=== PATIENT | female | born 1980 | race Caucasian/White ===

== ENCOUNTER → 2021-11-10 01:57 | Outpatient (CLI) | payer OTHER, SELFPAY ==
[2021-11-10 19:52] LABS: SARS-CoV-2 RNA PCR Negative
== END ==
PROVIDERS: PCP Family Medicine; Visit Provider Family Medicine
DX: R68.89 Other general symptoms and signs (principal); Z20.822 Contact with and (suspected) exposure to COVID-19
CPT/HCPCS: C9803; U0003; U0005

== ENCOUNTER 2022-03-26 10:23 | Emergency (ER) | payer OTHER, SELFPAY ==
[2022-03-26] VITALS (28 sets, daily range): BP systolic 109–131; BP diastolic 68–87; PULSE 90–110; RESP 10–20; O2SAT 98–100
--- NOTE | ~2022-03-26 | XR_ITS ---
EXAMINATION: XR chest 2V DATE: 03/26/2022 10:57 INDICATION: Left-sided chest pain TECHNIQUE: PA and lateral views of the chest were obtained. COMPARISON: Chest radiograph dated 05/20/2012 FINDINGS: The lungs remain clear with no focal airspace opacities, pulmonary edema, pleural effusion or pneumot horax. The cardiomediastinal silhouette is normal. Median sternotomy wires, mediastinal surgical clip s likely ostial markers consistent with prior coronary artery bypass grafting. Alternatively this cou ld also represent change of a prior aortic valve repair. There is an additional cardiac valve repair and favor tricuspid of the mitral. Retained cardiac pacemaker lead with 2-lead tips projecting over t he posterolateral wall of the left ventricle. Bones and soft tissues are unremarkable. IMPRESSION: 1. No acute cardiopulmonary disease. Reviewed, dictated and finalized at location B.
--- NOTE | ~2022-03-26 | CT_ITS ---
EXAMINATION: CTA chest PE protocol DATE: 03/26/2022 12:10 INDICATION: Left-sided chest pain. Elevated d-dimer. Shortness of breath. TECHNIQUE: Computed tomography (CT) pulmonary angiogram of the chest was performed with 100 mL Omnipa que-350 intravenous contrast. Additional 3D reconstructions utilizing coronal maximum intensity proje ction (MIP) were performed. Automated exposure control and iterative reconstruction technique were em ployed. The dose-length product was 210.82 mGy-cm. COMPARISON: 03/04/2010 FINDINGS: Excellent contrast opacification of the pulmonary arteries. There is mild streak artifact from dense contrast in the superior vena cava and right atrium. Mild scattered respiratory motion artifact which mildly decreases sensitivity in some of the smaller subsegmental pulmonary arteries. No pulmonary em bolism. 10 x 5 mm nodule at the lateral sulcus of the right lower lobe. No pneumonia, pulmonary edema , pleural effusion or pneumothorax. Heart size is normal. Postoperative change of prior median sterno kierra and both mitral and tricuspid valve repairs. There is a retained cardiac pacemaker lead which ex tends from the subcutaneous tissues in the left pectoral region with distal lead tips overlying the l ateral wall of the left ventricle. No pericardial effusion. Thoracic aorta is normal in caliber with no dissection. No pathologically enlarged thoracic lymphadenopathy. Likely benign 9 mm hypodense righ t thyroid nodule. Mild thoracic dextrocurvature. IMPRESSION: 1. No pulmonary embolism or other acute cardiopulmonary disease. 2. Indeterminate 10 x 5 mm right lower lobe nodule with more bandlike configuration when viewed on th e sagittal images and favor atelectasis/scarring. Consider 6-12 month follow-up low-dose noncontrast chest CT. Reviewed, dictated and finalized at location B. IMPRESSION: 1. No pulmonary embolism or other acute cardiopulmonary disease. 2. Indeterminate 10 x 5 mm right lower lobe nodule with more bandlike configura tion when viewed on the sagittal images and favor atelectasis/scarring. Conside r 6-12 month follow-up low-dose noncontrast chest CT.
--- NOTE | 2022-03-26 10:26 | ECG_ITS ---
Measurements Intervals [place] Rate: 108 P: 83 IA: 118 QRS: 55 QRSD: 85 T: 3 QT: 351 QTc: 471 Interpretive Statements SINUS TACHYCARDIA WITH SHORT IA INTERVAL BASELINE ARTIFACT POSSIBLE LEFT ATRIAL ENLARGEMENT [-0.1mV P WAVE IN V1/V2] POSSIBLE RIGHT VENTRICULAR CONDUCTION DELAY [RSR (QR) IN V1/V2] NONSPECIFIC ST & T-WAVE ABNORMALITY BORDERLINE ECG NO PREVIOUS ECG AVAILABLE FOR COMPARISON Electronically Signed On 03-26-2022 17:01:07 CDT by Austin Beckman M.D.
--- NOTE | 2022-03-26 10:41 | ED.CHESTPAIN ---
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 Patient states the pressure is positional and intermittent. Patient denies any associated shortness of breath. Patient states while the pain is reproducible with movement it is dissimilar than her substernal chest pain. Related Data Home Medications Medication Instructions Recorded Confirmed apixaban 5 mg tablet (Eliquis) mg 03/26/22 apixaban 5 mg tablet (Eliquis) tablet 03/26/22 aspirin 81 mg tablet mg PO 03/26/22 buprenorphine 2 mg-naloxone 0.5 mg film 03/26/22 sublingual film buprenorphine 2 mg-naloxone 0.5 mg film 03/26/22 sublingual film buprenorphine 4 mg-naloxone 1 mg film 03/26/22 sublingual film cyclobenzaprine 10 mg tablet tablet 03/26/22 duloxetine 60 mg capsule,delayed cap PO 03/26/22 release metoprolol succinate 25 mg tablet PO 03/26/22 tablet,extended release 24 hr pantoprazole 40 mg tablet,delayed tablet PO 03/26/22 release sennosides 8.6 mg tablet (senna) tablet 03/26/22 trazodone 50 mg tablet tablet 03/26/22 Allergies Allergy/AdvReac Type Severity Reaction Status Date / Time codeine Allergy Mild Hives / Verified 03/26/22 10:52 Red Face BEE POLLENS Allergy Mild Anaphylaxis Uncoded 03/26/22 10:52 Review of Systems Review of Systems: CONSTITUTIONAL: Denies fever, chills, or sweats. EYES: Denies visual changes, redness, or discharge. ENT: Denies rhinorrhea, congestion, sore throat, or otalgia. CARDIOVASCULAR: Left-sided chest wall pain RESPIRATORY: Denies cough or dyspnea. GASTROINTESTINAL: Denies abdominal pain, nausea, vomiting, or diarrhea. GENITOURINARY: Denies dysuria or hematuria. SKIN: Denies rash or itching. MUSCULOSKELETAL: Denies back pain, joint pain, or myalgia. NEUROLOGIC: Denies headache, numbness, or weakness. Exam Narrative: APPEARANCE: Well appearing, no pain, no distress, well-nourished. HEAD: normocephalic, atraumatic. EYES: PERRLA/EOMI, conjunctivae clear. THROAT: Pharynx clear, no exudate. NECK: Supple. No adenopathy, no masses. RESPIRATORY: Airway patent, respirations nonlabored. Clear to auscultation bilaterally, no rales, rhonchi, wheezing. CARDIOVASCULAR: Regular rate and rhythm without murmurs rubs or gallops. ABDOMINAL: Soft, nontender, nondistended, normal bowel sounds MUSCULOSKELETAL: Moves all extremities. Strength/ROM intact, No edema, No calf tenderness. Reproducible left-sided chest wall tenderness to palpation. NEURO: Alert. Cranial nerves II through XII intact. Grossly intact SKIN: Warm, dry. Normal Color. No evidence of erythema or cellulitis overlying the chest wall. No crepitus Course Course Emergency Course: D-dimer was elevated. CTA chest showed no acute abnormalities. Patient had serial troponins that were negative. Patient's left-sided chest pressure is reproducible to palpation. Patient was encouraged with close follow-up with her physicians. Vital Signs Vital signs: Vital Signs Pulse Rate 110 H 03/26/22 10:34 Respiratory Rate 15 03/26/22 10:34 Pulse Rate 93 03/26/22 16:11 Respiratory Rate 20 03/26/22 16:11 Blood Pressure 109/81 03/26/22 16:11 Pulse Oximetry 99 03/26/22 16:11 Oxygen Delivery Room Air 03/26/22 10:39 MDM - Chest Pain Lab Data Attestation: I reviewed the patient's lab results. Result diagrams: 03/26/22 10:37 03/26/22 10:37 Labs: Lab Results 03/26/22 03/26/22 03/26/22 Range/Units 10:36 10:37 10:37 WBC 5.7 (4.5-10.0) K/mm3 RBC 5.06 (4.2-5.4) M/mm3 Hgb 14.8 (12.0-15.0) g/dL Hct 43.6 (37.0-47.0) % MCV 86.2 (80-100) fl MCH 29.2 (26-34) pg MCHC 33.
[2022-03-26 10:53] LABS: Basophils Percent Auto 0.3 % (0.2-1.2); Eosinophils Absolute Auto 0.1 K/mm3 (0-0.3); Eosinophils Percent Auto 2.4 % (0-4.4); Hematocrit 43.6 % (37.0-47.0); Hemoglobin 14.8 g/dL (12.0-15.0); Immature Granulocyte Absolute 0.01 K/mm3 (0.00-0.031); Immature Granulocyte Percent A 0.2 % (0-0.5); Lymphocytes Absolute Auto 2.57 K/mm3 (0.9-3.2); Lymphocytes Percent Auto 44.9 % (18.3-44.2); Mean Corpuscular HGB Conc 33.9 g/dl (32-36); Mean Corpuscular Hemoglobin 29.2 pg (26-34); Mean Corpuscular Volume 86.2 fl (80-100); Mean Platelet Volume 8.8 fl (7.4-10.4); Monocytes Absolute Auto 0.5 K/mm3 (0.1-0.6); Monocytes Percent Auto 8.4 % (2.6-8.5); Neutrophils Absolute Auto 2.5 K/mm3 (1.3-6.7); Neutrophils Percent Auto 43.8 % (45.5-73.1); Platelet Count Result 196 k/mm3 (150-375); Red Blood Count 5.06 M/mm3 (4.2-5.4); Red Cell Distribution Width 12.1 % (11.5-14.5); White Blood Count 5.7 K/mm3 (4.5-10.0)
[2022-03-26 11:01] LABS: Alanine Aminotransferase 15 U/L (6-35); Albumin Level 4.4 g/dL (3.5-5.1); Alkaline Phosphatase 57 U/L (38-126); Anion Gap 8 mmol/L (8-16); Aspartate Amino Transferase 28 U/L (14-36); Bilirubin,Total 0.4 mg/dL (0.2-1.3); Blood Urea Nitrogen 17 mg/dL (7-17); Calcium 8.4 mg/dL (8.4-10.2); Carbon Dioxide 27 mmol/L (22-30); Chloride 102 mmol/L (98-107); Estimated CRCL calculation 82 ml/min; Estimated Glomerular Filt Rate > 60; Glucose 90 mg/dL (65-110); Potassium 3.6 mmol/L (3.4-5.0); Sodium 137 mmol/L (137-145)
[2022-03-26 11:10] LABS: Troponin I < 0.012 ng/mL (0.000-0.034)
[2022-03-26 11:15] LABS: D Dimer 0.78 ug/mL (<0.48)
[2022-03-26 14:14] LABS: Troponin I < 0.012 ng/mL (0.000-0.034)
== END 2022-03-26 16:12 | disposition home or self-care (01) ==
PROVIDERS: Emergency Provider Emergency Medicine; PCP Family Medicine
DX: R07.89 Other chest pain (principal); Z79.82 Long term (current) use of aspirin
CPT/HCPCS: 36415; 71046; 71275; 80053; 81025; 84484; 85025; 85380; 93005; 99284; Q9967

== ENCOUNTER 2022-07-13 18:03 | Emergency (ER) | payer OTHER, SELFPAY ==
[2022-07-13] VITALS (9 sets, daily range): BP systolic 96–109; BP diastolic 55–61; PULSE 70–87; RESP 12–20; TEMP 36.7; O2SAT 93–100
--- NOTE | ~2022-07-13 | XR_ITS ---
EXAM: XR hand LT 2V, XR forearm LT 2V DATE: 07/13/2022 18:55 HISTORY: fall, pain IN 2ND AND 3RD DIGIT . COMPARISON: 05/04/2010 and 05/01/2009. FINDINGS: Normal mineralization. No fracture or dislocation. No lytic or blastic lesion. Joint space s and physes are maintained. No erosion or periosteal change. Soft tissues within normal limits. Poss ible mild displacement of the anterior fat pad of the elbow. IMPRESSION: No acute osseous finding in the left forearm or wrist. Possible mild elbow joint effusion versus projectional artifact, if there is elbow joint pain, recommend dedicated elbow joint radiogra phs for further evaluation. Reviewed, dictated and finalized at location K. IMPRESSION: No acute osseous finding in the left forearm or wrist. Possible mil d elbow joint effusion versus projectional artifact, if there is elbow joint pa in, recommend dedicated elbow joint radiographs for further evaluation.
--- NOTE | ~2022-07-13 | XR_ITS ---
EXAM: XR shoulder LT min 2V DATE: 07/13/2022 18:55 HISTORY: fall, pain ALL AROUND WITH MOVEMENT . COMPARISON: 03/06/2009. FINDINGS: Intact sternotomy wires. Valve replacement. Ostial markers. Abandoned pacing wire. Normal m ineralization. No fracture or dislocation. No lytic or blastic lesion. Joint spaces are maintained. N o erosion or periosteal change. Soft tissues within normal limits. IMPRESSION: No acute osseous finding in the left shoulder. Reviewed, dictated and finalized at location K.
--- NOTE | 2022-07-13 20:37 | ED.GENADULT ---
HPI - General Adult General Chief complaint: Extremity Injury, Upper Stated complaint: LIGHTHEADED EPISODE,FELL L ARM INJURY Time Seen by Provider: 07/13/22 19:29 History of Present Illness HPI narrative: Patient is a 42-year-old female who presents ER with left upper extremity pain. 4 days ago patient got up from sitting and became lightheaded and had a brief episode of syncope. She did strike her head and her left shoulder. Patient is anticoagulated on blood thinner. She has had no headache or change in vision or hearing since the fall. She has had steady increase in her discomfort in her left shoulder posteriorly and worse with internal and external rotation as well as lifting her arm. No numbness or tingling extending down the arm. She has mild discomfort in her hand and wrist but range of motion remains intact. Patient contacted her physician today who recommended she be evaluated in the ER. Patient has history of multiple valve replacement due to endocarditis and her doctors instructed to be cautious when going from sitting to standing as it takes a bit for her body to stabilize itself. Related Data Home Medications Medication Instructions Recorded Confirmed apixaban 5 mg tablet (Eliquis) mg 03/26/22 apixaban 5 mg tablet (Eliquis) tablet 03/26/22 aspirin 81 mg tablet mg PO 03/26/22 buprenorphine 2 mg-naloxone 0.5 mg film 03/26/22 sublingual film buprenorphine 2 mg-naloxone 0.5 mg film 03/26/22 sublingual film buprenorphine 4 mg-naloxone 1 mg film 03/26/22 sublingual film cyclobenzaprine 10 mg tablet tablet 03/26/22 duloxetine 60 mg capsule,delayed cap PO 03/26/22 release metoprolol succinate 25 mg tablet PO 03/26/22 tablet,extended release 24 hr pantoprazole 40 mg tablet,delayed tablet PO 03/26/22 release sennosides 8.6 mg tablet (senna) tablet 03/26/22 trazodone 50 mg tablet tablet 03/26/22 Allergies Allergy/AdvReac Type Severity Reaction Status Date / Time codeine Allergy Mild Hives / Verified 07/13/22 19:50 Red Face BEE POLLENS Allergy Mild Anaphylaxis Uncoded 07/13/22 19:50 Review of Systems Review of Systems: All systems reviewed & are unremarkable except as noted in HPI and below Constitutional: Constitutional: Denies chills and Denies fever(s) ENT: Denies nasal congestion and Denies sore throat Cardiovascular: Cardiovascular: Reports chest pain, Denies rapid heart rate and Denies radiating jaw, neck or arm pain Respiratory: Respiratory: Denies cough and Denies dyspnea Musculoskeletal: Musculoskeletal: Reports arthralgias and Denies joint swelling Neurologic: Reports syncope, Denies headache(s), Denies focal weakness and Denies numbness PMFSH Past Medical History Medical History (Updated 07/13/22 @ 22:09 by Nathaniel Darling MD) Endocarditis Surgical History Surgical History (Updated 07/13/22 @ 21:13 by Nathaniel Darling MD) H/O mitral valve replacement H/O tricuspid valve replacement Social History Social History (Updated 07/13/22 @ 21:14 by Nathaniel Darling MD) Substance use type: former substance user Exam Narrative: GENERAL: Well-appearing, well-nourished, and in no acute distress. HEAD: Normocephalic, atraumatic. EYES: PERRL and EOMI. ENT: Mucous membranes moist. CHEST: Clear to auscultation. No respiratory distress. HEART: Regular rate and rhythm. Normal peripheral pulses. ABDOMEN: Soft, nontender, nondistended. EXTREMITIES: Normal range of motion. No edema. SKIN: Warm, dry, no rash. 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 NEURO: Alert and oriented x3. PSYCH: Normal mood and affect. Course Course Emergency Course: Patient resting comfortably. Labs and orthostatics unremarkable. Discharge home. Vital Signs Vital signs: Vital Signs Temperature 98.1 F 07/13/22 18:23 Pulse Rate 87 07/13/22 18:23 Respiratory Rate 20 07/13/22 18:23 Blood Pressure 98/59 L 07/13/22 18:23 Pulse Oximetry
[2022-07-13 21:56] LABS: Basophils Percent Auto 0.4 % (0.2-1.2); Eosinophils Absolute Auto 0.1 K/mm3 (0-0.3); Eosinophils Percent Auto 1.3 % (0-4.4); Hematocrit 42.8 % (37.0-47.0); Immature Granulocyte Absolute 0.01 K/mm3 (0.00-0.031); Immature Granulocyte Percent A 0.2 % (0-0.5); Lymphocytes Absolute Auto 1.58 K/mm3 (0.9-3.2); Lymphocytes Percent Auto 29.2 % (18.3-44.2); Mean Corpuscular HGB Conc 32.7 g/dl (32-36); Mean Corpuscular Volume 88.6 fl (80-100); Monocytes Absolute Auto 0.3 K/mm3 (0.1-0.6); Monocytes Percent Auto 6.1 % (2.6-8.5); Neutrophils Absolute Auto 3.4 K/mm3 (1.3-6.7); Neutrophils Percent Auto 62.8 % (45.5-73.1); Platelet Count Result 158 k/mm3 (150-375); Red Blood Count 4.83 M/mm3 (4.2-5.4); Red Cell Distribution Width 13.2 % (11.5-14.5); White Blood Count 5.4 K/mm3 (4.5-10.0)
[2022-07-13 22:05] LABS: Anion Gap 11 mmol/L (8-16); Blood Urea Nitrogen 17 mg/dL (7-17); Calcium 8.8 mg/dL (8.4-10.2); Carbon Dioxide 27 mmol/L (22-30); Chloride 100 mmol/L (98-107); Estimated CRCL calculation 80 ml/min; Estimated Glomerular Filt Rate > 60; Glucose 96 mg/dL (65-110); Potassium 3.5 mmol/L (3.4-5.0); Sodium 138 mmol/L (137-145)
== END 2022-07-13 22:30 | disposition home or self-care (01) ==
PROVIDERS: Emergency Provider Emergency Medicine; PCP Family Medicine
DX: M25.512 Pain in left shoulder (principal); R55 Syncope and collapse; Z95.2 Presence of prosthetic heart valve
CPT/HCPCS: 36415; 73030; 73090; 73120; 80048; 85025; 99284

== ENCOUNTER 2022-09-03 22:00 | Emergency (ER) | payer OTHER, SELFPAY ==
--- NOTE | ~2022-09-03 | XR_ITS ---
EXAMINATION: XR chest 1V portable INDICATION: Transient alteration of awareness TECHNIQUE: Portable AP chest at 0150 hours COMPARISON: 03/26/2022 FINDINGS: The lungs are free of acute opacities. No pleural effusion or pneumothorax. The heart size is normal. There are changes of cardiac valve repair. Pacemaker leads project over the heart. IMPRESSION: 1. No acute cardiopulmonary abnormality. Reviewed, dictated and finalized at location A. R
[2022-09-03 22:02] VITALS: BP 137/86; PULSE 106; RESP 20; TEMP 36.8; O2SAT 99
--- NOTE | 2022-09-03 22:08 | ECG_ITS ---
Measurements Intervals [place] Rate: 94 P: 84 ID: 107 QRS: 60 QRSD: 79 T: 50 QT: 347 QTc: 436 Interpretive Statements SINUS RHYTHM WITH SHORT ID INTERVAL POSSIBLE RIGHT ATRIAL ENLARGEMENT LEFT ATRIAL ENLARGEMENT BORDERLINE ST-T WAVE ABNORMALITY- ANT/INF LEADS BORDERLINE ECG COMPARED TO ECG 03/26/2022 10:32:20 SINUS RHYTHM NOW PRESENT Electronically Signed On 09-04-2022 6:44:33 [employer]GER [employer] by Krishna Lockett D.O.
[2022-09-03 23:54] VITALS: BP 109/73; PULSE 65; RESP 16; TEMP 36.9; O2SAT 100
[2022-09-04] VITALS (9 sets, daily range): BP systolic 99–115; BP diastolic 60–71; PULSE 72–80; RESP 11–18; O2SAT 99–100
--- NOTE | 2022-09-04 01:17 | ED.DIZZY ---
HPI - Dizziness General Chief Complaint: Syncope Stated Complaint: syncopal event at home Time Seen by Provider: 09/04/22 00:29 History of Present Illness HPI Narrative: 42-year-old female with history of endocarditis with a pacemaker and heart presenting the emergency department for evaluation after having a syncopal episode. Patient states she has had syncope previously and was told when she gets the symptoms she needs to lower herself down to the ground. When patient had onset of the symptoms she did attempt to lower herself to the ground but did wake up a few seconds later. Patient states she does have some sternal tenderness to palpation. Patient also reports that she has had some increased generalized fatigue as well. Patient had her pacemaker and heart valve placed at [facility] and patient follows up with Dr. Delgado. Related Data Home Medications Medication Instructions Recorded Confirmed apixaban 5 mg tablet (Eliquis) mg 03/26/22 apixaban 5 mg tablet (Eliquis) tablet 03/26/22 aspirin 81 mg tablet mg PO 03/26/22 buprenorphine 2 mg-naloxone 0.5 mg film 03/26/22 sublingual film buprenorphine 2 mg-naloxone 0.5 mg film 03/26/22 sublingual film buprenorphine 4 mg-naloxone 1 mg film 03/26/22 sublingual film cyclobenzaprine 10 mg tablet tablet 03/26/22 duloxetine 60 mg capsule,delayed cap PO 03/26/22 release metoprolol succinate 25 mg tablet PO 03/26/22 tablet,extended release 24 hr pantoprazole 40 mg tablet,delayed tablet PO 03/26/22 release sennosides 8.6 mg tablet (senna) tablet 03/26/22 trazodone 50 mg tablet tablet 03/26/22 Allergies Allergy/AdvReac Type Severity Reaction Status Date / Time codeine Allergy Mild Hives / Verified 09/03/22 22:09 Red Face BEE POLLENS Allergy Mild Anaphylaxis Uncoded 09/03/22 22:09 Review of Systems Review of Systems: CONSTITUTIONAL: Syncope, generalized tiredness EYES: Denies visual changes, redness, or discharge. ENT: Denies rhinorrhea, congestion, sore throat, or otalgia. CARDIOVASCULAR: Denies chest pain, palpitations, or edema. RESPIRATORY: Denies cough or dyspnea. GASTROINTESTINAL: Denies abdominal pain, nausea, vomiting, or diarrhea. GENITOURINARY: Denies dysuria or hematuria. SKIN: Denies rash or itching. MUSCULOSKELETAL: Denies back pain, joint pain, or myalgia. NEUROLOGIC: Denies headache, numbness, or weakness. [facility] Past Medical History Medical History (Updated 09/04/22 @ 03:49 by Gilbert Nguyen MD) Endocarditis Surgical History Surgical History (Updated 07/13/22 @ 21:13 by Nathaniel Darling MD) H/O mitral valve replacement H/O tricuspid valve replacement Social History Social History (Updated 07/13/22 @ 21:14 by Nathaniel Darling MD) Substance use type: former substance user Exam Narrative: APPEARANCE: Well appearing, no pain, no distress, well-nourished. HEAD: normocephalic, atraumatic. EYES: PERRLA/EOMI, conjunctivae clear. NOSE: Normal no drainage NECK: Supple. No adenopathy, no masses. RESPIRATORY: Airway patent, respirations nonlabored. Clear to auscultation bilaterally, no rales, rhonchi, wheezing. CARDIOVASCULAR: Regular rate and rhythm without murmurs rubs or gallops. ABDOMINAL: Soft, nontender, nondistended, normal bowel sounds MUSCULOSKELETAL: Moves all extremities. Strength/ROM intact, No edema, No calf tenderness. NEURO: Alert. Cranial nerves II through XII intact. Grossly intact SKIN: Warm, dry. Normal Color Course Course Emergency Course: Patient felt improved in the ED. Patient's labs are within normal limits. Patient was afebrile with no leukocytosis. Patient's electrolytes are within normal limits. Patient's COVID and flu were also negative. Chest x-ray showed no acute cardiopulmonary malady. Patient does have history of syncope this sounds similar to her previous episodes. Patient was requesting discharge to home. Patient was encouraged to increase her fluid intake and to
--- NOTE | 2022-09-04 01:54 | PC.NURSE ---
Called main lab at 01:53 to let them know I JIC'ed two tubes with demo labels because patient was a very hard stick.
[2022-09-04 01:57] LABS: Basophils Percent Auto 0.1 % (0.2-1.2); Eosinophils Percent Auto 0.1 % (0-4.4); Hematocrit 41.3 % (37.0-47.0); Hemoglobin 13.7 g/dL (12.0-15.0); Immature Granulocyte Absolute 0.01 K/mm3 (0.00-0.031); Immature Granulocyte Percent A 0.1 % (0-0.5); Lymphocytes Absolute Auto 1.58 K/mm3 (0.9-3.2); Lymphocytes Percent Auto 22.4 % (18.3-44.2); Mean Corpuscular HGB Conc 33.2 g/dl (32-36); Mean Corpuscular Hemoglobin 29.3 pg (26-34); Mean Corpuscular Volume 88.2 fl (80-100); Mean Platelet Volume 8.8 fl (7.4-10.4); Monocytes Absolute Auto 0.6 K/mm3 (0.1-0.6); Monocytes Percent Auto 7.8 % (2.6-8.5); Neutrophils Absolute Auto 4.9 K/mm3 (1.3-6.7); Neutrophils Percent Auto 69.5 % (45.5-73.1); Platelet Count Result 188 k/mm3 (150-375); Red Blood Count 4.68 M/mm3 (4.2-5.4); Red Cell Distribution Width 13.3 % (11.5-14.5); White Blood Count 7.1 K/mm3 (4.5-10.0)
[2022-09-04 02:10] LABS: Alanine Aminotransferase 14 U/L (6-35); Albumin Level 4.1 g/dL (3.5-5.1); Alkaline Phosphatase 51 U/L (38-126); Anion Gap 4 mmol/L (8-16); Aspartate Amino Transferase 17 U/L (14-36); Bilirubin,Total 0.7 mg/dL (0.2-1.3); Blood Urea Nitrogen 17 mg/dL (7-17); Calcium 8.4 mg/dL (8.4-10.2); Carbon Dioxide 30 mmol/L (22-30); Chloride 101 mmol/L (98-107); Estimated CRCL calculation 83 ml/min; Estimated Glomerular Filt Rate > 60; Glucose 92 mg/dL (65-110); Potassium 3.8 mmol/L (3.4-5.0); Sodium 135 mmol/L (137-145)
[2022-09-04 02:55] LABS: Influenza A QL RT-PCR Negative (Negative); Influenza B QL RT-PCR Negative (Negative); SARS-CoV-2 RNA PCR Negative
== END 2022-09-04 04:18 | disposition home or self-care (01) ==
PROVIDERS: Emergency Provider Emergency Medicine; PCP Family Medicine
DX: R55 Syncope and collapse (principal); I38 Endocarditis, valve unspecified; Z95.0 Presence of cardiac pacemaker; Z95.2 Presence of prosthetic heart valve; R94.31 Abnormal electrocardiogram [ECG] [EKG]
CPT/HCPCS: 36415; 71045; 80053; 85025; 87636; 93005; 99284

== ENCOUNTER 2023-07-01 09:42 | Emergency (ER) | payer OTHER, SELFPAY ==
[2023-07-01 09:54] VITALS: BP 107/56; PULSE 83; RESP 16; TEMP 36.9; O2SAT 100
--- NOTE | 2023-07-01 10:00 | ED.URI ---
HPI - URI/Sore Throat General Chief Complaint: Upper Respiratory Infection Stated Complaint: Sore Throat, Body Ache, LT Ear Irritation Time Seen by Provider: 07/01/23 10:04 Source: patient, RN notes reviewed and old records reviewed Mode of arrival: ambulatory Limitations: no limitations History of Present Illness HPI Narrative: 43-year-old female presents to the [facility] with complaints of sore throat, body aches, left ear pain since Tuesday. Has taken Tylenol. Reports boyfriend tested positive for COVID recently. Treatments prior to arrival: acetaminophen Related Data Home Medications Medication Instructions Recorded Confirmed apixaban 5 mg tablet (Eliquis) 5 mg PO DAILY 03/26/22 07/01/23 aspirin 81 mg tablet 81 mg PO DAILY 03/26/22 07/01/23 buprenorphine 2 mg-naloxone 0.5 mg 0.5 film sublingual DAILY 03/26/22 07/01/23 sublingual film cyclobenzaprine 10 mg tablet 10 mg PO PRN PRN Muscle Spasm 03/26/22 07/01/23 duloxetine 60 mg capsule,delayed 1 cap PO DAILY 03/26/22 07/01/23 release metoprolol succinate 25 mg 1 tablet PO DAILY 03/26/22 07/01/23 tablet,extended release 24 hr pantoprazole 40 mg tablet,delayed 1 tablet PO DAILY 03/26/22 07/01/23 release sennosides 8.6 mg tablet (senna) 1 tablet PO DAILY 03/26/22 07/01/23 trazodone 50 mg tablet 1 tablet PO HS 03/26/22 07/01/23 levonorgestrel 21 mcg/24 hours (8 See Rx Instructions .Route .COMPLEX 07/01/23 07/01/23 yrs) 52 mg intrauterine device (Mirena) Allergies Allergy/AdvReac Type Severity Reaction Status Date / Time codeine AdvReac Mild Hives / Verified 07/01/23 09:51 Red Face BEE POLLENS AdvReac Mild Anaphylaxis Uncoded 07/01/23 09:51 Review of Systems Review of Systems: All systems reviewed & are unremarkable except as noted in HPI and below Constitutional: Constitutional: Reports as per HPI and Reports body ache(s) Eyes: Eyes: Reports no additional eye complaints ENT: Reports as per HPI Cardiovascular: Cardiovascular: Reports no additional cardiovascular complaints, Denies chest pain and Denies dyspnea Respiratory: Respiratory: Reports no additional respiratory complaints, Denies chest congestion, Denies cough and Denies dyspnea Gastrointestinal: Gastrointestinal: Reports no additional gastrointestinal complaints, Denies abdominal pain, Denies nausea and Denies vomiting Musculoskeletal: Musculoskeletal: Reports no additional musculoskeletal complaints Integumentary/Breasts: Skin/Breast: Reports system reviewed and no additional complaints, except as docu Neurologic: Reports system reviewed and no additional complaints, except as documented Psychiatric: Psychiatric: Reports no additional psychiatric complaints Allergic/Immunologic: Allergic/Immunologic: Reports no additional allergic/immunologic complaints PMFSH Past Medical History Medical History Endocarditis Surgical History Surgical History H/O mitral valve replacement H/O tricuspid valve replacement Social History Social History Substance use type: former substance user Comments At the time of my signature, I reviewed and agree with the nursing past medical, surgical, social, and family history. There is no relevant family history pertinent to the patient complaint. Exam Const: General: cooperative, healthy appearing, comfortable, no acute distress, well developed, alert and well nourished Nutritional Appearance: well nourished Orientation/consciousness: patient oriented x3 Limitations: no limitations HENMT: Head: normal to inspection Ears: hearing grossly normal bilaterally, external ears normal, TM's normal bilaterally, EAC's normal and mastoids normal Face/Nose/Sinus: Normal external nose present, Normal nares present, Normal nasal mucous membranes and turbinates present and normal facial exam F
== END 2023-07-01 10:38 | disposition home or self-care (01) ==
PROVIDERS: Emergency Provider Nurse Practitioner; PCP Family Medicine
DX: J06.9 Acute upper respiratory infection, unspecified (principal); Z20.822 Contact with and (suspected) exposure to COVID-19; Z95.2 Presence of prosthetic heart valve; Z79.82 Long term (current) use of aspirin
CPT/HCPCS: 87426; 87804; 99213; C9803; G0463

== ENCOUNTER 2025-01-07 15:49 | Emergency (ER) | payer OTHER, SELFPAY ==
[2025-01-07 16:24] VITALS: BP 120/88; PULSE 101; RESP 17; TEMP 36.5; O2SAT 100
--- OUTSIDE RECORDS SUMMARY | 2025-01-07 18:25 | XMS_ITS | Encounter Summary ---
Author Organization [facility] Healthcare Address [address] [place] [address] Care Team Providers Care Cancer Registry Manager Name Role Phone Kenzie Solomon MD Primary Care Provider + Tamara Tran MD Unavailable [phone] Encounter Details Date Type Department Care Team (Late st Contact Info) Description 07/21/2021 Documentation [facility] [place] [address] Claudine Mcghee, [address] [address] Social History Tobacco Use Types Packs/Day Years Used Date Smoking Tobacco: Never Assessed AUDIT-C Answer Date Recorded Q1: How often do you have a drink containing alc ohol? Never 07/21/2021 Average Number of Drinks Not on file 021 Frequency of Binge Drinking Not on file 06/25 Comments No Sex and Gender Information Value Date Recorded Sex Assigned at Not on file Legal Sex Female 1:12 AM [employer] Gender Identity Not on file Sexual Orientation Not on file documented as of this encounter Functional Status documented as of this encounter Plan of Treatment Not on file documented as of this encounter Visit Diagnoses Not on filedocumented in this encounter Care Teams Cancer Registry Manager Relationship Specialty Start Date End Date Kenzie Solomon MD [address] [place] [address] [id number] PCP - General Family Medicine 10/24/20 Tamara Tran MD [address] [address] 10/24/20 documented as of this encounter
--- OUTSIDE RECORDS SUMMARY | 2025-01-07 18:25 | XMS_ITS | Referral Summary ---
Author Organization [facility] Address [address] [place] [address] Care Team Providers Care Senior Net Application Developer Name Role Phone Kenzie Solomon MD Primary Care Provider + Tamara Tran MD Unavailable [phone] Allergies Active Allergy Reactions Criticality Noted Date Comments Venom-Honey Bee Swelling Medium 06/30/2022 Last more than 24hours Codeine Itching Low 07/20/2021 Medications aluminum-magnes ium hydroxide-simet hicone (MAALOX) suspension 200-200-20 mg/5 mL Take 30 mL by mouth every 4 (four) hours as needed for indigestion 1 Active aspirin 81 mg enteric coated tablet Take 1 tablet (81 mg total) by mouth daily 30 tablet [address] (CYMBALTA) 30 mg capsule Take 1 capsule (30 mg total) by mouth nightly 30 capsule 11 1 Active magnesium hydroxide (MILK OF MAGNESIA) suspension 400 mg/5 mL Take 30 mL by mouth daily as needed (constipation) 1 Active metoprolol XL (TOPROL-XL) 25 mg extended release tablet Take 0.5 tablets (12.5 mg total) by mouth daily 15 tablet 11 1 Active polysaccharide iron complex (NU-IRON) 150 mg iron capsuleIndicati ons:Iron Deficiency Anemia Take 1 capsule (150 mg total) by mouth 2 (two) times a day 1 Active warfarin (COUMADIN) 4 mg tabletIndicatio ns:Other (complete free text reason below),bioprost hestic MVR and TV repair Take 1 tablet (4 mg total) by mouth daily Goal 2-3 1 Active naloxone (NARCAN) 4 mg/actuation spray,non-aeros ol Administer 1 spray into affected nostril(s) as needed for opioid reversal Call 911. Administer a single spray in one nostril. Repeat every 3 minutes as needed if no or minimal response. 1 each 2 Active Eliquis 5 mg tablet Take 1 tablet (5 mg total) by mouth 2 (two) times a day 2 Active buprenorphine-n aloxone (SUBOXONE) 4-1 mg per film 1 film under the tongue and allow to dissolve 2 Active cyclobenzaprine (FLEXERIL) 10 mg tablet TAKE 1 TABLET BY MOUTH THREE TIMES DAILY EVERY 8 HOURS NEEDED 2 Active nicotine polacrilex (NICORETTE) 4 mg gum [address] (PROTONIX) 40 mg EC tablet Take 1 tablet (40 mg total) by mouth daily [address] (CYMBALTA) 60 mg capsule Take by mouth daily 2 Active lamoTRIgine (LaMICtal) 25 mg tablet 4 Active traZODone (DESYREL) 100 mg tablet 4 Active Active Problems Problem Noted Date Diagnosed Date Syncope due to orthostatic hypotension 4 Family history of blood coagulation disorder Anemia, normocytic normochromic 07/29/2021 Valvular vegetation 07/21/2021 Endocarditis 07/21/2021 Septic embolism 07/21/2021 Bacteremia due to methicilli n susceptible Staphylococcus aureus (MSSA) 07/21/2021 IV drug user 07/21/2021 Acute kidney injury 07/21/2021 Moderate malnutrition 07/21/2021 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 Moderate malnutrition 07/17/2021 Sepsis 07/14/2021 Bacteremia Septic embolism Thrombocytopenia Sinus tachycardia S/P MVR (mitral valve replacement) S/P TVR (tricuspid valve repair) Mitral valve insufficiency NSVT (nonsustained ventricular tachycardia) Resolved Problems Problem Noted Date Diagnosed Date Resolved Date Cardiac pacemaker 12/15/2023 03/15/2024 Immunizations Immunization Administration Dates Next Due Influenza, Quadrivalent, Spl it, Preservative Free, Intramuscular 10/10/2015 Pfizer SARS-CoV-2 Monovalent Vaccination (12+ Yrs) PURPLE 08/17/2021 Social History Tobacco Use Types Packs/Day Years Used Date Smoking Tobacco: Former Cigarettes Smokeless Tobacco: Never AUDIT-C Answer Date Recorded Q1: How often do you have a drink containing alc ohol? Never 07/21/2021 Average Number of Drinks Not on file 021 Frequency of Binge Drinking Not on file 06/25 Comments No Sex and Gender Information Value Date Recorded Sex Assigned at Not on file Legal Sex Female 1:12 AM [employer] Gender Identity Not on file Sexual Orientation Not on file Last Filed Vital Signs Vital Sign Reading Time Taken Comments Blood Pressure 110/70 03/15/2024 1:15 PM CDT Pulse 97 03/15/2024 1:15 PM CDT Temperature 36.8 C (98.2 F) 06/30/2022 2:41 PM CDT Respiratory Rate 16 06/30/2022 2:41 PM CDT Oxygen Saturation 97% 03/15/2024 1:15 PM CDT Inhaled Oxygen Concentration - - Weight 69.7 kg (153 lb 9.6 oz) 03/15/2024 1:15 P M CDT Height 182.9 cm (6') 06/30/2022 2:41 PM CDT Body Mass Index 20.83 06/30/2022 2:41 PM CDT Plan of Treatment Not on file Medical Devices Implanted Type Area Cardiac Cath Rn Device Identifier Shelf Expiration Date Model / Serial / Lot [employer] 15108-29 Perclose 6fr Suture Mediate Knot Push Vascular Device Closure - [id number] Implanted:Qty: 1 on 08/07/2021 by Rg Resendiz MD at [facility] [employer] [id number] / / Med[employer]onic Card Vasc Surgery [id number] Mosaic Cinch 29mm 38mm 26mm 20.5mm 15.5mm Biological Stent - [id number] - [id number] Implanted:Qty: 1 on 08/10/2021 by DailyRavinder MD at [facility] N/A: Heart [employer] [id number] 04/01/2026 [id number] / [id number] / Description:MITRAL VALVE-TIS KEDAR [employer] [id number] Huang Mc3 32mm 1 Seam 2 Wrap Anatomic Tricuspid Ring - [id number] - [id number] Implanted:Qty: 1 on 08/10/2021 by Daily, Ravinder Car MD at [facility] N/A: Heart [employer] [id number] 10/31/2022 [id number] / [id number] / Description:TRICUSPID RING Medtronic Cardiac Rhythm Mgmt 4968-35 Capsure Epi 8fr 35cm Is-1 Bipolar Suture Fixation Epicardium - [id number] - [id number] Implanted:Qty: 1 on 08/10/2021 by DailyRavinder MD at [facility] N/A: Heart [employer] [id number] 05/07/2022 4968-35 / [id number] / Procedures Procedure Name Priority Date/Time Associated Diagnosis Comments HEPATITIS PANEL, ACUTE Routine 07/15/2021 11:48 AM CDT from Last 3 Months or Most Recently Relevant to Health Maintenance Results * Hepatitis panel, acute (07/15/2021 11:48 AM CDT) Hep A IgM Nonreactive Nonreactive EVIE Comment: Interpretive Data: If Hep A IgM Ab is reported as Equivocal, a new sample should be drawn in two weeks for testing. Current interpretive data was last revised on 20. Hep B core IgM Nonreactive Nonreactive EVIE Comment: Interpretive Data If HepB Core IgM Ab is reported as Equivocal, a new sample should be drawn in two weeks for testing. Current interpretive data was last revised on 20. Hep C Ab Nonreactive Nonreactive EVIE Comment: Interpretive Data Nonreactive: Antibodies to HCV not detected. Does NOT exclude the possibility of recent exposure to HCV. Equivocal: Equivocal for HCV antibodies. Supplemental molecular testing will be automatically performed to determine infection status in accordance with current CDC screening recommendations. Reactive: Positive for HCV antibodies. This may represent current or past HCV infection. Supplemental molecular testing will be automatically performed to determine current infection status in accordance with current CDC screening recommendations. Interpretive data was last revised on 2020. HepBsAg Nonreactive Nonreactive EVIE JACOBSON Blood 07/15/2021 11:4 8 AM CDT 07/15/2021 11:55 AM CDT us Kedar Zamorano MD LAB MICROBIOLOGY - GENERAL O RDERABLES Final Result EVIE JACOBSON [address] [facility] Department [place] [address] from Last 3 Months or Most Recently Relevant to Health Maintenance [place] [address] [place] [address] Advance Directives For more information, please contact: [phone] * Full Code (Latest Code Status on File) Date Activated Date Inactivated Comments 08/10/2021 2:30 PM 08/24/2021 10:52 PM * Full Code Date Activated Date Inactivated Comments 07/21/2021 10:29 PM 08/10/2021 2:30 PM * LIMITED - No CPR Date Activated Date Inactivated Comments 07/15/2021 2:54 PM 07/21/2021 12:41 PM Question Answer Comments Provide aggressive medical m anagement before a full cardiopulmonary arrest occurs. Use antibiotics, IV Fluids, and medical treatment unless specifically selected below: No intubation Care Teams Senior Net Application Developer Relationship Specialty Start Date End Date Kenzie Solomon MD [address] [place] [id number] PCP - General Family Medicine 10/24/20 Tamara Tran MD [address] [address] 10/24/20
--- OUTSIDE RECORDS SUMMARY | 2025-01-07 18:25 | XMS_ITS ---
Author Organization [facility] Address [address] [place] [address] Care Team Providers Care Driller Multiple Spindle Name Role Phone Blake Kumar Primary Care Provider [phone] Maria Ines Keller Unavailable [phone] Allergies Allergen (clinical drug ingredient) Drug/Non Drug Allergy documented on EMR Reaction Allergy Type Onset Date Status adhesive (uncoded) Unknown Allergy A ctive codeine codeine (uncoded) Unknown Allergy Ac tive Results Component Value Reference Range Notes 12 Panel Urine Drug Screen Reviewed date:12/19/2024 02:11:38 PM Interpretation: Performing Lab: Notes/Report: THC neg NILE neg MOP (OPI) neg AMP neg MET neg BAR neg BZO neg MDMA neg MTD neg OXY neg PCP neg BUP POS REASON FOR VISIT 4 week f/u, sublocade Medications Medication SIG (Take, Route, Frequency, Duration) Notes Start Date End Date Status Aspirin 81 MG 1 tablet Orally Once a day for 30 day(s) Active Pantoprazole Sodium 40 MG 1 tablet Orall y Once a day for 30 day(s) Active Docusate Sodium 100 MG 1 capsule as need ed Orally Once a day for 30 day(s) Active traZODone HCl 100 MG TAKE 1 TABLET BY [facility] AT BEDTIME for 30 Active Cymbalta 60 MG 1 capsule (for a tot al of 90mg) Orally Once a day for 30 days 03/12/2024 Active Buprenorphine HCl-Naloxone HCl 4-1 MG 1 film under the tongue and allow to dissolve Sublingual once a day as needed 12/19/2024 Active Sublocade 300 MG/1.5ML 300 mg Subcutaneo us every 28 days 11/14/2024 Active Eliquis 5 MG as directed Orally t wice a day Active Arthritis Pain Relief 650 MG 2 tablets as needed Orally every 8 hrs Active lamoTRIgine 25 MG Take 1 tablet PO onc e daily for 2 weeks, then increase to 2 tablets once daily for 2 weeks (DC if rash) Orally for 30 days 03/12/2024 Active Social History Tobacco Use: Social History Observation Description Date Details (start date - stop date) Current Smoker NA - NA Sex Assigned At : Social History Observation Description Sex Assigned At Female Tobacco Control (Standard) Question Answer Notes Tobacco use: Current every day smoker Additional Findings: Tobacco user e-cigarette Vital Signs Weight 158.2 lbs 12/19/2024 Height 72 in 12/19/2024 BMI 21.45 kg/m2 12/19/2024 Blood pressure systolic 110 mm Hg 12/19/19 25 Blood pressure diastolic 78 mm Hg 025 Heart Rate 98 /min 12/19/2024 Oximetry 99 % 12/19/2024 Temperature 98.6 degrees Fahrenheit 12/19/19 25 Respiratory Rate 16 /min 12/19/2024 Encounters Encounter Location Date Provider Diagnosis [address] [place] [address] 12/19/2024 Maria Ines Keller Opioid use disorder F11.99 and Nicotine dependence, unspecified, uncomplicated F17.200 Assessments Encounter Date Diagnosis (ICD Code) Assessment Notes Treatment Notes Treatment Clinical Notes Section Notes 12/19/2024 Opioid use disorder (ICD-10 - F11.99) 12/19/2024 Nicotine dependence, unspecified, uncomplicated (ICD-10 - F17.200) 12/19/2024 Other Discussed medication side effects, adverse effects, risks, benefits, as well as interactions. Encouraged non-use of opioids. Has naloxone. Recommended participation in recovery groups/counseling services. Agrees to contact office with questions or concerns. Plan Of Treatment Medication Medication Name Sig Start Date Stop Date Notes Buprenorphine HCl-Naloxone H Cl 4-1 MG 1 film under the tongue and allow to dissolve Sublingual once a day as needed 12/19/2024 Sublocade 300 MG/1.5ML 300 mg Subcutaneo us every 28 days 11/14/2024 Treatment Notes Assessment Notes Other Discussed medication side effects, adverse effects, risks, benefits, as well as interactions. Encouraged non-use of opioids. Has naloxone. Recommended participation in recovery groups/counseling services. Agrees to contact office with questions or concerns. Next Appt Details Follow Up: 4 Weeks, Reason: MAR f/u Provider Name:Maria Ines thomas, 01/16/2025 08:00:00 AM, [address], [place], [address], Medications Administered Medication Instructions Date of Administration Dosage Notes Sublocade 12/19/2024 300 mg Teresa Bee 12/19/2024 09:00 AM [employer] >Given RUQ Subq, tolerated well. [facility]# [id number]. Progress Notes * Charmaine AYONDOB:1979 (44 yo F)Acc No.[id number]:12/19/2024 Patient: Jorge Luis LOMBARDICharmaine WYATT Provider: Rabia Keller, MSN, BUTCHER APPRENTICE, DEDICATED OWNER OPERATOR-C :1980 A ge:44 Y S ex:Female Date:12/19/2024 Address:[address] [place], [place] [id number] Pcp:Blake Kumar Check In:08:09 AM [employer] Subjective: * Chief Complaints: * 4 week f/u, sublocade * HPI: I nterim History: Emergency room visit N o. Was hospitalized N o. D epression Screening: PHQ-9 L ittle interest or pleasure in doing things?Not at all F eeling down, depressed, or hopeless N ot at all T rouble falling or staying asleep, or sleeping too much N ot at all F eeling tired or having little energy N ot at all P oor appetite or overeating S everal days F eeling bad about yourself or that you are a failure, or have let yourself or your family down N ot at all T rouble concentrating on things, such as reading the newspaper or watching television N ot at all M oving or speaking so slowly that other people could have noticed; or the opposite, being so fidgety or restless that you have been moving around a lot more than usual N ot at all T houghts that you would be better off or of hurting yourself in some way N ot at all T otal Score 1 I nterpretation M inimal Depression P reventative Health and Wellness follow-up: Action Plans for Clinical Quality Measures: B reast Cancer Screening: D iscussed need for breast cancer screening. Patient declined. C ervical Cancer Screening: D iscussed need for cervical cancer screening. Referred to [facility] for same day scheduling. T obacco Screening and Cessation: O ther (see notes). . C SSRS Interpretation and Follow Up Plan: CSSRS Interpretation and Follow Up Plan C SSRS Screen documented using SF Y es R isk Disposition from SF L ow - No Follow Up Plan Required F ollow Up Plan N o Follow Up Plan required at this time. S creening: [place] Suicide Severity Rating Scale (LF) D o you want to initiate with S creener form 1 . Wish to be : Have you wished you were or wished you could go to sleep and not wake up? N o 2 . Suicidal Thoughts: Have you actually had any thoughts of killing yourself? N o 6 . Suicide Behavior Question: Have you ever done anything,started to do anything, or prepared to end your life? N o I nterpretation: L ow Risk M AR follow-up: Charmaine presents with her significant other for treatment of OUD. Last Sublocade 300mg injection received on 11/14/2024, reports working well. Has been taking oral buprenorphine towards end of the month for cravings as needed. Reports no setbacks. Medication Monitoring and Risk Mitigation U p-to-date on ASAM recommended lab testing??Yes P rescribed a buprenorphine product? Y es H as patient had a buprenorphine and metabolite lab ordered/collected? N o P rescription Drug Monitoring Program Review?Yes. No concerns at this time. P henna to address any concerns identified: N o concerns identified. Will continue treatment plan as is. Cravings, Setbacks, Substance use, and Stressors C ravings since last visit: N o. Patient denies cravings since last visit. S etbacks since last visit? N o, patient denies setbacks since last visit. M isuse of substances since last visit: N o, patient denies. S tressors N o, patient denies stressors at this time. Withdrawal and Intoxication Symptoms I ntoxication Symptoms: N o signs of intoxication are present during visit. W ithdrawal Symptoms: N o withdrawal signs are present during visit. Mental Health, Support System, and Social Determinants M ental Health Status S table. S upport Systems Include: P ersonal support system (see notes). C ourt System Involvement? N o H ousing Stability: S table and safe housing. C urrently employed? U nemployed. R eferrals needed: N o referrals needed at this time. Recommended Wellness and Prevention Follow-up R ecommended Wellness and Prevention reviewed:?Yes. No additional orders/actions needed at this time. Other concerns: O ther Concerns? N o. N arcan need N o. Patient already has Narcan. * ROS: B asic ROS: Denies C hills. D enies S weats. D enies C onstipation. D enies S uicidal Thoughts. * Medical History: * Surgical History: O pen heart surgery 08/13cesarean section 2006 * Hospitalization/Major Diagno stic Procedure: c [facility] heart surgery 2020 * Family History: F ather: alive, GlaucomaHeart attacksRA. M other: alive, BipolarThyroid, diagnosed with Bipolar disorder, unspecified. S iblings: alive, Bipolar. 1 sister(s) - healthy. 1 son(s) , 1 daughter(s) - healthy. . sister --Bipolar. * Social History: P rimary Social History: L iving Arrangement L iving Arrangement: I ndependent Living living with --Yusuf I s this a supportive environment? Y es Alcohol Use A lcohol Use Frequency: N ever Illicit Substance Usage I llicit Substance Usage: N o hx of ROSA M, 1 yr 8 MO clean Employment Status E mployment Status: U nemployed Full-time student T obacco Use: T obacco Control (Standard) T obacco use: C urrent every day smoker A dditional Findings: Tobacco user e -cigarette M iscellaneous: M ethod of learning P referred method of learning: R eading * Medications: T akingSublocade 300 MG/1.5ML Solution Prefilled Syringe 300 mg Subcutaneous every 28 days Buprenorphine HCl-Naloxone HCl 4-1 MG Film 1 film under the tongue and allow to dissolve Sublingual once a day as needed Pantoprazole Sodium 40 MG Tablet Delayed Release 1 tablet Orally Once a day Aspirin 81 MG Tablet Delayed Release 1 tablet Orally Once a day Arthritis Pain Relief 650 MG Tablet Extended Release 2 tablets as needed Orally every 8 hrs Eliquis 5 MG Tablet as directed Orally twice a day lamoTRIgine 25 MG Tablet Take 1 tablet PO once daily for 2 weeks, then increase to 2 tablets once daily for 2 weeks (DC if rash) Orally Cymbalta 60 MG Capsule Delayed Release Particles 1 capsule (for a total of 90mg) Orally Once a day traZODone HCl 100 MG Tablet TAKE 1 TABLET BY MOUTH AT BEDTIME Docusate Sodium 100 MG Capsule 1 capsule as needed Orally Once a day Medication List reviewed and reconciled with the patientTaking Sublocade 300 MG/1.5ML Solution Prefilled Syringe 300 mg Subcutaneous every 28 days Taking Buprenorphine HCl-Naloxone HCl 4-1 MG Film 1 film under the tongue and allow to dissolve Sublingual once a day as needed Taking Pantoprazole Sodium 40 MG Tablet Delayed Release 1 tablet Orally Once a day Taking Aspirin 81 MG Tablet Delayed Release 1 tablet Orally Once a day Taking Arthritis Pain Relief 650 MG Tablet Extended Release 2 tablets as needed Orally every 8 hrs Taking Eliquis 5 MG Tablet as directed Orally twice a day Taking lamoTRIgine 25 MG Tablet Take 1 tablet PO once daily for 2 weeks, then increase to 2 tablets once daily for 2 weeks (DC if rash) Orally Taking Cymbalta 60 MG Capsule Delayed Release Particles 1 capsule (for a total of 90mg) Orally Once a day Taking traZODone HCl 100 MG Tablet TAKE 1 TABLET BY MOUTH AT BEDTIME Taking Docusate Sodium 100 MG Capsule 1 capsule as needed Orally Once a day Medication List reviewed and reconciled with the patient * Allergies: morgan ugalde[Allergies Verified] Objective: * Vitals: I nitials: LL, Wt:158.2, Ht: 72, BMI:21.45, BP:110/78, HR:98, Oxygen sat %:99, Temp:98.6, RR:16, LMP: IUD, Pain scale:0. * Examination: G eneral Examination: GENERAL APPEARANCE: p leasant, in no acute distress. PSYCH: s peech clear, alert, oriented x4, good eye contact, full range of affect/positive mood, judgement and insight good, thought process logical, goal directed. Assessment: * Assessment: 1. O pioid use disorder - F11.99 (Primary) 2 . N icotine dependence, unspecified, uncomplicated - F17.200 Plan: * Treatment: Value Reference Range T HC neg * C OC neg * M OP (OPI) neg * A MP neg * M ET neg * B AR neg * B ZO neg * M DMA neg * M TD neg * O XY neg * P CP neg * B UP POS * Martine Smith 12/19/2024 0 8:45:44 AM [employer] > Specimen collected per [facility] specificationsThis lab was reviewed by Martine Smith on 12/19/2024 at 14:11 PM [employer] 2.?Others? Notes: Discussed medication side effects, adverse effects, risks, benefits, as well as interactions. Encouraged non-use of opioids. Has naloxone. Recommended participation in recovery groups/counseling services. Agrees to contact office with questions or concerns.?? * Recommended Wellness and Pre vention Guidelines: * S tatus A lert L ast Done N ext Due A ction Taken N ONCOMPLIANT B reast cancer screening - 0 12/19/2024 - N ONCOMPLIANT C ervical cancer screening - 0 12/19/2024 - * Therapeutic Injections: Sublocade : 300 mg (Dose No:1) (Route: Subcutaneous) given by TITO Lindquist on left upper quadrant (Opioid use disorder) * Procedure Codes: 9 9000 SPECIMEN [id number] BEHAV CHNG SMOKING 3-10 [id number] THER/PROPH/DIAG INJ, SC/IM * Preventive Medicine: Counseling: S MOKING: Patient counselled on the dangers of tobacco use and urged to quit. . * Follow Up: 4 Weeks (Reason: DEC f/u) * Care Plan Details* * [employer] Sign off status: Completed true * Provider: Rabia Keller, MSN, BUTCHER APPRENTICE, DEDICATED OWNER OPERATOR-C Date: 0 12/19/2024 Generated for Ravi harris/Jose/eTransmitting on: 0 01/07/2025 06:25 PM CDT History and Physical Notes * HPI (History of Present Illness) Category Sub-Category Detail Notes Category Not es Interim History Was hospitalized No Emergency room visit No Depression Screening PHQ-9 Little inte rest or pleasure in doing things: Not at all Feeling down, depressed, or hopeless: No t at all Trouble falling or staying asleep, or sl eeping too much: Not at all Feeling tired or having little energy: N ot at all Poor appetite or overeating: Several day s Feeling bad about yourself o r that you are a failure, or have let yourself or your family down: Not at all Trouble concentrating on thi ngs, such as reading the newspaper or watching television: Not at all Moving or speaking so slowly that other people could have noticed; or the opposite, being so fidgety or restless that you have been moving around a lot more than usual: Not at all Thoughts that you would be b doris off or of hurting yourself in some way: Not at all Total Score: 1 Interpretation: Minimal Depression Screening [place] Suicide Sev erity Rating Scale (LF) Do you want to initiate with: Screener form 1. Wish to be : Have you wished you were or wished you could go to sleep and not wake up?: No 2. Suicidal Thoughts: Have you actually had any thoughts of killing yourself?: No 6. Suicide Behavior Question: Have you ever done anything,started to do anything, or prepared to end your life?: No Interpretation:: Low Risk MAR follow-up Medication Monitorin g and Risk Mitigation Up-to-date on ASA recommended lab testing?: Yes Prescribed a buprenorphine product?: Yes Has patient had a buprenorphine and metabolite lab ordered/collected?: No Prescription Drug Monitoring Program Rev iew: Yes. No concerns at this time. Plan to address any concerns identified:: No concerns identified. Will continue treatment plan as is. Cravings, Setbacks, Substanc e use, and Stressors Cravings since last visit:: No. Patient denies cravings since last visit. Setbacks since last visit?: No, patient denies setbacks since last visit. Misuse of substances since last visit:: No, patient denies. Stressors: No, patient denies stressors at this time. Withdrawal and Intoxication Symptoms Int oxication Symptoms:: No signs of intoxication are present during visit. Withdrawal Symptoms:: No withdrawal sign s are present during visit. Mental Health, Support Syste m, and Social Determinants Mental Health Status: Stable. Support Systems Include:: Personal suppo rt system (see notes). Court System Involvement?: No Housing Stability:: Stable and safe hous ing. Currently employed?: Unemployed. Referrals needed:: No referrals needed a t this time. Recommended Wellness and Pre vention Follow-up Recommended Wellness and Prevention reviewed:: Yes. No additional orders/actions needed at this time. Other concerns: Other Concerns?: No. Narcan need: No. Patient already has Sergio can. Preventative Health and Wellness follow-up Action Plans for Clinical Quality Measures: Breast Cancer Screening:: Discussed need for breast cancer screening. Patient declined. . Cervical Cancer Screening:: Discussed need for cervical cancer screening. Referred to [facility] for same day scheduling. Tobacco Screening and Cessation:: Other (see notes). CSSRS Interpretation and Follow Up Plan CSSRS Interpretation and Follow Up Plan CSSRS Screen documented using SF: Yes Risk Disposition from SF: Low - No Follo w Up Plan Required Follow Up Plan: No Follow Up Plan requir ed at this time. Examination Category Sub-Category Detail Notes Category Not es General Examination GENERAL APPEARANCE: pleasant, in n o acute distress PSYCH: speech clear, alert, oriented x4, good eye contact, full range of affect/positive mood, judgement and insight good, thought process logical, goal directed
--- OUTSIDE RECORDS SUMMARY | 2025-01-07 18:25 | XMS_ITS ---
Author Organization [facility] Address [address] [place] [address] Care Team Providers Care Manager Of Administration Name Role Phone Blake Kumar Primary Care Provider [phone] Maria Ines Keller Unavailable [phone] Allergies Allergen (clinical drug ingredient) Drug/Non Drug Allergy documented on EMR Reaction Allergy Type Onset Date Status adhesive (uncoded) Unknown Allergy A ctive codeine codeine (uncoded) Unknown Allergy Ac tive REASON FOR VISIT 1 month MAT Sublocade Medications Medication SIG (Take, Route, Frequency, Duration) Notes Start Date End Date Status Sublocade 300 MG/1.5ML 300 mg Subcutaneo us every 28 days for 28 days 11/14/2024 Active Buprenorphine HCl-Naloxone HCl 4-1 MG 1 film under the tongue and allow to dissolve Sublingual once a day as needed 11/14/2024 Active Docusate Sodium 100 MG 1 capsule as need ed Orally Once a day for 30 day(s) Active Cymbalta 60 MG 1 capsule (for a tot al of 90mg) Orally Once a day for 30 days 03/12/2024 Active traZODone HCl 100 MG TAKE 1 TABLET BY [facility] AT BEDTIME for 30 Active Aspirin 81 MG 1 tablet Orally Once a day for 30 day(s) Active Pantoprazole Sodium 40 MG 1 tablet Orall y Once a day for 30 day(s) Active lamoTRIgine 25 MG Take 1 tablet PO onc e daily for 2 weeks, then increase to 2 tablets once daily for 2 weeks (DC if rash) Orally for 30 days 03/12/2024 Active Eliquis 5 MG as directed Orally t wice a day Active Arthritis Pain Relief 650 MG 2 tablets as needed Orally every 8 hrs Active Social History Tobacco Use: Social History Observation Description Date Details (start date - stop date) Current Smoker NA - NA Sex Assigned At : Social History Observation Description Sex Assigned At Female Tobacco Control (Standard) Question Answer Notes Tobacco use: Current every day smoker Additional Findings: Tobacco user e-cigarette Vital Signs Weight 157.8 lbs 11/14/2024 Height 72 in 11/14/2024 BMI 21.4 kg/m2 11/14/2024 Blood pressure systolic 110 mm Hg 11/14/19 25 Blood pressure diastolic 68 mm Hg 025 Heart Rate 115 /min 11/14/2024 Oximetry 98 % 11/14/2024 Temperature 98.2 degrees Fahrenheit 11/14/19 25 Respiratory Rate 16 /min 11/14/2024 Encounters Encounter Location Date Provider Diagnosis [facility] [address] [place] [address] 11/14/2024 Maria Ines Keller Opioid use disorder F11.99 and Tobacco use disorder F17.200 Assessments Encounter Date Diagnosis (ICD Code) Assessment Notes Treatment Notes Treatment Clinical Notes Section Notes 11/14/2024 Opioid use disorder (ICD-10 - F11.99) 11/14/2024 Tobacco use disorder (ICD-10 - F17.200) Plan Of Treatment Medication Medication Name Sig Start Date Stop Date Notes Sublocade 300 MG/1.5ML 300 mg Subcutaneo us every 28 days for 28 days 11/14/2024 Buprenorphine HCl-Naloxone H Cl 4-1 MG 1 film under the tongue and allow to dissolve Sublingual once a day as needed 11/14/2024 Next Appt Details Follow Up: 4 Weeks, Reason: MAR f/u Provider Name:Maria Ines thomas, 01/16/2025 08:00:00 AM, [address], [place], [address], Medications Administered Medication Instructions Date of Administration Dosage Notes Sublocade 11/14/2024 300 mg Patricio RN, Kristin mcbride N 11/14/2024 09:03:43 AM SOCIALLY RESPONSIBLE INVESTMENT ADVISER >Administered to the left upper quadrant of the abdomen. Pt tolerated well with minimal discomfort observed or reported. Progress Notes * Charmaine AYONDOB:1979 (44 yo F)Acc No.[id number]:11/14/2024 Patient: Charmaine OROZCO Provider: Rabia Keller, MSN, APARTMENT MAINTENANCE, USER ACCEPTANCE TESTER-C :1980 A ge:44 Y S ex:Female Date:11/14/2024 Address:[address] [place], [place] [id number] Pcp:Blake Kumar Check In:08:08 AM SOCIALLY RESPONSIBLE INVESTMENT ADVISER Subjective: * Chief Complaints: * 1 month MAT Sublocade * HPI: I nterim History: Emergency room visit N o. Was hospitalized N o. D epression Screening: PHQ-9 L ittle interest or pleasure in doing things?Not at all F eeling down, depressed, or hopeless N ot at all T rouble falling or staying asleep, or sleeping too much N ot at all F eeling tired or having little energy M ore than half the days P oor appetite or overeating N ot at all F eeling bad about yourself or that you are a failure, or have let yourself or your family down S everal days T rouble concentrating on things, such as [...] N ot at all T otal Score 3 I nterpretation M inimal Depression P reventative Health and Wellness follow-up: Action Plans for Clinical Quality Measures: B reast Cancer Screening: D iscussed need for breast cancer screening. Patient declined. C ervical Cancer Screening: D iscussed need for cervical cancer screening. Patient declined. . C SSRS Interpretation and Follow Up Plan: CSSRS Interpretation and Follow Up Plan C SSRS Screen documented using SF Y es R isk Disposition from L ow - No Follow Up Plan Required F ollow Up Plan N o Follow Up Plan required at this time. M AR follow-up: Charmaine presents with her significant other for MAR f/u. Last Sublocade injection received on 10/16/2024, also taking oral buprenorphine films towards end of the month as needed for cravings. Reports no cravings or setbacks. Medication Monitoring and Risk Mitigation U [...] Status S table. S upport Systems Include: R ecovery support groups (like AA, NA, etc.), Personal support system (see notes). C ourt System [...] need N o. Patient already has Narcan. S creening: Thomas Suicide Severity Rating Scale (LF) 1 . Wish to be : Have you wished you were or wished you could go to sleep and not wake up? N o 2 . Suicidal Thoughts: Have you actually had any thoughts of killing yourself? N o 6 . Suicide Behaviour: Have you ever done anything,started to do anything, or prepared to end your life? N o I nterpretation: L ow Risk * ROS: B asic ROS: Casandra Tom hills. D rebeca Thomas weats. A dmjono Tom onstipation. D rebeca Thomas uicidal Thoughts. * Medical History: * Surgical History: O pen heart surgery 08/13cesarean section 2006 * Hospitalization/Major Diagno stic Procedure: c hildbirth heart surgery 2020 * Family History: F ather: alive, GlaucomaHeart attacksRA. M other: alive, BipolarThyroid, diagnosed with Bipolar disorder, unspecified. S iblings: alive, Bipolar. 1 sister(s) - healthy. 1 son(s) , 1 daughter(s) - healthy. . sister --Bipolar. * Social History: P rimary Social History: L iving Arrangement L iving Arrangement: I ndependent Living living with SO--Yusuf I s this a supportive environment? Y [...] learning P referred method of learning: R melissa * Medications: T akingPantoprazole Sodium 40 MG Tablet Delayed Release 1 [...] TAKE 1 TABLET BY MOUTH AT BEDTIME Sublocade 300 MG/1.5ML Solution Prefilled Syringe 300 mg Subcutaneous every 28 days Buprenorphine HCl-Naloxone HCl 4-1 MG Film 1 film under the tongue and allow to dissolve Sublingual once a day as needed Docusate Sodium 100 MG Capsule 1 capsule as needed Orally Once a day Medication List reviewed and reconciled with the patientTaking Pantoprazole Sodium 40 MG Tablet Delayed Release [...] 1 TABLET BY MOUTH AT BEDTIME Taking Sublocade 300 MG/1.5ML Solution Prefilled Syringe 300 mg Subcutaneous every 28 days Taking Buprenorphine HCl- Naloxone HCl 4-1 MG Film 1 film under the tongue and allow to dissolve Sublingual once a day as needed Taking Docusate Sodium 100 MG Capsule 1 capsule as needed Orally Once a day Medication List reviewed and reconciled with the patient * Allergies: c tram[Allergies Verified] Objective: * Vitals: I nitials: LL, Wt:157.8, Ht: 72, BMI:21.4, BP:110/68, HR:115, Oxygen sat %:98, Temp:98.2, RR:16, LMP: IUD, Pain scale:0. * Examination: G eneral Examination: GENERAL APPEARANCE: p leasant, in no acute distress. PSYCH: s peech clear, alert, oriented x4, good eye contact, full range of affect/positive mood, judgement and insight good, thought process logical, goal directed. Assessment: * Assessment: 1. O pioid use disorder - F11.99 (Primary) 2 . T obacco use disorder - F17.200 Plan: * Treatment: Value Reference Range T HC neg * C OC neg * M OP (OPI) neg * A MP neg * M ET neg * B AR neg * B ZO neg * M DMA neg * M TD neg * O XY neg * P CP neg * B UP POS * Recommended Wellness and Pre vention Guidelines: * S irvin goddard L ast Done N ext Due A ction Taken N ONCOMPLIANT B reast cancer screening - 0 11/14/2024 - N ONCOMPLIANT C ervical cancer screening - 0 11/14/2024 - * Therapeutic Injections: Sublocade : 300 mg (Dose No:1) (Route: Subcutaneous) given by Joanie Curry RN , snp on left upper quadrant (Opioid use disorder) * Procedure Codes: 9 6372 THER/PROPH/DIAG INJ, SC/IM * Preventive Medicine: Counseling: S MOKING: Patient counselled on the dangers of tobacco use and urged to quit. 0 11/14/2024 * Follow Up: 4 Weeks (Reason: DEC f/u) * Care Plan Details* * ALLY RESPONSIBLE INVESTMENT ADVISER Sign off status: Completed true * Provider: Rabia Keller, MSN, APARTMENT MAINTENANCE, USER ACCEPTANCE TESTER-C Date: 0 11/14/2024 Generated for Ravi harris/Jose/Kanesmitting on: 0 01/07/2025 06:25 PM CDT History [...] all Feeling tired or having little energy: M ore than half the days Poor appetite or overeating: Not at all Feeling bad about yourself o r that you are a failure, or have let yourself or your family down: Several days Trouble concentrating on thi ngs, such as [...] some way: Not at all Total Score: 3 Interpretation: Minimal Depression Screening Thomas Suicide Sev erity Rating Scale (LF) 1. Wish to be : Have you [...] Monitorin g and Risk Mitigation Up-to-date on ASAM recommended lab testing?: Yes Prescribed a buprenorphine [...] Mental Health Status: Stable. Support Systems Include:: Re covery support groups (like AA, NA, etc.), Personal support system (see notes). Court System Involvement?: No [...] Screening:: Discussed need for cervical cancer screening. Patient declined. CSSRS Interpretation and Follow Up Plan CSSRS [...]
--- OUTSIDE RECORDS SUMMARY | 2025-01-07 18:25 | XMS_ITS | Clinical Summary ---
Author Organization [facility] Address [address] [place] [address] Care Team Providers Care Rural Route Mail Carrier Name Role Phone Kenzie Solomon MD Primary Care Provider + Tamara Tran MD Unavailable [phone] Allergies Active Allergy Reactions Criticality Noted Date [...] SARS-CoV-2 Monovalent Vaccination (12+ Yrs) PURPLE 08/17/2021 Surgical History Surgery Date Site/Laterality Comments SECTION 2006 DILATION AND CURETTAGE OF UTERUS 2004 US GUIDED THORACENTESIS 08/07/2021 N/A Medical History Medical History Date Comments IV drug user Rheumatoid arthritis reported by pt Family History Medical History Relation Name Comments No Known Problems Father No Known Problems Mother Relation Name Status Comments Father Mother Social History Tobacco Use Types Packs/Day Years [...] on file Legal Sex Female 1:12 AM THROW OUT CLERK Gender Identity Not on file Sexual Orientation Not on file Obstetrics History Last Filed Vital Signs Vital Sign Reading [...] 06/30/2022 2:41 PM CDT Plan of Treatment Health Maintenance Due Date Last Done Comments Breast Cancer Screening-Mammogram 1980 Cervical Cancer Screening 1980 Depression Screening 1980 Varicella Vaccines (1 of 2 - 13+ 2-dose series) 1993 Hepatitis B Screening 1998 Regular Well Visit/Exam 18-64 1998 Covid-19 Vaccine (3 - 2023-2 5 season) 2024 08/17/2021, 04/28/2021 Influenza Vaccine (#1) 2024 10/10/2015 DTaP/Tdap/Td Vaccine (2 - Td or Tdap) 10/31/2033 10/31/2023 Hepatitis C Screening Completed 07/15/2021 Pneumococcal vaccine <65 Aged Out 024, 10/30/2021 No longer eligible based on patient's age to complete this topic HPV Vaccines Aged Out No longer eligi ble based on patient's age to complete this topic Medical Devices Implanted Type Area Frame Operator Device Identifier Shelf Expiration Date Model / Serial / Lot [employer] [id number] Perclose 6fr Suture Mediate Knot Push Vascular Device Closure - [id number] Implanted:Qty: 1 on 08/07/2021 by Rg Resendiz MD at [facility] [employer] [id number] / / Medtronic Card Vasc Surgery [id number] Mosaic Cinch 29mm 38mm 26mm 20.5mm 15.5mm Biological Stent - [id number] - [id number] Implanted:Qty: 1 on 08/10/2021 by DailyRavinder MD at [facility] N/A: Heart [employer] Inc [id number] 04/01/2026 [id number] / [id number] / Description:MITRAL VALVE-TIS KEDAR [employer] [id number] Huang Mc3 32mm 1 Seam 2 Wrap Anatomic Tricuspid Ring - [id number] - [id number] Implanted:Qty: 1 on 08/10/2021 by Ravinder Lay MD at [facility] N/A: Heart [employer] [id number] 10/31/2022 [id number] / [id number] / Description:TRICUSPID RING Medtronic Cardiac Rhythm Mgmt 4968-35 Capsure Epi 8fr 35cm Is-1 Bipolar Suture Fixation Epicardium - [id number] - [id number] Implanted:Qty: 1 on 08/10/2021 by DailyRavinder MD at [facility] N/A: Heart [employer] Inc [id number] 05/07/2022 4968-35 / [id number] / Procedures Procedure Name Priority Date/Time [...] revised on 2020. HepBsAg Nonreactive Nonreactive EVIE Blood 07/15/2021 11:4 8 AM CDT 07/15/2021 11:55 AM CDT us Kedar Zamorano MD LAB MICROBIOLOGY - GENERAL O RDERABLES Final Result EVIE [address] [facility] [place] [address] from Last 3 Months or Most Recently Relevant to Health Maintenance Insurance [facility] [place] [address] Advance Directives For more information, please contact: [phone] * Full Code (Latest Code Status on [...] specifically selected below: No intubation Care Teams Rural Route Mail Carrier Relationship Specialty Start Date End Date Kenzie Solomon MD [address] [address] PCP - General Family Medicine 10/24/20 Tamara Tran MD [address] [address] 10/24/20
--- OUTSIDE RECORDS SUMMARY | 2025-01-07 18:26 | XMS_ITS | Encounter Summary ---
Author Organization [facility] Address [address] [place] [address] Care Team Providers Care Liberal Arts And Humanities Chair Name Role Phone Unavailable Primary Care Provider Unavailabl e Encounter Details Date Type Department Care Team (Late st Contact Info) Description 09/20/2021 Lab Requisition [facility] Laboratory Services [address] [place] [phone] Godwin Guillen MD [address] [place] [address] [address] Social History Tobacco Use Types Packs/Day Years Used Date Smoking Tobacco: Never Assessed Comments Unknown Sex and Gender Information Value Date Recorded Sex Assigned at Not on file Legal Sex Female 7:36 PM CDT Gender Identity Not on file Sexual Orientation Not on file COVID-19 Exposure Response Date Recorded In the last month, have you been in contact with someone who was confirmed or suspected to have Coronavirus / COVID-19? Unable to assess 08/24/2021 7:38 PM CDT documented as of this encounter Plan of Treatment Not on file documented as of this encounter Procedures Procedure Name Priority Date/Time Associated Diagnosis Comments CBC WITH DIFFERENTIAL Routine 09/20/2021 4:00 AM MOBILITY ARCHITECT MANAGER PROTIME-INR Routine 09/20/2021 4:00 AM MOBILITY ARCHITECT MANAGER documented in this encounter Results * (ABNORMAL) PROTIME-INR (09/20/2021 4:00 AM MOBILITY ARCHITECT MANAGER) PROTIME 24.2(H) 11.5 - 14.7 Seconds 09/20/2021 12:23 PM [facility] INR 2.2(H) 0.9 - 1.1 09/20/2021 12:23 PM [facility] Blood 09/20/2021 4:00 AM MOBILITY ARCHITECT MANAGER 09/20/2021 11:38 AM MOBILITY ARCHITECT MANAGER Godwin Guillen MD HEMATOLOGY ORDERABL ES Final Result [facility] CLIA# [id number] [address] [place] [address] * (ABNORMAL) CBC WITH DIFFERENTIAL (09/20/2021 4:00 AM MOBILITY ARCHITECT MANAGER) WBC 3.5(L) 4.5 - 10.5 K/uL 09/20/2021 12:27 PM [facility] RBC 3.03(L) 3.90 - 4.90 M/uL 09/20/2021 12:27 PM [facility] HEMOGLOBIN 8.5(L) 11.8 - 14.8 g/dL 09/20/2021 12:27 PM [facility] HEMATOCRIT 26.7(L) 35.5 - 44.0 % 09/20/2021 12:27 PM [facility] MCV 88.1 82.0 - 99.0 fL 09/20/2021 12:27 PM [facility] MCH 28.0 27.8 - 34.5 pg 09/20/2021 12:27 PM [facility] MCHC 31.8(L) 32.5 - 35.5 g/dL 09/20/2021 12:27 PM [facility] RDW 16.5(H) 11.5 - 14.5 % 09/20/2021 12:27 PM [facility] PLATELETS 160 160 - 420 K/uL 09/20/2021 12:27 PM [facility] MPV 7.2(L) 8.7 - 12.7 fL 09/20/2021 12:27 PM MOBILITY ARCHITECT MANAGER [facility] NEUTROPHILS 59 % 09/20/2021 12:27 PM MOBILITY ARCHITECT MANAGER [facility] LYMPHOCYTES 31 % 09/20/2021 12:27 PM MOBILITY ARCHITECT MANAGER [facility] MONOCYTES 8 % 09/20/2021 12:27 PM MOBILITY ARCHITECT MANAGER [facility] EOSINOPHILS 2 % 09/20/2021 12:27 PM MOBILITY ARCHITECT MANAGER [facility] BASOPHILS 0 % 09/20/2021 12:27 PM MOBILITY ARCHITECT MANAGER [facility] NEUTROPHIL ABSOLUTE 2.10 1.90 - 7.00 K/uL 09/20/2021 12:27 PM MOBILITY ARCHITECT MANAGER [facility] LYMPHOCYTE ABSOLUTE 1.10 0.70 - 4.50 K/uL 09/20/2021 12:27 PM MOBILITY ARCHITECT MANAGER [facility] MONOCYTE ABSOLUTE 0.30 0.10 - 1.30 K/uL 09/20/2021 12:27 PM MOBILITY ARCHITECT MANAGER [facility] EOSINOPHIL ABSOLUTE 0.10 0.00 - 0.70 K/uL 09/20/2021 12:27 PM MOBILITY ARCHITECT MANAGER [facility] BASOPHILS ABSOLUTE 0.00 0.00 - 0.20 K/uL 09/20/2021 12:27 PM MOBILITY ARCHITECT MANAGER [facility] Blood 09/20/2021 4:00 AM MOBILITY ARCHITECT MANAGER 09/20/2021 11:38 AM MOBILITY ARCHITECT MANAGER us Godwin Guillen MD HEMATOLOGY ORDERABL ES Final Result [facility] CLIA# [id number] [address] [place] [address] documented in this encounter Visit Diagnoses Not on filedocumented in this encounter
--- OUTSIDE RECORDS SUMMARY | 2025-01-07 18:26 | XMS_ITS | Encounter Summary ---
Author Organization [facility] Address [address] [place] [address] Care Team Providers Care Tactical Debriefer Name Role Phone Unavailable Primary Care Provider Unavailabl e Encounter Details Date Type Department Care Team (Late st Contact Info) Description 09/13/2021 Lab Requisition [facility] Laboratory Services [address] [place] [address] [place] [address] [place] [address] Social History Tobacco Use Types Packs/Day Years [...] Procedure Name Priority Date/Time Associated Diagnosis Comments PROTIME-INR Routine 09/13/2021 4:30 AM HEAD SAMPLER documented in this encounter Results * (ABNORMAL) PROTIME-INR (09/13/2021 4:30 AM HEAD SAMPLER) PROTIME 23.6(H) 11.5 - 14.7 Seconds 09/13/2021 6:39 AM HEAD SAMPLER [facility] INR 2.1(H) 0.9 - 1.1 09/13/2021 6:39 AM HEAD SAMPLER [facility] LABORATORY SERVICES [facility] Blood 09/13/2021 4:30 AM HEAD SAMPLER 09/13/2021 6:08 AM HEAD SAMPLER us Teo Aguirre MD HEMATOLOGY ORDERABLES Final Resu lt [facility] CLIA# [id number] [address] [place] [address] documented in this encounter Visit Diagnoses Not on filedocumented in this encounter
--- OUTSIDE RECORDS SUMMARY | 2025-01-07 18:26 | XMS_ITS | Encounter Summary ---
Author Organization [facility] Address [address] [place] [address] Care Team Providers Care Entry Manager Name Role Phone Unavailable Primary Care Provider Unavailabl e Encounter Details Date Type Department Care Team (Late st Contact Info) Description 09/05/2021 Lab Requisition [facility] Laboratory Services [address] [place] [address] Godwin Guillen MD [address] [place] [address] [address] Social History Tobacco Use Types [...] Priority Date/Time Associated Diagnosis Comments PROTIME-INR Routine 09/05/2021 5:00 AM SURVEILLANCE DIRECTOR documented in this encounter Results * (ABNORMAL) PROTIME-INR (09/05/2021 5:00 AM SURVEILLANCE DIRECTOR) PROTIME 30.4(H) 11.5 - 14.7 Seconds 09/05/2021 7:46 AM SURVEILLANCE DIRECTOR [facility]ORATORY SERVICES [facility] INR 2.9(H) 0.9 - 1.1 09/05/2021 7:46 AM SURVEILLANCE DIRECTOR [facility] LABORATORY SERVICES [facility] Blood 09/05/2021 5:00 AM SURVEILLANCE DIRECTOR 09/05/2021 7:22 AM SURVEILLANCE DIRECTOR us Godwin Guillen MD HEMATOLOGY ORDERABL ES Final Result [facility]ORAT[facility] CLIA# [id number] [address] [place] [address] documented in this encounter Visit Diagnoses Not on filedocumented in this encounter
--- OUTSIDE RECORDS SUMMARY | 2025-01-07 18:26 | XMS_ITS | Encounter Summary ---
Author Organization [facility] Address [address] [place] [address] Care Team Providers Care Drapery And Upholstery Estimator Name Role Phone Unavailable Primary Care Provider Unavailabl e Encounter Details Date Type Department Care Team (Late st Contact Info) Description 09/10/2021 Lab Requisition [facility] Laboratory Services [address] [place] [phone] Godwin Guillen MD [address] [place] [address] [address] Social History Tobacco Use Types [...] Procedure Name Priority Date/Time Associated Diagnosis Comments PTT Routine 09/10/2021 12:01 AM RADIOLOGY ASST PROTIME-INR Routine 09/10/2021 12:01 AM RADIOLOGY ASST documented in this encounter Results * (ABNORMAL) PTT (09/10/2021 12:01 AM RADIOLOGY ASST) PTT 40.2(H) 23.1 - 37.1 seconds 09/10/2021 7:42 AM RADIOLOGY ASST [facility]OR[facility] Blood Collection / Unknown 09/10/2021 12:01 AM RADIOLOGY ASST 09/10/2021 6:43 AM RADIOLOGY ASST Godwin Guillen MD HEMATOLOGY ORDERABL ES Final Result Performing Organization Address City/[facility]/ZIP Co de Phone Number [facility] CLIA# [id number] [address] [place] [address] * (ABNORMAL) PROTIME-INR (09/10/2021 12:01 AM RADIOLOGY ASST) PROTIME 28.2(H) 11.5 - 14.7 Seconds 09/10/2021 7:42 AM RADIOLOGY ASST [facility] INR 2.6(H) 0.9 - 1.1 09/10/2021 7:42 AM RADIOLOGY ASST [facility] Blood Collection / Unknown 09/10/2021 12:01 AM RADIOLOGY ASST 09/10/2021 6:43 AM RADIOLOGY ASST Godwin Guillen MD HEMATOLOGY ORDERABL ES Final Result Performing Organization Address City/[facility]/ZIP Co de Phone Number [facility] CLIA# [id number] [place] [address] documented in this encounter Visit Diagnoses Not on filedocumented in this encounter
--- OUTSIDE RECORDS SUMMARY | 2025-01-07 18:26 | XMS_ITS | Encounter Summary ---
Author Organization [facility] Address [address] [place] [address] Care Team Providers Care Beverage Steward Name Role Phone Unavailable Primary Care Provider Unavailabl e Encounter Details Date Type Department Care Team (Late st Contact Info) Description 09/12/2021 Lab Requisition [facility] Laboratory Services [address] [place] [address] Godwin Guillen MD [address] [place] [address] [address] Social History Tobacco Use Types [...] Priority Date/Time Associated Diagnosis Comments PROTIME-INR Routine 09/12/2021 5:10 AM BUSINESS COORDINATOR documented in this encounter Results * (ABNORMAL) PROTIME-INR (09/12/2021 5:10 AM BUSINESS COORDINATOR) PROTIME 28.9(H) 11.5 - 14.7 Seconds 09/12/2021 8:43 AM BUSINESS COORDINATOR [facility] LABORATORY SERVICES [facility] INR 2.7(H) 0.9 - 1.1 09/12/2021 8:43 AM BUSINESS COORDINATOR [facility] LABOR[facility]ORY SERVICES [facility] Blood Collection / Unknown 09/12/2021 5:10 AM BUSINESS COORDINATOR 09/12/2021 8:14 AM BUSINESS COORDINATOR us Godiwn Guillen MD HEMATOLOGY ORDERABL ES Final Result [facility] CLIA# [id number] [place] [address] documented in this encounter Visit Diagnoses Not on filedocumented in this encounter
--- OUTSIDE RECORDS SUMMARY | 2025-01-07 18:26 | XMS_ITS | Encounter Summary ---
Author Organization [facility] Address [address] [place] [address] Care Team Providers Care Account Liaison Name Role Phone Unavailable Primary Care Provider Unavailabl e Encounter Details Date Type Department Care Team (Late st Contact Info) Description 09/16/2021 Lab Requisition [facility] Laboratory Services [address] [place] [address] [place] [address] [place] [address] Social History Tobacco Use Types [...] Priority Date/Time Associated Diagnosis Comments PROTIME-INR Routine 09/16/2021 3:00 AM SEASONAL RETAIL MERCHANDISER documented in this encounter Results * (ABNORMAL) PROTIME-INR (09/16/2021 3:00 AM SEASONAL RETAIL MERCHANDISER) PROTIME 31.9(H) 11.5 - 14.7 Seconds 09/16/2021 5:32 AM SEASONAL RETAIL MERCHANDISER [facility] LABORAT[facility] INR 3.1(H) 0.9 - 1.1 09/16/2021 5:32 AM SEASONAL RETAIL MERCHANDISER [facility] LABORATORY SERVICES [facility] Blood 09/16/2021 3:00 AM SEASONAL RETAIL MERCHANDISER 09/16/2021 5:11 AM SEASONAL RETAIL MERCHANDISER us Teo Aguirre MD HEMATOLOGY ORDERABLES Final Resu lt [facility] CLIA# [id number] [place] [address] documented in this encounter Visit Diagnoses Not on filedocumented in this encounter
--- OUTSIDE RECORDS SUMMARY | 2025-01-07 18:26 | XMS_ITS | Encounter Summary ---
Author Organization [facility] Address [address] [place] [address] Care Team Providers Care Canvas Shop Laborer Name Role Phone Unavailable Primary Care Provider Unavailabl e Encounter Details Date Type Department Care Team (Late st Contact Info) Description 09/08/2021 Lab Requisition [facility] Laboratory Services [address] [place] [phone] Godwin Guillen MD [address] [place] [address] [address] Social History Tobacco Use Types [...] Associated Diagnosis Comments CBC WITH DIFFERENTIAL Routine 09/08/2021 4:30 AM AIRCRAFT SALES REPRESENTATIVE PROTIME-INR Routine 09/08/2021 4:30 AM AIRCRAFT SALES REPRESENTATIVE BASIC METABOLIC PANEL Routine 09/08/2021 4:30 AM AIRCRAFT SALES REPRESENTATIVE documented in this encounter Results * (ABNORMAL) PROTIME-INR (09/08/2021 4:30 AM AIRCRAFT SALES REPRESENTATIVE) PROTIME 22.2(H) 11.5 - 14.7 Seconds 09/08/2021 1:35 PM AIRCRAFT SALES REPRESENTATIVE [facility] INR 1.9(H) 0.9 - 1.1 09/08/2021 1:35 PM AIRCRAFT SALES REPRESENTATIVE [facility] Blood Collection / Unknown 09/08/2021 4:30 AM AIRCRAFT SALES REPRESENTATIVE 09/08/2021 12:46 PM AIRCRAFT SALES REPRESENTATIVE Godwin Javi Guillen MD HEMATOLOGY ORDERABL ES Final Result [facility] CLIA# [id number] [address] [place] [address] * (ABNORMAL) CBC WITH DIFFERENTIAL (09/08/2021 4:30 AM AIRCRAFT SALES REPRESENTATIVE) Pathologist [facility] WBC 4.9 4.5 - 10.5 K/uL 09/08/2021 1:03 PM [facility] RBC 3.52(L) 3.90 - 4.90 M/uL 09/08/2021 1:03 PM [facility] HEMOGLOBIN 10.0(L) 11.8 - 14.8 g/dL 09/08/2021 1:03 PM [facility] HEMATOCRIT 31.0(L) 35.5 - 44.0 % 09/08/2021 1:03 PM [facility] MCV 88.1 82.0 - 99.0 fL 09/08/2021 1:03 PM [facility] MCH 28.3 27.8 - 34.5 pg 09/08/2021 1:03 PM [facility] MCHC 32.1(L) 32.5 - 35.5 g/dL 09/08/2021 1:03 PM [facility] RDW 18.0(H) 11.5 - 14.5 % 09/08/2021 1:03 PM [facility] PLATELETS 262 160 - 420 K/uL 09/08/2021 1:03 PM AIRCRAFT SALES REPRESENTATIVE [facility] MPV 6.7(L) 8.7 - 12.7 fL 09/08/2021 1:03 PM AIRCRAFT SALES REPRESENTATIVE [facility] NEUTROPHILS 65 % 09/08/2021 1:03 PM AIRCRAFT SALES REPRESENTATIVE [facility]ORATORY SERVICES [facility] LYMPHOCYTES 26 % 09/08/2021 1:03 PM AIRCRAFT SALES REPRESENTATIVE [facility] SERVICES [facility] MONOCYTES 8 % 09/08/2021 1:03 PM AIRCRAFT SALES REPRESENTATIVE [facility] SERVICES [facility] EOSINOPHILS 1 % 09/08/2021 1:03 PM AIRCRAFT SALES REPRESENTATIVE [facility] SERVICES [facility] BASOPHILS 1 % 09/08/2021 1:03 PM AIRCRAFT SALES REPRESENTATIVE [facility] NEUTROPHIL ABSOLUTE 3.20 1.90 - 7.00 K/uL 09/08/2021 1:03 PM AIRCRAFT SALES REPRESENTATIVE [facility] LYMPHOCYTE ABSOLUTE 1.30 0.70 - 4.50 K/uL 09/08/2021 1:03 PM AIRCRAFT SALES REPRESENTATIVE [facility] MONOCYTE ABSOLUTE 0.40 0.10 - 1.30 K/uL 09/08/2021 1:03 PM AIRCRAFT SALES REPRESENTATIVE [facility] EOSINOPHIL ABSOLUTE 0.10 0.00 - 0.70 K/uL 09/08/2021 1:03 PM AIRCRAFT SALES REPRESENTATIVE [facility] BASOPHILS ABSOLUTE 0.00 0.00 - 0.20 K/uL 09/08/2021 1:03 PM AIRCRAFT SALES REPRESENTATIVE [facility] Blood Collection / Unknown 09/08/2021 4:30 AM AIRCRAFT SALES REPRESENTATIVE 09/08/2021 12:46 PM AIRCRAFT SALES REPRESENTATIVE us Godwin Guillen MD HEMATOLOGY ORDERABL ES Final Result [facility] CLIA# [id number] [address] [place] [address] * (ABNORMAL) BASIC METABOLIC PANEL (09/08/2021 4:30 AM AIRCRAFT SALES REPRESENTATIVE) SODIUM 139 136 - 145 mmol/L 09/08/2021 1:23 PM AIRCRAFT SALES REPRESENTATIVE [facility] POTASSIUM 4.6 3.4 - 5.1 mmol/L 09/08/2021 1:23 PM [facility] CHLORIDE 103 98 - 107 mmol/L 09/08/2021 1:23 PM [facility] CO2 23 22 - 29 mmol/L 09/08/2021 1:23 PM [facility] CALCIUM 9.3 8.6 - 10.4 mg/dL 09/08/2021 1:23 PM [facility] BUN 23(H) 6 - 20 mg/dL 09/08/2021 1:23 PM [facility] CREATININE 0.73 0.51 - 0.95 mg/dL 09/08/2021 1:23 PM [facility] GLUCOSE 69(L) 74 - 99 mg/dL 09/08/2021 1:23 PM [facility] GFR >60 mL/min/1.7 3 sq meter 09/08/2021 1:23 PM [facility] [employer] [facility] Comment: eGFR has not been validated for use in the elderly (> 70 years of age), women, patients with serious co-morbid conditions, or persons with extremes of body size or muscle mass and should also be interpreted with caution in patients with acute kidney failure, dialysis dependent patients, patients reporting exceptional dietary intake (e.g. vegetarian diet, high protein diets, creatine supplementation), and patients with severe liver disease. Based on National Kidney Disease Education Program If patient is , please refer to the GFR result. GFR, >60 mL/min/1.7 3 sq meter 09/08/2021 1:23 PM [facility] [employer] [facility] ANION GAP 13 8 - 16 mmol/L 09/08/2021 1:23 PM [facility] [employer] [facility] Blood Collection / Unknown 09/08/2021 4:30 AM AIRCRAFT SALES REPRESENTATIVE 09/08/2021 12:46 PM AIRCRAFT SALES REPRESENTATIVE Gdowin Guillen MD CHEMISTRY ORDERABLE S Final Result [facility] SERVICES - [facility]# [id number] [place] [address] documented in this encounter Visit Diagnoses Not on filedocumented in this encounter
--- OUTSIDE RECORDS SUMMARY | 2025-01-07 18:26 | XMS_ITS | Clinical Summary ---
Author Organization [facility] Address [address] [place] [address] Care Team Providers Care National Sales Director Name Role Phone Unavailable Primary Care Provider Unavailabl e Social History Tobacco Use Types Packs/Day Years Used Date Smoking Tobacco: Never Assessed Comments Unknown Sex and Gender Information Value Date Recorded Sex Assigned at Not on file Legal Sex Female 7:36 PM CDT Gender Identity Not on file Sexual Orientation Not on file Plan of Treatment Health Maintenance Due Date Last Done Comments DTAP/TDAP/TD VACCINES (1 - Tdap) 1999 HEPATITIS B VACCINES (1 of 3 - 19+ 3-dose series) 1999 CERVICAL CANCER SCREENING 2010 BREAST CANCER SCREENING 2020 INFLUENZA VACCINE (#1) 2024 10/10/2015 COVID-19 Vaccine (2 - 2023-2 5 season) 2024 08/17/2021 HPV VACCINES Aged Out No longer eligi ble based on patient's age to complete this topic PNEUMOCOCCAL VACCINE 0-49 YEARS Aged Out No longer eligible based on patient's age to complete this topic Insurance [employer] [place] [address] [place] [address] [facility] [place] [address]
--- OUTSIDE RECORDS SUMMARY | 2025-01-07 18:26 | XMS_ITS | Encounter Summary ---
Author Organization [facility] Address [address] [place] [address] Care Team Providers Care High School Math Tutor Name Role Phone Unavailable Primary Care Provider Unavailabl e Encounter Details Date Type Department Care Team (Late st Contact Info) Description 09/07/2021 Lab Requisition [facility] Laboratory Services [address] [place] [address] Godwin Guillen MD [address] [place] [address] [address] Social History Tobacco Use Types [...] Priority Date/Time Associated Diagnosis Comments PROTIME-INR Routine 09/07/2021 3:15 AM BUFFING WHEEL FORMER MACHINE documented in this encounter Results * (ABNORMAL) PROTIME-INR (09/07/2021 3:15 AM BUFFING WHEEL FORMER MACHINE) PROTIME 22.9(H) 11.5 - 14.7 Seconds 09/07/2021 5:13 AM BUFFING WHEEL FORMER MACHINE [facility] LABORATORY SERVICES [facility] INR 2.0(H) 0.9 - 1.1 09/07/2021 5:13 AM BUFFING WHEEL FORMER MACHINE [facility] LABORATORY SERVICES [facility] Blood 09/07/2021 3:15 AM BUFFING WHEEL FORMER MACHINE 09/07/2021 4:37 AM BUFFING WHEEL FORMER MACHINE us Godwin Guillen MD HEMATOLOGY ORDERABL ES Final Result [facility] LABORATORY SERVICES [facility] CLIA# [id number] [address] [place] [address] documented in this encounter Visit Diagnoses Not on filedocumented in this encounter
--- OUTSIDE RECORDS SUMMARY | 2025-01-07 18:26 | XMS_ITS | Encounter Summary ---
Author Organization Address [address] [place] [address] Care Team Providers Care Cooler Service Supervisor Name Role Phone Unavailable Primary Care Provider Unavailabl e Encounter Details Date Type Department Care Team (Late st Contact Info) Description 09/11/[address] [facility] Laboratory Services [address] [place] [address] Godwin Guillen MD [address] [place] [address] [address] Social History Tobacco Use Types [...] Priority Date/Time Associated Diagnosis Comments PROTIME-INR Routine 09/11/2021 4:30 AM EDI PROGRAMMER documented in this encounter Results * (ABNORMAL) PROTIME-INR (09/11/2021 4:30 AM EDI PROGRAMMER) PROTIME 34.0(H) 11.5 - 14.7 Seconds 09/11/2021 7:45 AM EDI PROGRAMMER [facility] LABORATORY SERVICES [facility] INR 3.4(H) 0.9 - 1.1 09/11/2021 7:45 AM EDI PROGRAMMER [facility] LABORATORY SERVICES [facility] Blood 09/11/2021 4:30 AM EDI PROGRAMMER 09/11/2021 6:35 AM EDI PROGRAMMER us Godwin Guillen MD HEMATOLOGY ORDERABL ES Final Result [facility] LAB[facility] CLIA# [id number] [address] [place] [address] documented in this encounter Visit Diagnoses Not on filedocumented in this encounter
--- OUTSIDE RECORDS SUMMARY | 2025-01-07 18:26 | XMS_ITS | Encounter Summary ---
Author Organization [facility] Address [address] [place] [address] Care Team Providers Care Tractor Drill Operator Name Role Phone Unavailable Primary Care Provider Unavailabl e Encounter Details Date Type Department Care Team (Late st Contact Info) Description 09/15/2021 Lab Requisition [facility] Laboratory Services [address] [place] [address] Godwin Guillen MD [address] [place] [address] [address] Social History Tobacco Use Types [...] Priority Date/Time Associated Diagnosis Comments PROTIME-INR Routine 09/15/2021 12:01 AM FILM FLAT INSPECTOR documented in this encounter Results * (ABNORMAL) PROTIME-INR (09/15/2021 12:01 AM FILM FLAT INSPECTOR) PROTIME 24.8(H) 11.5 - 14.7 Seconds 09/15/2021 11:24 AM FILM FLAT INSPECTOR [facility] LABORATORY SERVICES [facility] INR 2.2(H) 0.9 - 1.1 09/15/2021 11:24 AM FILM FLAT INSPECTOR [facility] LABORATORY SERVICES [facility] Blood Collection / Unknown 09/15/2021 12:01 AM FILM FLAT INSPECTOR 09/15/2021 10:57 AM FILM FLAT INSPECTOR us Godwin Guillen MD HEMATOLOGY ORDERABL ES Final Result [facility] LAB[facility] CLIA# [id number] [address] [place] [address] documented in this encounter Visit Diagnoses Not on filedocumented in this encounter
--- OUTSIDE RECORDS SUMMARY | 2025-01-07 18:26 | XMS_ITS | Encounter Summary ---
Author Organization [facility] Address [address] [place] [address] Care Team Providers Care Automatic Log Cut Off Sawyer Name Role Phone Unavailable Primary Care Provider Unavailabl e Encounter Details Date Type Department Care Team (Late st Contact Info) Description 09/19/2021 Lab Requisition [facility] Laboratory Services [address] [place] [address] [facility], External Provider [address] [place] [address] Social History Tobacco Use Types Packs/Day Years [...] Priority Date/Time Associated Diagnosis Comments PROTIME-INR Routine 09/19/2021 4:20 AM DIRECTOR LONG TERM CARE documented in this encounter Results * (ABNORMAL) PROTIME-INR (09/19/2021 4:20 AM DIRECTOR LONG TERM CARE) PROTIME 27.5(H) 11.5 - 14.7 Seconds 09/19/2021 6:10 AM DIRECTOR LONG TERM CARE [facility] LABORATORY SERVICES [facility] INR 2.6(H) 0.9 - 1.1 09/19/2021 6:10 AM DIRECTOR LONG TERM CARE [facility] Blood Collection / Unknown 09/19/2021 4:20 AM DIRECTOR LONG TERM CARE 09/19/2021 5:51 AM DIRECTOR LONG TERM CARE us External Provider [facility] HEMATOLOGY ORDERABLES Fin al Result Performing Organization Address City/State/[facility] Co de Phone Number [facility] LABORATORY SERVICES [facility]# [id number] [place] [address] documented in this encounter Visit Diagnoses Not on filedocumented in this encounter
--- OUTSIDE RECORDS SUMMARY | 2025-01-07 18:26 | XMS_ITS | Encounter Summary ---
Author Organization [facility] Address [address] [place] [address] Care Team Providers Care Outer Diameter Grinder Name Role Phone Unavailable Primary Care Provider Unavailabl e Encounter Details Date Type Department Care Team (Late st Contact Info) Description 09/21/2021 Lab Requisition [facility] Laboratory Services [address] [place] [address] Godwin Guillen MD [address] [place] [address] [address] Social History Tobacco Use Types [...] Associated Diagnosis Comments CBC WITH DIFFERENTIAL Routine 09/21/2021 3:00 AM GENERAL I FARMWORKER PROTIME-INR Routine 09/21/2021 3:00 AM GENERAL I FARMWORKER COMPREHENSIVE METABOLIC PANEL Routine 09/21/2021 3:00 AM GENERAL I FARMWORKER documented in this encounter Results * (ABNORMAL) PROTIME-INR (09/21/2021 3:00 AM GENERAL I FARMWORKER) Pathologist [facility] PROTIME 23.7(H) 11.5 - 14.7 Seconds 09/21/2021 6:43 AM [facility] INR 2.1(H) 0.9 - 1.1 09/21/2021 6:43 AM [facility] Blood 09/21/2021 3:00 AM GENERAL I FARMWORKER 09/21/2021 5:44 AM GENERAL I FARMWORKER [facility] Javi Guillen MD HEMATOLOGY ORDERABL ES Final Result [facility] CLIA# [id number] [address] [place] [address] * (ABNORMAL) CBC WITH DIFFERENTIAL (09/21/2021 3:00 AM GENERAL I FARMWORKER) Pathologist [facility] WBC 4.2(L) 4.5 - 10.5 K/uL 09/21/2021 6:14 AM [facility] RBC 3.17(L) 3.90 - 4.90 M/uL 09/21/2021 6:14 AM [facility] HEMOGLOBIN 8.9(L) 11.8 - 14.8 g/dL 09/21/2021 6:14 AM [facility] HEMATOCRIT 27.4(L) 35.5 - 44.0 % 09/21/2021 6:14 AM [facility] MCV 86.5 82.0 - 99.0 fL 09/21/2021 6:14 AM [facility] MCH 28.1 27.8 - 34.5 pg 09/21/2021 6:14 AM [facility] MCHC 32.5 32.5 - 35.5 g/dL 09/21/2021 6:14 AM [facility] RDW 16.3(H) 11.5 - 14.5 % 09/21/2021 6:14 AM [facility] PLATELETS 165 160 - 420 K/uL 09/21/2021 6:14 AM GENERAL I FARMWORKER [facility] LABORATORY [facility] MPV 7.0(L) 8.7 - 12.7 fL 09/21/2021 6:14 AM GENERAL I FARMWORKER [facility] LABORATORY [facility] NEUTROPHILS 62 % 09/21/2021 6:14 AM [facility] LABORATORY [facility] LYMPHOCYTES 27 % 09/21/2021 6:14 AM GENERAL I FARMWORKER [facility] LABORATORY SERVICES [facility] MONOCYTES 8 % 09/21/2021 6:14 AM GENERAL I FARMWORKER [facility] LABORATORY SERVICES [facility] EOSINOPHILS 2 % 09/21/2021 6:14 AM GENERAL I FARMWORKER [facility] LABORATORY SERVICES [facility] BASOPHILS 0 % 09/21/2021 6:14 AM GENERAL I FARMWORKER [facility] LABORATORY [facility] NEUTROPHIL ABSOLUTE 2.60 1.90 - 7.00 K/uL 09/21/2021 6:14 AM [facility] LABORATORY [facility] LYMPHOCYTE ABSOLUTE 1.20 0.70 - 4.50 K/uL 09/21/2021 6:14 AM GENERAL I FARMWORKER [facility] LABORATORY [facility] MONOCYTE ABSOLUTE 0.40 0.10 - 1.30 K/uL 09/21/2021 6:14 AM GENERAL I FARMWORKER [facility] LABOR[facility]ORY [facility] EOSINOPHIL ABSOLUTE 0.10 0.00 - 0.70 K/uL 09/21/2021 6:14 AM GENERAL I FARMWORKER [facility] LABORATORY [facility] BASOPHILS ABSOLUTE 0.00 0.00 - 0.20 K/uL 09/21/2021 6:14 AM [facility] [employer] [facility] Blood 09/21/2021 3:00 AM GENERAL I FARMWORKER 09/21/2021 5:44 AM GENERAL I FARMWORKER us Godwin Guillen MD HEMATOLOGY ORDERABL ES Final Result [facility] CLIA# [id number] [address] [place] [address] * (ABNORMAL) COMPREHENSIVE METABOLIC PANEL (09/21/2021 3:00 AM GENERAL I FARMWORKER) SODIUM 141 136 - 145 mmol/L 09/21/2021 6:31 AM GENERAL I FARMWORKER [facility] POTASSIUM 4.0 3.4 - 5.1 mmol/L 09/21/2021 6:31 AM [facility] CHLORIDE 102 98 - 107 mmol/L 09/21/2021 6:31 AM [facility] CO2 29 22 - 29 mmol/L 09/21/2021 6:31 AM [facility] CALCIUM 8.9 8.6 - 10.4 mg/dL 09/21/2021 6:31 AM [facility] BUN 10 6 - 20 mg/dL 09/21/2021 6:31 AM [facility] CREATININE 0.80 0.51 - 0.95 mg/dL 09/21/2021 6:31 AM [facility] GLUCOSE 79 74 - 99 mg/dL 09/21/2021 6:31 AM [facility] TOTAL PROTEIN 6.2(L) 6.3 - 8.7 g/dL 09/21/2021 6:31 AM [facility] ALBUMIN 3.6 3.5 - 5.2 g/dL 09/21/2021 6:31 AM [facility] BILIRUBIN TOTAL 0.2(L) 0.3 - 1.2 mg/dL 09/21/2021 6:31 AM [facility] ALKALINE PHOSPHATASE 65 40 - 150 U/L 09/21/2021 6:31 AM [facility] AST 38(H) 0 - 33 U/L 09/21/2021 6:31 AM [facility] [employer] [facility] ALT 6 0 - 33 U/L 09/21/2021 6:31 AM [facility] [employer] [facility] GFR >60 mL/min/1.7 3 sq meter 09/21/2021 6:31 AM [facility] [employer] [facility] Comment: eGFR has not been validated for [...] result. GFR, >60 mL/min/1.7 3 sq meter 09/21/2021 6:31 AM GENERAL I FARMWORKER [facility] LABORATORY SERVICES [facility] ANION GAP 10 8 - 16 mmol/L 09/21/2021 6:31 AM GENERAL I [employer] [facility] [place] Blood 09/21/2021 3:00 AM GENERAL I [employer] 09/21/2021 5:44 AM GENERAL I [employer] Godwin Javi Guillen MD CHEMISTRY ORDERABLE S Final Result [facility] [employer] [facility] [place] CLIA# [id number] [place] [address] documented in this encounter Visit Diagnoses Not on filedocumented in this encounter
--- OUTSIDE RECORDS SUMMARY | 2025-01-07 18:26 | XMS_ITS | Encounter Summary ---
Author Organization [facility] Address [address] [place] [address] Care Team Providers Care Warp Bleaching Vat Tender Name Role Phone Unavailable Primary Care Provider Unavailabl e Encounter Details Date Type Department Care Team (Late st Contact Info) Description 09/06/2021 Lab Requisition [facility] [id number] [place] [id number] Godwin Guillen MD [address] [place] [address] [phone] Social History Tobacco Use Types [...] Priority Date/Time Associated Diagnosis Comments PROTIME-INR Routine 09/06/2021 2:31 AM TECHNICAL SALES CONSULTANT documented in this encounter Results * (ABNORMAL) PROTIME-INR (09/06/2021 2:31 AM TECHNICAL SALES CONSULTANT) PROTIME 26.3(H) 11.5 - 14.7 Seconds 09/06/2021 11:51 AM TECHNICAL SALES CONSULTANT [facility] INR 2.4(H) 0.9 - 1.1 09/06/2021 11:51 AM TECHNICAL SALES CONSULTANT [facility] Blood Collection / Unknown 09/06/2021 2:31 AM TECHNICAL SALES CONSULTANT 09/06/2021 11:06 AM TECHNICAL SALES CONSULTANT us Godwin Guillen MD HEMATOLOGY ORDERABL ES Final Result [facility] CLIA# [id number] [place] [address] documented in this encounter Visit Diagnoses Not on filedocumented in this encounter
--- OUTSIDE RECORDS SUMMARY | 2025-01-07 18:26 | XMS_ITS | Data Portability ---
Author Organization [facility] [email or web address], Main Office Address [address] [place] [address] Assessment No assessment recorded. Plan of Treatment Reminders Order Date Submit Date Provider Last Modified By Organization Details Last Modified Time Details Appointments None recorded. Lab rapid strep group A, throat 2023 024 [facility], [address] [place] [address], [id number], 4 11:59:31 lipid panel, serum [address] (Lab), [address] [place], [address], 4 10:02:57 CMP, serum or plasma 2023 024 [email or web address] [facility] (Lab), [address] [place], [address], 4 09:26:36 HbA1c (hemoglob in A1c), blood [address] (Lab), [address] [place], [address], 4 10:18:38 CBC [address] (Lab), [address] [place], [address], 4 10:01:41 iron + TIBC + ferritin, serum [address] (Lab), [address] [place], [address], 4 10:01:59 TSH, serum, reflex free T4 [address] (Lab), [address] [place], [address], 4 10:00:40 vitamin D, 25-hydrox y, total, serum [address] (Lab), [address] [place], [address], 4 10:01:18 vitamin B12 + folate, serum or blood 2023 024 [email or web address] [facility] (Lab), [address] [place], [address], 4 09:26:[address] referral 2023 024 [email or web address] [facility] - Neurology, [address], [place], [address], 4 09:21:04 psychiatr ist referral 2023 024 [email or web address] [facility], [address] [facility], [address], [place], [address], 4 08:54:35 cardiolog ist referral - Previousl y establish ed, last seen approx. 08/2022. Please call patient to schedule appointme nt. [email or web address] [facility], [address] [facility] , [place], [address], 4 14:00:55 Procedures None recorded. Surgeries None recorded. Imaging XR, knee, 3 view - Please XR right knee 2023 024 [email or web address] [address] [place] [address], 2022 Jose Shook, [address], [place], [address], 4 08:39:38 XR, knee, 3 view - Please XR lt knee 2023 0[address] [facility] [email or web address] [place] [address], 2022 Jose Shook, [address], [place], [address], 4 08:39:38 US, neck, soft tissue 2023 024 [email or web address] [address] [place] [address], [address], [place], [address], 4 09:02:06 US, thyroid 2023 0[address] [facility] [email or web address] [place] [address], [address], [place], [address], 4 08:55:37 MAMMO, screening , digital, bilateral 2023 024 [email or web address] [address] [place] [address], 2022 Jose Shook, [address], [place], [address], 4 10:03:01 Medication Orders Medrol (Rodney) 4 mg tablets in a dose pack 2023 [place]89006, [address] [place], [place], [id number], 4 11:40:07 cetirizin e 10 mg tablet 2023 [place] [facility]17840, [address] [place], [place], [id number], 4 11:40:08 Flonase Allergy Relief 50 mcg/actua tion nasal spray,bobbi pension 2023 [facility] #14022, [address], [place], [place], [id number], 4 11:40:08 duloxetin e 60 mg capsule,d elayed release 2023 [facility] #84215, [address], [place], [place], [id number], 4 11:25:56 lamotrigi ne ER 25 mg tablet,ex tended release 24 hr 2023 [facility] #75325, [address], [place], [place], [id number], 4 11:37:18 urea 20 % topical cream [address] [facility]04186, [address], [place], [place], [id number], 4 10:57:48 Ubrelvy 100 mg tablet 2023 024 [facility] #74847, [address], [place], [place], [id number], 4 11:21:49 rizatript an 10 mg tablet 2023 024 [facility] #11888, [address], [place], [place], [id number], 4 11:24:18 amoxicill in 875 mg tablet [address] [facility] #91436, [address], [place], [place], [id number], 4 10:30:15 duloxetin e 60 mg capsule,d elayed release 2022 023 [facility]37852 [address] [place], [place], [id number], 3 16:17:31 Patient TargetsNo targets recorded. Patient Instructions Encounter Date Encounter Id Patient Instructions Last Modified By Organization Details Last Modified Time 07/22/2023 [id number] fu with pcp kelley for med refills. 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 08/2022. Please call patient to schedule appointment. Referring Physician: [facility], Encounter Date: 10/31/2023 Psychiatrist Referral for Bi polar disorder Referring Physician: Liza Paul [facility], Encounter Date: 06/26/2024 Neurologist Referral for His tory of cerebrovascular accident Referring Physician: Liza Paul [facility], Encounter Date: 06/26/2024 Results Created Date Observation Date Name Description Value Unit Range Abnormal Flag Note LastModifiedBy Organization Detail LastModifiedTime 08/28/20 24 08/28/2024 rapid strep group A, throa t STREP A negati ve Not Available s_g [facility] [address] [place] [address], [place], [address], 08/28/2024 11:42:39 09/04/20 22 09/04/2022 XR, chest No observ ation record ed. [id number] [facility] [address], [place], [address], 12/22/2022 07:36:38 Result Notes None recorded. Problems Name Problem SNOMED Code Status Onset Date Resolution Date Notes Provider Name and Address Organization Details Recorded Time Anxiety state 460779818 Active Not Available [facility] 3 07:31:03 Malaise and fatigue 138587895 Active Not Available [facility] 3 07:31:03 Eruption 122071666 Completed 06/26/2024 ROOSEVELT Garcia [address], [address], [place], [address] , [facility] 4 10:55:30 Jaw pain 727378704 Completed 06/26/2024 ROOSEVELT Garcia [address], [address], [place], [address] , [facility] 4 10:55:42 Knee pain Active Not Available [facility] 3 07:31:04 Sinusitis 28010877 Active Not Available [facility] 3 07:31:04 Migraine 70905339 Completed 06/26/2024 ROOSEVELT Garcia [address], [address], [place], [address] , [facility] 4 11:02:18 Dizziness 389212670 Active Not Available [facility] 3 07:31:04 Shoulder pain 36820657 Active Not Available [facility] 3 07:31:04 Anxiety 77203067 Active Not Available [facility] 3 07:31:04 Upper respirato ry infection 77487704 Active Not Available [facility] 3 07:31:04 Joint pain 88890384 Completed 06/26/2024 ROOSEVELT Garcia [address], [address], [place], [address] , [facility] 4 10:55:49 Otitis media 81960896 Active Not Available [facility] 3 07:31:04 Mixed anxiety and depressiv e disorder 517285192 Active 2022 Jaclyn Magana NP [address], [address], [place], [address] , [facility] 3 16:17:01 Infection of tooth 720907555 Completed 202306/26/2024 ROOSEVELT Garcia [address], [address], [place], [address] , [facility] 4 10:55:34 Vitamin D deficienc y 97630409 Active 2023 JARED Major [address], [address], [place], [address] , [facility] 4 08:39:33 Anemia 143893567 Active 2023 JARED Major [address], [address], [place], [address] , [facility] [employer] [facility] 4 08:40:27 Cobalamin deficienc y 010072784 Active 2023 JARED Major [address], [address], [place], [address] , [facility] 4 09:07:21 Keratosis pilaris 2208425 Active 2023 ROOSEVELT Garcia [address], [address], [place], [address] , [facility] 4 10:49:11 Bipolar disorder 77521066 Active 2023 ROOSEVELT Garcia [address], [address], [place], [address] , [facility] 4 10:52:34 Migraine with aura 3007427 Active 2023 ROOSEVELT Garcia [address], [address], [place], [address] , [facility] 4 11:01:12 Cervical lymphaden opathy 804482008 Active 2023 ROOSEVELT Garcia [address], [address], [place], [address] , [facility] 4 11:16:52 Lipoma of skin 505927300 Active 2023 ROOSEVELT Garcia [address], [address], [place], [address] , [facility] 4 11:20:22 Pain of left knee joint 07550697510 4107 Active 2023 ROOSEVELT Garcia [address] [facility], [facility] [address], [place], [address] , [facility] 4 11:21:37 Pain of bilateral knee joints 00502325484 4104 Active 2023 ROOSEVELT Garcia [address] [facility], [facility] [address], [place], [address] , [facility] 4 11:24:40 Sore throat 430397192 Active 2023 ROOSEVELT Garcia [address] [facility], [place] [address], [place], [address] , [facility] [email or web address] [facility] 4 11:42:35 Problem Notes None recorded. Procedures Surgical History Date Name Laterality Status Provider Name and Address Organization Details Recorded Time 1 open heart surgery completed Not Available [facility] 12/22/2022 07:26:14 Imaging Results Imaging Date Name Status LastModified by Organiz ation Details LastModified Time 09/04/2022 XR, chest completed [id number], [place], [address], 12/22/2022 07:36:38 Procedure Notes None recorded. Medical Equipment None Reported. Allergies Allergen ID Allergen Name Allergen Category Reaction Reaction Severity Criticality Documentation Date Start Date Code Code System Note Provider Name and Address Organization Details Recorded Time 40659 codeine medicatio n rash Not available Not available 12/22/2022 2670 RxNorm Not Available [facility] 3 07:36:32 Medications Name Sig Start Date Stop Date Status Note LastModified by Organization Details LastModified Time cyclobenz aprine 10 mg tablet TAKE 1 TABLET BY MOUTH THREE TIMES DAILY EVERY 8 HOURS NEEDED active Not Available Not Available No t Available amoxicill in 500 mg capsule TAKE 4 CAPSULES BY MOUTH 1 HOUR BEFORE DENTAL PROCEDUR E 06/26 completed Not Available Not Available Not Available clindamyc in HCl 300 mg capsule TK 1 C PO TID 05/13 completed Not Available Not Available Not Available trazodone 50 mg tablet TAKE 1 TABLET BY MOUTH EVERY NIGHT AT BEDTIME 06/26 completed Not Available Not Available Not Available cetirizin e 10 mg tablet Take 1 tablet every day by oral route as directed for 30 days. active Not Available Not Available No t Available azithromy red 250 mg tablet 2 tabs po qd x 1 day then 1 tab po qd x 4 days 12/04 completed Not Available Not Available Not Available alprazola m 1 mg tablet TAKE 1 TABLET BY MOUTH FOUR TIMES DAILY 08/24 completed Not Available Not Available Not Available urea 20 % topical cream Apply 1 applicat ion 3 times a day by topical route as needed for 30 days. 08/28 completed Not Available Not Available Not Available sumatript an 100 mg tablet TAKE 1 TABLET NEEDED 09/06 completed Not Available Not Available Not Available senna 8.6 mg tablet 06/26 completed Not Available Not Available Not Available meloxicam 15 mg tablet Take 1 tablet every day by oral route. 05/13 completed Not Available Not Available Not Available metronida zole 0.75 % (37.5 mg/5 gram) vaginal gel INSERT 1 APPLICAT ORFUL BY VAGINAL ROUTE EVERY DAY AT BEDTIME FOR 5 DAYS. 06/10 completed Not Available Not Available Not Available prednison e 20 mg tablet Take 2 tablets every day by oral route for 5 days. 07/22 completed Not Available Not Available Not Available rizatript an 10 mg tablet TAKE 1 TABLET BY MOUTH EVERY DAY NEEDED active Not Available Not Available No t Available ciproflox acin 500 mg tablet Take 1 tablet every 12 hours by oral route. 02/19 completed Not Available Not Available Not Available tramadol 50 mg tablet TK 1 T PO Q 4 - 6 H PRN 05/13 completed Not Available Not Available Not Available amoxicill in 500 mg tablet 06/26 completed Not Available Not Available Not Available warfarin 4 mg tablet TAKE 1 TABLET BY MOUTH EVERY DAY active Not Available Not Available No t Available lamotrigi ne 25 mg tablet Take 1 tablet by mouth daily active Not Available Not Available No t Available alprazola m 0.5 mg tablet TAKE 1 TABLET BY MOUTH THREE TIMES DAILY NEEDED FOR ANXIETY active Not Available Not Available No t Available amoxicill in 875 mg tablet TAKE 1 TABLET BY MOUTH EVERY 12 HOURS FOR 10 DAYS 06/26 completed Not Available Not Available Not Available trazodone 100 mg tablet TAKE 1 TABLET BY MOUTH ONCE A DAY AT BEDTIME NEEDED 08/28 completed Not Available Not Available Not Available nicotine (polacril ex) 4 mg gum 07/22 completed Not Available Not Available Not Available hydrocodo ne 7.5 mg-acetam inophen 325 mg tablet TAKE 1 TABLET EVERY 6 HOURS NEEDED FOR PAIN 09/06 completed Not Available Not Available Not Available cephalexi n 500 mg capsule 08/24 completed Not Available Not Available Not Available pantopraz ole 40 mg tablet,de layed release TAKE 1 TABLET BY MOUTH EVERY DAY active Not Available Not Available No t Available fluoxetin e 20 mg tablet TAKE 1 TABLET BY MOUTH EVERY DAY 08/24 completed Not Available Not Available Not Available triamcino lone acetonide 0.1 % topical ointment APPLY TO AFFECTED AREA TWICE DAILY NEEDED FOR 7 DAYS 08/24 completed Not Available Not Available Not Available polymyxin B sulfate 10,000 unit-trim ethoprim 1 mg/mL eye drops INSTILL 1 DROP INTO AFFECTED EYE(S) BY OPHTHALM IC ROUTE EVERY 6 HOURS x 7 days 01/11 completed Not Available Not Available Not Available docusate sodium 100 mg capsule TAKE 1 CAPSULE NEEDED ORALLY ONCE DAILY active Not Available Not Available No t Available buspirone 7.5 mg tablet Take 1 tablet twice a day by oral route. 07/05 completed Not Available Not Available Not Available diclofena c sodium 75 mg tablet,de layed release TAKE 1 TABLET BY MOUTH TWICE DAILY NEEDED 08/24 completed Not Available Not Available Not Available cephalexi n 500 mg tablet Take 1 tablet twice a day by oral route for 7 days. 12/08 completed Not Available Not Available Not Available metoprolo l succinate ER 25 mg tablet,ex tended release 24 hr TAKE 1 TABLET BY MOUTH EVERY DAY 06/26 completed Not Available Not Available Not Available ergocalci ferol (vitamin D2) 1,250 mcg (50,000 unit) capsule TAKE 1 CAPSULE BY MOUTH EVERY WEEK 06/26 completed Not Available Not Available Not Available polyethyl mainor glycol 3350 17 gram/dose oral powder MIX AND DRINK 1 SCOOP WITH 8 OUNCES OF FLUID ONCE A DAY active Not Available Not Available No t Available zolpidem 10 mg tablet Take 1 tablet every day by oral route at bedtime. 05/13 completed Not Available Not Available Not Available methylpre dnisolone 4 mg tablets in a dose pack Take as directed active Not Available Not Available No t Available ketoconaz ole 2 % topical cream APPLY TO THE AFFECTED AREA(S) BY TOPICAL ROUTE BID x 4-6 weeks as needed 10/10 completed Not Available Not Available Not Available fluticaso ne propionat e 50 mcg/actua tion nasal spray,bobbi pension Gabbs 1 spray every day by intranas al route as directed for 30 days. active Not Available Not Available No t Available amoxicill in 875 mg-potass ium clavulana te 125 mg tablet Take 1 tablet every 12 hours by oral route for 10 days. 07/22 completed Not Available Not Available Not Available Ventolin HFA 90 mcg/actua tion aerosol inhaler INHALE TWO PUFFS BY MOUTH EVERY FOUR HOURS NEEDED 01/11 completed Not Available Not Available Not Available buspirone 15 mg tablet TK 1 T PO BID active Not Available Not Available No t Available neomycin- polymyxin -hydrocor t 3.5 mg-10,000 unit/mL-1 % ear drops,bobbi p INSTILL 4 DROPS INTO AFFECTED EAR(S) BY OTIC ROUTE 3 TIMES PER DAY for 7 days active Not Available Not Available No t Available escitalop tamiko 10 mg tablet TAKE 1 TABLET BY MOUTH EVERY DAY active Not Available Not Available No t Available escitalop tamiko 20 mg tablet Take 1.5 tablets every day by oral route for 30 days. 03/31 completed Not Available Not Available Not Available cyclobenz aprine 5 mg tablet TAKE 1 TABLET BY MOUTH TWICE DAILY NEEDED 08/24 completed Not Available Not Available Not Available Ciprodex 0.3 %-0.1 % ear drops,bobbi pension INSTILL 4 DROPS INTO AFFECTED EAR(S) BY OTIC ROUTE 2 TIMES PER DAY FOR 7 DAYS 06/29 completed Not Available Not Available Not Available duloxetin e 20 mg capsule,d elayed release TAKE 1 CAPSULE BY MOUTH TWICE DAILY 03/31 completed worked well, insuranc e wouldnt cover Not Available Not Available Not Available duloxetin e 30 mg capsule,d elayed release TAKE 1 CAPSULE BY MOUTH EVERY DAY ALONG WITH THE 60 MG FOR TOTAL DOSE OF 90MG 06/26 completed Not Available Not Available Not Available duloxetin e 60 mg capsule,d elayed release TAKE 1 CAPSULE BY MOUTH EVERY DAY 2024 active Not Available Not Available Not Avai lable Mirena 06/26 completed Not Available Not Available Not Available Pristiq 50 mg tablet,ex tended release Take 1 tablet every day by oral route. 11/08 completed Samples given Not Available Not Available Not Available lamotrigi ne ER 25 mg tablet,ex tended release 24 hr TAKE 1 TABLET BY MOUTH EVERY DAY DIRECTED active Not Available Not Available No t Available ketorolac 30 mg/mL injection solution 1 ml IM x 1 12/04 completed Not Available Not Available Not Available buprenorp akua 2 mg-naloxo ne 0.5 mg sublingua l film DISSOLVE ONE FILM UNDER TONGUE EVERY EVENING 07/22 completed Not Available Not Available Not Available buprenorp akua 4 mg-naloxo ne 1 mg sublingua l film PUT 1 FILM UNDER THE TONGUE AND ALLOW TO DISSOLVE ONCE DAILY NEEDED active Not Available Not Available No t Available Eliquis 5 mg tablet TAKE 1 TABLET BY MOUTH TWICE DAILY active Not Available Not Available No t Available Narcan 4 mg/actuat ion nasal spray CALL 911. SPR CONTENTS OF ONE SPRAYER (0.1ML) INTO ONE NOSTRIL. REPEAT IN 2-3 MIN IF SYMPTOMS OF OPIOID EMERGENC Y PERSIST, ALTERNAT E NOSTRILS active Not Available Not Available No t Available Sublocade 300 mg/1.5 mL solution, extended release subcutane ous syringe Inject 1.5 mL every month by subcutan eous route. active Not Available Not Available No t Available Ubrelvy 100 mg tablet TAKE 1 TABLET BY MOUTH TWICE DAILY NEEDED active Not Available Not Available No t Available Vitals Date Recorded Body mass index (BMI) Body height Oxygen saturation Oxygen saturation in Arterial blood by Pulse oximetry Heart rate Respiratory rate Body temperature Body weight Systolic blood pressure Diastolic blood pressure Provider Name and Address Organization Details Last Updated DateTime 2 19 kg/m2 182.88 cm 98 % 98 % 92 /min 16 /min 98.3 [degF] 02698.9 3 g 102 mm[Hg] 72 mm[Hg] Not Available [facility] 3 07:29:32 Date Recorded Body height Body mass index (BMI) Body weight Body temperature Heart rate Oxygen saturation Oxygen saturation in Arterial blood by Pulse oximetry Pain severity - 0-10 verbal numeric rating [Score] - Reported Systolic blood pressure Diastolic blood pressure Provider Name and Address Organization Details Last Updated DateTime 3 182.88 cm 21.2 kg/m2 05625.8 1 g 96.3 [degF] 81 /min 97 % 97 % 5 128 mm[Hg] 82 mm[Hg] Jaclyn Donovan RN [facility] [employer] 3 15:54:01 Date Recorded Body height Body mass index (BMI) Body weight Body temperature Heart rate Oxygen saturation Oxygen saturation in Arterial blood by Pulse oximetry Systolic blood pressure Diastolic blood pressure Provider Name and Address Organization Details Last Updated DateTime 4 182.88 cm 20.6 kg/m2 00870.0 4 g 98.3 [degF] 82 /min 99 % 99 % 102 mm[Hg] 78 mm[Hg] Marcia olson CMA [place] [employer] 4 08:24:35 Date Recorded Body height Body mass index (BMI) Body weight Body temperature Heart rate Respiratory rate Oxygen saturation Oxygen saturation in Arterial blood by Pulse oximetry Pain severity - 0-10 verbal numeric rating [Score] - Reported Systolic blood pressure Diastolic blood pressure Provider Name and Address Organization Details Last Updated DateTime 4 182.88 cm 21.4 kg/m2 19285.2 9 g 97.3 [degF] 93 /min 24 /min 97 % 97 % 0 122 mm[Hg] 84 mm[Hg] Jaclyn Donovan RN [facility] [employer] 4 10:36:39 Date Recorded Body height Body mass index (BMI) Body weight Body temperature Heart rate Respiratory rate Oxygen saturation Oxygen saturation in Arterial blood by Pulse oximetry Pain severity - 0-10 verbal numeric rating [Score] - Reported Systolic blood pressure Diastolic blood pressure Provider Name and Address Organization Details Last Updated DateTime 182.88 cm 21.5 kg/m2 70454.9 9 g 97.3 [degF] 63 /min 20 /min 95 % 95 % 0 118 mm[Hg] 72 mm[Hg] Jaclyn Donovan RN [facility] 11:00:07 Social History Question Answer Notes LastModified by Organization Details LastModified Time Tobacco Smoking Status Current Every Day Smoker Mireille Donovan gutierrez [facility] [email or web address] [facility] 10/31/2023 08:14:48 Do You Have An Advance Directive? No [id number] Information not available 12/22/2022 Do You Wear A Helmet When Biking? No [email or web address] Information not available 10/31/2023 What Is Your Level Of Caffeine Consumption? None Information not available 06/26/2024 In The 14 Days Before Symptom Onset, Have You Had Close Contact With A Laboratory-confi rmed COVID-19 While That Case Was Ill? No [email or web address] Information not available 10/31/2023 In The 14 Days Before Symptom Onset, Have You Had Close Contact With A Person Who Is Under Investigation For COVID-19 While That Person Was Ill? No [email or web address] Information not available 10/31/2023 What Type Of Diet Are You Following? REGULAR Information not available 06/26/2024 What Is The Highest Grade Or Level Of School You Have Completed Or The Highest Degree You Have Received? [id number] [email or web address] Information not available 10/31/2023 What Is Your Occupation? Sales [email or web address] Information not available 10/31/2023 Have There Been Any Changes To Your Family Or Social Situation? No Information not available 08/28/2024 What Is The Fluoride Status Of Your Home? Unknown [email or web address] Information not available 10/31/2023 Are There Any Guns Present In Your Home? No [email or web address] Information not available 10/31/2023 Do You Use Insect Repellent Routinely? Yes [email or web address] Information not available 10/31/2023 Where Do You Live? SingleLevelHouse [email or web address] Information not available 10/31/2023 Do You Have A Medical Power Of Trade Facilitator? No [email or web address] Information not available 10/31/2023 How Many Children Do You Have? 2 Information not available 08/28/2024 Do You Have Any Pets? Yes [email or web address] Information not available 10/31/2023 What Is Your Relationship Status? [id number] [id number] Information not available 12/22/2022 Do You Use Your Seat Belt Or Car Seat Routinely? Yes [email or web address] Information not available 10/31/2023 Do You Have Smoke And Carbon Monoxide Detectors In Your Home? Yes [email or web address] Information not available 10/31/2023 Are You Passively Exposed To Smoke? No [email or web address] Information not available 10/31/2023 Are There Any Smokers In Your House? No [email or web address] Information not available 10/31/2023 Do You Participate In Social Media? Yes [email or web address] Information not available 10/31/2023 Do You Feel Stressed (tense, Restless, Nervous, Or Anxious, Or Unable To Sleep At Night)? [id number] [email or web address] Information not available 10/31/2023 Do You Use Any Illicit Or Recreational Drugs? Yes [email or web address] Information not available 10/31/2023 Do You Use Sunscreen Routinely? Yes [email or web address] Information not available 10/31/2023 Has Tobacco Cessation Counseling Been Provided? No Information not available 10/31/2023 How Many Years Have You Smoked Tobacco? 10 [email or web address] Information not available 10/31/2023 Have You Recently Traveled Abroad? No Information not available 10/31/2023 Have You Used IV Drugs? Yes Former Heroin User 4 Mos [email or web address] Information not available 10/31/2023 Are You Currently In School? No [email or web address] Information not available 10/31/2023 Do You Or Have You Ever Used Any Other Forms Of Tobacco Or Nicotine? No [email or web address] Information not available 10/31/2023 Sex: Unknown Functional Status Question Answer Note LastModified by Organizat ion Details LastModified Time What is your exercise level? Occasional [id number] Information not available 12/22/2022 Mental Status None recorded. Family History Relationship Description Onset Age of this Age Resolved Age Notes LastModified by Organization Details LastModified Time Father Myocardial infarction 3X [id number] Not available 12/22/2022 07:26:16 Mother Bipolar disorder Not available 2023 10:28:09 Sister Bipolar disorder Not available 2023 10:28:09 Maternal Grandfather Diabetes mellitus [id number] Not available 12/22/2022 07:26:17 Maternal Grandfather Cerebrovascu lar accident Not available 12/2023 10:28:09 Notes:mom-blood clotting dis order, paternal history of alcoholism Medical History Condition Response ANXIETY DISORDER Y DEPRESSION (INCLUDING POST ) Y Gynecological History Statement/Question Response Abnormal Pap N Date of Last Colonoscopy Most Recent Bone Density Date of LMP Menses Monthly N Dislike of Light during Menstrual Headac he N Date of Last Pap Date of Last Pap Smear Most Recent Mammogram Age at Menarche 14 Current Control Method IUD Obstetrics History GPAL:G 3 P 2 0 1 2 Type Value Full Term 2 Spontaneous 1 Living 2 Total 3 Immunizations Vaccine Type Date Status Note Provider Nam e and Address Organization Details Recorded Time Pneumococcal conjugate PCV 13 2 completed Not Available [facility] 12/22/2022 07:36:26 Influenza, split virus, quadrivalent, PF 5 completed Not Available [facility] 12/22/2022 07:36:27 Tdap 4 completed YUMIKO Tavares [facility] 10/31/2023 09:23:52 pneumococcal polysaccharide PPV23 4 completed YUMIKO Tavares, [employer] [facility] [email or web address] [facility] 10/31/2023 09:59:57 Past Encounters Encounter ID Performer Location Encounter Start Date Encounter Closed Date Diagnosis/Indication Diagnosis SNOMED-CT Code Diagnosis ICD10 Code Diagnosis Note [id number] [facility] [place] Primary Care [address] [place] [address] 10/30/2021 00:00:00 10/30/2021 20:02:14 [id number] [facility] [place] Family [address] [place] [address] 11/03/2021 00:00:00 11/03/2021 18:55:33 [id number] [facility] [place] Primary Care [address] [place] [address] 12/08/2021 00:00:00 12/24/2021 18:19:26 [id number] [facility] [place] Family Practice Jude [address] [place] [address] 03/04/2022 00:00:00 03/04/2022 10:30:44 [id number] [facility] [place] Primary Care [facility]le [address] [place] [address] 05/26/2022 00:00:00 05/26/2022 13:48:52 [id number] [facility] Practice Jude [address] [place] [address] 05/27/2022 00:00:00 05/27/2022 14:18:[id number] [facility] Primary Care [address] [address] 07/07/2022 00:00:00 07/07/2022 12:33:17 [id number] [facility] [place] Primary Care [facility] [address] [place] [address] [address] [place] [address] 08/24/2022 00:00:00 09/22/2022 14:15:05 [id number] Jaclyn Magana NP [facility] Practice [facility] [address] [place] [address] 07/22/2023 15:40:42 07/22/2023 16:24:29 Upper respiratory infection 75870904 J06.9 Warm saltwater gargle qid for 3 days. Increase vit c, zinc, magnesium. Mixed anxi ety and depressive disorder 225485428 F41.8 refilled today for 30 days only. FU with PCP in [facility] for further refills. [id number] JARED Major [facility] [place] Primary Care [facility] [address] [place] [address] [address] [place] [address] 10/31/2023 08:13:56 10/31/2023 09:06:07 Adult health examination 681162370 Z00.00 Will get routine labs today. Covid vaccines- 10/02/23Fl u vaccine- 09/2023Tet anus vaccine- updated today Pap- 2013 wnl, will schedule f/u for well woman examColono scopy- recommende d age 45Mammogra m- recommende d, ordered today. Recommende d routine eye exams and dental cleanings. Administra tion of tetanus vaccine 334000613 Z23 Infection of tooth 28471 8007 K04.7 Receives prophylact ic abx for dental work. Administra tion of pneumococcal vaccine 07349093 Z23 Screening mammography 24 776112 Z12.31 Vitamin D deficiency 347 86223 E55.9 Anemia 221974410 D64.9 Cardiac pa elpidio in situ 053442940 Z95.0 Will get her re-establi shed with cardiology . Diabetes m ellitus screening 462219574 Z13.1 Hyperlipid emia screening 815240223 Z13.220 Cobalamin deficiency 190 568312 E53.8 [id number] ROOSEVELT Garcia [address] [address] 06/26/2024 10:24:22 06/26/2024 11:49:43 Keratosis pilaris 7043806 Q82.8 Bipolar disorder 4634685 4 F31.9 Continuati on of treatment with lamotrigin e Migraine with aura 90834 06 G43.109 Has failed Sumatripta n History of cerebrovascular accident 069078445 Z86.73 Cervical lymphadenopathy 314350727 R59.0 Lipoma of skin 617570369 D17.30 Lipoma of the left forearm, causing minimal pain. Not interested in surgery [id number] ROOSEVELT Garcia [address] [address] 08/28/2024 10:41:34 08/28/2024 12:00:06 Mixed anxiety and depressive disorder 657317182 F41.8 Pain of bi lateral knee joints 5860999001 47039 M25.561 Continue Biofreeze, ice, heatAdd Tylenol arthritis, no more than 3,000 mg daily Upper resp iratory infection 73220559 J06.9 Sore throat 276414599 J0 2.9 Health Concerns Section Related Observation LastModified by Organization William hernandez LastModified Time None Recorded Concern Status LastModified by Organization Details LastModified Time None Recorded Advance Directives Directive N: Payers Encounter Date Sequence Insurance Name Policy Number Policy Hernandez Covered Member ID Hernandez Member ID Guarantor Name 07/22/2023 1 [facility] (MEDICAID HMO) [id number] Charmaine My Vandersloot [id number] Charmaine Mylessloot 10/31/2023 1 [facility] (MEDICAID HMO) [id number] Charmaine My Vandersloot [id number] Charmaine Mylessloot 06/26/2024 1 [facility] (MEDICAID HMO) [id number] Charmaine R Vandersloot [id number] Charmaine My Vand[place]oot 08/28/2024 1 [facility] (MEDICAID HMO) [id number] Charmaine My Vandersloot [id number] Charmaine My [place] Notes Date Note Type Note Provider Name and Address Organization Details Recorded Time 07/22/2023 text/html Here for [facility] [place] patient, couldn't get in to [place] office so here for follow up. Had URI at and still having symptoms.No cough.Sore throat, headache, fatigue, dizzy when standing too quickly. Jaclyn Magana NP [address], [place], [address], [employer] 07/22/2023 16:19:11 10/31/2023 text/html Pt. here for [facility] physical.She continues to have complaints of swelling in her feet, loss of hair and some dizziness.These have been chronic problems since she was hospitalized. JARED Major [address], [place], [address], [employer] 10/31/2023 09:10:15 06/26/2024 text/html Charmaine diaz is a 44 year old female patient here today to establish care. Has been feeling poorly for approx 2 years Hypertension and tachycardia. Has been taking metoprolol for the last 3 years. States that she will pass out if she stands too quickly. Has been off of her metoprolol for 2 weeks and states she feels better/ less light headed. BP stable/low, will not restart metoprolol.Is seeing cardiology. Has had open heart surgery. Has frequent pitting edema. Will wear compression socks and keep feet elevated when able. Saw psych through [facility] but hasn't seen them in a while. States she has cycles of depressed or impulsive moods. Some days she cannot get out bed and some days she is cleaning rapidly. Occasional anger bursts, quick to trigger. Was taking lamotrigine 25 mg and noticed that it helped but has not been able to get it filled. Recently quit smoking. Migraines and headaches. Associates this with cervical degenerative disc disease. Migraines have been more frequent, associated nausea and photophobia. Has to sleep these off. Tylenol is not effective. 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 Spent 3 months in the hospital. Flu shot: OVID vaccines: UTDTDaP: neumonia: PCV13 and PPV23 [facility] ROOSEVELT Garcia [address], [place], [address], [employer] 06/26/2024 11:48:26 08/28/2024 text/html Charmaine diaz is a 44 year old female patient here today for a sick visit She is having ear pain (x1 month), sore throat, submandibular lymphadenopathy, sinus congestion, eye drainage, body aches since last night. Declines fevers. Concerns with [place] knee pain. Has a history of RA. States she felt her left knee give out while doing a lunge. ROOSEVELT Garcia [address], [place], [address], [employer] 08/28/2024 11:43:08 OBGyn Episode No OBEpisode recorded.
--- OUTSIDE RECORDS SUMMARY | 2025-01-07 18:26 | XMS_ITS | Patient Health Record ---
Author Organization [facility] Address [address] [place] [address] Care Team Providers Care Wind Turbine Mechanic Name Role Phone Blake Kumar Primary Care Provider [phone] Maria Ines Keller Unavailable [phone] Yvonne Page Unavailable [phone] Vidya Pastor Unavailable [phone] Allergies Allergen (clinical drug ingredient) Drug/Non Drug [...] neg OXY neg PCP neg BUP POS 12 Panel Urine Drug Screen Reviewed date:09/18/2024 08:24:15 AM Interpretation: Performing Lab: Notes/Report: THC neg NILE neg MOP (OPI) neg AMP neg MET neg BAR neg BZO neg MDMA neg MTD neg OXY neg PCP neg BUP POS 12 Panel Urine Drug Screen Reviewed date:05/16/2024 10:33:55 AM Interpretation: Performing Lab: Notes/Report: THC neg NILE neg MOP (OPI) neg AMP neg MET neg BAR neg BZO neg MDMA neg MTD neg OXY neg PCP neg BUP POS 12 Panel Urine Drug Screen Reviewed date:11/14/2024 08:18:36 AM Interpretation: Performing Lab: Notes/Report: THC neg NILE neg MOP (OPI) neg AMP neg MET neg BAR neg BZO neg MDMA neg MTD neg OXY neg PCP neg BUP POS 12 Panel Urine Drug Screen Reviewed date:08/21/2024 08:20:37 AM Interpretation: Performing Lab: Notes/Report: THC neg NILE neg MOP (OPI) neg AMP neg MET neg BAR neg BZO neg MDMA neg MTD neg OXY neg PCP neg BUP POS 12 Panel Urine Drug Screen Reviewed date:06/20/2024 08:16:42 AM Interpretation: Performing Lab: Notes/Report: THC neg NILE neg MOP (OPI) neg AMP neg MET neg BAR neg BZO neg MDMA neg MTD neg OXY neg PCP neg BUP POS 12 Panel Urine Drug Screen Reviewed date:02/15/2024 08:21:16 AM Interpretation: Performing Lab: Notes/Report: THC neg NILE neg MOP (OPI) neg AMP neg MET neg BAR neg BZO neg MDMA neg MTD neg OXY neg PCP neg BUP POS 12 Panel Urine Drug Screen Reviewed date:01/18/2024 08:17:22 AM Interpretation: Performing Lab: Notes/Report: THC neg NILE neg MOP (OPI) neg AMP neg MET neg BAR neg BZO neg MDMA neg MTD neg OXY neg PCP neg BUP POS 12 Panel Urine Drug Screen Reviewed date:10/18/2024 09:28:05 AM Interpretation: Performing Lab: Notes/Report: THC neg NILE neg MOP (OPI) neg AMP neg MET neg BAR neg BZO neg MDMA neg MTD neg OXY neg PCP neg BUP POS 12 Panel Urine Drug Screen Reviewed date:03/14/2024 10:01:16 AM Interpretation: Performing Lab: Notes/Report: THC neg NILE neg MOP (OPI) neg AMP neg MET neg BAR neg BZO neg MDMA neg MTD neg OXY neg PCP neg BUP pos 12 Panel Urine Drug Screen Reviewed date:07/24/2024 02:22:52 PM Interpretation: Performing Lab: Notes/Report: THC neg NILE neg MOP (OPI) neg AMP neg MET neg BAR neg BZO neg MDMA neg MTD neg OXY neg PCP neg BUP POS 12 Panel Urine Drug Screen Reviewed date:04/11/2024 08:25:52 AM Interpretation: Performing Lab: Notes/Report: THC neg NILE neg MOP (OPI) neg AMP neg MET neg BAR neg BZO neg MDMA neg MTD neg OXY neg PCP neg BUP POS Reason For Referral Reason Therapy Diagnosis 1 ASH (generalized anx iety disorder) (F41.1) Referral Organization [facility]ly [facility] Referring Provider First Name Yvonne Referring Provider Last Name Camilo Referring Provider Speciality Psychiatry Referred Provider Specialty [facility] General Notes CamiloYvonne archuleta Alexis 11:42:41 AM > Client with anxiety, depression, and states bipolar disorder- please refer. Thank you., Timothy Ashely Pepe 10/22/2024 09:39:20 AM > Re-assigning referrals to HN team per oil well services supervisor. Clinical Notes Jenny Wilcox 11:30:16 AM > Called Charmaine. Spoke with Charmaine and she stated that she is interested in setting up psych services and possibly individual therapy but is not interested in group therapy at this point. Ensured that Charmaine had number for central access and confirmed date and time set up for next appointment. Referral Priority Routine Medications Medication SIG (Take, Route, Frequency, Duration) Notes Start Date End Date Status Buprenorphine HCl-Naloxone HCl 4-1 MG 1 film under the tongue and allow to dissolve Sublingual once a day as needed 12/19/2024 Active Aspirin 81 MG 1 tablet Orally Once a day for 30 day(s) Active Pantoprazole Sodium 40 MG 1 tablet Orall y Once a day for 30 day(s) Active Sublocade 300 MG/1.5ML 300 mg Subcutaneo us every 28 days 11/14/2024 Active Docusate Sodium 100 MG 1 capsule as need ed Orally Once a day for 30 day(s) Active traZODone HCl 100 MG TAKE 1 TABLET BY [facility] AT BEDTIME for 30 Active Eliquis 5 MG as directed Orally t wice a day Active Arthritis Pain Relief 650 MG 2 tablets as needed Orally every 8 hrs Active Cymbalta 60 MG 1 capsule (for a tot al of 90mg) Orally Once a day for 30 days 03/12/2024 Active lamoTRIgine 25 MG Take 1 tablet PO onc e daily for 2 weeks, then increase to 2 tablets once daily for 2 weeks (DC if rash) Orally for 30 days 03/12/2024 Active Immunizations Vaccine Route Administration Date Status Comme nts Influenza, virus vaccine, trivalent, preservative free IM Intramuscular 09/18/2024 Administered Gely Bee 09/18/2024 08:45 AM ATTENDANT ARCADE >Flu shot given LMD, tolerated well. FLU VAC NO PRSV 4VAL 6 mo+ IM Intramuscular 07/29/2023 Administered Pt. tolerated well. No questions/concer ns at this time. Social History Tobacco Use: Social History Observation Description Date Details (start date - stop date) Current Smoker NA - NA Sex Assigned At : Social History Observation Description Sex Assigned At Female Tobacco Control (Standard) Question Answer Notes Tobacco use: Current every day smoker Additional Findings: Tobacco user e-cigarette Problems Problem Type SNOMED Code ICD Code Onset Dates Problem Status W/U Status Risk Notes Problem Tobacco user (166781357) Nicotine dependence, unspecified, uncomplicated (F17.200) Active confirmed Problem Mood disorder (67299590) Mood disorder (F39) 4 Active confirmed Problem Generalized anxiety disorder (29609502) ASH (generalized anxiety disorder) (F41.1) 4 Active confirmed Problem Major depressive disorder (157618967) MDD (major depressive disorder) (F32.9) 4 Active confirmed Problem 690858654 Tobacco use disorder (F17.200) Active confirmed Problem Mental disorder caused by drug (577993225) Opioid use disorder (F11.99) 4 Active confirmed Vital Signs Heart Rate 98 /min 12/19/2024 Temperature 98.6 degrees Fahrenheit 12/19/2024 Respiratory Rate 16 /min 12/19/2024 Blood pressure diastolic 78 mm Hg 12/19/2024 Oximetry 99 % 12/19/2024 Height 72 in 12/19/2024 Blood pressure systolic 110 mm Hg 12/19/2024 Weight 158.2 lbs 12/19/2024 BMI 21.45 kg/m2 12/19/2024 Encounters Encounter Location Date Provider Diagnosis [facility] [address] [place] [address] 01/18/2024 Jenia Heavens Opioid use disorder F11.99 and Tobacco use disorder F17.200 [facility] [address] [place] [address] 02/15/2024 Jenia Heavens Opioid use disorder F11.99 and Tobacco use disorder F17.[address] [facility] [address] 03/12/2024 Vidya Pastor Opioid use disorder F11.99 ; Mood disorder F39 ; MDD (major depressive disorder) F32.9 and ASH (generalized anxiety disorder) F41.1 [facility] [address] [place] [address] 03/14/2024 Jenia Heavens Nicotine dependence, unspecified, uncomplicated F17.200 and Opioid use disorder F11.99 [facility] [address] [place] [address] 04/11/2024 Jenia Heavens Opioid use disorder F11.99 and Nicotine dependence, unspecified, uncomplicated F17.200 [facility] [address] [place] [address] 05/16/2024 Jenia Heavens Opioid use disorder F11.99 and Tobacco use disorder F17.200 [facility] [address] [place] [address] 06/20/2024 Jenia Heavens Opioid use disorder F11.99 and Nicotine dependence, unspecified, uncomplicated F17.200 [facility] [address] [place] [address] 07/24/2024 Jenia Heavens Opioid use disorder F11.99 and Tobacco use disorder F17.200 [facility] [place] [address] [place] [address] 08/21/2024 Jenia Heavens Opioid use disorder F11.99 and Tobacco use disorder F17.[address] [place] [address] 09/18/2024 Jenia Heavens Opioid use disorder F11.99 ; Nicotine dependence, unspecified, uncomplicated F17.200 and Encounter for immunization Z23 [facility] [place] [address] [place] [address] 10/16/2024 Yvonne Page Opioid use disorder F11.99 ; Encounter for immunization Z23 ; Nicotine dependence, unspecified, uncomplicated F17.200 and ASH (generalized anxiety disorder) F41.1 [facility] [place] [address] [place] [address] 11/14/2024 Jenia Heavens Opioid use disorder F11.99 and Tobacco use disorder F17.200 [facility] [address] [place] [address] 12/19/2024 Jenia Heavens Opioid use disorder F11.99 and Nicotine dependence, unspecified, uncomplicated F17.[address] [address] 03/13/2024 Blake Kumar [place] [address] [facility] [place] [place] [address] 03/13/2024 Jenia Heavens Opioid use disorder F11.99 [facility] [address] [facility] [place] [place] [address] 03/15/2024 Jenia Heavens Opioid use disorder F11.99 [place] [address] [facility] [place] [address] 05/04/2024 Jenia Heavens Opioid use disorder F11.99 [place] [address] [facility] [place] [address] 06/08/2024 Jenia Heavens Opioid use disorder F11.99 [place] [address] [facility] [place] [address] 10/12/2024 Jenia Heavens Opioid use disorder F11.99 Assessments Encounter Date Diagnosis (ICD Code) Assessment Notes Treatment Notes Treatment Clinical Notes Section Notes 01/18/2024 Tobacco use disorder (ICD-10 - F17.200) 01/18/2024 Opioid use disorder (ICD-10 - F11.99) 02/15/2024 Tobacco use disorder (ICD-10 - F17.200) 02/15/2024 Opioid use disorder (ICD-10 - F11.99) 03/12/2024 Mood disorder (ICD-10 - F39) Start Lamotrigine 25mg once daily for 2 weeks and then increase to 50mg once daily for 2 weeks. DC if a rash develops. 03/12/2024 Opioid use disorder (ICD-10 - F11.99) Continue MAT and NA meetings. 03/13/2024 Opioid use disorder (ICD-10 - F11.99) 03/14/2024 Nicotine dependence, unspecified, uncomplicated (ICD-10 - F17.200) 03/14/2024 Opioid use disorder (ICD-10 - F11.99) Discussed medication side effects, adverse effects, risks, benefits, as well as interactions. Encouraged non-use of opioids. Has naloxone. Recommended participation in recovery groups/counseling services. Agrees to contact office with questions or concerns. 03/15/2024 Opioid use disorder (ICD-10 - F11.99) 04/11/2024 Opioid use disorder (ICD-10 - F11.99) 05/04/2024 Opioid use disorder (ICD-10 - F11.99) 05/16/2024 Tobacco use disorder (ICD-10 - F17.200) 05/16/2024 Opioid use disorder (ICD-10 - F11.99) 06/08/2024 Opioid use disorder (ICD-10 - F11.99) 06/20/2024 Opioid use disorder (ICD-10 - F11.99) 07/24/2024 Tobacco use disorder (ICD-10 - F17.200) 07/24/2024 Opioid use disorder (ICD-10 - F11.99) 08/21/2024 Tobacco use disorder (ICD-10 - F17.200) 08/21/2024 Opioid use disorder (ICD-10 - F11.99) 09/18/2024 Opioid use disorder (ICD-10 - F11.99) Discussed medication side effects, adverse effects, risks, benefits, as well as interactions. Encouraged non-use of opioids. Has naloxone. Recommended participation in recovery groups/counseling services. Agrees to contact office with questions or concerns. 10/12/2024 Opioid use disorder (ICD-10 - F11.99) 10/16/2024 Encounter for immunization (ICD-10 - Z23) 10/16/2024 Opioid use disorder (ICD-10 - F11.99) Patient agrees to take medication as prescribed. Discussed medication side effects, adverse effects, risks, benefits, as well as interactions. Encouraged non-use of opioids. Client to make provider aware of any medication changes that could interact with treatment. Recommended participation in recovery groups/counseling services to help maintain sobriety. May contact the office with any questions or concerns. 11/14/2024 Opioid use disorder (ICD-10 - F11.99) 12/19/2024 Opioid use disorder (ICD-10 - F11.99) 12/19/2024 Nicotine dependence, unspecified, uncomplicated (ICD-10 - F17.200) 11/14/2024 Tobacco use disorder (ICD-10 - F17.200) 10/16/2024 Nicotine dependence, unspecified, uncomplicated (ICD-10 - F17.200) 09/18/2024 Nicotine dependence, unspecified, uncomplicated (ICD-10 - F17.200) 06/20/2024 Nicotine dependence, unspecified, uncomplicated (ICD-10 - F17.200) 04/11/2024 Nicotine dependence, unspecified, uncomplicated (ICD-10 - F17.200) 03/12/2024 MDD (major depressive disorder) (ICD-10 - F32.9) Increase Cymbalta up to 90mg as pt reports it has been effective in the past. PHQ-9 is 10. Pt denies need for crisis. She has the crisis contact information. 03/12/2024 ASH (generalized anxiety disorder) (ICD-10 - F41.1) 09/18/2024 Encounter for immunization (ICD-10 - Z23) pt tolerated well. Ordered per standing orders for administering influenza vaccine to adults Ordered per standing orders for administering influenza vaccine to adults. Ordered per standing orders for administering influenza vaccine to adults. Ordered per standing orders for administering influenza vaccine to adults. 10/16/2024 ASH (generalized anxiety disorder) (ICD-10 - F41.1) 01/18/2024 Other Client agrees to take medication as prescribed. Discussed medication side effects, adverse effects, risks, benefits, as well as interactions. Encouraged non-use of opioids. Has naloxone. Recommended participation in recovery groups to help aide in sobriety. May contact office with questions or concerns. 02/15/2024 Other Client agrees to take medication as prescribed. Discussed medication side effects, adverse effects, risks, benefits, as well as interactions. Encouraged non-use of opioids. Has naloxone. Recommended participation in recovery groups/counseling services. Agrees to contact office with questions or concerns. 03/12/2024 Other Patient was edu cated on diagnosis and symptoms. Discussed the treatment plan, patient is agreeable and accepting of treatment plan. Patient denies further questions or concerns currently. Discussed sleep hygiene and caffeine intake. Encouraged to improve diet, get regular exercise, daily relaxation, and work on managing stress levels.Return to clinic 4 weeks.Need disclosure for recent labs and medical records. Encouraged counseling.Educated patient that if she is or planning to become , she is to let the provider know immediately.The Patient/Guardian is aware of the need to contact the office or return for an earlier appointment if any problems or concerns arise. May also contact the 24-hour crisis hotline (R), refer to the closest emergency room or call 911 if new symptoms arise of existing symptoms worsen; the Patient/Guardian is aware that this would apply to symptoms such as: suicidal ideation, homicidal ideation, high risk behaviors, manic symptoms, psychotic symptoms, physical symptoms, or any other symptoms that may be dangerous to self or others.Greater than 50% of time spent on coordination and counseling where psychopharmacology as well as psychotherapeutic interventions were discussed along with review of treatments in the past.Patient/Nikki n was educated about treatments including benefits and risks, alternatives, potential medication side effects, black box warning, and risks of failure if not treated. The Patient/Guardian asked appropriate questions, appeared to understand the answers, and decided to accept the treatment and continue being followed.Discussed the importance of compliance with medications due to the risk of relapse of symptoms.Discussed the risks of taking psychotropic medication when combined with substance use/abuse and/or drinking alcohol. 04/11/2024 Other Patient agrees to take medication as prescribed. Discussed medication side effects, adverse effects, risks, benefits, as well as interactions. Encouraged non-use of opioids. Has naloxone. Recommended participation in recovery groups and/or counseling services. May contact office with questions or concerns. 05/16/2024 Other Client agrees to take medication as prescribed. Discussed medication side effects, adverse effects, risks, benefits, as well as interactions. Encouraged non-use of opioids. Has naloxone. Recommended participation in recovery groups/counseling services. May contact office with questions or concerns. 06/20/2024 Other Patient agrees to take medication as prescribed. Discussed medication side effects, adverse effects, risks, benefits, as well as interactions. Encouraged non-use of opioids. Has naloxone. Recommended participation in recovery groups and/or counseling services. May contact office with questions or concerns. 07/24/2024 Other Discussed medication side effects, adverse effects, risks, benefits, as well as interactions. Encouraged non-use of opioids. Has naloxone. Recommended participation in recovery groups/counseling services. Agrees to contact office with questions or concerns. 08/21/2024 Other Discussed medication side effects, adverse effects, risks, benefits, as well as interactions. Encouraged non-use of opioids. Has naloxone. Recommended participation in recovery groups/counseling services. Agrees to contact office with questions or concerns. 12/19/2024 Other Discussed medication side effects, adverse effects, risks, benefits, as well as interactions. Encouraged non-use of opioids. Has naloxone. Recommended participation in recovery groups/counseling services. Agrees to contact office with questions or concerns. Plan Of Treatment Next Appt Details Provider Name:Maria Ines thomas, 01/16/2025 08:00:00 AM, [address], [place], [address], Insurance Providers Payer Name Payer Address Payer Phone Subscriber Number Group Number Insured Name Patient Relationship to Insured Coverage Start Date Coverage End Date [employer] [address] [place] [address] [id number] Charmaine Strong Self - patient is the insured 2 [employer]UP [address] [place] [address] [id number] Charmaine Strong Self - patient is the insured 2 Medications Administered Medication Instructions Date of Administration Dosage Notes Sublocade 03/04/2023 300 mg SN: [id number] Sublocade 04/04/2023 300 mg Teresa Bee 04/04/2023 03:30 PM >Given Subq Rt lower Quadrant of Abdomen, tolerated well. Sublocade 05/05/2023 300 mg Teresa Bee D 05/05/2023 04:00 PM >Given LLQ, tolerated well. Sublocade 06/02/2023 300 mg SN: [id number]. Tolerated well. Sublocade 06/30/2023 300 mg Pt. tolerated well. No questions/concerns at this time. Sublocade 07/29/2023 300 mg Pt. tolerated well. No questions or concerns at this time. Sublocade 08/26/2023 300 mg Pt. tolerated well. No questions or concerns at this time. Sublocade 09/23/2023 300 mg Pt. tolerated well. No questions or concerns at this time. Sublocade 10/26/2023 300 mg Teresa Bee 10/26/2023 03:10 PM >Given RLQ subq, tolerated well. Sublocade 11/23/2023 300 mg Pt. tolerated well. No questions or concerns at this time. Sublocade 12/21/2023 300 mg Pt. tolerated well. No questions/concerns at this time. Sublocade 01/18/2024 300 mg Pt. tolerated well. No questions or concerns at this time. Sublocade 02/15/2024 300 mg Pt. tolerated well. No questions/concerns at this time. Sublocade 03/14/2024 300 mg Pt. tolerated well. No questions/concerns at this time. Sublocade 04/11/2024 300 mg Teresa Bee 04/11/2024 08:50 AM CDT >Given RLQ Subq, tolerated well. Sublocade 05/16/2024 300 mg Pt. tolerated well. No questions or concerns at this time. Sublocade 06/20/2024 300 mg Pt. tolerated well. No questions/concerns at this time. Sublocade 07/24/2024 300 mg Pt. tolerated well. No question or concerns at this time. Sublocade 08/21/2024 300 mg Pt. tolerated well. No questions/concerns at this time. Sublocade 09/18/2024 300 mg Teresa Bee 09/18/2024 08:55 AM ATTENDANT ARCADE >Sublocade 300mg given LLQ sub q, tolerated well. [facility] [id number]. Sublocade 10/16/2024 300 mg Mercedez Crowley 10/16/2024 12:03:27 PM ATTENDANT ARCADE > Subcutaneous injection administered in the R mid-quadrant. Patient tolerated the injection well. Sublocade 11/14/2024 300 mg Patricio DENISE, Kristin Segovia 11/14/2024 09:03:43 AM ATTENDANT ARCADE >Administered to the left upper quadrant of the abdomen. Pt tolerated well with minimal discomfort observed or reported. Sublocade 12/19/2024 300 mg Teresa Bee 12/19/2024 09:00 AM ATTENDANT ARCADE >Given RUQ Subq, tolerated well. [facility] [id number]. Medical (General) History Medical History History ICD Code Opioid use disorder Rheumatoid Arthritis Surgical History Surgery Date(Month/Year) Open heart surgery 08/13 section 2006 Hospitalization History Reason Date(Month/Year) childbirth heart surgery 2020
--- OUTSIDE RECORDS SUMMARY | 2025-01-07 18:26 | XMS_ITS ---
Author Organization [facility] Address [address] [place] [address] Care Team Providers Care Metal Worker Name Role Phone Blake Kumar Primary Care Provider Maria Ines Keller Unavailable [phone] REASON FOR VISIT 4 week f/u sublocade Social History Sex Assigned At : Social History Observation Description Sex Assigned At Female Encounters Encounter Location Date Provider Diagnosis [facility] [address] [place] [address] 12/12/2024 Maria Ines Keller Plan Of Treatment Next Appt Details Provider Name:Maria Ines thomas, 01/16/2025 08:00:00 AM, [address], [place], [address], Progress Notes * Charmaine VERDUZCODOB:1979 (44 yo F)Acc No.[id number]:12/12/2024 UNLOCKED PROGRESS NOTE Patient: Charmaine OROZCO Provider: Rabia Keller, MSN, SCRUM MASTER, AGRICULTURE ENGINEER-C :1980 A ge:44 Y S ex:Female Date:12/12/2024 Address:[address] , [place], [place] Pcp:Blake Kumar Subjective: * Chief Complaints: * 1 . 4 week f/u sublocade. * Medical History: Objective: * Vitals: Assessment: Plan: * Treatment: * Care Plan Details* * Electronic signature of Ira Keller APRN, [id number] on 01/07/2025 at 06:25 PM CDT Sign off status: Pending * Provider: Rabia Keller, AUSTYN, SCRUM MASTER, AGRICULTURE ENGINEER-C Date: 0 12/12/2024 Generated for Ravi harris/Jose/Lorena on: 0 01/07/2025 06:25 PM CDT
--- OUTSIDE RECORDS SUMMARY | 2025-01-07 18:26 | XMS_ITS | Encounter Summary ---
Author Organization [facility] Address [address] [place] [address] Care Team Providers Care Hydrographer Name Role Phone Unavailable Primary Care Provider Unavailabl e Encounter Details Date Type Department Care Team (Late st Contact Info) Description 09/17/2021 Lab Requisition [facility] Laboratory Services [address] [place] [phone] Godwin Guillen MD [address] [place] [address] [address] Social History Tobacco Use Types [...] Associated Diagnosis Comments CBC WITH DIFFERENTIAL Routine 09/17/2021 4:15 AM SCHOOL BUS DISPATCHER PROTIME-INR Routine 09/17/2021 4:15 AM SCHOOL BUS DISPATCHER COMPREHENSIVE METABOLIC PANEL Routine 09/17/2021 4:15 AM SCHOOL BUS DISPATCHER documented in this encounter Results * (ABNORMAL) PROTIME-INR (09/17/2021 4:15 AM SCHOOL BUS DISPATCHER) Pathologist [facility] PROTIME 31.2(H) 11.5 - 14.7 Seconds 09/17/2021 2:23 PM SCHOOL BUS DISPATCHER [facility] INR 3.0(H) 0.9 - 1.1 09/17/2021 2:23 PM SCHOOL BUS DISPATCHER [facility] Blood 09/17/2021 4:15 AM SCHOOL BUS DISPATCHER 09/17/2021 1:38 PM SCHOOL BUS DISPATCHER [facility] Javi Guillen MD HEMATOLOGY ORDERABL ES Final Result [facility] CLIA# [id number] [place] [address] * (ABNORMAL) CBC WITH DIFFERENTIAL (09/17/2021 4:15 AM SCHOOL BUS DISPATCHER) [facility] WBC 3.6(L) 4.5 - 10.5 K/uL 09/17/2021 2:10 PM SCHOOL BUS DISPATCHER [facility] RBC 2.74(L) 3.90 - 4.90 M/uL 09/17/2021 2:10 PM [facility] HEMOGLOBIN 7.7(L) 11.8 - 14.8 g/dL 09/17/2021 2:10 PM [facility] HEMATOCRIT 23.9(L) 35.5 - 44.0 % 09/17/2021 2:10 PM [facility] MCV 87.3 82.0 - 99.0 fL 09/17/2021 2:10 PM [facility] MCH 28.2 27.8 - 34.5 pg 09/17/2021 2:10 PM [facility] MCHC 32.4(L) 32.5 - 35.5 g/dL 09/17/2021 2:10 PM SCHOOL BUS DISPATCHER [facility] RDW 16.7(H) 11.5 - 14.5 % 09/17/2021 2:10 PM SCHOOL BUS DISPATCHER [facility] PLATELETS 150(L) 160 - 420 K/uL 09/17/2021 2:10 PM SCHOOL BUS DISPATCHER [facility] MPV 6.8(L) 8.7 - 12.7 fL 09/17/2021 2:10 PM SCHOOL BUS DISPATCHER [facility] NEUTROPHILS 60 % 09/17/2021 2:10 PM SCHOOL BUS DISPATCHER [facility] LYMPHOCYTES 30 % 09/17/2021 2:10 PM SCHOOL BUS DISPATCHER [facility] MONOCYTES 9 % 09/17/2021 2:10 PM SCHOOL BUS DISPATCHER [facility] - [facility] EOSINOPHILS 1 % 09/17/2021 2:10 PM SCHOOL BUS DISPATCHER [facility] - [facility] BASOPHILS 0 % 09/17/2021 2:10 PM SCHOOL BUS DISPATCHER [facility] NEUTROPHIL ABSOLUTE 2.10 1.90 - 7.00 K/uL 09/17/2021 2:10 PM SCHOOL BUS DISPATCHER [facility] LYMPHOCYTE ABSOLUTE 1.10 0.70 - 4.50 K/uL 09/17/2021 2:10 PM SCHOOL BUS DISPATCHER [facility] MONOCYTE ABSOLUTE 0.30 0.10 - 1.30 K/uL 09/17/2021 2:10 PM SCHOOL BUS DISPATCHER [facility] EOSINOPHIL ABSOLUTE 0.00 0.00 - 0.70 K/uL 09/17/2021 2:10 PM SCHOOL BUS DISPATCHER [facility] BASOPHILS ABSOLUTE 0.00 0.00 - 0.20 K/uL 09/17/2021 2:10 PM SCHOOL BUS DISPATCHER [facility] Blood 09/17/2021 4:15 AM SCHOOL BUS DISPATCHER 09/17/2021 1:38 PM SCHOOL BUS DISPATCHER us Godwin Guillen MD HEMATOLOGY ORDERABL ES Final Result [facility] CLIA# [id number] [place] [address] * (ABNORMAL) COMPREHENSIVE METABOLIC PANEL (09/17/2021 4:15 AM SCHOOL BUS DISPATCHER) SODIUM 141 136 - 145 mmol/L 09/17/2021 2:34 PM SCHOOL BUS DISPATCHER [facility] POTASSIUM 3.7 3.4 - 5.1 mmol/L 09/17/2021 2:34 PM [facility] CHLORIDE 103 98 - 107 mmol/L 09/17/2021 2:34 PM [facility] CO2 27 22 - 29 mmol/L 09/17/2021 2:34 PM [facility] CALCIUM 8.5(L) 8.6 - 10.4 mg/dL 09/17/2021 2:[address] [facility] BUN 13 6 - 20 mg/dL 09/17/2021 2:[address] [facility] CREATININE 0.79 0.51 - 0.95 mg/dL 09/17/2021 2:34 PM [facility] GLUCOSE 100(H) 74 - 99 mg/dL 09/17/2021 2:34 PM [facility] TOTAL PROTEIN 5.5(L) 6.3 - 8.7 g/dL 09/17/2021 2:[address] [facility] ALBUMIN 3.2(L) 3.5 - 5.2 g/dL 09/17/2021 2:[address] [facility] BILIRUBIN TOTAL <0.2(L) 0.3 - 1.2 mg/dL 09/17/2021 2:[address] [facility] ALKALINE PHOSPHATASE 53 40 - 150 U/L 09/17/2021 2:34 PM [facility] AST 27 0 - 33 U/L 09/17/2021 2:[address] [facility] [employer] [facility] ALT 5 0 - 33 U/L 09/17/2021 2:[address] [facility] [employer] [facility] GFR >60 mL/min/1.7 3 sq meter 09/17/2021 2:[address] [facility]ORATORY [facility] Comment: eGFR has not been [...] result. GFR, >60 mL/min/1.7 3 sq meter 09/17/2021 2:34 PM SCHOOL BUS DISPATCHER [facility] ANION GAP 11 8 - 16 mmol/L 09/17/2021 2:34 PM SCHOOL BUS DISPATCHER [facility] Blood 09/17/2021 4:15 AM SCHOOL BUS DISPATCHER 09/17/2021 1:38 PM SCHOOL BUS DISPATCHER us Godwin Guillen MD CHEMISTRY ORDERABLE S Final Result [facility] CLIA# [id number] [place] [address] documented in this encounter Visit Diagnoses Not on filedocumented in this encounter
--- OUTSIDE RECORDS SUMMARY | 2025-01-07 18:26 | XMS_ITS | Encounter Summary ---
Author Organization [facility] Address [address] [place] [address] Care Team Providers Care Fire Supervisor Name Role Phone Unavailable Primary Care Provider Unavailabl e Encounter Details Date Type Department Care Team (Late st Contact Info) Description 09/18/2021 Lab Requisition [facility] Laboratory Services [address] [place] [phone] Godwin Guillen MD [address] [place] [address] [address] Social History Tobacco Use Types [...] Associated Diagnosis Comments CBC WITH DIFFERENTIAL Routine 09/18/2021 4:00 AM MEDICAL CONCIERGE PROTIME-INR Routine 09/18/2021 4:00 AM MEDICAL CONCIERGE documented in this encounter Results * (ABNORMAL) PROTIME-INR (09/18/2021 4:00 AM MEDICAL CONCIERGE) PROTIME 27.6(H) 11.5 - 14.7 Seconds 09/18/2021 8:04 AM [facility] INR 2.6(H) 0.9 - 1.1 09/18/2021 8:04 AM [facility] Blood Collection / Unknown 09/18/2021 4:00 AM MEDICAL CONCIERGE 09/18/2021 6:58 AM MEDICAL CONCIERGE Godwin Guillen MD HEMATOLOGY ORDERABL ES Final Result [facility] CLIA# [id number] [address] [place] [address] * (ABNORMAL) CBC WITH DIFFERENTIAL (09/18/2021 4:00 AM MEDICAL CONCIERGE) WBC 3.8(L) 4.5 - 10.5 K/uL 09/18/2021 7:20 AM [facility] RBC 3.12(L) 3.90 - 4.90 M/uL 09/18/2021 7:20 AM [facility] HEMOGLOBIN 8.7(L) 11.8 - 14.8 g/dL 09/18/2021 7:20 AM [facility] HEMATOCRIT 27.2(L) 35.5 - 44.0 % 09/18/2021 7:20 AM [facility] MCV 87.2 82.0 - 99.0 fL 09/18/2021 7:20 AM [facility] MCH 27.8 27.8 - 34.5 pg 09/18/2021 7:20 AM [facility] MCHC 31.8(L) 32.5 - 35.5 g/dL 09/18/2021 7:20 AM [facility] RDW 16.3(H) 11.5 - 14.5 % 09/18/2021 7:20 AM [facility] PLATELETS 179 160 - 420 K/uL 09/18/2021 7:20 AM [facility] MPV 6.9(L) 8.7 - 12.7 fL 09/18/2021 7:20 AM MEDICAL CONCIERGE [facility] NEUTROPHILS 56 % 09/18/2021 7:20 AM MEDICAL CONCIERGE [facility] LYMPHOCYTES 34 % 09/18/2021 7:20 AM MEDICAL CONCIERGE [facility] SERVICES [facility] MONOCYTES 8 % 09/18/2021 7:20 AM MEDICAL CONCIERGE [facility] SERVICES [facility] EOSINOPHILS 2 % 09/18/2021 7:20 AM MEDICAL CONCIERGE [facility] BASOPHILS 0 % 09/18/2021 7:20 AM MEDICAL CONCIERGE [facility] NEUTROPHIL ABSOLUTE 2.10 1.90 - 7.00 K/uL 09/18/2021 7:20 AM MEDICAL CONCIERGE [facility] LYMPHOCYTE ABSOLUTE 1.30 0.70 - 4.50 K/uL 09/18/2021 7:20 AM MEDICAL CONCIERGE [facility] MONOCYTE ABSOLUTE 0.30 0.10 - 1.30 K/uL 09/18/2021 7:20 AM MEDICAL CONCIERGE [facility] EOSINOPHIL ABSOLUTE 0.10 0.00 - 0.70 K/uL 09/18/2021 7:20 AM MEDICAL CONCIERGE [facility] BASOPHILS ABSOLUTE 0.00 0.00 - 0.20 K/uL 09/18/2021 7:20 AM MEDICAL CONCIERGE [facility] Blood Collection / Unknown 09/18/2021 4:00 AM MEDICAL CONCIERGE 09/18/2021 6:58 AM MEDICAL CONCIERGE Godwin Javi Guillen MD HEMATOLOGY ORDERABL ES Final Result [facility] CLIA# [id number] [place] [address] documented in this encounter Visit Diagnoses Not on filedocumented in this encounter
--- OUTSIDE RECORDS SUMMARY | 2025-01-07 18:26 | XMS_ITS | Encounter Summary ---
Author Organization [facility] Address [address] [place] [address] Care Team Providers Care Rope Making Machine Operator Name Role Phone Unavailable Primary Care Provider Unavailabl e Encounter Details Date Type Department Care Team (Late st Contact Info) Description 09/14/2021 Lab Requisition [facility] Laboratory Services [address] [place] [phone] Godwin Guillen MD [address] [place] [address] [address] Social History Tobacco Use Types [...] Associated Diagnosis Comments CBC WITH DIFFERENTIAL Routine 09/14/2021 12:01 AM OPTIMIZATION SPECIALIST PROTIME-INR Routine 09/14/2021 12:01 AM OPTIMIZATION SPECIALIST COMPREHENSIVE METABOLIC PANEL Routine 09/14/2021 12:01 AM OPTIMIZATION SPECIALIST documented in this encounter Results * (ABNORMAL) PROTIME-INR (09/14/2021 12:01 AM OPTIMIZATION SPECIALIST) PROTIME 21.6(H) 11.5 - 14.7 Seconds 09/14/2021 8:10 AM [facility] INR 1.9(H) 0.9 - 1.1 09/14/2021 8:10 AM [facility] Blood Collection / Unknown 09/14/2021 12:01 AM OPTIMIZATION SPECIALIST 09/14/2021 7:13 AM OPTIMIZATION SPECIALIST Godwin Javi Guillen MD HEMATOLOGY ORDERABL ES Final Result [facility] CLIA# [id number] [place] [address] * (ABNORMAL) COMPREHENSIVE METABOLIC PANEL (09/14/2021 12:01 AM OPTIMIZATION SPECIALIST) SODIUM 141 136 - 145 mmol/L 09/14/2021 8:22 AM [facility] POTASSIUM 4.1 3.4 - 5.1 mmol/L 09/14/2021 8:22 AM [facility] CHLORIDE 104 98 - 107 mmol/L 09/14/2021 8:22 AM [facility] CO2 26 22 - 29 mmol/L 09/14/2021 8:22 AM [facility] CALCIUM 8.7 8.6 - 10.4 mg/dL 09/14/2021 8:22 AM [facility] BUN 17 6 - 20 mg/dL 09/14/2021 8:22 AM [facility] CREATININE 0.86 0.51 - 0.95 mg/dL 09/14/2021 8:22 AM [facility] GLUCOSE 104(H) 74 - 99 mg/dL 09/14/2021 8:22 AM [facility] TOTAL PROTEIN 5.8(L) 6.3 - 8.7 g/dL 09/14/2021 8:22 AM [facility] ALBUMIN 3.2(L) 3.5 - 5.2 g/dL 09/14/2021 8:22 AM [facility] BILIRUBIN TOTAL 0.2(L) 0.3 - 1.2 mg/dL 09/14/2021 8:22 AM [facility] ALKALINE PHOSPHATASE 59 40 - 150 U/L 09/14/2021 8:22 AM [facility] AST 19 0 - 33 U/L 09/14/2021 8:22 AM [facility] ALT 5 0 - 33 U/L 09/14/2021 8:22 AM [facility] GFR >60 mL/min/1.7 3 sq meter 09/14/2021 8:22 AM [facility] Comment: eGFR has not been validated [...] result. GFR, >60 mL/min/1.7 3 sq meter 09/14/2021 8:22 AM [facility] ANION GAP 11 8 - 16 mmol/L 09/14/2021 8:22 AM [facility] Blood Collection / Unknown 09/14/2021 12:01 AM OPTIMIZATION SPECIALIST 09/14/2021 7:13 AM OPTIMIZATION SPECIALIST us Godwin Guillen MD CHEMISTRY ORDERABLE S Final Result [facility] CLIA# [id number] [place] [address] * (ABNORMAL) CBC WITH DIFFERENTIAL (09/14/2021 12:01 AM OPTIMIZATION SPECIALIST) WBC 4.1(L) 4.5 - 10.5 K/uL 09/14/2021 8:39 AM OPTIMIZATION SPECIALIST [facility] RBC 2.89(L) 3.90 - 4.90 M/uL 09/14/2021 8:39 AM [facility] HEMOGLOBIN 8.2(L) 11.8 - 14.8 g/dL 09/14/2021 8:39 AM [facility] HEMATOCRIT 25.1(L) 35.5 - 44.0 % 09/14/2021 8:39 AM [facility] MCV 86.7 82.0 - 99.0 fL 09/14/2021 8:39 AM [facility] MCH 28.3 27.8 - 34.5 pg 09/14/2021 8:39 AM [facility] MCHC 32.7 32.5 - 35.5 g/dL 09/14/2021 8:39 AM [facility] RDW 17.0(H) 11.5 - 14.5 % 09/14/2021 8:39 AM [facility] PLATELETS 172 160 - 420 K/uL 09/14/2021 8:39 AM [facility] MPV 6.8(L) 8.7 - 12.7 fL 09/14/2021 8:39 AM [facility] NEUTROPHILS 66 % 09/14/2021 8:39 AM [facility] [employer] [facility] LYMPHOCYTES 24 % 09/14/2021 8:39 AM OPTIMIZATION SPECIALIST [facility] LABORATORY [facility] MONOCYTES 9 % 09/14/2021 8:39 AM OPTIMIZATION SPECIALIST [facility]ORATORY [facility] EOSINOPHILS 1 % 09/14/2021 8:39 AM OPTIMIZATION SPECIALIST [facility] LABORATORY [facility] BASOPHILS 0 % 09/14/2021 8:39 AM [facility] NEUTROPHIL ABSOLUTE 2.70 1.90 - 7.00 K/uL 09/14/2021 8:39 AM OPTIMIZATION SPECIALIST [facility] LYMPHOCYTE ABSOLUTE 1.00 0.70 - 4.50 K/uL 09/14/2021 8:39 AM OPTIMIZATION SPECIALIST [facility] LABORATORY SERVICES - [facility] MONOCYTE ABSOLUTE 0.40 0.10 - 1.30 K/uL 09/14/2021 8:39 AM OPTIMIZATION SPECIALIST [facility]ORATORY SERVICES - [facility] EOSINOPHIL ABSOLUTE 0.10 0.00 - 0.70 K/uL 09/14/2021 8:39 AM OPTIMIZATION SPECIALIST [facility]ORATORY SERVICES - [facility] BASOPHILS ABSOLUTE 0.00 0.00 - 0.20 K/uL 09/14/2021 8:39 AM OPTIMIZATION SPECIALIST [facility]AT[facility] Blood Collection / Unknown 09/14/2021 12:01 AM OPTIMIZATION SPECIALIST 09/14/2021 7:13 AM OPTIMIZATION SPECIALIST Godwin Javi Guillen MD HEMATOLOGY ORDERABL ES Final Result [facility] CLIA# [id number] [place] [address] documented in this encounter Visit Diagnoses Not on filedocumented in this encounter
--- OUTSIDE RECORDS SUMMARY | 2025-01-07 18:26 | XMS_ITS | Encounter Summary ---
Author Organization [facility] Address [address] [place] [address] Care Team Providers Care Electrical Engineering Manager Name Role Phone Unavailable Primary Care Provider Unavailabl e Encounter Details Date Type Department Care Team (Late st Contact Info) Description 09/09/2021 Lab Requisition [facility] Laboratory Services [address] [place] [address] Godwin Guillen MD [address] [place] [address] [address] Social History Tobacco Use Types [...] Priority Date/Time Associated Diagnosis Comments PROTIME-INR Routine 09/09/2021 4:00 AM AVIATION PROJECT ENGINEER documented in this encounter Results * (ABNORMAL) PROTIME-INR (09/09/2021 4:00 AM AVIATION PROJECT ENGINEER) PROTIME 25.6(H) 11.5 - 14.7 Seconds 09/09/2021 11:42 AM AVIATION PROJECT ENGINEER [facility]ORAT[facility] SERVICES [facility] INR 2.3(H) 0.9 - 1.1 09/09/2021 11:42 AM AVIATION PROJECT ENGINEER [facility] Blood BLOOD SPECIMEN / Unknown Collection / Unknown 09/09/2021 4:00 AM AVIATION PROJECT ENGINEER 09/09/2021 11:19 AM AVIATION PROJECT ENGINEER us Godwin Javi Guillen MD HEMATOLOGY ORDERABL ES Final Result [facility] CLIA# [id number] [place] [address] documented in this encounter Visit Diagnoses Not on filedocumented in this encounter
--- OUTSIDE RECORDS SUMMARY | 2025-01-07 18:27 | XMS_ITS | Encounter Summary ---
Author Organization [facility] Address [address] [place] [address] Care Team Providers Care Reflexologist Name Role Phone Unavailable Primary Care Provider Unavailabl e Encounter Details Date Type Department Care Team (Late st Contact Info) Description 08/28/2021 Lab Requisition [facility] Laboratory Services [address] [place] [address] Godwin Guillen MD [address] [place] [address] [address] Social History Tobacco Use Types [...] Priority Date/Time Associated Diagnosis Comments PROTIME-INR Routine 08/28/2021 4:00 AM CDT documented in this encounter Results * (ABNORMAL) PROTIME-INR (08/28/2021 4:00 AM CDT) PROTIME 29.3(H) 11.5 - 14.7 Seconds 08/28/2021 11:13 AM CDT [facility] SERVICES [facility] INR 2.8(H) 0.9 - 1.1 08/28/2021 11:13 AM CDT [facility] Blood Collection / Unknown 08/28/2021 4:00 AM CDT 08/28/2021 10:29 AM CDT us Godwin Guillen MD HEMATOLOGY ORDERABL ES Final Result [facility] CLIA# [id number] [place] [address] documented in this encounter Visit Diagnoses Not on filedocumented in this encounter
--- OUTSIDE RECORDS SUMMARY | 2025-01-07 18:27 | XMS_ITS | Encounter Summary ---
Author Organization [facility] Address [address] [place] [address] Care Team Providers Care Ekg/Ecg Technician Name Role Phone Unavailable Primary Care Provider Unavailabl e Encounter Details Date Type Department Care Team (Late st Contact Info) Description 08/27/[address] [facility] Laboratory Services [address] [place] [address] Godwin Guillen MD [address] [place] [address] [address] Social History Tobacco Use Types [...] Priority Date/Time Associated Diagnosis Comments PROTIME-INR Routine 08/27/2021 5:30 AM CDT documented in this encounter Results * (ABNORMAL) PROTIME-INR (08/27/2021 5:30 AM CDT) PROTIME 24.8(H) 11.5 - 14.7 Seconds 08/27/2021 9:52 AM CDT [facility] SERVICES [facility] INR 2.2(H) 0.9 - 1.1 08/27/2021 9:52 AM CDT [facility] Blood Collection / Unknown 08/27/2021 5:30 AM CDT 08/27/2021 9:03 AM CDT us Godwin Guillen MD HEMATOLOGY ORDERABL ES Final Result [facility] CLIA# [id number] [place] [address] documented in this encounter Visit Diagnoses Not on filedocumented in this encounter
--- OUTSIDE RECORDS SUMMARY | 2025-01-07 18:27 | XMS_ITS | Encounter Summary ---
Author Organization [facility] Address [address] [place] [address] Care Team Providers Care Horses Or Mules Teamster Name Role Phone Unavailable Primary Care Provider Unavailabl e Encounter Details Date Type Department Care Team (Late st Contact Info) Description 09/01/2021 Lab Requisition [facility] Laboratory Services [address] [place] [phone] Godwin Guillen MD [address] [place] [address] [address] Social History Tobacco Use Types [...] Associated Diagnosis Comments CBC WITH DIFFERENTIAL Routine 09/01/2021 10:50 AM BENCH LOOM WEAVER PROTIME-INR Routine 09/01/2021 10:50 AM BENCH LOOM WEAVER BASIC METABOLIC PANEL Routine 09/01/2021 10:50 AM BENCH LOOM WEAVER documented in this encounter Results * (ABNORMAL) PROTIME-INR (09/01/2021 10:50 AM BENCH LOOM WEAVER) Pathologist [facility] [place] PROTIME 21.4(H) 11.5 - 14.7 Seconds 09/01/2021 12:15 PM BENCH LOOM WEAVER [facility] INR 1.9(H) 0.9 - 1.1 09/01/2021 12:15 PM BENCH LOOM WEAVER [facility] Blood 09/01/2021 10:5 0 AM BENCH LOOM WEAVER 09/01/2021 11:49 AM BENCH LOOM WEAVER Godwin Javi Guillen MD HEMATOLOGY ORDERABL ES Final Result [facility] CLIA# [id number] [place] [address] * (ABNORMAL) CBC WITH DIFFERENTIAL (09/01/2021 10:50 AM BENCH LOOM WEAVER) Pathologist [facility] [place] WBC 6.2 4.5 - 10.5 K/uL 09/01/2021 11:52 AM [facility] RBC 3.22(L) 3.90 - 4.90 M/uL 09/01/2021 11:52 AM [facility] HEMOGLOBIN 9.1(L) 11.8 - 14.8 g/dL 09/01/2021 11:52 AM [facility] HEMATOCRIT 27.6(L) 35.5 - 44.0 % 09/01/2021 11:52 AM [facility] MCV 85.7 82.0 - 99.0 fL 09/01/2021 11:52 AM [facility] MCH 28.3 27.8 - 34.5 pg 09/01/2021 11:52 AM [facility] MCHC 33.0 32.5 - 35.5 g/dL 09/01/2021 11:52 AM [facility] RDW 17.1(H) 11.5 - 14.5 % 09/01/2021 11:52 AM [facility] PLATELETS 208 160 - 420 K/uL 09/01/2021 11:52 AM [facility] LABORATORY [facility] MPV 7.3(L) 8.7 - 12.7 fL 09/01/2021 11:52 AM [facility] LABORATORY [facility] NEUTROPHILS 75 % 09/01/2021 11:52 AM [facility] LABORATORY [facility] LYMPHOCYTES 17 % 09/01/2021 11:52 AM BENCH LOOM WEAVER [facility] LABORATORY [facility] MONOCYTES 7 % 09/01/2021 11:52 AM BENCH LOOM WEAVER [facility] LABORATORY SERVICES [facility] EOSINOPHILS 1 % 09/01/2021 11:52 AM BENCH LOOM WEAVER [facility] LABORATORY SERVICES [facility] BASOPHILS 0 % 09/01/2021 11:52 AM BENCH LOOM WEAVER [facility] LABORATORY [facility] NEUTROPHIL ABSOLUTE 4.60 1.90 - 7.00 K/uL 09/01/2021 11:52 AM [facility] LABORATORY [facility] LYMPHOCYTE ABSOLUTE 1.10 0.70 - 4.50 K/uL 09/01/2021 11:52 AM [facility] [employer] [facility] MONOCYTE ABSOLUTE 0.40 0.10 - 1.30 K/uL 09/01/2021 11:52 AM BENCH LOOM WEAVER [facility] LABORATORY [facility] EOSINOPHIL ABSOLUTE 0.00 0.00 - 0.70 K/uL 09/01/2021 11:52 AM [facility] LABORATORY [facility] BASOPHILS ABSOLUTE 0.00 0.00 - 0.20 K/uL 09/01/2021 11:52 AM [facility] [employer] [facility] Blood 09/01/2021 10:5 0 AM BENCH LOOM WEAVER 09/01/2021 11:50 AM BENCH LOOM WEAVER us Godwin Javi Guillen MD HEMATOLOGY ORDERABL ES Final Result [facility] CLIA# [id number] [address] [place] [address] * (ABNORMAL) BASIC METABOLIC PANEL (09/01/2021 10:50 AM BENCH LOOM WEAVER) SODIUM 137 136 - 145 mmol/L 09/01/2021 3:30 PM BENCH LOOM WEAVER [facility] POTASSIUM 4.9 3.4 - 5.1 mmol/L 09/01/2021 3:30 PM [facility] CHLORIDE 101 98 - 107 mmol/L 09/01/2021 3:30 PM [facility] CO2 26 22 - 29 mmol/L 09/01/2021 3:30 PM [facility] CALCIUM 8.9 8.6 - 10.4 mg/dL 09/01/2021 3:30 PM [facility] BUN 26(H) 6 - 20 mg/dL 09/01/2021 3:30 PM [facility] CREATININE 0.71 0.51 - 0.95 mg/dL 09/01/2021 3:30 PM [facility] GLUCOSE 115(H) 74 - 99 mg/dL 09/01/2021 3:30 PM [facility] GFR >60 mL/min/1.7 3 sq meter 09/01/2021 3:30 PM [facility] Comment: eGFR has not been validated for [...] result. GFR, >60 mL/min/1.7 3 sq meter 09/01/2021 3:30 PM [facility] ANION GAP 10 8 - 16 mmol/L 09/01/2021 3:30 PM [facility] Blood 09/01/2021 10:5 0 AM BENCH LOOM WEAVER 09/01/2021 11:49 AM BENCH LOOM WEAVER us Godwin Guillen MD CHEMISTRY ORDERABLE S Final Result [facility] CLIA# [id number] [place] [address] documented in this encounter Visit Diagnoses Not on filedocumented in this encounter
--- OUTSIDE RECORDS SUMMARY | 2025-01-07 18:27 | XMS_ITS | Encounter Summary ---
Author Organization [facility] Address [address] [place] [address] Care Team Providers Care B And B Gang Worker Name Role Phone Unavailable Primary Care Provider Unavailabl e Encounter Details Date Type Department Care Team (Late st Contact Info) Description 09/03/2021 Lab Requisition [facility] Laboratory Services [address] [place] [phone] Godwin Guillen MD [address] [place] [address] [address] Social History Tobacco Use Types [...] Priority Date/Time Associated Diagnosis Comments PROTIME-INR Routine 09/03/2021 2:47 AM FREIGHT COORDINATOR documented in this encounter Results * (ABNORMAL) PROTIME-INR (09/03/2021 2:47 AM FREIGHT COORDINATOR) PROTIME 23.5(H) 11.5 - 14.7 Seconds 09/03/2021 10:07 AM FREIGHT COORDINATOR [facility] LABORATORY SERVICES [facility] INR 2.1(H) 0.9 - 1.1 09/03/2021 10:07 AM FREIGHT COORDINATOR [facility] LABORATORY SERVICES [facility] Blood 09/03/2021 2:47 AM FREIGHT COORDINATOR 09/03/2021 9:47 AM FREIGHT COORDINATOR us Godwin Guillen MD HEMATOLOGY ORDERABL ES Final Result [facility] LABORATORY SERVICES [facility] CLIA# [id number] [place] [address] documented in this encounter Visit Diagnoses Not on filedocumented in this encounter
--- OUTSIDE RECORDS SUMMARY | 2025-01-07 18:27 | XMS_ITS | Encounter Summary ---
Author Organization [facility] Address [address] [place] [address] Care Team Providers Care Support Worker Name Role Phone Unavailable Primary Care Provider Unavailabl e Encounter Details Date Type Department Care Team (Late st Contact Info) Description 08/31/2021 Lab Requisition [facility] Laboratory Services [address] [place] [phone] Godwin Guillen MD [address] [place] [address] [address] Social History Tobacco Use Types [...] Priority Date/Time Associated Diagnosis Comments PROTIME-INR Routine 08/31/2021 3:45 AM ORDER DISPATCHER CHIEF documented in this encounter Results * (ABNORMAL) PROTIME-INR (08/31/2021 3:45 AM ORDER DISPATCHER CHIEF) PROTIME 22.4(H) 11.5 - 14.7 Seconds 08/31/2021 6:16 AM ORDER DISPATCHER CHIEF [facility] LABORATORY SERVICES [facility] INR 2.0(H) 0.9 - 1.1 08/31/2021 6:16 AM ORDER DISPATCHER CHIEF [facility] LABORATORY SERVICES [facility] Blood 08/31/2021 3:45 AM ORDER DISPATCHER CHIEF 08/31/2021 5:17 AM ORDER DISPATCHER CHIEF us Godwin Guillen MD HEMATOLOGY ORDERABL ES Final Result [facility] LAB[facility] SERVICES [facility] CLIA# [id number] [address] [place] [address] documented in this encounter Visit Diagnoses Not on filedocumented in this encounter
--- OUTSIDE RECORDS SUMMARY | 2025-01-07 18:27 | XMS_ITS | Encounter Summary ---
Author Organization [facility] Address [address] [place] [address] Care Team Providers Care Pyridine Recovery Operator Name Role Phone Unavailable Primary Care Provider Unavailabl e Encounter Details Date Type Department Care Team (Late st Contact Info) Description 09/02/2021 Lab Requisition [facility] [place] [phone] Godwin Guillen MD [address] [place] [address] [address] Social History Tobacco Use Types [...] Priority Date/Time Associated Diagnosis Comments PROTIME-INR Routine 09/02/2021 3:07 AM HONING MACHINE OPERATOR PRODUCTION documented in this encounter Results * (ABNORMAL) PROTIME-INR (09/02/2021 3:07 AM HONING MACHINE OPERATOR PRODUCTION) PROTIME 22.7(H) 11.5 - 14.7 Seconds 09/02/2021 10:06 AM HONING MACHINE OPERATOR PRODUCTION [facility] SERVICES [facility] INR 2.0(H) 0.9 - 1.1 09/02/2021 10:06 AM HONING MACHINE OPERATOR PRODUCTION [facility] SERVICES [facility] Blood Collection / Unknown 09/02/2021 3:07 AM HONING MACHINE OPERATOR PRODUCTION 09/02/2021 9:36 AM HONING MACHINE OPERATOR PRODUCTION us Godwin Guillen MD HEMATOLOGY ORDERABL ES Final Result [facility] CLIA# [id number] [address] [place] [address] documented in this encounter Visit Diagnoses Not on filedocumented in this encounter
--- OUTSIDE RECORDS SUMMARY | 2025-01-07 18:27 | XMS_ITS | Clinical Summary ---
Author Organization [facility] Address [facility] [place] [address] Care Team Providers Care Production Lead Name Role Phone Kenzie Solomon MD Primary Care Provider [phone] Social History Tobacco Use Types Packs/Day Years Used Date Smoking Tobacco: Never Assessed Comments Unknown Sex and Gender Information Value Date Recorded Sex Assigned at Not on file Legal Sex Female 2:29 PM CDT Gender Identity Not on file Sexual Orientation Not on file Plan of Treatment Health Maintenance Due Date Last Done Comments Cervical Cancer Screening Pa p Smear (Age 30 to 64) Every 3 Years 1980 Annual Physical 1983 Hepatitis C 1998 DTaP, Tdap and Td Vaccines ( 1 - Tdap) 1999 Hepatitis B Vaccines (1 of 3 - 19+ 3-dose series) 1999 Cervical Cancer Screening Pa p with HPV Testing (Age 30 to 64) Every 5 Years 2010 Cervical Cancer Screening with HPV 2010 Mammogram Screening 2020 COVID-19 Vaccine (2023-2 5 season) 2024 Influenza Adult (#1) 2024 PHQ-2 (Physician [place]) 10/24/2024 HPV Vaccines Aged Out No longer eligi ble based on patient's age to complete this topic Meningococcal B Vaccine Aged Out No l onger eligible based on patient's age to complete this topic Meningococcal Vaccine Aged Out No quintin truong eligible based on patient's age to complete this topic Pneumococcal Vaccine: Pediat rics (0 to 5 Years) and At-Risk Patients (6 to 64 Years) Aged Out No longer eligible b ased on patient's age to complete this topic RSV Immunizations Under 20 Months Aged Out No longer eligible based on patient's age to complete this topic Insurance [employer] Care Teams Production Lead Relationship Specialty Start Date End Date Kenzie Solomon MD [address] [place] [address] [place] [address] PCP - General 07/13/16
--- OUTSIDE RECORDS SUMMARY | 2025-01-07 18:27 | XMS_ITS | Encounter Summary ---
Author Organization [facility] Address [address] [place] [address] Care Team Providers Care Manager Telecom Name Role Phone Unavailable Primary Care Provider Unavailabl e Encounter Details Date Type Department Care Team (Late st Contact Info) Description 08/25/2021 Lab Requisition [facility] Laboratory Services [address] [place] [phone] Godwin Guillen MD [address] [place] [address] [phone] Social History Tobacco Use Types [...] Associated Diagnosis Comments CBC WITH DIFFERENTIAL Routine 08/25/2021 4:50 AM CDT PTT Routine 08/25/2021 4:50 AM CDT PROTIME-INR Routine 08/25/2021 4:50 AM CDT PREALBUMIN Routine 08/25/2021 4:50 AM CDT COMPREHENSIVE METABOLIC PANEL Routine 08/25/2021 4:50 AM CDT documented in this encounter Results * PTT (08/25/2021 4:50 AM CDT) PTT 35.1 23.1 - 37.1 seconds 08/25/2021 1:53 PM CDT [facility] Blood Collection / Unknown 08/25/2021 4:50 AM CDT 08/25/2021 1:16 PM CDT Godwin Guillen MD HEMATOLOGY ORDERABL ES Final Result [id number] [address] [place], [place] [id number] * (ABNORMAL) PROTIME-INR (08/25/2021 4:50 AM CDT) Pathologist [facility] PROTIME 20.7(H) 11.5 - 14.7 Seconds 08/25/2021 1:53 PM CDT [facility] INR 1.8(H) 0.9 - 1.1 08/25/2021 1:53 PM CDT [facility] Blood Collection / Unknown 08/25/2021 4:50 AM CDT 08/25/2021 1:16 PM CDT Godwin Guillen MD HEMATOLOGY ORDERABL ES Final Result [facility] CLIA# [id number] [address] [place], [place] [address] * (ABNORMAL) PREALBUMIN (08/25/2021 4:50 AM CDT) Pathologist [facility] PREALBUMIN 19(L) 20 - 40 mg/dL 08/25/2021 5:[address] [facility] Blood Collection / Unknown 08/25/2021 4:50 AM CDT 08/25/2021 1:16 PM CDT Godwin Guillen MD CHEMISTRY ORDERABLE S Final Result [facility]# [id number] [address] [facility] [place] [address] * (ABNORMAL) CBC WITH DIFFERENTIAL (08/25/2021 4:50 AM CDT) [facility] WBC 5.2 4.5 - 10.5 K/uL 08/25/2021 1:33 PM CDT [facility] RBC 3.24(L) 3.90 - 4.90 M/uL 08/25/2021 1:33 PM CDT [facility] HEMOGLOBIN 9.1(L) 11.8 - 14.8 g/dL 08/25/2021 1:33 PM CDT [facility] LABORATORY [facility] HEMATOCRIT 28.0(L) 35.5 - 44.0 % 08/25/2021 1:33 PM CDT [facility] LABORATORY [facility] MCV 86.3 82.0 - 99.0 fL 08/25/2021 1:33 PM CDT [facility] LABORATORY [facility] MCH 28.2 27.8 - 34.5 pg 08/25/2021 1:33 PM CDT [facility] MCHC 32.6 32.5 - 35.5 g/dL 08/25/2021 1:33 PM CDT [facility] LABORATORY [facility] RDW 17.4(H) 11.5 - 14.5 % 08/25/2021 1:33 PM CDT [facility] LABORATORY [facility] PLATELETS 229 160 - 420 K/uL 08/25/2021 1:33 PM CDT [facility] LABORATORY [facility] MPV 7.3(L) 8.7 - 12.7 fL 08/25/2021 1:33 PM CDT [facility] LABORATORY [facility] NEUTROPHILS 68 % 08/25/2021 1:33 PM CDT [facility] LABORATORY SERVICES [facility] LYMPHOCYTES 23 % 08/25/2021 1:33 PM CDT [facility] LABORATORY SERVICES [facility] MONOCYTES 8 % 08/25/2021 1:33 PM CDT [facility] LABORATORY SERVICES - [facility] EOSINOPHILS 1 % 08/25/2021 1:33 PM CDT [facility] LABORATORY SERVICES [facility] BASOPHILS 1 % 08/25/2021 1:33 PM CDT [facility] LABORATORY SERVICES [facility] NEUTROPHIL ABSOLUTE 3.60 1.90 - 7.00 K/uL 08/25/2021 1:33 PM CDT [facility] LABORATORY SERVICES [facility] LYMPHOCYTE ABSOLUTE 1.20 0.70 - 4.50 K/uL 08/25/2021 1:33 PM CDT [facility] LABORATORY SERVICES [facility] MONOCYTE ABSOLUTE 0.40 0.10 - 1.30 K/uL 08/25/2021 1:33 PM CDT [facility] LABORATORY SERVICES [facility] EOSINOPHIL ABSOLUTE 0.00 0.00 - 0.70 K/uL 08/25/2021 1:33 PM CDT [facility] LABORATORY SERVICES [facility] BASOPHILS ABSOLUTE 0.00 0.00 - 0.20 K/uL 08/25/2021 1:33 PM CDT [facility] LABORATORY SERVICES [facility] Blood Collection / Unknown 08/25/2021 4:50 AM CDT 08/25/2021 1:16 PM CDT Godwin Javi Guillen MD HEMATOLOGY ORDERABL ES Final Result [facility] CLIA# [id number] [place] [address] * (ABNORMAL) COMPREHENSIVE METABOLIC PANEL (08/25/2021 4:50 AM CDT) SODIUM 136 136 - 145 mmol/L 08/25/2021 2:03 PM CDT [facility] LABORATORY [facility] POTASSIUM 4.4 3.4 - 5.1 mmol/L 08/25/2021 2:03 PM CDT [facility] LABORATORY [facility] CHLORIDE 98 98 - 107 mmol/L 08/25/2021 2:03 PM [facility] CO2 25 22 - 29 mmol/L 08/25/2021 2:03 PM [facility] CALCIUM 8.8 8.6 - 10.4 mg/dL 08/25/2021 2:03 PM [facility] BUN 23(H) 6 - 20 mg/dL 08/25/2021 2:03 PM [facility] CREATININE 0.65 0.51 - 0.95 mg/dL 08/25/2021 2:03 PM [facility] GLUCOSE 60(L) 74 - 99 mg/dL 08/25/2021 2:03 PM [facility] TOTAL PROTEIN 6.1(L) 6.3 - 8.7 g/dL 08/25/2021 2:03 PM [facility] ALBUMIN 3.0(L) 3.5 - 5.2 g/dL 08/25/2021 2:03 PM [facility] BILIRUBIN TOTAL 0.2(L) 0.3 - 1.2 mg/dL 08/25/2021 2:03 PM [facility] ALKALINE PHOSPHATASE 62 40 - 150 U/L 08/25/2021 2:03 PM [facility] AST 34(H) 0 - 33 U/L 08/25/2021 2:03 PM [facility] ALT 6 0 - 33 U/L 08/25/2021 2:03 PM [facility] GFR >60 mL/min/1.7 3 sq meter 08/25/2021 2:03 PM [facility] Comment: eGFR has not been validated for [...] result. GFR, >60 mL/min/1.7 3 sq meter 08/25/2021 2:03 PM CDT [facility] LABORATORY SERVICES [facility] ANION GAP 13 8 - 16 mmol/L 08/25/2021 2:03 PM CDT [facility] LABORATORY SERVICES [facility] Blood Collection / Unknown 08/25/2021 4:50 AM CDT 08/25/2021 1:16 PM CDT us Gowdin Javi Guillen MD CHEMISTRY ORDERABLE S Final Result [facility] LABORATORY SERVICES [facility] CLIA# [id number] [address] [place] [address] documented in this encounter Visit Diagnoses Not on filedocumented in this encounter
--- OUTSIDE RECORDS SUMMARY | 2025-01-07 18:27 | XMS_ITS | Encounter Summary ---
Author Organization [facility] Address [address] [place] [address] Care Team Providers Care Compressor Battery Pellets Name Role Phone Unavailable Primary Care Provider Unavailabl e Encounter Details Date Type Department Care Team (Late st Contact Info) Description 08/29/2021 Lab Requisition [facility] Laboratory Services [address] [place] [phone] Godwin Guillen MD [address] [place] [address] [address] Social History Tobacco Use Types [...] Priority Date/Time Associated Diagnosis Comments PROTIME-INR Routine 08/29/2021 6:00 AM CDT documented in this encounter Results * (ABNORMAL) PROTIME-INR (08/29/2021 6:00 AM CDT) PROTIME 25.7(H) 11.5 - 14.7 Seconds 08/29/2021 12:16 PM CDT [facility] LABORATORY SERVICES [facility] INR 2.3(H) 0.9 - 1.1 08/29/2021 12:16 PM CDT [facility] LABORATORY [facility] Blood Collection / Unknown 08/29/2021 6:00 AM CDT 08/29/2021 11:00 AM CDT us Godwin Guillen MD HEMATOLOGY ORDERABL ES Final Result [facility] CLIA# [id number] [address] [place] [address] documented in this encounter Visit Diagnoses Not on filedocumented in this encounter
--- OUTSIDE RECORDS SUMMARY | 2025-01-07 18:27 | XMS_ITS | Encounter Summary ---
Author Organization [facility] Address [address] [place] [address] Care Team Providers Care Golf Starter And Ranger Name Role Phone Unavailable Primary Care Provider Unavailabl e Encounter Details Date Type Department Care Team (Late st Contact Info) Description 09/04/2021 Lab Requisition [facility] Laboratory Services [address] [place] [address] [facility], External Provider [address] [place] [address] Social History Tobacco Use Types Packs/Day Years [...] Priority Date/Time Associated Diagnosis Comments PROTIME-INR Routine 09/04/2021 3:20 AM FRANCHISE MANAGER documented in this encounter Results * (ABNORMAL) PROTIME-INR (09/04/2021 3:20 AM FRANCHISE MANAGER) PROTIME 28.1(H) 11.5 - 14.7 Seconds 09/04/2021 4:58 AM FRANCHISE MANAGER [facility] LABORATORY SERVICES [facility] INR 2.6(H) 0.9 - 1.1 09/04/2021 4:58 AM FRANCHISE MANAGER [facility] Blood Collection / Unknown 09/04/2021 3:20 AM FRANCHISE MANAGER 09/04/2021 4:33 AM FRANCHISE MANAGER us External Provider [facility] HEMATOLOGY ORDERABLES Fin al Result Performing Organization Address City/State/[facility] Co de Phone Number [facility] LABORATORY SERVICES [facility]# [id number] [place] [address] documented in this encounter Visit Diagnoses Not on filedocumented in this encounter
--- OUTSIDE RECORDS SUMMARY | 2025-01-07 18:27 | XMS_ITS | Encounter Summary ---
Author Organization [facility] Address [address] [place] [address] Care Team Providers Care Call Center Operator Name Role Phone Unavailable Primary Care Provider Unavailabl e Encounter Details Date Type Department Care Team (Late st Contact Info) Description 08/30/2021 Lab Requisition [facility] Laboratory Services [address] [place] [address] Non-Staff, Physician NO ADDRESS ON FILE Social History Tobacco Use Types Packs/Day Years [...] Priority Date/Time Associated Diagnosis Comments PROTIME-INR Routine 08/30/2021 4:50 AM PRETZEL COOKER documented in this encounter Results * (ABNORMAL) PROTIME-INR (08/30/2021 4:50 AM PRETZEL COOKER) PROTIME 24.3(H) 11.5 - 14.7 Seconds 08/30/2021 9:[address] [facility] INR 2.2(H) 0.9 - 1.1 08/30/2021 9:32 AM PRETZEL COOKER [facility] Blood Collection / Unknown 08/30/2021 4:50 AM PRETZEL COOKER 08/30/2021 9:12 AM PRETZEL COOKER us Physician Non-Staff HEMATOLOGY ORDERABLES Final Result Performing Organization Address [facility] Co de Phone Number [facility]# [id number] [place] [address] documented in this encounter Visit Diagnoses Not on filedocumented in this encounter
--- OUTSIDE RECORDS SUMMARY | 2025-01-07 18:27 | XMS_ITS | Encounter Summary ---
Author Organization [facility] Address [address] [place] [address] Care Team Providers Care Sample Tester Grinder Name Role Phone Unavailable Primary Care Provider Unavailabl e Encounter Details Date Type Department Care Team (Late st Contact Info) Description 08/28/2021 Lab Requisition [facility] Laboratory Services [address] [place] [phone] Godwin Guillen MD [address] [place] [address] [address] Social History Tobacco Use Types [...] as of this encounter Plan of Treatment Scheduled Orders Name Type Priority Associated Diagnoses Orde r Schedule EXTRA TUBE Lab Routine Ordered: 08/28 documented as of this encounter Visit Diagnoses Not on filedocumented in this encounter
--- NOTE | 2025-01-07 23:10 | PC.NURSE ---
Patient called at 2310 for room placement. No answer.
--- NOTE | 2025-01-08 00:49 | PC.NURSE ---
Pt called for 2nd time @ 0012. No answer.
--- OUTSIDE RECORDS SUMMARY | 2025-01-08 01:06 | XMS_ITS | Clinical Summary ---
Author Organization [facility] Address [address] [place] [address] Care Team Providers Care Stone Unloader Name Role Phone Unavailable Primary Care Provider [...] Insurance [employer] [place] [address] [place] [address] SUITE [facility] [place] [address]
--- OUTSIDE RECORDS SUMMARY | 2025-01-08 01:06 | XMS_ITS | Clinical Summary ---
Author Organization [facility] Address [address] [place] [address] Care Team Providers Care Carpenter Supervisor Wooden Ship Name Role Phone Kenzie Solomon MD Primary Care Provider + Tamara Tran MD Unavailable [phone] Allergies Active Allergy Reactions Criticality Noted Date [...] on file Legal Sex Female 1:12 AM VIDEO TAPE TRANSFERRER Gender Identity Not on file Sexual Orientation [...] this topic Medical Devices Implanted Type Area Qualification Engineer Device Identifier Shelf Expiration Date Model / Serial / Lot Barnes Vascular 37220-72 Perclose 6fr Suture Mediate Knot Push Vascular Device Closure - [id number] Implanted:Qty: 1 on 08/07/2021 by Rg Resendiz MD at [facility] [employer] [id number] / / Medtronic Card Vasc Surgery [id number] Mosaic Cinch 29mm 38mm 26mm 20.5mm 15.5mm Biological Stent - [id number] - [id number] Implanted:Qty: 1 on 08/10/2021 by DailyRavinder MD at [facility] N/A: Heart Medtronic Inc [id number] 04/01/2026 [id number] / [id number] / Description:MITRAL VALVE-TIS KEDAR Huang Lifesciences [id number] Huang Mc3 32mm 1 Seam 2 Wrap Anatomic Tricuspid Ring - [id number] - [id number] Implanted:Qty: 1 on 08/10/2021 by Ravinder Lay MD at [facility] N/A: Heart [employer] [id number] 10/31/2022 [id number] / [id number] / Description:TRICUSPID RING Medtronic Cardiac Rhythm Mgmt 4968-35 Capsure Epi 8fr 35cm Is-1 Bipolar Suture Fixation Epicardium - [id number] - [id number] Implanted:Qty: 1 on 08/10/2021 by DailyRavinder MD at [facility] N/A: Heart Medtronic Inc [id number] 05/07/2022 4968-35 / [id number] / Procedures Procedure Name Priority Date/Time [...] - GENERAL O RDERABLES Final Result EVIE [address] [facility] Department [place] [address] from Last 3 Months or Most Recently Relevant to Health Maintenance Insurance [facility] [place] [address] [address] Advance Directives For more information, please contact: [phone] * Full Code (Latest Code Status on [...] specifically selected below: No intubation Care Teams Carpenter Supervisor Wooden Ship Relationship Specialty Start Date End Date Kenzie Solomon MD [address] [address] PCP - General Family Medicine 10/24/20 Tamaar Tran MD [address] [address] 10/24/20
--- OUTSIDE RECORDS SUMMARY | 2025-01-08 01:06 | XMS_ITS | Referral Summary ---
Author Organization [facility] Address [address] [place] [address] Care Team Providers Care Academic Vice President Name Role Phone Kenzie Solomon MD Primary Care Provider + Tamara Tran MD Unavailable [phone] Allergies Active Allergy Reactions Criticality Noted Date [...] on file Legal Sex Female 1:12 AM ELECTRONIC LAB TECHNICIAN Gender Identity Not on file Sexual Orientation [...] on file Medical Devices Implanted Type Area Announcer Device Identifier Shelf Expiration Date Model / Serial / Lot Barnes Vascular 77402-86 Perclose 6fr Suture Mediate Knot Push Vascular Device Closure - [id number] Implanted:Qty: 1 on 08/07/2021 by Rg Reesndiz MD at [facility] [employer] [id number] / / Medtronic Card Vasc Surgery [id number] Mosaic Cinch 29mm 38mm 26mm 20.5mm 15.5mm Biological Stent - [id number] - [id number] Implanted:Qty: 1 on 08/10/2021 by DailyRavinder MD at [facility] N/A: Heart Medtronic Inc [id number] 04/01/2026 [id number] / [id number] / Description:MITRAL VALVE-TIS KEDAR [employer]iences [id number] Huang Mc3 32mm 1 Seam 2 Wrap Anatomic Tricuspid Ring - [id number] - [id number] Implanted:Qty: 1 on 08/10/2021 by Daily, Ravinder Car MD at [facility] N/A: Heart [employer] [id number] 10/31/2022 [id number] / [id number] / Description:TRICUSPID RING Medtronic Cardiac Rhythm Mgmt 4968-35 Capsure Epi 8fr 35cm Is-1 Bipolar Suture Fixation Epicardium - [id number] - [id number] Implanted:Qty: 1 on 08/10/2021 by DailyRavinder MD at [facility] N/A: Heart Med[employer]onic Inc [id number] 05/07/2022 4968-35 / [id number] / Procedures Procedure Name Priority Date/Time [...] GENERAL O RDERABLES Final Result EVIE JACOBSON [address] [facility] Department [place] [address] from Last 3 Months or Most Recently Relevant to Health Maintenance Insurance [place] [address] Advance Directives For more information, please contact: [phone] * Full Code (Latest Code Status on [...] specifically selected below: No intubation Care Teams Academic Vice President Relationship Specialty Start Date End Date Kenzie Solomon MD [address] [place] [address] PCP - General Family Medicine 10/24/20 Tamara Tran MD [address] [address] 10/24/20
--- OUTSIDE RECORDS SUMMARY | 2025-01-08 01:06 | XMS_ITS | Encounter Summary ---
Author Organization [facility] Address [address] [place] [address] Care Team Providers Care Manager Search Name Role Phone Kenzie Solomon MD Primary Care Provider + Tamara Tran MD Unavailable [phone] Encounter Details Date Type Department Care Team (Late st Contact Info) Description 07/21/2021 Documentation [facility] Surgeon [facility] [place] [address] Claudine Mcghee, [address] [address] Social History Tobacco Use Types Packs/Day Years [...] on file Legal Sex Female 1:12 AM SAND SCREENER Gender Identity Not on file Sexual Orientation Not on file documented as of this encounter Functional Status documented as of this encounter Plan of Treatment Not on file documented as of this encounter Visit Diagnoses Not on filedocumented in this encounter Care Teams Manager Search Relationship Specialty Start Date End Date Kenzie Solomon MD [address] [place] [address] [id number] PCP - General Family Medicine 10/24/20 Tamara Tran MD [address] [address] 10/24/20 documented as of this encounter
--- OUTSIDE RECORDS SUMMARY | 2025-01-08 01:06 | XMS_ITS ---
Author Organization [facility] Address [address] [place] [address] Care Team Providers Care Extractions Technician Name Role Phone Blake Kumar Primary Care Provider [phone] Maria Ines Keller Unavailable [phone] Allergies Allergen (clinical drug ingredient) Drug/Non Drug [...] 100 MG TAKE 1 TABLET BY [facility] AT BEDTIME for 30 Active Cymbalta [...] Additional Findings: Tobacco user e-cigarette Vital Signs BMI 21.45 kg/m2 12/19/2024 Oximetry 99 % 12/19/2024 Weight 158.2 lbs 12/19/2024 Height 72 in 12/19/2024 Blood pressure systolic 110 mm Hg 12/19/19 25 Blood pressure diastolic 78 mm Hg 025 Heart Rate 98 /min 12/19/2024 Temperature 98.6 degrees Fahrenheit 12/19/19 25 Respiratory Rate 16 /min 12/19/2024 Encounters Encounter Location Date Provider Diagnosis [address] [place] [address] 12/19/2024 Maria Ines Kleler Opioid use disorder F11.99 and Nicotine dependence, [...] Provider Name:Maria Ines thomas, 01/16/2025 08:00:00 AM, [address], [place], [address], Medications Administered Medication Instructions Date of Administration Dosage Notes Sublocade 12/19/2024 300 mg Teresa Bee 12/19/2024 09:00 AM AIRCRAFT SYSTEMS TECHNICIAN >Given RUQ Subq, tolerated well. [facility]# [id number]. Progress Notes * Charmaine VERDUZCODOB:1979 (44 yo F)Acc No.[id number]:12/19/2024 Patient: Jorge Luis LOMBARDICharmaine WYATT Provider: Rabia Keller, MSN, SPECIAL EDUCATION SUPERVISOR, AUTO AIR CONDITIONING APPRENTICE-C :1980 A ge:44 Y S ex:Female Date:12/19/2024 Address:[address] [place], [place] [address] Pcp:Blake Kumar Check In:08:09 AM AIRCRAFT SYSTEMS TECHNICIAN Subjective: * Chief Complaints: * 4 week [...] Plan required at this time. S creening: [place] Suicide Severity Rating Scale (LF) D o [...] 2006 * Hospitalization/Major Diagno stic Procedure: c [facility] heart surgery 2020 * Family History: F [...] * Martine Smith 12/19/2024 0 8:45:44 AM AIRCRAFT SYSTEMS TECHNICIAN > Specimen collected per [facility] specificationsThis lab was reviewed by Martine Smith on 12/19/2024 at 14:11 PM AIRCRAFT SYSTEMS TECHNICIAN 2.?Others? Notes: Discussed medication side effects, adverse [...] disorder) * Procedure Codes: 9 9000 SPECIMEN [id number] BEHAV CHNG SMOKING 3-10 [id number] THER/PROPH/DIAG INJ, SC/IM * Preventive Medicine: Counseling: S MOKING: Patient counselled on the dangers of tobacco use and urged to quit. . * Follow Up: 4 Weeks (Reason: DEC f/u) * Care Plan Details* * RAFT SYSTEMS TECHNICIAN Sign off status: Completed true * Provider: Rabia Keller, MSN, SPECIAL EDUCATION SUPERVISOR, AUTO AIR CONDITIONING APPRENTICE-C Date: 0 12/19/2024 Generated for Ravi harris/Jose/eTransmitting on: 0 01/08/2025 01:05 AM CDT History and Physical Notes * HPI [...] Total Score: 1 Interpretation: Minimal Depression Screening [place] Suicide Sev erity Rating Scale (LF) Do [...]
--- OUTSIDE RECORDS SUMMARY | 2025-01-08 01:06 | XMS_ITS ---
Author Organization [facility] Address [address] [place] [address] Care Team Providers Care High School Computer Science Teacher Name Role Phone Blake Kumar Primary Care Provider [phone] Maria Ines Keller Unavailable [phone] Allergies Allergen (clinical drug ingredient) Drug/Non Drug [...] HCl 100 MG TAKE [address] [facility] AT BEDTIME for 30 Active Aspirin [...] 11/14/2024 Encounters Encounter Location Date Provider Diagnosis [facility] [address] [place] [address] 11/14/2024 Maria Ines Keller Opioid use disorder [...] Provider Name:Maria Ines thomas, 01/16/2025 08:00:00 AM, [address], [place], [address], Medications Administered Medication Instructions Date of Administration Dosage Notes Sublocade 11/14/2024 300 mg Patricio RN, Kristin mcbride N 11/14/2024 09:03:43 AM SITE RELIABILITY ENGINEER >Administered to the left upper quadrant of the abdomen. Pt tolerated well with minimal discomfort observed or reported. Progress Notes * Charmaine AYONDOB:1979 (44 yo F)Acc No.[id number]:11/14/2024 Patient: Charmaine OROZCO Provider: Rabia Keller, MSN, SHIPBUILDING DRAFTSPERSON, RN TELEHEALTH-C :1980 A ge:44 Y S ex:Female Date:11/14/2024 Address:[address] [place], [place] [address] Pcp:Blake Kumar Check In:08:08 AM SITE RELIABILITY ENGINEER Subjective: * Chief Complaints: * 1 month [...] o. Patient already has Narcan. S creening: [place] Suicide Severity Rating Scale (LF) 1 . [...] DEC f/u) * Care Plan Details* * RELIABILITY ENGINEER Sign off status: Completed true * Provider: Rabia Keller, MSN, SHIPBUILDING DRAFTSPERSON, RN TELEHEALTH-C Date: 0 11/14/2024 Generated for Ravi harris/Jose/Kanesmitting on: 0 01/08/2025 01:06 AM CDT History and Physical Notes * [...] Total Score: 3 Interpretation: Minimal Depression Screening [place] Suicide Sev erity Rating Scale (LF) 1. [...]
--- OUTSIDE RECORDS SUMMARY | 2025-01-08 01:07 | XMS_ITS | Encounter Summary ---
Author Organization [facility] Address [address] [place] [address] Care Team Providers Care Sheet Metal Duct Installer Helper Name Role Phone Unavailable Primary Care Provider Unavailabl e Encounter Details Date Type Department Care Team (Late st Contact Info) Description 09/01/2021 Lab Requisition [facility] Laboratory Services [address] [place] [address] Godwin Guillen MD [address] [place] [address] [address] Social History Tobacco Use Types [...] CBC WITH DIFFERENTIAL Routine 09/01/2021 10:50 AM MACHINE I ENGRAVER PROTIME-INR Routine 09/01/2021 10:50 AM MACHINE I ENGRAVER BASIC METABOLIC PANEL Routine 09/01/2021 10:50 AM MACHINE I ENGRAVER documented in this encounter Results * (ABNORMAL) PROTIME-INR (09/01/2021 10:50 AM MACHINE I ENGRAVER) Pathologist [facility] PROTIME 21.4(H) 11.5 - 14.7 Seconds 09/01/2021 12:15 PM MACHINE I ENGRAVER [facility] INR 1.9(H) 0.9 - 1.1 09/01/2021 12:15 PM MACHINE I ENGRAVER [facility] Blood 09/01/2021 10:5 0 AM MACHINE I ENGRAVER 09/01/2021 11:49 AM MACHINE I ENGRAVER Godwin Javi Guillen MD HEMATOLOGY ORDERABL ES Final Result [facility] CLIA# [id number] [address] [place] [address] * (ABNORMAL) CBC WITH DIFFERENTIAL (09/01/2021 10:50 AM MACHINE I ENGRAVER) Pathologist [facility] WBC 6.2 4.5 - 10.5 K/uL 09/01/2021 11:52 AM [facility] RBC 3.22(L) 3.90 - 4.90 M/uL 09/01/2021 11:52 AM [facility] HEMOGLOBIN 9.1(L) 11.8 - 14.8 g/dL 09/01/2021 11:52 AM [facility] HEMATOCRIT 27.6(L) 35.5 - 44.0 % 09/01/2021 11:52 AM [facility] MCV 85.7 82.0 - 99.0 fL 09/01/2021 11:52 AM [facility] MCH 28.3 27.8 - 34.5 pg 09/01/2021 11:52 AM [facility] MCHC 33.0 32.5 - 35.5 g/dL 09/01/2021 11:52 AM [facility] RDW 17.1(H) 11.5 - 14.5 % 09/01/2021 11:52 AM [facility] PLATELETS 208 160 - 420 K/uL 09/01/2021 11:[address] [facility] MPV 7.3(L) 8.7 - 12.7 fL 09/01/2021 11:[address] [facility] NEUTROPHILS 75 % 09/01/2021 11:[address] [facility] LYMPHOCYTES 17 % 09/01/2021 11:52 AM MACHINE I ENGRAVER [facility]ORAT[facility] MONOCYTES 7 % 09/01/2021 11:52 AM MACHINE I ENGRAVER [facility] LABORATORY SERVICES [facility] EOSINOPHILS 1 % 09/01/2021 11:52 AM MACHINE I ENGRAVER [facility] LABORATORY SERVICES [facility] BASOPHILS 0 % 09/01/2021 11:52 AM MACHINE I ENGRAVER [facility] LABORATORY [facility] NEUTROPHIL ABSOLUTE 4.60 1.90 - 7.00 K/uL 09/01/2021 11:[address] [facility] LYMPHOCYTE ABSOLUTE 1.10 0.70 - 4.50 K/uL 09/01/2021 11:[address] [facility] MONOCYTE ABSOLUTE 0.40 0.10 - 1.30 K/uL 09/01/2021 11:52 AM MACHINE I ENGRAVER [facility] LABORATORY [facility] EOSINOPHIL ABSOLUTE 0.00 0.00 - 0.70 K/uL 09/01/2021 11:[address] [facility] BASOPHILS ABSOLUTE 0.00 0.00 - 0.20 K/uL 09/01/2021 11:[address] [facility] Blood 09/01/2021 10:5 0 AM MACHINE I ENGRAVER 09/01/2021 11:50 AM MACHINE I ENGRAVER us Godwin Javi Guillen MD HEMATOLOGY ORDERABL ES Final Result [facility] CLIA# [id number] [address] [place] [address] * (ABNORMAL) BASIC METABOLIC PANEL (09/01/2021 10:50 AM MACHINE I ENGRAVER) SODIUM 137 136 - 145 mmol/L 09/01/2021 3:30 PM MACHINE I ENGRAVER [facility] POTASSIUM 4.9 3.4 - 5.1 mmol/L 09/01/2021 3:30 PM [facility] CHLORIDE 101 98 - 107 mmol/L 09/01/2021 3:30 PM [facility] CO2 26 22 - 29 mmol/L 09/01/2021 3:30 PM [facility] CALCIUM 8.9 8.6 - 10.4 mg/dL 09/01/2021 3:30 PM [facility] BUN 26(H) 6 - 20 mg/dL 09/01/2021 3:30 PM [facility] CREATININE 0.71 0.51 - 0.95 mg/dL 09/01/2021 3:30 PM [facility] GLUCOSE 115(H) 74 - 99 mg/dL 09/01/2021 3:30 PM [facility] GFR >60 mL/min/1.7 3 sq meter 09/01/2021 3:30 PM [facility] Comment: eGFR has not been [...] mL/min/1.7 3 sq meter 09/01/2021 3:30 PM [facility] ANION GAP 10 8 - 16 mmol/L 09/01/2021 3:30 PM [facility] Blood 09/01/2021 10:5 0 AM MACHINE I ENGRAVER 09/01/2021 11:49 AM MACHINE I ENGRAVER us Godwin Guillen MD CHEMISTRY ORDERABLE S Final Result [facility] CLIA# [id number] [address] [place] [address] documented in this encounter Visit Diagnoses Not on filedocumented in this encounter
--- OUTSIDE RECORDS SUMMARY | 2025-01-08 01:07 | XMS_ITS ---
Author Organization [facility] Address [address] [place] [address] Care Team Providers Care Log Chipper Operator Name Role Phone Blake Kumar Primary Care Provider Maria Ines Keller Unavailable [phone] REASON FOR VISIT 4 week f/u sublocade Social History Sex Assigned At : Social History Observation Description Sex Assigned At Female Encounters Encounter Location Date Provider Diagnosis [facility] [address] [place] [address] 12/12/2024 Maria Ines Keller Plan Of Treatment Next Appt Details Provider Name:Maria Ines thomas, 01/16/2025 08:00:00 AM, [address], [place], [address], Progress Notes * Charmaine VERDUZCODOB:1979 (44 yo F)Acc No.[id number]:12/12/2024 UNLOCKED PROGRESS NOTE Patient: Charmaine OROZCO Provider: Rabia Keller, MSN, METAL GRINDER, ANESTHESIOLOGY TECH-C :1980 A ge:44 Y S ex:Female Date:12/12/2024 Address:[address] , [place], [place] Pcp:Blake Kumar Subjective: * Chief Complaints: * 1 . 4 week f/u sublocade. * Medical History: Objective: * Vitals: Assessment: Plan: * Treatment: * Care Plan Details* * Electronic signature of Ira Keller APRN, [id number] on 01/08/2025 at 01:06 AM CDT Sign off status: Pending * Provider: Rabia Keller, AUSTYN, METAL GRINDER, ANESTHESIOLOGY TECH-C Date: 0 12/12/2024 Generated for Ravi harris/Jose/Lorena on: 0 01/08/2025 01:06 AM CDT
--- OUTSIDE RECORDS SUMMARY | 2025-01-08 01:07 | XMS_ITS | Encounter Summary ---
Author Organization [facility] Address [address] [place] [address] Care Team Providers Care Electrical Manufacturing Technician Name Role Phone Unavailable Primary Care Provider Unavailabl e Encounter Details Date Type Department Care Team (Late st Contact Info) Description 08/28/2021 Lab Requisition [facility] Laboratory Services [address] [place] [address] Godwin Guillen MD [address] [place] [address] [address] Social History Tobacco Use Types [...]
--- OUTSIDE RECORDS SUMMARY | 2025-01-08 01:07 | XMS_ITS | Encounter Summary ---
Author Organization [facility] Address [address] [place] [address] Care Team Providers Care Higher Level Teaching Assistant Name Role Phone Unavailable Primary Care Provider Unavailabl e Encounter Details Date Type Department Care Team (Late st Contact Info) Description 09/06/[address] [facility] Laboratory Services [address] [place] [address] Godwin Guillen MD [address] [place] [address] [address] Social History Tobacco Use Types [...] Diagnosis Comments PROTIME-INR Routine 09/06/2021 2:31 AM WASTE RECLAIMER documented in this encounter Results * (ABNORMAL) PROTIME-INR (09/06/2021 2:31 AM WASTE RECLAIMER) PROTIME 26.3(H) 11.5 - 14.7 Seconds 09/06/2021 11:51 AM WASTE RECLAIMER [facility] SERVICES [facility] INR 2.4(H) 0.9 - 1.1 09/06/2021 11:51 AM WASTE RECLAIMER [facility] Blood Collection / Unknown 09/06/2021 2:31 AM WASTE RECLAIMER 09/06/2021 11:06 AM WASTE RECLAIMER us Godwin Guillen MD HEMATOLOGY ORDERABL ES Final Result [facility] CLIA# [id number] [address] [place] [address] documented in this encounter Visit Diagnoses Not on filedocumented in this encounter
--- OUTSIDE RECORDS SUMMARY | 2025-01-08 01:07 | XMS_ITS | Encounter Summary ---
Author Organization [facility] Address [address] [place] [address] Care Team Providers Care School Age Teacher Name Role Phone Unavailable Primary Care Provider Unavailabl e Encounter Details Date Type Department Care Team (Late st Contact Info) Description 09/16/2021 Lab Requisition [facility] Laboratory Services [address] [place] [address] [place] [address] [place] [address] Social History Tobacco Use Types [...] Diagnosis Comments PROTIME-INR Routine 09/16/2021 3:00 AM SANDING MACHINE OPERATOR documented in this encounter Results * (ABNORMAL) PROTIME-INR (09/16/2021 3:00 AM SANDING MACHINE OPERATOR) PROTIME 31.9(H) 11.5 - 14.7 Seconds 09/16/2021 5:32 AM SANDING MACHINE OPERATOR [facility] INR 3.1(H) 0.9 - 1.1 09/16/2021 5:32 AM SANDING MACHINE OPERATOR [facility]OR[facility] SERVICES [facility] Blood 09/16/2021 3:00 AM SANDING MACHINE OPERATOR 09/16/2021 5:11 AM SANDING MACHINE OPERATOR us Teo Aguirre MD HEMATOLOGY ORDERABLES Final Resu lt [facility] CLIA# [id number] [address] [place] [address] documented in this encounter Visit Diagnoses Not on filedocumented in this encounter
--- OUTSIDE RECORDS SUMMARY | 2025-01-08 01:07 | XMS_ITS | Encounter Summary ---
Author Organization [facility] Address [address] [place] [address] Care Team Providers Care Tennis Player Name Role Phone Unavailable Primary Care Provider Unavailabl e Encounter Details Date Type Department Care Team (Late st Contact Info) Description 09/11/2021 Lab Requisition [facility] Laboratory Services [address] [place] [address] Godwin Guillen MD [address] [place] [address] [address] Social History Tobacco Use Types [...] Diagnosis Comments PROTIME-INR Routine 09/11/2021 4:30 AM TOOL AND DIE MAKER LEVEL FIVE documented in this encounter Results * (ABNORMAL) PROTIME-INR (09/11/2021 4:30 AM TOOL AND DIE MAKER LEVEL FIVE) PROTIME 34.0(H) 11.5 - 14.7 Seconds 09/11/2021 7:45 AM TOOL AND DIE MAKER LEVEL FIVE [facility] INR 3.4(H) 0.9 - 1.1 09/11/2021 7:45 AM TOOL AND DIE MAKER LEVEL FIVE [facility] Blood 09/11/2021 4:30 AM TOOL AND DIE MAKER LEVEL FIVE 09/11/2021 6:35 AM TOOL AND DIE MAKER LEVEL FIVE us Godwin Guillen MD HEMATOLOGY ORDERABL ES Final Result [facility] CLIA# [id number] [place] [address] documented in this encounter Visit Diagnoses Not on filedocumented in this encounter
--- OUTSIDE RECORDS SUMMARY | 2025-01-08 01:07 | XMS_ITS | Encounter Summary ---
Author Organization [facility] Address [address] [place] [address] Care Team Providers Care Receiving Associate Name Role Phone Unavailable Primary Care Provider Unavailabl e Encounter Details Date Type Department Care Team (Late st Contact Info) Description 09/07/2021 Lab Requisition [facility] Laboratory Services [address] [place] [phone] Godwin Guillen MD [address] [place] [address] [address] Social History Tobacco Use Types [...] Diagnosis Comments PROTIME-INR Routine 09/07/2021 3:15 AM VARNISH MELTER HELPER documented in this encounter Results * (ABNORMAL) PROTIME-INR (09/07/2021 3:15 AM VARNISH MELTER HELPER) PROTIME 22.9(H) 11.5 - 14.7 Seconds 09/07/2021 5:13 AM VARNISH MELTER HELPER [facility] LABORATORY SERVICES [facility] INR 2.0(H) 0.9 - 1.1 09/07/2021 5:13 AM VARNISH MELTER HELPER [facility] Blood 09/07/2021 3:15 AM VARNISH MELTER HELPER 09/07/2021 4:37 AM VARNISH MELTER HELPER us Godwin Guillen MD HEMATOLOGY ORDERABL ES Final Result [facility] CLIA# [id number] [place] [address] documented in this encounter Visit Diagnoses Not on filedocumented in this encounter
--- OUTSIDE RECORDS SUMMARY | 2025-01-08 01:07 | XMS_ITS | Encounter Summary ---
Author Organization [facility] Address [address] [place] [address] Care Team Providers Care Brokerage Purchase And Sale Clerk Name Role Phone Unavailable Primary Care Provider Unavailabl e Encounter Details Date Type Department Care Team (Late st Contact Info) Description 09/03/2021 Lab Requisition [facility] Laboratory Services [address] [place] [phone] Godwin Guillen MD [address] [place] [address] [address] Social History Tobacco Use Types [...] Diagnosis Comments PROTIME-INR Routine 09/03/2021 2:47 AM HEADRIG SAWYER documented in this encounter Results * (ABNORMAL) PROTIME-INR (09/03/2021 2:47 AM HEADRIG SAWYER) PROTIME 23.5(H) 11.5 - 14.7 Seconds 09/03/2021 10:07 AM HEADRIG SAWYER [facility] INR 2.1(H) 0.9 - 1.1 09/03/2021 10:07 AM HEADRIG SAWYER [facility] Blood 09/03/2021 2:47 AM HEADRIG SAWYER 09/03/2021 9:47 AM HEADRIG SAWYER us Godwin Guillen MD HEMATOLOGY ORDERABL ES Final Result [facility] CLIA# [id number] [place] [address] documented in this encounter Visit Diagnoses Not on filedocumented in this encounter
--- OUTSIDE RECORDS SUMMARY | 2025-01-08 01:07 | XMS_ITS | Encounter Summary ---
Author Organization [facility] Address [address] [place] [address] Care Team Providers Care Refrigerating Machine Operator Name Role Phone Unavailable Primary Care Provider Unavailabl e Encounter Details Date Type Department Care Team (Late st Contact Info) Description 09/19/2021 Lab Requisition [facility] Laboratory Services [address] [place] [address] [facility], External Provider [address] [place] [address] Social History Tobacco Use Types Packs/Day Years [...] Diagnosis Comments PROTIME-INR Routine 09/19/2021 4:20 AM SURVEY RODMAN documented in this encounter Results * (ABNORMAL) PROTIME-INR (09/19/2021 4:20 AM SURVEY RODMAN) PROTIME 27.5(H) 11.5 - 14.7 Seconds 09/19/2021 6:10 AM SURVEY RODMAN [facility]ORATORY SERVICES [facility] INR 2.6(H) 0.9 - 1.1 09/19/2021 6:10 AM SURVEY RODMAN [facility] Blood Collection / Unknown 09/19/2021 4:20 AM SURVEY RODMAN 09/19/2021 5:51 AM SURVEY RODMAN us External Provider [facility] HEMATOLOGY ORDERABLES Fin al Result Performing Organization Address City/State/[facility] Co de Phone Number [facility] LABORATORY SERVICES [facility]# [id number] [place] [address] documented in this encounter Visit Diagnoses Not on filedocumented in this encounter
--- OUTSIDE RECORDS SUMMARY | 2025-01-08 01:07 | XMS_ITS | Encounter Summary ---
Author Organization [facility] Address [address] [place] [address] Care Team Providers Care Colorist Formulator Name Role Phone Unavailable Primary Care Provider Unavailabl e Encounter Details Date Type Department Care Team (Late st Contact Info) Description 09/18/2021 Lab Requisition [facility] Laboratory Services [address] [place] [phone] Godwin Guillen MD [address] [place] [address] [address] Social History Tobacco Use Types [...] CBC WITH DIFFERENTIAL Routine 09/18/2021 4:00 AM CRM BUSINESS ANALYST PROTIME-INR Routine 09/18/2021 4:00 AM CRM BUSINESS ANALYST documented in this encounter Results * (ABNORMAL) PROTIME-INR (09/18/2021 4:00 AM CRM BUSINESS ANALYST) PROTIME 27.6(H) 11.5 - 14.7 Seconds 09/18/2021 8:04 AM [facility] INR 2.6(H) 0.9 - 1.1 09/18/2021 8:04 AM [facility] Blood Collection / Unknown 09/18/2021 4:00 AM CRM BUSINESS ANALYST 09/18/2021 6:58 AM CRM BUSINESS ANALYST Godwin Guillen MD HEMATOLOGY ORDERABL ES Final Result [facility] CLIA# [id number] [address] [place] [address] * (ABNORMAL) CBC WITH DIFFERENTIAL (09/18/2021 4:00 AM CRM BUSINESS ANALYST) WBC 3.8(L) 4.5 - 10.5 K/uL 09/18/2021 [...] 8.7 - 12.7 fL 09/18/2021 7:20 AM CRM BUSINESS ANALYST [facility] LABORATORY SERVICES [facility] NEUTROPHILS 56 % 09/18/2021 7:20 AM CRM BUSINESS ANALYST [facility] LABORATORY [facility] LYMPHOCYTES 34 % 09/18/2021 7:20 AM CRM BUSINESS ANALYST [facility] LABORATORY SERVICES [facility] MONOCYTES 8 % 09/18/2021 7:20 AM CRM BUSINESS ANALYST [facility] LABORATORY SERVICES [facility] EOSINOPHILS 2 % 09/18/2021 7:20 AM CRM BUSINESS ANALYST [facility] LABORATORY [facility] BASOPHILS 0 % 09/18/2021 7:20 AM CRM BUSINESS ANALYST [facility] LABORATORY [facility] NEUTROPHIL ABSOLUTE 2.10 1.90 - 7.00 K/uL 09/18/2021 7:20 AM CRM BUSINESS ANALYST [facility] LABORATORY [facility] LYMPHOCYTE ABSOLUTE 1.30 0.70 - 4.50 K/uL 09/18/2021 7:20 AM CRM BUSINESS ANALYST [facility] LABORATORY [facility] MONOCYTE ABSOLUTE 0.30 0.10 - 1.30 K/uL 09/18/2021 7:20 AM CRM BUSINESS ANALYST [facility] LABORATORY [facility] EOSINOPHIL ABSOLUTE 0.10 0.00 - 0.70 K/uL 09/18/2021 7:20 AM CRM BUSINESS ANALYST [facility] LABORATORY [facility] BASOPHILS ABSOLUTE 0.00 0.00 - 0.20 K/uL 09/18/2021 7:20 AM CRM BUSINESS ANALYST [facility] LABORATORY [facility] Blood Collection / Unknown 09/18/2021 4:00 AM CRM BUSINESS ANALYST 09/18/2021 6:58 AM CRM BUSINESS ANALYST Godwin Javi Guillen MD HEMATOLOGY ORDERABL ES Final Result [facility] CLIA# [id number] [place] [address] documented in this encounter Visit Diagnoses Not on filedocumented in this encounter
--- OUTSIDE RECORDS SUMMARY | 2025-01-08 01:07 | XMS_ITS | Encounter Summary ---
Author Organization [facility] Address [address] [place] [address] Care Team Providers Care Knotting Machine Operator Name Role Phone Unavailable Primary Care Provider Unavailabl e Encounter Details Date Type Department Care Team (Late st Contact Info) Description 09/09/2021 Lab Requisition [facility] Laboratory Services [address] [place] [phone] Godwin Guillen MD [address] [place] [address] [address] Social History Tobacco Use Types [...] Diagnosis Comments PROTIME-INR Routine 09/09/2021 4:00 AM TELEPHONE LINEMAN documented in this encounter Results * (ABNORMAL) PROTIME-INR (09/09/2021 4:00 AM TELEPHONE LINEMAN) PROTIME 25.6(H) 11.5 - 14.7 Seconds 09/09/2021 11:42 AM TELEPHONE LINEMAN [facility] LABORATORY SERVICES [facility] INR 2.3(H) 0.9 - 1.1 09/09/2021 11:42 AM TELEPHONE LINEMAN [facility] LABORATORY [facility] Blood BLOOD SPECIMEN / Unknown Collection / Unknown 09/09/2021 4:00 AM TELEPHONE LINEMAN 09/09/2021 11:19 AM TELEPHONE LINEMAN us Godwin Javi Guillen MD HEMATOLOGY ORDERABL ES Final Result [facility] CLIA# [id number] [place] [address] documented in this encounter Visit Diagnoses Not on filedocumented in this encounter
--- OUTSIDE RECORDS SUMMARY | 2025-01-08 01:07 | XMS_ITS | Encounter Summary ---
Author Organization [facility] Address [address] [place] [address] Care Team Providers Care Plate Colorer Name Role Phone Unavailable Primary Care Provider Unavailabl e Encounter Details Date Type Department Care Team (Late st Contact Info) Description 09/13/2021 Lab Requisition [facility] Laboratory Services [address] [place] [address] [place] [address] [place] [address] Social History Tobacco Use Types [...] Diagnosis Comments PROTIME-INR Routine 09/13/2021 4:30 AM ORTHOPEDIC SHOE MAKER documented in this encounter Results * (ABNORMAL) PROTIME-INR (09/13/2021 4:30 AM ORTHOPEDIC SHOE MAKER) PROTIME 23.6(H) 11.5 - 14.7 Seconds 09/13/2021 6:39 AM ORTHOPEDIC SHOE MAKER [facility] LABORATORY [facility] INR 2.1(H) 0.9 - 1.1 09/13/2021 6:39 AM ORTHOPEDIC SHOE MAKER [facility] LABORATORY SERVICES [facility] Blood 09/13/2021 4:30 AM ORTHOPEDIC SHOE MAKER 09/13/2021 6:08 AM ORTHOPEDIC SHOE MAKER us Toe Aguirre MD HEMATOLOGY ORDERABLES Final Resu lt [facility] LAB[facility] CLIA# [id number] [place] [address] documented in this encounter Visit Diagnoses Not on filedocumented in this encounter
--- OUTSIDE RECORDS SUMMARY | 2025-01-08 01:07 | XMS_ITS | Encounter Summary ---
Author Organization [facility] Address [address] [place] [address] Care Team Providers Care Smudger Name Role Phone Unavailable Primary Care Provider Unavailabl e Encounter Details Date Type Department Care Team (Late st Contact Info) Description 08/27/[address] [facility] Laboratory Services [address] [place] [address] Godwin Guillen MD [address] [place] [address] [address] Social History Tobacco Use Types [...] - 14.7 Seconds 08/27/2021 9:52 AM CDT [facility] LABORATORY SERVICES [facility] INR 2.2(H) 0.9 - 1.1 08/27/2021 9:52 AM CDT [facility] LABORATORY [facility] Blood Collection / Unknown 08/27/2021 5:30 AM CDT 08/27/2021 9:03 AM CDT us Godwin Guillen MD HEMATOLOGY ORDERABL ES Final Result [facility] LABORATORY [facility] CLIA# [id number] [place] [address] documented in this encounter Visit Diagnoses Not on filedocumented in this encounter
--- OUTSIDE RECORDS SUMMARY | 2025-01-08 01:07 | XMS_ITS | Encounter Summary ---
Author Organization [facility] Address [address] [place] [address] Care Team Providers Care Smash Fixer Name Role Phone Unavailable Primary Care Provider Unavailabl e Encounter Details Date Type Department Care Team (Late st Contact Info) Description 09/04/2021 Lab Requisition [facility] Laboratory Services [address] [place] [address] [facility], External Provider [address] [place] [address] Social History Tobacco Use Types Packs/Day Years [...] Diagnosis Comments PROTIME-INR Routine 09/04/2021 3:20 AM METER INSPECTOR documented in this encounter Results * (ABNORMAL) PROTIME-INR (09/04/2021 3:20 AM METER INSPECTOR) PROTIME 28.1(H) 11.5 - 14.7 Seconds 09/04/2021 4:58 AM METER INSPECTOR [facility] LABORATORY SERVICES [facility] INR 2.6(H) 0.9 - 1.1 09/04/2021 4:58 AM METER INSPECTOR [facility] Blood Collection / Unknown 09/04/2021 3:20 AM METER INSPECTOR 09/04/2021 4:33 AM METER INSPECTOR us External Provider [facility] HEMATOLOGY ORDERABLES Fin al Result Performing Organization Address City/State/[facility] [[email or web address]] Co de Phone Number [facility] LABORATORY SERVICES [facility]# [id number] [place] [address] documented in this encounter Visit Diagnoses Not on filedocumented in this encounter
--- OUTSIDE RECORDS SUMMARY | 2025-01-08 01:07 | XMS_ITS | Encounter Summary ---
Author Organization [facility] Address [address] [place] [address] Care Team Providers Care Parts Cataloguer Name Role Phone Unavailable Primary Care Provider Unavailabl e Encounter Details Date Type Department Care Team (Late st Contact Info) Description 09/17/2021 Lab Requisition [facility] Laboratory Services [address] [place] [address] Godwin Guillen MD [address] [place] [address] [address] Social History Tobacco Use Types [...] CBC WITH DIFFERENTIAL Routine 09/17/2021 4:15 AM PHOTO MASK INSPECTOR PROTIME-INR Routine 09/17/2021 4:15 AM PHOTO MASK INSPECTOR COMPREHENSIVE METABOLIC PANEL Routine 09/17/2021 4:15 AM PHOTO MASK INSPECTOR documented in this encounter Results * (ABNORMAL) PROTIME-INR (09/17/2021 4:15 AM PHOTO MASK INSPECTOR) Pathologist [facility] PROTIME 31.2(H) 11.5 - 14.7 Seconds 09/17/2021 2:23 PM PHOTO MASK INSPECTOR [facility] INR 3.0(H) 0.9 - 1.1 09/17/2021 2:23 PM PHOTO MASK INSPECTOR [facility] Blood 09/17/2021 4:15 AM PHOTO MASK INSPECTOR 09/17/2021 1:38 PM PHOTO MASK INSPECTOR [facility] Javi Guillen MD HEMATOLOGY ORDERABL ES Final Result [facility] CLIA# [id number] [address] [place] [address] * (ABNORMAL) CBC WITH DIFFERENTIAL (09/17/2021 4:15 AM PHOTO MASK INSPECTOR) [facility] WBC 3.6(L) 4.5 - 10.5 K/uL 09/17/2021 2:10 PM PHOTO MASK INSPECTOR [facility] RBC 2.74(L) 3.90 - 4.90 M/uL 09/17/2021 2:10 PM [facility] HEMOGLOBIN 7.7(L) 11.8 - 14.8 g/dL 09/17/2021 2:10 PM [facility] HEMATOCRIT 23.9(L) 35.5 - 44.0 % 09/17/2021 2:10 PM [facility] MCV 87.3 82.0 - 99.0 fL 09/17/2021 2:10 PM [facility] MCH 28.2 27.8 - 34.5 pg 09/17/2021 2:10 PM [facility] MCHC 32.4(L) 32.5 - 35.5 g/dL 09/17/2021 2:10 PM PHOTO MASK INSPECTOR [facility] RDW 16.7(H) 11.5 - 14.5 % 09/17/2021 2:10 PM PHOTO MASK INSPECTOR [facility] PLATELETS 150(L) 160 - 420 K/uL 09/17/2021 2:10 PM PHOTO MASK INSPECTOR [facility] LABORATORY [facility] MPV 6.8(L) 8.7 - 12.7 fL 09/17/2021 2:10 PM PHOTO MASK INSPECTOR [facility] LABORATORY [facility] NEUTROPHILS 60 % 09/17/2021 2:10 PM PHOTO MASK INSPECTOR [facility] LABORATORY [facility] LYMPHOCYTES 30 % 09/17/2021 2:10 PM PHOTO MASK INSPECTOR [facility] LABORATORY SERVICES [facility] MONOCYTES 9 % 09/17/2021 2:10 PM PHOTO MASK INSPECTOR [facility] LABORATORY SERVICES - [facility] EOSINOPHILS 1 % 09/17/2021 2:10 PM PHOTO MASK INSPECTOR [facility] LABORATORY SERVICES - [facility] BASOPHILS 0 % 09/17/2021 2:10 PM PHOTO MASK INSPECTOR [facility] LABORATORY [facility] NEUTROPHIL ABSOLUTE 2.10 1.90 - 7.00 K/uL 09/17/2021 2:10 PM PHOTO MASK INSPECTOR [facility] LABORATORY [facility] LYMPHOCYTE ABSOLUTE 1.10 0.70 - 4.50 K/uL 09/17/2021 2:10 PM PHOTO MASK INSPECTOR [facility] LABORATORY [facility] MONOCYTE ABSOLUTE 0.30 0.10 - 1.30 K/uL 09/17/2021 2:10 PM PHOTO MASK INSPECTOR [facility] LABORATORY [facility] EOSINOPHIL ABSOLUTE 0.00 0.00 - 0.70 K/uL 09/17/2021 2:10 PM PHOTO MASK INSPECTOR [facility] LABORATORY [facility] BASOPHILS ABSOLUTE 0.00 0.00 - 0.20 K/uL 09/17/2021 2:10 PM PHOTO MASK INSPECTOR [facility] LABORAT[facility] Blood 09/17/2021 4:15 AM PHOTO MASK INSPECTOR 09/17/2021 1:38 PM PHOTO MASK INSPECTOR us Godwin Guillen MD HEMATOLOGY ORDERABL ES Final Result [facility] CLIA# [id number] [place] [address] * (ABNORMAL) COMPREHENSIVE METABOLIC PANEL (09/17/2021 4:15 AM PHOTO MASK INSPECTOR) SODIUM 141 136 - 145 mmol/L 09/17/2021 2:34 PM PHOTO MASK INSPECTOR [facility] LABORATORY [facility] POTASSIUM 3.7 3.4 - 5.1 mmol/L 09/17/2021 2:34 PM [facility] CHLORIDE 103 98 - 107 mmol/L 09/17/2021 2:34 PM [facility] CO2 27 22 - 29 mmol/L 09/17/2021 2:34 PM [facility] CALCIUM 8.5(L) 8.6 - 10.4 mg/dL 09/17/2021 2:34 PM [facility] LABORATORY [facility] BUN 13 6 - 20 mg/dL 09/17/2021 2:34 PM [facility]ORAT[facility] CREATININE 0.79 0.51 - 0.95 mg/dL 09/17/2021 2:34 PM [facility] GLUCOSE 100(H) 74 - 99 mg/dL 09/17/2021 2:34 PM [facility] TOTAL PROTEIN 5.5(L) 6.3 - 8.7 g/dL 09/17/2021 2:34 PM [facility] LABORATORY [facility] ALBUMIN 3.2(L) 3.5 - 5.2 g/dL 09/17/2021 2:34 PM [facility] LABORATORY [facility] BILIRUBIN TOTAL <0.2(L) 0.3 - 1.2 mg/dL 09/17/2021 2:34 PM [facility] LABORATORY [facility] ALKALINE PHOSPHATASE 53 40 - 150 U/L 09/17/2021 2:34 PM [facility] AST 27 0 - 33 U/L 09/17/2021 2:34 PM [facility] [employer] [facility] ALT 5 0 - 33 U/L 09/17/2021 2:34 PM [facility] [employer] [facility] GFR >60 mL/min/1.7 3 sq meter 09/17/2021 2:34 PM [facility] LABORATORY [facility] Comment: eGFR has not been validated for [...] mL/min/1.7 3 sq meter 09/17/2021 2:34 PM PHOTO MASK INSPECTOR [facility] LABORATORY SERVICES [facility] ANION GAP 11 8 - 16 mmol/L 09/17/2021 2:34 PM PHOTO MASK INSPECTOR [facility] LABORATORY [facility] Blood 09/17/2021 4:15 AM PHOTO MASK INSPECTOR 09/17/2021 1:38 PM PHOTO MASK INSPECTOR us Godwin Guillen MD CHEMISTRY ORDERABLE S Final Result [facility] CLIA# [id number] [place] [address] documented in this encounter Visit Diagnoses Not on filedocumented in this encounter
--- OUTSIDE RECORDS SUMMARY | 2025-01-08 01:07 | XMS_ITS | Encounter Summary ---
Author Organization [facility] Address [address] [place] [address] Care Team Providers Care Auto Collision Repair Instructor Name Role Phone Unavailable Primary Care Provider Unavailabl e Encounter Details Date Type Department Care Team (Late st Contact Info) Description 09/21/2021 Lab Requisition [facility] Laboratory Services [address] [place] [phone] Godwin Guillen MD [address] [place] [address] [address] Social History Tobacco Use Types [...] CBC WITH DIFFERENTIAL Routine 09/21/2021 3:00 AM OUTSIDE PHYSICAL DAMAGE APPRAISER PROTIME-INR Routine 09/21/2021 3:00 AM OUTSIDE PHYSICAL DAMAGE APPRAISER COMPREHENSIVE METABOLIC PANEL Routine 09/21/2021 3:00 AM OUTSIDE PHYSICAL DAMAGE APPRAISER documented in this encounter Results * (ABNORMAL) PROTIME-INR (09/21/2021 3:00 AM OUTSIDE PHYSICAL DAMAGE APPRAISER) Pathologist [facility] PROTIME 23.7(H) 11.5 - 14.7 Seconds 09/21/2021 6:43 AM [facility] INR 2.1(H) 0.9 - 1.1 09/21/2021 6:43 AM [facility] Blood 09/21/2021 3:00 AM OUTSIDE PHYSICAL DAMAGE APPRAISER 09/21/2021 5:44 AM OUTSIDE PHYSICAL DAMAGE APPRAISER [facility] Javi Guillen MD HEMATOLOGY ORDERABL ES Final Result [facility] CLIA# [id number] [place] [address] * (ABNORMAL) CBC WITH DIFFERENTIAL (09/21/2021 3:00 AM OUTSIDE PHYSICAL DAMAGE APPRAISER) Pathologist [facility] WBC 4.2(L) 4.5 - 10.5 K/uL 09/21/2021 6:14 AM [facility] RBC 3.17(L) 3.90 - 4.90 M/uL 09/21/2021 6:14 AM [facility] HEMOGLOBIN 8.9(L) 11.8 - 14.8 g/dL 09/21/2021 6:14 AM [facility] HEMATOCRIT 27.4(L) 35.5 - 44.0 % 09/21/2021 6:14 AM [facility] MCV 86.5 82.0 - 99.0 fL 09/21/2021 6:14 AM [facility] MCH 28.1 27.8 - 34.5 pg 09/21/2021 6:14 AM [facility] MCHC 32.5 32.5 - 35.5 g/dL 09/21/2021 6:14 AM [facility] RDW 16.3(H) 11.5 - 14.5 % 09/21/2021 6:14 AM [facility] PLATELETS 165 160 - 420 K/uL 09/21/2021 6:14 AM OUTSIDE PHYSICAL DAMAGE APPRAISER [facility] MPV 7.0(L) 8.7 - 12.7 fL 09/21/2021 6:14 AM OUTSIDE PHYSICAL DAMAGE APPRAISER [facility] NEUTROPHILS 62 % 09/21/2021 6:14 AM [facility] LYMPHOCYTES 27 % 09/21/2021 6:14 AM OUTSIDE PHYSICAL DAMAGE APPRAISER [facility] MONOCYTES 8 % 09/21/2021 6:14 AM OUTSIDE PHYSICAL DAMAGE APPRAISER [facility] EOSINOPHILS 2 % 09/21/2021 6:14 AM OUTSIDE PHYSICAL DAMAGE APPRAISER [facility] BASOPHILS 0 % 09/21/2021 6:14 AM OUTSIDE PHYSICAL DAMAGE APPRAISER [facility] NEUTROPHIL ABSOLUTE 2.60 1.90 - 7.00 K/uL 09/21/2021 6:14 AM [facility] LYMPHOCYTE ABSOLUTE 1.20 0.70 - 4.50 K/uL 09/21/2021 6:14 AM OUTSIDE PHYSICAL DAMAGE APPRAISER [facility] MONOCYTE ABSOLUTE 0.40 0.10 - 1.30 K/uL 09/21/2021 6:14 AM OUTSIDE PHYSICAL DAMAGE APPRAISER [facility] EOSINOPHIL ABSOLUTE 0.10 0.00 - 0.70 K/uL 09/21/2021 6:14 AM OUTSIDE PHYSICAL DAMAGE APPRAISER [facility] BASOPHILS ABSOLUTE 0.00 0.00 - 0.20 K/uL 09/21/2021 6:14 AM [facility] Blood 09/21/2021 3:00 AM OUTSIDE PHYSICAL DAMAGE APPRAISER 09/21/2021 5:44 AM OUTSIDE PHYSICAL DAMAGE APPRAISER us Godwin Guillen MD HEMATOLOGY ORDERABL ES Final Result [facility] CLIA# [id number] [address] [place] [address] * (ABNORMAL) COMPREHENSIVE METABOLIC PANEL (09/21/2021 3:00 AM OUTSIDE PHYSICAL DAMAGE APPRAISER) SODIUM 141 136 - 145 mmol/L 09/21/2021 6:31 AM OUTSIDE PHYSICAL DAMAGE APPRAISER [facility] POTASSIUM 4.0 3.4 - 5.1 mmol/L 09/21/2021 6:31 AM [facility] CHLORIDE 102 98 - 107 mmol/L 09/21/2021 6:31 AM [facility] CO2 29 22 - 29 mmol/L 09/21/2021 6:31 AM [facility] CALCIUM 8.9 8.6 - 10.4 mg/dL 09/21/2021 6:31 AM [facility] BUN 10 6 - 20 mg/dL 09/21/2021 6:31 AM [facility] CREATININE 0.80 0.51 - 0.95 mg/dL 09/21/2021 6:31 AM [facility] GLUCOSE 79 74 - 99 mg/dL 09/21/2021 6:31 AM [facility] TOTAL PROTEIN 6.2(L) 6.3 - 8.7 g/dL 09/21/2021 6:31 AM [facility] ALBUMIN 3.6 3.5 - 5.2 g/dL 09/21/2021 6:31 AM [facility] BILIRUBIN TOTAL 0.2(L) 0.3 - 1.2 mg/dL 09/21/2021 6:31 AM [facility] ALKALINE PHOSPHATASE 65 40 - 150 U/L 09/21/2021 6:31 AM [facility] AST 38(H) 0 - 33 U/L 09/21/2021 6:31 AM [facility] ALT 6 0 - 33 U/L 09/21/2021 6:31 AM [facility] GFR >60 mL/min/1.7 3 sq meter 09/21/2021 6:31 AM [facility] Comment: eGFR has not been validated [...] mL/min/1.7 3 sq meter 09/21/2021 6:31 AM OUTSIDE PHYSICAL DAMAGE APPRAISER [facility] ANION GAP 10 8 - 16 mmol/L 09/21/2021 6:31 AM OUTSIDE PHYSICAL DAMAGE APPRAISER [facility] Blood 09/21/2021 3:00 AM OUTSIDE PHYSICAL DAMAGE APPRAISER 09/21/2021 5:44 AM OUTSIDE PHYSICAL DAMAGE APPRAISER Godwin Javi Guillen MD CHEMISTRY ORDERABLE S Final Result [facility] CLIA# [id number] [place] [address] documented in this encounter Visit Diagnoses Not on filedocumented in this encounter
--- OUTSIDE RECORDS SUMMARY | 2025-01-08 01:07 | XMS_ITS | Encounter Summary ---
Author Organization [facility] Address [address] [place] [address] Care Team Providers Care Pediatric Occupational Therapist Name Role Phone Unavailable Primary Care Provider Unavailabl e Encounter Details Date Type Department Care Team (Late st Contact Info) Description 08/29/2021 Lab Requisition [facility] Laboratory Services [address] [place] [phone] Godwin Guillen MD [address] [place] [address] [address] Social History Tobacco Use Types [...] - 14.7 Seconds 08/29/2021 12:16 PM CDT [facility] INR 2.3(H) 0.9 - 1.1 08/29/2021 12:16 PM CDT [facility] Blood Collection / Unknown 08/29/2021 6:00 AM CDT 08/29/2021 11:00 AM CDT us Godwin Guillen MD HEMATOLOGY ORDERABL ES Final Result [facility] CLIA# [id number] [place] [address] documented in this encounter Visit Diagnoses Not on filedocumented in this encounter
--- OUTSIDE RECORDS SUMMARY | 2025-01-08 01:07 | XMS_ITS | Encounter Summary ---
Author Organization [facility] Address [address] [place] [address] Care Team Providers Care Finish Rolls Operator Name Role Phone Unavailable Primary Care Provider Unavailabl e Encounter Details Date Type Department Care Team (Late st Contact Info) Description 08/31/2021 Lab Requisition [facility] Laboratory Services [address] [place] [phone] Godwin Guillen MD [address] [place] [address] [address] Social History Tobacco Use [...] Diagnosis Comments PROTIME-INR Routine 08/31/2021 3:45 AM INTERNATIONAL TRADE TEACHER documented in this encounter Results * (ABNORMAL) PROTIME-INR (08/31/2021 3:45 AM INTERNATIONAL TRADE TEACHER) PROTIME 22.4(H) 11.5 - 14.7 Seconds 08/31/2021 6:16 AM INTERNATIONAL TRADE TEACHER [facility] SERVICES [facility] INR 2.0(H) 0.9 - 1.1 08/31/2021 6:16 AM INTERNATIONAL TRADE TEACHER [facility] SERVICES [facility] Blood 08/31/2021 3:45 AM INTERNATIONAL TRADE TEACHER 08/31/2021 5:17 AM INTERNATIONAL TRADE TEACHER us Godwin Guillen MD HEMATOLOGY ORDERABL ES Final Result [facility] CLIA# [id number] [place] [address] documented in this encounter Visit Diagnoses Not on filedocumented in this encounter
--- OUTSIDE RECORDS SUMMARY | 2025-01-08 01:07 | XMS_ITS | Encounter Summary ---
Author Organization [facility] Address [address] [place] [address] Care Team Providers Care Medical Case Worker Name Role Phone Unavailable Primary Care Provider Unavailabl e Encounter Details Date Type Department Care Team (Late st Contact Info) Description 09/14/2021 Lab Requisition [facility] Laboratory Services [address] [place] [phone] Godwin Guillen MD [address] [place] [address] [address] Social History Tobacco Use Types [...] CBC WITH DIFFERENTIAL Routine 09/14/2021 12:01 AM MANAGER AGRICULTURE PROTIME-INR Routine 09/14/2021 12:01 AM MANAGER AGRICULTURE COMPREHENSIVE METABOLIC PANEL Routine 09/14/2021 12:01 AM MANAGER AGRICULTURE documented in this encounter Results * (ABNORMAL) PROTIME-INR (09/14/2021 12:01 AM MANAGER AGRICULTURE) PROTIME 21.6(H) 11.5 - 14.7 Seconds 09/14/2021 8:10 AM [facility] INR 1.9(H) 0.9 - 1.1 09/14/2021 8:10 AM [facility] Blood Collection / Unknown 09/14/2021 12:01 AM MANAGER AGRICULTURE 09/14/2021 7:13 AM MANAGER AGRICULTURE Godwin Javi Guillen MD HEMATOLOGY ORDERABL ES Final Result [facility] CLIA# [id number] [address] [place] [address] * (ABNORMAL) COMPREHENSIVE METABOLIC PANEL (09/14/2021 12:01 AM MANAGER AGRICULTURE) SODIUM 141 136 - 145 mmol/L 09/14/2021 8:22 AM [facility] POTASSIUM 4.1 3.4 - 5.1 mmol/L 09/14/2021 8:22 AM [facility] CHLORIDE 104 98 - 107 mmol/L 09/14/2021 8:22 AM [facility] CO2 26 22 - 29 mmol/L 09/14/2021 8:22 AM [facility] CALCIUM 8.7 8.6 - 10.4 mg/dL 09/14/2021 8:22 AM [facility] BUN 17 6 - 20 mg/dL 09/14/2021 8:22 AM [facility] CREATININE 0.86 0.51 - 0.95 mg/dL 09/14/2021 8:22 AM [facility] GLUCOSE 104(H) 74 - 99 mg/dL 09/14/2021 8:22 AM [facility] TOTAL PROTEIN 5.8(L) 6.3 - 8.7 g/dL 09/14/2021 8:22 AM [facility] ALBUMIN 3.2(L) 3.5 - 5.2 g/dL 09/14/2021 8:22 AM [facility] BILIRUBIN TOTAL 0.2(L) 0.3 - 1.2 mg/dL 09/14/2021 8:22 AM [facility] ALKALINE PHOSPHATASE 59 40 - 150 U/L 09/14/2021 8:22 AM [facility] AST 19 0 - 33 U/L 09/14/2021 8:22 AM [facility] ALT 5 0 - 33 U/L 09/14/2021 8:22 AM [facility] GFR >60 mL/min/1.7 3 sq meter 09/14/2021 8:22 AM [facility] Comment: eGFR has not been validated for [...] mL/min/1.7 3 sq meter 09/14/2021 8:22 AM [facility] ANION GAP 11 8 - 16 mmol/L 09/14/2021 8:22 AM [facility] Blood Collection / Unknown 09/14/2021 12:01 AM MANAGER AGRICULTURE 09/14/2021 7:13 AM MANAGER AGRICULTURE us Godwin Guillen MD CHEMISTRY ORDERABLE S Final Result [facility] CLIA# [id number] [place] [address] * (ABNORMAL) CBC WITH DIFFERENTIAL (09/14/2021 12:01 AM MANAGER AGRICULTURE) WBC 4.1(L) 4.5 - 10.5 K/uL 09/14/2021 8:39 AM MANAGER AGRICULTURE [facility] RBC 2.89(L) 3.90 - 4.90 M/uL 09/14/2021 8:39 AM [facility] HEMOGLOBIN 8.2(L) 11.8 - 14.8 g/dL 09/14/2021 8:39 AM [facility] HEMATOCRIT 25.1(L) 35.5 - 44.0 % 09/14/2021 8:39 AM [facility] MCV 86.7 82.0 - 99.0 fL 09/14/2021 8:39 AM [facility] MCH 28.3 27.8 - 34.5 pg 09/14/2021 8:39 AM [facility] MCHC 32.7 32.5 - 35.5 g/dL 09/14/2021 8:39 AM [facility] RDW 17.0(H) 11.5 - 14.5 % 09/14/2021 8:39 AM [facility] PLATELETS 172 160 - 420 K/uL 09/14/2021 8:39 AM [facility] MPV 6.8(L) 8.7 - 12.7 fL 09/14/2021 8:39 AM [facility] NEUTROPHILS 66 % 09/14/2021 8:39 AM [facility] [employer] [facility] LYMPHOCYTES 24 % 09/14/2021 8:39 AM MANAGER AGRICULTURE [facility] MONOCYTES 9 % 09/14/2021 8:39 AM MANAGER AGRICULTURE [facility] EOSINOPHILS 1 % 09/14/2021 8:39 AM MANAGER AGRICULTURE [facility] BASOPHILS 0 % 09/14/2021 8:39 AM [facility] NEUTROPHIL ABSOLUTE 2.70 1.90 - 7.00 K/uL 09/14/2021 8:39 AM MANAGER AGRICULTURE [facility] LYMPHOCYTE ABSOLUTE 1.00 0.70 - 4.50 K/uL 09/14/2021 8:39 AM MANAGER AGRICULTURE [facility] MONOCYTE ABSOLUTE 0.40 0.10 - 1.30 K/uL 09/14/2021 8:39 AM MANAGER AGRICULTURE [facility] EOSINOPHIL ABSOLUTE 0.10 0.00 - 0.70 K/uL 09/14/2021 8:39 AM MANAGER AGRICULTURE [facility] BASOPHILS ABSOLUTE 0.00 0.00 - 0.20 K/uL 09/14/2021 8:39 AM MANAGER AGRICULTURE [facility] Blood Collection / Unknown 09/14/2021 12:01 AM MANAGER AGRICULTURE 09/14/2021 7:13 AM MANAGER AGRICULTURE Godwin Javi Guillen MD HEMATOLOGY ORDERABL ES Final Result [facility] CLIA# [id number] [place] [address] documented in this encounter Visit Diagnoses Not on filedocumented in this encounter
--- OUTSIDE RECORDS SUMMARY | 2025-01-08 01:07 | XMS_ITS | Encounter Summary ---
Author Organization [facility] Address [address] [place] [address] Care Team Providers Care Tunnel Drier Operator Name Role Phone Unavailable Primary Care Provider Unavailabl e Encounter Details Date Type Department Care Team (Late st Contact Info) Description 09/10/2021 Lab Requisition [facility] Laboratory Services [address] [place] [phone] Godwin Guillen MD [address] [place] [address] [address] Social History Tobacco Use Types [...] Diagnosis Comments PTT Routine 09/10/2021 12:01 AM PHP PROGRAMMER PROTIME-INR Routine 09/10/2021 12:01 AM PHP PROGRAMMER documented in this encounter Results * (ABNORMAL) PTT (09/10/2021 12:01 AM PHP PROGRAMMER) PTT 40.2(H) 23.1 - 37.1 seconds 09/10/2021 7:42 AM PHP PROGRAMMER [facility] Blood Collection / Unknown 09/10/2021 12:01 AM PHP PROGRAMMER 09/10/2021 6:43 AM PHP PROGRAMMER Godwin Guillen MD HEMATOLOGY ORDERABL ES Final Result Performing Organization Address City/[facility]/ZIP Co de Phone Number [facility] CLIA# [id number] [place] [address] * (ABNORMAL) PROTIME-INR (09/10/2021 12:01 AM PHP PROGRAMMER) PROTIME 28.2(H) 11.5 - 14.7 Seconds 09/10/2021 7:42 AM PHP PROGRAMMER [facility] INR 2.6(H) 0.9 - 1.1 09/10/2021 7:42 AM PHP PROGRAMMER [facility] Blood Collection / Unknown 09/10/2021 12:01 AM PHP PROGRAMMER 09/10/2021 6:43 AM PHP PROGRAMMER Godwin Guillen MD HEMATOLOGY ORDERABL ES Final Result Performing Organization Address City/[facility]/ZIP Co de Phone Number [facility] CLIA# [id number] [place] [address] documented in this encounter Visit Diagnoses Not on filedocumented in this encounter
--- OUTSIDE RECORDS SUMMARY | 2025-01-08 01:07 | XMS_ITS | Encounter Summary ---
Author Organization [facility] Address [address] [place] [address] Care Team Providers Care Automotive Worker Name Role Phone Unavailable Primary Care Provider Unavailabl e Encounter Details Date Type Department Care Team (Late st Contact Info) Description 09/20/2021 Lab Requisition [facility] Laboratory Services [address] [place] [phone] Godwin Guillen MD [address] [place] [address] [address] Social History Tobacco Use [...] CBC WITH DIFFERENTIAL Routine 09/20/2021 4:00 AM DIE STORAGE CLERK PROTIME-INR Routine 09/20/2021 4:00 AM DIE STORAGE CLERK documented in this encounter Results * (ABNORMAL) PROTIME-INR (09/20/2021 4:00 AM DIE STORAGE CLERK) PROTIME 24.2(H) 11.5 - 14.7 Seconds 09/20/2021 12:23 PM [facility] INR 2.2(H) 0.9 - 1.1 09/20/2021 12:23 PM [facility] Blood 09/20/2021 4:00 AM DIE STORAGE CLERK 09/20/2021 11:38 AM DIE STORAGE CLERK Godwin Guillen MD HEMATOLOGY ORDERABL ES Final Result [facility] CLIA# [id number] [place] [address] * (ABNORMAL) CBC WITH DIFFERENTIAL (09/20/2021 4:00 AM DIE STORAGE CLERK) WBC 3.5(L) 4.5 - 10.5 K/uL 09/20/2021 12:27 PM [facility] RBC 3.03(L) 3.90 - 4.90 M/uL 09/20/2021 12:27 PM [facility] HEMOGLOBIN 8.5(L) 11.8 - 14.8 g/dL 09/20/2021 12:27 PM [facility] HEMATOCRIT 26.7(L) 35.5 - 44.0 % 09/20/2021 12:27 PM [facility] MCV 88.1 82.0 - 99.0 fL 09/20/2021 12:27 PM [facility] MCH 28.0 27.8 - 34.5 pg 09/20/2021 12:27 PM [facility] MCHC 31.8(L) 32.5 - 35.5 g/dL 09/20/2021 12:27 PM [facility] RDW 16.5(H) 11.5 - 14.5 % 09/20/2021 12:27 PM [facility] PLATELETS 160 160 - 420 K/uL 09/20/2021 12:27 PM [facility] MPV 7.2(L) 8.7 - 12.7 fL 09/20/2021 12:27 PM DIE STORAGE CLERK [facility] NEUTROPHILS 59 % 09/20/2021 12:27 PM DIE STORAGE CLERK [facility] LYMPHOCYTES 31 % 09/20/2021 12:27 PM DIE STORAGE CLERK [facility] MONOCYTES 8 % 09/20/2021 12:27 PM DIE STORAGE CLERK [facility] EOSINOPHILS 2 % 09/20/2021 12:27 PM DIE STORAGE CLERK [facility] BASOPHILS 0 % 09/20/2021 12:27 PM DIE STORAGE CLERK [facility] NEUTROPHIL ABSOLUTE 2.10 1.90 - 7.00 K/uL 09/20/2021 12:27 PM DIE STORAGE CLERK [facility] LYMPHOCYTE ABSOLUTE 1.10 0.70 - 4.50 K/uL 09/20/2021 12:27 PM DIE STORAGE CLERK [facility] MONOCYTE ABSOLUTE 0.30 0.10 - 1.30 K/uL 09/20/2021 12:27 PM DIE STORAGE CLERK [facility] EOSINOPHIL ABSOLUTE 0.10 0.00 - 0.70 K/uL 09/20/2021 12:27 PM DIE STORAGE CLERK [facility] BASOPHILS ABSOLUTE 0.00 0.00 - 0.20 K/uL 09/20/2021 12:27 PM DIE STORAGE CLERK [facility] Blood 09/20/2021 4:00 AM DIE STORAGE CLERK 09/20/2021 11:38 AM DIE STORAGE CLERK us Godwin Guillen MD HEMATOLOGY ORDERABL ES Final Result [facility] CLIA# [id number] [place] [address] documented in this encounter Visit Diagnoses Not on filedocumented in this encounter
--- OUTSIDE RECORDS SUMMARY | 2025-01-08 01:07 | XMS_ITS | Encounter Summary ---
Author Organization [facility] Address [address] [place] [address] Care Team Providers Care Bioinformatics Specialist Name Role Phone Unavailable Primary Care Provider Unavailabl e Encounter Details Date Type Department Care Team (Late st Contact Info) Description 09/02/2021 Lab Requisition [facility] Laboratory Services [address] [place] [phone] Godwin Guillen MD [address] [place] [address] [phone] Social History Tobacco Use Types [...] Diagnosis Comments PROTIME-INR Routine 09/02/2021 3:07 AM CATERING ASSOCIATE documented in this encounter Results * (ABNORMAL) PROTIME-INR (09/02/2021 3:07 AM CATERING ASSOCIATE) PROTIME 22.7(H) 11.5 - 14.7 Seconds 09/02/2021 10:06 AM CATERING ASSOCIATE [facility] INR 2.0(H) 0.9 - 1.1 09/02/2021 10:06 AM CATERING ASSOCIATE [facility] Blood Collection / Unknown 09/02/2021 3:07 AM CATERING ASSOCIATE 09/02/2021 9:36 AM CATERING ASSOCIATE us Godwin Guillen MD HEMATOLOGY ORDERABL ES Final Result [facility] CLIA# [id number] [place] [address] documented in this encounter Visit Diagnoses Not on filedocumented in this encounter
--- OUTSIDE RECORDS SUMMARY | 2025-01-08 01:07 | XMS_ITS | Encounter Summary ---
Author Organization [facility] Address [address] [place] [address] Care Team Providers Care Product Marketing Consultant Name Role Phone Unavailable Primary Care Provider Unavailabl e Encounter Details Date Type Department Care Team (Late st Contact Info) Description 09/15/2021 Lab Requisition [facility] [address] [place] [phone] Godwin Guillen MD [address] [place] [address] [phone] Social History Tobacco Use [...] Diagnosis Comments PROTIME-INR Routine 09/15/2021 12:01 AM MANAGER STORY documented in this encounter Results * (ABNORMAL) PROTIME-INR (09/15/2021 12:01 AM MANAGER STORY) PROTIME 24.8(H) 11.5 - 14.7 Seconds 09/15/2021 11:24 AM MANAGER STORY [facility] INR 2.2(H) 0.9 - 1.1 09/15/2021 11:24 AM MANAGER STORY [facility] Blood Collection / Unknown 09/15/2021 12:01 AM MANAGER STORY 09/15/2021 10:57 AM MANAGER STORY us Godwin Guillen MD HEMATOLOGY ORDERABL ES Final Result [facility] CLIA# [id number] [place] [address] documented in this encounter Visit Diagnoses Not on filedocumented in this encounter
--- OUTSIDE RECORDS SUMMARY | 2025-01-08 01:07 | XMS_ITS | Encounter Summary ---
Author Organization [facility] Address [address] [place] [address] Care Team Providers Care Psychodramatist Name Role Phone Unavailable Primary Care Provider Unavailabl e Encounter Details Date Type Department Care Team (Late st Contact Info) Description 09/12/2021 Lab Requisition [facility] Laboratory Services [address] [place] [address] Godwin Guillen MD [address] [place] [address] [address] Social History Tobacco Use Types [...] Diagnosis Comments PROTIME-INR Routine 09/12/2021 5:10 AM SENIOR MARKETING DATA ANALYST documented in this encounter Results * (ABNORMAL) PROTIME-INR (09/12/2021 5:10 AM SENIOR MARKETING DATA ANALYST) PROTIME 28.9(H) 11.5 - 14.7 Seconds 09/12/2021 8:43 AM SENIOR MARKETING DATA ANALYST [facility] INR 2.7(H) 0.9 - 1.1 09/12/2021 8:43 AM SENIOR MARKETING DATA ANALYST [facility] Blood Collection / Unknown 09/12/2021 5:10 AM SENIOR MARKETING DATA ANALYST 09/12/2021 8:14 AM SENIOR MARKETING DATA ANALYST us Godwin Guillen MD HEMATOLOGY ORDERABL ES Final Result [facility] CLIA# [id number] [place] [address] documented in this encounter Visit Diagnoses Not on filedocumented in this encounter
--- OUTSIDE RECORDS SUMMARY | 2025-01-08 01:07 | XMS_ITS | Encounter Summary ---
Author Organization [facility] Address [address] [place] [address] Care Team Providers Care Temporary Administrative Assistant Name Role Phone Unavailable Primary Care Provider Unavailabl e Encounter Details Date Type Department Care Team (Late st Contact Info) Description 09/08/2021 Lab Requisition [facility] Laboratory Services [address] [place] [phone] Godwin Guillen MD [address] [place] [address] [address] Social History Tobacco Use Types [...] CBC WITH DIFFERENTIAL Routine 09/08/2021 4:30 AM MINING CAPTAIN PROTIME-INR Routine 09/08/2021 4:30 AM MINING CAPTAIN BASIC METABOLIC PANEL Routine 09/08/2021 4:30 AM MINING CAPTAIN documented in this encounter Results * (ABNORMAL) PROTIME-INR (09/08/2021 4:30 AM MINING CAPTAIN) PROTIME 22.2(H) 11.5 - 14.7 Seconds 09/08/2021 1:35 PM MINING CAPTAIN [facility] INR 1.9(H) 0.9 - 1.1 09/08/2021 1:35 PM MINING CAPTAIN [facility] Blood Collection / Unknown 09/08/2021 4:30 AM MINING CAPTAIN 09/08/2021 12:46 PM MINING CAPTAIN Godwin Javi Guillen MD HEMATOLOGY ORDERABL ES Final Result [facility] CLIA# [id number] [place] [address] * (ABNORMAL) CBC WITH DIFFERENTIAL (09/08/2021 4:30 AM MINING CAPTAIN) Pathologist [facility] WBC 4.9 4.5 - 10.5 K/uL 09/08/2021 1:03 PM [facility] RBC 3.52(L) 3.90 - 4.90 M/uL 09/08/2021 1:03 PM [facility] HEMOGLOBIN 10.0(L) 11.8 - 14.8 g/dL 09/08/2021 1:03 PM [facility] HEMATOCRIT 31.0(L) 35.5 - 44.0 % 09/08/2021 1:03 PM [facility] MCV 88.1 82.0 - 99.0 fL 09/08/2021 1:03 PM [facility] MCH 28.3 27.8 - 34.5 pg 09/08/2021 1:03 PM [facility] MCHC 32.1(L) 32.5 - 35.5 g/dL 09/08/2021 1:03 PM [facility] RDW 18.0(H) 11.5 - 14.5 % 09/08/2021 1:03 PM [facility] PLATELETS 262 160 - 420 K/uL 09/08/2021 1:03 PM MINING CAPTAIN [facility] MPV 6.7(L) 8.7 - 12.7 fL 09/08/2021 1:03 PM MINING CAPTAIN [facility] NEUTROPHILS 65 % 09/08/2021 1:03 PM MINING CAPTAIN [facility] SERVICES [facility] LYMPHOCYTES 26 % 09/08/2021 1:03 PM MINING CAPTAIN [facility] MONOCYTES 8 % 09/08/2021 1:03 PM MINING CAPTAIN [facility] EOSINOPHILS 1 % 09/08/2021 1:03 PM MINING CAPTAIN [facility] BASOPHILS 1 % 09/08/2021 1:03 PM MINING CAPTAIN [facility] NEUTROPHIL ABSOLUTE 3.20 1.90 - 7.00 K/uL 09/08/2021 1:03 PM MINING CAPTAIN [facility] LYMPHOCYTE ABSOLUTE 1.30 0.70 - 4.50 K/uL 09/08/2021 1:03 PM MINING CAPTAIN [facility] MONOCYTE ABSOLUTE 0.40 0.10 - 1.30 K/uL 09/08/2021 1:03 PM MINING CAPTAIN [facility] EOSINOPHIL ABSOLUTE 0.10 0.00 - 0.70 K/uL 09/08/2021 1:03 PM MINING CAPTAIN [facility] BASOPHILS ABSOLUTE 0.00 0.00 - 0.20 K/uL 09/08/2021 1:03 PM MINING CAPTAIN [facility] Blood Collection / Unknown 09/08/2021 4:30 AM MINING CAPTAIN 09/08/2021 12:46 PM MINING CAPTAIN us Godwin Guillen MD HEMATOLOGY ORDERABL ES Final Result [facility] CLIA# [id number] [place] [address] * (ABNORMAL) BASIC METABOLIC PANEL (09/08/2021 4:30 AM MINING CAPTAIN) SODIUM 139 136 - 145 mmol/L 09/08/2021 1:23 PM MINING CAPTAIN [facility] POTASSIUM 4.6 3.4 - 5.1 mmol/L 09/08/2021 1:23 PM [facility] CHLORIDE 103 98 - 107 mmol/L 09/08/2021 1:23 PM [facility] CO2 23 22 - 29 mmol/L 09/08/2021 1:23 PM [facility] CALCIUM 9.3 8.6 - 10.4 mg/dL 09/08/2021 1:23 PM [facility] BUN 23(H) 6 - 20 mg/dL 09/08/2021 1:23 PM [facility] CREATININE 0.73 0.51 - 0.95 mg/dL 09/08/2021 1:23 PM [facility] GLUCOSE 69(L) 74 - 99 mg/dL 09/08/2021 1:23 PM [facility] GFR >60 mL/min/1.7 3 sq meter 09/08/2021 1:23 PM [facility] [employer] [facility] Comment: eGFR has not been [...] mL/min/1.7 3 sq meter 09/08/2021 1:23 PM [facility] [employer] [facility] ANION GAP 13 8 - 16 mmol/L 09/08/2021 1:23 PM [facility] [employer] [facility] Blood Collection / Unknown 09/08/2021 4:30 AM MINING CAPTAIN 09/08/2021 12:46 PM MINING CAPTAIN Godwin Guillen MD CHEMISTRY ORDERABLE S Final Result [facility] - [facility]# [id number] [place] [address] documented in this encounter Visit Diagnoses Not on filedocumented in this encounter
--- OUTSIDE RECORDS SUMMARY | 2025-01-08 01:07 | XMS_ITS | Encounter Summary ---
Author Organization [facility] Address [address] [place] [address] Care Team Providers Care Roller Picker Name Role Phone Unavailable Primary Care Provider Unavailabl e Encounter Details Date Type Department Care Team (Late st Contact Info) Description 08/28/2021 Lab Requisition [facility] Laboratory Services [address] [place] [address] Godwin Guillen MD [address] [place] [address] [address] Social History Tobacco Use Types [...] - 14.7 Seconds 08/28/2021 11:13 AM CDT [facility] INR 2.8(H) 0.9 - 1.1 08/28/2021 11:13 AM CDT [facility] Blood Collection / Unknown 08/28/2021 4:00 AM CDT 08/28/2021 10:29 AM CDT us Godwin Guillen MD HEMATOLOGY ORDERABL ES Final Result [facility] CLIA# [id number] [place] [address] documented in this encounter Visit Diagnoses Not on filedocumented in this encounter
--- OUTSIDE RECORDS SUMMARY | 2025-01-08 01:07 | XMS_ITS | Encounter Summary ---
Author Organization [facility] Address [address] [place] [address] Care Team Providers Care Office Machine Servicer Apprentice Name Role Phone Unavailable Primary Care Provider Unavailabl e Encounter Details Date Type Department Care Team (Late st Contact Info) Description 09/05/2021 Lab Requisition [facility] Laboratory Services [address] [place] [address] Godwin Guillen MD [address] [place] [address] [address] Social History Tobacco Use Types [...] Diagnosis Comments PROTIME-INR Routine 09/05/2021 5:00 AM ASSEMBLER LEATHER GOODS documented in this encounter Results * (ABNORMAL) PROTIME-INR (09/05/2021 5:00 AM ASSEMBLER LEATHER GOODS) PROTIME 30.4(H) 11.5 - 14.7 Seconds 09/05/2021 7:46 AM ASSEMBLER LEATHER GOODS [facility] INR 2.9(H) 0.9 - 1.1 09/05/2021 7:46 AM ASSEMBLER LEATHER GOODS [facility] Blood 09/05/2021 5:00 AM ASSEMBLER LEATHER GOODS 09/05/2021 7:22 AM ASSEMBLER LEATHER GOODS us Godwin Guillen MD HEMATOLOGY ORDERABL ES Final Result [facility] CLIA# [id number] [place] [address] documented in this encounter Visit Diagnoses Not on filedocumented in this encounter
--- OUTSIDE RECORDS SUMMARY | 2025-01-08 01:07 | XMS_ITS | Encounter Summary ---
Author Organization [facility] Address [address] [place] [address] Care Team Providers Care Medtronics Technician Name Role Phone Unavailable Primary Care Provider Unavailabl e Encounter Details Date Type Department Care Team (Late st Contact Info) Description 08/30/2021 Lab Requisition [facility] Laboratory Services [address] [place] [address] Non-Staff, Physician NO ADDRESS ON [...] Diagnosis Comments PROTIME-INR Routine 08/30/2021 4:50 AM CLERICAL MANAGER documented in this encounter Results * (ABNORMAL) PROTIME-INR (08/30/2021 4:50 AM CLERICAL MANAGER) PROTIME 24.3(H) 11.5 - 14.7 Seconds 08/30/2021 9:32 AM CLERICAL MANAGER [facility] SERVICES [facility] INR 2.2(H) 0.9 - 1.1 08/30/2021 9:32 AM CLERICAL MANAGER [facility] Blood Collection / Unknown 08/30/2021 4:50 AM CLERICAL MANAGER 08/30/2021 9:12 AM CLERICAL MANAGER us Physician Non-Staff HEMATOLOGY ORDERABLES Final Result Performing Organization Address [facility] Co de Phone Number [facility] SERVICES [facility]# [id number] [place] [address] documented in this encounter Visit Diagnoses Not on filedocumented in this encounter
--- OUTSIDE RECORDS SUMMARY | 2025-01-08 01:08 | XMS_ITS | Encounter Summary ---
Author Organization [facility] Address [address] [place] [address] Care Team Providers Care Business Systems Lead Name Role Phone Unavailable Primary Care Provider Unavailabl e Encounter Details Date Type Department Care Team (Late st Contact Info) Description 08/25/[address] [facility] Laboratory Services [address] [place] [address] Godwin Guillen MD [address] [place] [address] [address] Social History Tobacco Use Types [...] 37.1 seconds 08/25/2021 1:53 PM CDT [facility] Blood Collection / Unknown 08/25/2021 4:50 AM CDT 08/25/2021 1:16 PM CDT Godwin Guillen MD HEMATOLOGY ORDERABL ES Final [id number] [address] [place], [place] [address] * (ABNORMAL) PROTIME-INR (08/25/2021 4:50 AM CDT) Pathologist [facility] PROTIME 20.7(H) 11.5 - 14.7 Seconds 08/25/2021 1:53 PM CDT [facility] INR 1.8(H) 0.9 - 1.1 08/25/2021 1:53 PM CDT [facility] Blood Collection / Unknown 08/25/2021 4:50 AM CDT 08/25/2021 1:16 PM CDT Godwin Guillen MD HEMATOLOGY ORDERABL ES Final Result [facility] CLIA# [id number] [place], [place] [address] * (ABNORMAL) PREALBUMIN (08/25/2021 4:50 AM CDT) Pathologist [facility] PREALBUMIN 19(L) 20 - 40 mg/dL 08/25/2021 5:49 PM CDT [facility] Blood Collection / Unknown 08/25/2021 4:50 AM CDT 08/25/2021 1:16 PM CDT Godwin Guillen MD CHEMISTRY ORDERABLE S Final Result [facility]# [id number] [address] [facility] [address] * (ABNORMAL) CBC WITH DIFFERENTIAL (08/25/2021 4:50 AM CDT) [facility] WBC 5.2 4.5 - 10.5 K/uL 08/25/2021 1:33 PM CDT [facility] RBC 3.24(L) 3.90 - 4.90 M/uL 08/25/2021 1:33 PM CDT [facility] HEMOGLOBIN 9.1(L) 11.8 - 14.8 g/dL 08/25/2021 1:33 PM CDT [facility] HEMATOCRIT 28.0(L) 35.5 - 44.0 % 08/25/2021 1:33 PM CDT [facility] MCV 86.3 82.0 - 99.0 fL 08/25/2021 1:33 PM CDT [facility] MCH 28.2 27.8 - 34.5 pg 08/25/2021 1:33 PM CDT [facility] MCHC 32.6 32.5 - 35.5 g/dL 08/25/2021 1:33 PM CDT [facility] RDW 17.4(H) 11.5 - 14.5 % 08/25/2021 1:33 PM CDT [facility] PLATELETS 229 160 - 420 K/uL 08/25/2021 1:33 PM CDT [facility] MPV 7.3(L) 8.7 - 12.7 fL 08/25/2021 1:33 PM CDT [facility] NEUTROPHILS 68 % 08/25/2021 1:33 PM CDT [facility]OR[facility]ORY SERVICES [facility] LYMPHOCYTES 23 % 08/25/2021 1:33 PM CDT [facility] SERVICES [facility] MONOCYTES 8 % 08/25/2021 1:33 PM CDT [facility] SERVICES - [facility] EOSINOPHILS 1 % 08/25/2021 1:33 PM CDT [facility] SERVICES [facility] BASOPHILS 1 % 08/25/2021 1:33 PM CDT [facility] SERVICES [facility] NEUTROPHIL ABSOLUTE 3.60 1.90 - 7.00 K/uL 08/25/2021 1:33 PM CDT [facility] SERVICES [facility] LYMPHOCYTE ABSOLUTE 1.20 0.70 - 4.50 K/uL 08/25/2021 1:33 PM CDT [facility] SERVICES [facility] MONOCYTE ABSOLUTE 0.40 0.10 - 1.30 K/uL 08/25/2021 1:33 PM CDT [facility] SERVICES [facility] EOSINOPHIL ABSOLUTE 0.00 0.00 - 0.70 K/uL 08/25/2021 1:33 PM CDT [facility] SERVICES [facility] BASOPHILS ABSOLUTE 0.00 0.00 - 0.20 K/uL 08/25/2021 1:33 PM CDT [facility] SERVICES [facility] Blood Collection / Unknown 08/25/2021 4:50 AM CDT 08/25/2021 1:16 PM CDT Godwin Javi Guillen MD HEMATOLOGY ORDERABL ES Final Result [facility] CLIA# [id number] [place] [address] * (ABNORMAL) COMPREHENSIVE METABOLIC PANEL (08/25/2021 4:50 AM CDT) SODIUM 136 136 - 145 mmol/L 08/25/2021 2:03 PM CDT [facility] POTASSIUM 4.4 3.4 - 5.1 mmol/L 08/25/2021 2:03 PM CDT [facility] CHLORIDE 98 98 - 107 mmol/L 08/25/2021 2:03 PM [facility] CO2 25 22 - 29 mmol/L 08/25/2021 2:03 PM [facility] CALCIUM 8.8 8.6 - 10.4 mg/dL 08/25/2021 2:03 PM [facility] BUN 23(H) 6 - 20 mg/dL 08/25/2021 2:03 PM [facility] CREATININE 0.65 0.51 - 0.95 mg/dL 08/25/2021 2:03 PM [facility] GLUCOSE 60(L) 74 - 99 mg/dL 08/25/2021 2:03 PM [facility] TOTAL PROTEIN 6.1(L) 6.3 - 8.7 g/dL 08/25/2021 2:03 PM [facility] ALBUMIN 3.0(L) 3.5 - 5.2 g/dL 08/25/2021 2:03 PM [facility] BILIRUBIN TOTAL 0.2(L) 0.3 - 1.2 mg/dL 08/25/2021 2:03 PM [facility] ALKALINE PHOSPHATASE 62 40 - 150 U/L 08/25/2021 2:03 PM [facility] AST 34(H) 0 - 33 U/L 08/25/2021 2:03 PM [facility] ALT 6 0 - 33 U/L 08/25/2021 2:03 PM [facility] GFR >60 mL/min/1.7 3 sq meter 08/25/2021 2:03 PM [facility] Comment: eGFR has not been validated [...] 3 sq meter 08/25/2021 2:03 PM CDT [facility] SERVICES [facility] ANION GAP 13 8 - 16 mmol/L 08/25/2021 2:03 PM CDT [facility] SERVICES [facility] Blood Collection / Unknown 08/25/2021 4:50 AM CDT 08/25/2021 1:16 PM CDT us Godwin Javi Guillen MD CHEMISTRY ORDERABLE S Final Result [facility] SERVICES [facility] CLIA# [id number] [place] [address] documented in this encounter Visit Diagnoses Not on filedocumented in this encounter
--- OUTSIDE RECORDS SUMMARY | 2025-01-08 01:08 | XMS_ITS | Clinical Summary ---
Author Organization [facility] Address [facility] [place] [address] Care Team Providers Care Principal Developer Name Role Phone Kenzie Solomon MD Primary Care Provider [phone] Social History Tobacco Use Types Packs/Day Years [...] 2024 Influenza Adult (#1) 2024 PHQ-2 (Physician Belkofski) 10/24/2024 HPV Vaccines Aged Out No longer [...] complete this topic Insurance [employer] Care Teams Principal Developer Relationship Specialty Start Date End Date Kenzie Solomon MD [address] [place] [address] [place] [address] PCP - General 07/13/16
== END 2025-01-07 23:10 | disposition left against medical advice (07) ==
DX: R55 Syncope and collapse (principal)
CPT/HCPCS: 99199

== ENCOUNTER 2025-01-29 07:41 | Outpatient (CLI) | payer OTHER, SELFPAY ==
--- NOTE | ~2025-01-29 | XR_ITS ---
XR knee LT 3V 01/29/2025 08:02 Indication: Chronic knee pain Procedure: 3 views left knee Comparison: 07/12/2008 Findings: There is anatomic alignment. No fracture, subluxation or dislocation. There is mild patello femoral femoral compartment osteoarthritis. No joint effusion. No foreign bodies. Impression: 1: Mild patellofemoral compartment osteoarthritis. Reviewed, dictated and finalized at location A. Impression: 1: Mild patellofemoral compartment osteoarthritis.
--- NOTE | ~2025-01-29 | XR_ITS ---
XR knee RT 3V 01/29/2025 08:02 Indication: Right knee pain Procedure: 3 views right knee Comparison: 07/12/2008 Findings: No fracture, subluxation or dislocation. No joint effusion. No foreign bodies. There is manuel tomic alignment. No significant joint space narrowing. Impression: 1: No significant bone or joint abnormality. Reviewed, dictated and finalized at location A. Impression: 1: No significant bone or joint abnormality.
--- NOTE | ~2025-01-29 | US_ITS ---
EXAMINATION: US thyroid DATE: 01/29/2025 08:27 INDICATION: Cervical lymphadenopathy TECHNIQUE: Multiple ultrasound images of the thyroid were obtained. COMPARISON: None. FINDINGS: The right thyroid lobe measures 7.3 x 1.6 x 2.2 cm. The left thyroid lobe measures 5.7 x 1.6 x 2.1 c m. 1.2 cm benign completely cystic TI RADS 1 nodule in the inferior right thyroid lobe. No other thy roid nodules identified. There is normal echotexture, echogenicity and vascular flow throughout the t hyroid gland. There are normal sized and appearing bilateral jugular chain lymph nodes with echogenic fatty hali and measuring <3 mm in maximal short axis diameters. IMPRESSION: 1. Benign 1.2 cm Ti RADS 1 right thyroid nodule. Otherwise normal thyroid ultrasound. 2. Normal-sized and appearing bilateral jugular chain lymph nodes. No evident pathologically enlarged lymphadenopathy. Reviewed, dictated and finalized at location A. IMPRESSION: 1. Benign 1.2 cm Ti RADS 1 right thyroid nodule. Otherwise normal thyroid ultra sound. 2. Normal-sized and appearing bilateral jugular chain lymph nodes. No evident p athologically enlarged lymphadenopathy.
--- OUTSIDE RECORDS SUMMARY | 2025-01-29 07:45 | XMS_ITS ---
Author Organization [facility] Address [address] [place] [address] Care Team Providers Care Property Man Name Role Phone Blake Kumar Primary Care Provider Maria Ines Keller Unavailable [phone] Allergies Allergen (clinical drug ingredient) Drug/Non Drug [...] HCl 100 MG TAKE 1 TABLET BY [facility] AT BEDTIME for 30 Active Cymbalta 60 [...] 12/19/2024 Encounters Encounter Location Date Provider Diagnosis [address] [place] [address] 12/19/2024 Maria Ines Keller Opioid use disorder [...] Follow Up: 4 Weeks, Reason: MAR f/u Medications Administered Medication Instructions Date of Administration Dosage Notes Sublocade 12/19/2024 300 mg Teresa Bee 12/19/2024 09:00 AM STEWARD/STEWARDESS BATH >Given RUQ Subq, tolerated well. [facility]# [id number]. Progress Notes * GALILEAYAZCharmaineDOB:1979 (44 yo F)Acc No.[id number]:12/19/2024 Patient: Charmaine OROZCO Provider: Rabia Keller, MSN, SECURITIES LENDING TRADER, PARTS COUNTER CLERK-C :1980 A ge:44 Y S ex:Female Date:12/19/2024 Address:[address] [place], [place] [address] Pcp:Blake Kumar Check In:08:09 AM STEWARD/STEWARDESS BATH Subjective: * Chief Complaints: * 4 week [...] Plan required at this time. S creening: [place] Suicide Severity Rating Scale (LF) D o [...] 2006 * Hospitalization/Major Diagno stic Procedure: c hildbir heart surgery 2020 * Family History: F [...] P CP neg * B UP POS 2.?Others? Notes: Discussed medication side effects, adverse [...] (Route: Subcutaneous) given by TITO Lindquist on right upper quadrant (Opioid use disorder) * Procedure Codes: 9 9000 SPECIMEN [id number] BEHAV CHNG SMOKING 3-10 [id number] THER/PROPH/DIAG INJ, SC/IM * Preventive Medicine: Counseling: S MOKING: Patient counselled on the dangers of tobacco use and urged to quit. . * Follow Up: 4 Weeks (Reason: Dec/) * Care Plan Details* * Sign off status: Completed true * Provider: Rabia Keller, MSN, SECURITIES LENDING TRADER, PARTS COUNTER CLERK-C Date: 0 12/19/2024 Generated for Tamikoi ng/Faxing/eTransmitting on: 0 01/29/2025 07:45 AM CDT History and Physical Notes * [...] Total Score: 1 Interpretation: Minimal Depression Screening [place] Suicide Sev erity Rating Scale (LF) Do [...]
--- OUTSIDE RECORDS SUMMARY | 2025-01-29 07:46 | XMS_ITS ---
Author Organization [facility] Address [address] [place] [address] Care Team Providers Care Locomotive Mechanic Apprentice Name Role Phone Blake Kumar Primary Care Provider Maria Ines Keller Unavailable [phone] REASON FOR VISIT 4 week f/u sublocade Social History Sex Assigned At : Social History Observation Description Sex Assigned At Female Encounters Encounter Location Date Provider Diagnosis [place] [address] [facility] [place] [address] 12/12/2024 Maria Ines Keller Plan Of Treatment No Information Progress Notes * Charmaine AYONDOB:1979 (44 yo F)Acc No.[id number]:12/12/2024 UNLOCKED PROGRESS NOTE Patient: Charmaine OROZCO Provider: Rabia Keller, MSN, WEB DEVELOPMENT MANAGER, CRIME SCENE EXAMINER-C :1980 A ge:44 Y S ex:Female Date:12/12/2024 Address:[address] [facility] [place], [place] Pcp:Blake Kumar Subjective: * Chief Complaints: * 1 . 4 week f/u sublocade. * Medical History: Objective: * Vitals: Assessment: Plan: * Treatment: * Care Plan Details* * Electronic signature of Ira Keller APRN, [id number] on 01/29/2025 at 07:45 AM CDT Sign off status: Pending * Provider: Rabia Keller, MSN, WEB DEVELOPMENT MANAGER, CRIME SCENE EXAMINER-C Date: 0 12/12/2024 Generated for Ravi harris/Jose/Lorena on: 0 01/29/2025 07:45 AM CDT
--- OUTSIDE RECORDS SUMMARY | 2025-01-29 07:46 | XMS_ITS | Patient Health Record ---
Author Organization [facility] Address [address] [place] [address] Care Team Providers Care A&P Mechanic Name Role Phone Blake Kumar Primary Care Provider Maria Ines Keller Unavailable [phone] Yvonne Page Unavailable [phone] Vidya Pastor Unavailable [phone] Allergies Allergen (clinical drug ingredient) Drug/Non Drug [...] pos 12 Panel Urine Drug Screen Reviewed date:11/14/2024 [...] POS 12 Panel Urine Drug Screen Reviewed date:01/16/2025 09:19:30 AM Interpretation: Performing Lab: Notes/Report: THC neg NILE neg MOP (OPI) neg AMP neg MET neg BAR neg BZO neg MDMA neg MTD neg OXY neg PCP neg BUP POS 12 Panel Urine Drug Screen Reviewed date:07/24/2024 [...] (generalized anx iety disorder) (F41.1) Referral Organization [facility] Referring Provider First Name Yvonne Referring Provider Last Name Camilo Referring Provider Speciality Psychiatry Referred Provider [facility] Notes CamiloYvonne archuleta Alexis 11:42:41 AM > Client with anxiety, depression, and states bipolar disorder- please refer. Thank you., Timothy Ashely Pepe 10/22/2024 09:39:20 AM > Re-assigning referrals to HN team per board mill supervisor. Clinical Notes Jenny Wilcox 11:30:16 AM [...] Duration) Notes Start Date End Date Status Docusate Sodium 100 MG 1 capsule as need ed Orally Once a day for 30 day(s) Active Cymbalta 60 MG 1 capsule (for a tot al of 90mg) Orally Once a day for 30 days 03/12/2024 Active traZODone HCl 100 MG TAKE 1 TABLET BY [facility] AT BEDTIME for 30 Active Pantoprazole Sodium 40 MG 1 tablet Orall y Once a day for 30 day(s) Active Arthritis Pain Relief 650 MG 2 tablets as needed Orally every 8 hrs Active Sublocade 300 MG/1.5ML 300 mg Subcutaneo us every 28 days 11/14/2024 Active lamoTRIgine 25 MG Take 1 tablet PO onc e daily for 2 weeks, then increase to 2 tablets once daily for 2 weeks (DC if rash) Orally for 30 days 03/12/2024 Active Buprenorphine HCl-Naloxone HCl 4-1 MG 1 film under the tongue and allow to dissolve Sublingual once a day as needed 01/16/2025 Active Aspirin 81 MG 1 tablet Orally Once a day for 30 day(s) Active Eliquis 5 MG as directed Orally t wice a day Active Immunizations Vaccine Route Administration Date Status Comme nts FLU VAC NO PRSV 4VAL 6 mo+ IM Intramuscular 07/29/2023 Administered Pt. tolerated well. No questions/concer ns at this time. Influenza, virus vaccine, trivalent, preservative free IM Intramuscular 09/18/2024 Administered Gely Bee D 09/18/2024 08:45 AM PERSONALIZED LIVING MANAGER NURSE >Flu shot given LMD, tolerated well. Social History Tobacco Use: Social History Observation [...] W/U Status Risk Notes Problem Tobacco user (265209180) Nicotine dependence, unspecified, uncomplicated (F17.200) Active confirmed Problem Mood disorder (65008119) Mood disorder (F39) 4 Active confirmed Problem Generalized anxiety disorder (21759854) ASH (generalized anxiety disorder) (F41.1) 4 Active confirmed Problem Major depressive disorder (687073382) MDD (major depressive disorder) (F32.9) 4 Active confirmed Problem 863584351 Tobacco use disorder (F17.200) Active confirmed Problem Opioid use disorder (5770340229) Opioid use disorder (F11.99) 4 Active confirmed Vital Signs Heart Rate 90 /min 01/16/2025 Temperature 98.2 degrees Fahrenheit 01/16/2025 Respiratory Rate 16 /min 01/16/2025 Blood pressure diastolic 64 mm Hg 01/16/2025 Oximetry 98 % 01/16/2025 Height 72 in 01/16/2025 Blood pressure systolic 112 mm Hg 01/16/2025 Weight 158.2 lbs 01/16/2025 BMI 21.45 kg/m2 01/16/2025 Encounters Encounter Location Date Provider Diagnosis [facility] [address] [place] [address] 02/15/2024 Maria Ines Keller Opioid use disorder F11.99 and Tobacco use disorder F17.[address] [place] [address] 03/12/2024 Vidya Pastor Opioid use disorder F11.99 ; Mood disorder F39 ; MDD (major depressive disorder) F32.9 and ASH (generalized anxiety disorder) F41.1 [facility] [address] [place] [address] 03/14/2024 Jenia Heavens Nicotine dependence, unspecified, uncomplicated F17.200 and Opioid use disorder F11.99 [facility] [address] [place] [address] 04/11/2024 Jenia Heavens Opioid use disorder F11.99 and Nicotine dependence, unspecified, uncomplicated F17.200 [address] [address] [place] [address] 05/16/2024 Jenia Heavens Opioid use disorder F11.99 and Tobacco use disorder F17.200 [address] [address] [place] [address] 06/20/2024 Jenia Heavens Opioid use disorder F11.99 and Nicotine dependence, unspecified, uncomplicated F17.200 [address] [address] [place] [address] 07/24/2024 Jenia Heavens Opioid use disorder F11.99 and Tobacco use disorder F17.200 [place] [address] [facility] [facility] [place] [address] 08/21/2024 Jenia Heavens Opioid use disorder F11.99 and Tobacco use disorder F17.[address] [place] [address] 09/18/2024 Jenia Heavens Opioid use disorder F11.99 ; Nicotine dependence, unspecified, uncomplicated F17.200 and Encounter for immunization Z23 [facility] [address] [place] [address] 10/16/2024 Yvonne Vilaan Opioid use disorder F11.99 ; Encounter for immunization Z23 ; Nicotine dependence, unspecified, uncomplicated F17.200 and ASH (generalized anxiety disorder) F41.1 [place] [address] [place] [address] 11/14/2024 Jenia Heavens Opioid use disorder F11.99 and Tobacco use disorder F17.200 [place] [address] [place] [address] 12/19/2024 Jenia Heavens Opioid use disorder F11.99 and Nicotine dependence, unspecified, uncomplicated F17.200 [address] [address] [place] [address] 01/16/2025 Jenia Heavens Nicotine dependence, unspecified, uncomplicated F17.200 and Opioid use disorder F11.99 [facility] [address] [place] [address] 03/13/2024 Blake Kumar [place] [address] [place] [address] 03/13/2024 Jenia Heavens Opioid use disorder F11.99 [place] [address] [place] [address] 03/15/2024 Jenia Heavens Opioid use disorder F11.99 [place] [address] [facility] [facility] [place] [address] 05/04/2024 Jenia Heavens Opioid use disorder F11.99 [place] [address] [facility] [facility] [place] [address] 06/08/2024 Jenia Heavens Opioid use disorder F11.99 [place] [address] [facility] [facility] [place] [address] 10/12/2024 Jenia Heavens Opioid use disorder F11.99 Assessments Encounter Date Diagnosis (ICD Code) Assessment Notes Treatment Notes Treatment Clinical Notes Section Notes 02/15/2024 Tobacco use disorder (ICD-10 - F17.200) [...] 12/19/2024 Opioid use disorder (ICD-10 - F11.99) 01/16/2025 Nicotine dependence, unspecified, uncomplicated (ICD-10 - F17.200) 01/16/2025 Opioid use disorder (ICD-10 - F11.99) 12/19/2024 [...] ASH (generalized anxiety disorder) (ICD-10 - F41.1) 02/15/2024 Other Client agrees to take medication [...] to contact office with questions or concerns. 01/16/2025 Other Discussed medication side effects, adverse effects, risks, benefits, as well as interactions. Encouraged non-use of opioids. Has naloxone. Recommended participation in recovery groups and/or counseling services. May contact office with questions or concerns. Patient may self-administer their own medications or may self-administer their own oral medications per [place] Protocol. Plan Of Treatment No Information Insurance Providers Payer Name Payer Address Payer Phone Subscriber Number Group Number Insured Name Patient Relationship to Insured Coverage Start Date Coverage End Date [employer] [address] [place] [phone] [id number] Charmaine Strong Self - patient is the insured 2 [employer] [address] [place] [address] [id number] Charmaine Strong Self - patient is the insured 2 Medications Administered Medication Instructions Date of Administration Dosage Notes Sublocade 03/04/2023 300 mg SN: [id number] Sublocade 04/04/2023 300 mg Teresa Bee 04/04/2023 03:30 PM >Given Subq Rt lower Quadrant of Abdomen, tolerated well. Sublocade 05/05/2023 300 mg Teresa Bee 05/05/2023 04:00 PM >Given LLQ, tolerated well. Sublocade 06/02/2023 300 mg SN: [id number]. Tolerated well. Sublocade 06/30/2023 300 mg Pt. tolerated well. No questions/concerns at this time. Sublocade 07/29/2023 300 mg Pt. tolerated well. No questions or concerns at this time. Sublocade 08/26/2023 300 mg Pt. tolerated well. No questions or concerns at this time. Sublocade 09/23/2023 300 mg Pt. tolerated well. No questions or concerns at this time. Sublocade 10/26/2023 300 mg Teresa Bee D 10/26/2023 03:10 PM >Given RLQ subq, tolerated [...] time. Sublocade 04/11/2024 300 mg Teresa Bee e D 04/11/2024 08:50 AM CDT >Given RLQ Subq, [...] time. Sublocade 09/18/2024 300 mg Teresa Bee D 09/18/2024 08:55 AM PERSONALIZED LIVING MANAGER NURSE >Sublocade 300mg given LLQ sub q, tolerated well. [facility]# [id number]. Sublocade 10/16/2024 300 mg Mercedez Crowley 10/16/2024 12:03:27 PM PERSONALIZED LIVING MANAGER NURSE > Subcutaneous injection administered in the R mid-quadrant. Patient tolerated the injection well. Sublocade 11/14/2024 300 mg Patricio HOWIE, Kristin Segovia 11/14/2024 09:03:43 AM PERSONALIZED LIVING MANAGER NURSE >Administered to the left upper quadrant of the abdomen. Pt tolerated well with minimal discomfort observed or reported. Sublocade 12/19/2024 300 mg Teresa Bee D 12/19/2024 09:00 AM PERSONALIZED LIVING MANAGER NURSE >Given RUQ Subq, tolerated well. [facility]# [id number]. Sublocade 01/16/2025 300 mg Teresa Bee 01/16/2025 09:00 AM CDT >Given Subq LUQ, tolerated well. [facility]# [id number]. Medical (General) History Medical History History ICD Code Opioid use disorder Rheumatoid Arthritis Surgical History Surgery Date(Month/Year) Open heart surgery 08/13 section 2006 Hospitalization History Reason Date(Month/Year) heart surgery 2020 childbirth
--- OUTSIDE RECORDS SUMMARY | 2025-01-29 07:46 | XMS_ITS | Encounter Summary ---
Author Organization [facility] Address [address] [place] [address] Care Team Providers Care Software Applications Engineer Name Role Phone Unavailable Primary Care Provider Unavailabl e Encounter Details Date Type Department Care Team (Late st Contact Info) Description 09/21/2021 Lab Requisition [facility] Laboratory Services [address] [place] [phone] Godwin Guillen MD [address] [place] [address] [address] Social History Tobacco Use Types [...] CBC WITH DIFFERENTIAL Routine 09/21/2021 3:00 AM LEGAL SERVICES MANAGER PROTIME-INR Routine 09/21/2021 3:00 AM LEGAL SERVICES MANAGER COMPREHENSIVE METABOLIC PANEL Routine 09/21/2021 3:00 AM LEGAL SERVICES MANAGER documented in this encounter Results * (ABNORMAL) PROTIME-INR (09/21/2021 3:00 AM LEGAL SERVICES MANAGER) Pathologist [facility] PROTIME 23.7(H) 11.5 - 14.7 Seconds 09/21/2021 6:43 AM [facility] INR 2.1(H) 0.9 - 1.1 09/21/2021 6:43 AM [facility] Blood 09/21/2021 3:00 AM LEGAL SERVICES MANAGER 09/21/2021 5:44 AM LEGAL SERVICES MANAGER [facility] Javi Guillen MD HEMATOLOGY ORDERABL ES Final Result [facility] CLIA# [id number] [address] [place] [address] * (ABNORMAL) CBC WITH DIFFERENTIAL (09/21/2021 3:00 AM LEGAL SERVICES MANAGER) Pathologist [facility] WBC 4.2(L) 4.5 - 10.5 K/uL 09/21/2021 6:14 AM [facility] RBC 3.17(L) 3.90 - 4.90 M/uL 09/21/2021 6:14 AM [facility] HEMOGLOBIN 8.9(L) 11.8 - 14.8 g/dL 09/21/2021 6:14 AM [facility] HEMATOCRIT 27.4(L) 35.5 - 44.0 % 09/21/2021 6:14 AM [facility] MCV 86.5 82.0 - 99.0 fL 09/21/2021 6:14 AM [facility] MCH 28.1 27.8 - 34.5 pg 09/21/2021 6:14 AM [facility] MCHC 32.5 32.5 - 35.5 g/dL 09/21/2021 6:14 AM [facility] RDW 16.3(H) 11.5 - 14.5 % 09/21/2021 6:14 AM [facility] PLATELETS 165 160 - 420 K/uL 09/21/2021 6:14 AM LEGAL SERVICES MANAGER [facility] MPV 7.0(L) 8.7 - 12.7 fL 09/21/2021 6:14 AM LEGAL SERVICES MANAGER [facility] NEUTROPHILS 62 % 09/21/2021 6:14 AM [facility] LYMPHOCYTES 27 % 09/21/2021 6:14 AM LEGAL SERVICES MANAGER [facility] SERVICES [facility] MONOCYTES 8 % 09/21/2021 6:14 AM LEGAL SERVICES MANAGER [facility] SERVICES [facility] EOSINOPHILS 2 % 09/21/2021 6:14 AM LEGAL SERVICES MANAGER [facility] SERVICES [facility] BASOPHILS 0 % 09/21/2021 6:14 AM LEGAL SERVICES MANAGER [facility] NEUTROPHIL ABSOLUTE 2.60 1.90 - 7.00 K/uL 09/21/2021 6:14 AM [facility] LYMPHOCYTE ABSOLUTE 1.20 0.70 - 4.50 K/uL 09/21/2021 6:14 AM LEGAL SERVICES MANAGER [facility] MONOCYTE ABSOLUTE 0.40 0.10 - 1.30 K/uL 09/21/2021 6:14 AM LEGAL SERVICES MANAGER [facility] EOSINOPHIL ABSOLUTE 0.10 0.00 - 0.70 K/uL 09/21/2021 6:14 AM LEGAL SERVICES MANAGER [facility] BASOPHILS ABSOLUTE 0.00 0.00 - 0.20 K/uL 09/21/2021 6:14 AM [facility] Blood 09/21/2021 3:00 AM LEGAL SERVICES MANAGER 09/21/2021 5:44 AM LEGAL SERVICES MANAGER us Godwin Guillen MD HEMATOLOGY ORDERABL ES Final Result [facility] CLIA# [id number] [address] [place] [address] * (ABNORMAL) COMPREHENSIVE METABOLIC PANEL (09/21/2021 3:00 AM LEGAL SERVICES MANAGER) SODIUM 141 136 - 145 mmol/L 09/21/2021 6:31 AM LEGAL SERVICES MANAGER [facility] POTASSIUM 4.0 3.4 - 5.1 mmol/L 09/21/2021 6:31 AM [facility] CHLORIDE 102 98 - 107 mmol/L 09/21/2021 6:31 AM [facility] CO2 29 22 - 29 mmol/L 09/21/2021 6:31 AM [facility] CALCIUM 8.9 8.6 - 10.4 mg/dL 09/21/2021 6:31 AM [facility] BUN 10 6 - 20 mg/dL 09/21/2021 6:31 AM [facility] CREATININE 0.80 0.51 - 0.95 mg/dL 09/21/2021 6:31 AM [facility] GLUCOSE 79 74 - 99 mg/dL 09/21/2021 6:31 AM [facility] TOTAL PROTEIN 6.2(L) 6.3 - 8.7 g/dL 09/21/2021 6:31 AM [facility] ALBUMIN 3.6 3.5 - 5.2 g/dL 09/21/2021 6:31 AM [facility] BILIRUBIN TOTAL 0.2(L) 0.3 - 1.2 mg/dL 09/21/2021 6:31 AM [facility] ALKALINE PHOSPHATASE 65 40 - 150 U/L 09/21/2021 6:31 AM [facility] AST 38(H) 0 - 33 U/L 09/21/2021 6:31 AM [facility] ALT 6 0 - 33 U/L 09/21/2021 6:31 AM [facility] GFR >60 mL/min/1.7 3 sq meter 09/21/2021 6:31 AM [facility] Comment: eGFR has not been [...] mL/min/1.7 3 sq meter 09/21/2021 6:31 AM LEGAL SERVICES MANAGER [facility] SERVICES [facility] ANION GAP 10 8 - 16 mmol/L 09/21/2021 6:31 AM LEGAL SERVICES MANAGER [facility] Blood 09/21/2021 3:00 AM LEGAL SERVICES MANAGER 09/21/2021 5:44 AM LEGAL SERVICES MANAGER Godwin Javi Guillen MD CHEMISTRY ORDERABLE S Final Result [facility] CLIA# [id number] [address] [place] [address] documented in this encounter Visit Diagnoses Not on filedocumented in this encounter
--- OUTSIDE RECORDS SUMMARY | 2025-01-29 07:46 | XMS_ITS | Encounter Summary ---
Author Organization [facility] Address [address] [place] [address] Care Team Providers Care Pain Medicine Physician Name Role Phone Unavailable Primary Care Provider Unavailabl e Encounter Details Date Type Department Care Team (Late st Contact Info) Description 09/19/2021 Lab Requisition [facility] Laboratory Services [address] [place] [address] [facility], External Provider [address] [place] [address] Social History Tobacco Use Types Packs/Day Years [...] Diagnosis Comments PROTIME-INR Routine 09/19/2021 4:20 AM SOFTWARE DESIGN ANALYST documented in this encounter Results * (ABNORMAL) PROTIME-INR (09/19/2021 4:20 AM SOFTWARE DESIGN ANALYST) PROTIME 27.5(H) 11.5 - 14.7 Seconds 09/19/2021 6:10 AM SOFTWARE DESIGN ANALYST [facility] INR 2.6(H) 0.9 - 1.1 09/19/2021 6:10 AM SOFTWARE DESIGN ANALYST [facility] Blood Collection / Unknown 09/19/2021 4:20 AM SOFTWARE DESIGN ANALYST 09/19/2021 5:51 AM SOFTWARE DESIGN ANALYST us External Provider [facility] HEMATOLOGY ORDERABLES Fin al Result Performing Organization Address City/State/[facility] Co de Phone Number [facility] SERVICES [facility]# [id number] [place] [address] documented in this encounter Visit Diagnoses Not on filedocumented in this encounter
--- OUTSIDE RECORDS SUMMARY | 2025-01-29 07:46 | XMS_ITS | Encounter Summary ---
Author Organization [facility] Address [address] [place] [address] Care Team Providers Care Medical Apparatus Model Maker Name Role Phone Unavailable Primary Care Provider Unavailabl e Encounter Details Date Type Department Care Team (Late st Contact Info) Description 09/07/[address] [facility] Laboratory Services [address] [place] [phone] Godwin Guillen MD [address] [place] [address] [address] Social History Tobacco Use Types [...] Diagnosis Comments PROTIME-INR Routine 09/07/2021 3:15 AM AUDIO VIDEO REPAIRER documented in this encounter Results * (ABNORMAL) PROTIME-INR (09/07/2021 3:15 AM AUDIO VIDEO REPAIRER) PROTIME 22.9(H) 11.5 - 14.7 Seconds 09/07/2021 5:13 AM AUDIO VIDEO REPAIRER [facility] SERVICES [facility] INR 2.0(H) 0.9 - 1.1 09/07/2021 5:13 AM AUDIO VIDEO REPAIRER [facility] SERVICES [facility] Blood 09/07/2021 3:15 AM AUDIO VIDEO REPAIRER 09/07/2021 4:37 AM AUDIO VIDEO REPAIRER us Godwin Guillen MD HEMATOLOGY ORDERABL ES Final Result [facility] CLIA# [id number] [address] [place] [address] documented in this encounter Visit Diagnoses Not on filedocumented in this encounter
--- OUTSIDE RECORDS SUMMARY | 2025-01-29 07:46 | XMS_ITS | Encounter Summary ---
Author Organization [facility] Address [address] [place] [address] Care Team Providers Care Shop Director Name Role Phone Unavailable Primary Care Provider Unavailabl e Encounter Details Date Type Department Care Team (Late st Contact Info) Description 09/05/2021 Lab Requisition [facility] Laboratory Services [address] [place] [address] Godwin Guillen MD [address] [place] [address] [address] Social History Tobacco Use Types [...] Diagnosis Comments PROTIME-INR Routine 09/05/2021 5:00 AM SUPERVISOR BLOOD documented in this encounter Results * (ABNORMAL) PROTIME-INR (09/05/2021 5:00 AM SUPERVISOR BLOOD) PROTIME 30.4(H) 11.5 - 14.7 Seconds 09/05/2021 7:46 AM SUPERVISOR BLOOD [facility] SERVICES [facility] INR 2.9(H) 0.9 - 1.1 09/05/2021 7:46 AM SUPERVISOR BLOOD [facility] SERVICES [facility] Blood 09/05/2021 5:00 AM SUPERVISOR BLOOD 09/05/2021 7:22 AM SUPERVISOR BLOOD us Godwin Guillen MD HEMATOLOGY ORDERABL ES Final Result [facility] CLIA# [id number] [place] [address] documented in this encounter Visit Diagnoses Not on filedocumented in this encounter
--- OUTSIDE RECORDS SUMMARY | 2025-01-29 07:46 | XMS_ITS | Clinical Summary ---
Author Organization [facility] Address [address] [place] [address] Care Team Providers Care Solderer Assembler Name Role Phone Unavailable Primary Care Provider [...] of 3 - 19+ 3-dose series) 1999 HPV/Cotest (21-29) 2001 PAP SMEAR 2001 CERVICAL CANCER SCREENING 2010 HPV/Cotest (30-65) 2010 PAP SMEAR 2010 BREAST CANCER SCREENING 2020 INFLUENZA VACCINE (#1) 2024 10/10/2015 COVID-19 Vaccine (2 - 2023-2 5 season) 2024 08/17/2021 HPV VACCINES Aged Out No longer eligi ble based on patient's age to complete this topic PNEUMOCOCCAL VACCINE 0-49 YEARS Aged Out No longer eligible based on patient's age to complete this topic Insurance [employer] [place] [address] [place] [address] [address] [facility] [place] [address]
--- OUTSIDE RECORDS SUMMARY | 2025-01-29 07:46 | XMS_ITS | Encounter Summary ---
Author Organization [facility] Address [address] [place] [address] Care Team Providers Care Mechanical Planner Name Role Phone Unavailable Primary Care Provider Unavailabl e Encounter Details Date Type Department Care Team (Late st Contact Info) Description 09/15/2021 Lab Requisition [facility] Laboratory Services [address] [place] [address] Godwin Guillen MD [address] [place] [address] [address] Social History Tobacco Use Types [...] Diagnosis Comments PROTIME-INR Routine 09/15/2021 12:01 AM SCIENCE MANAGER documented in this encounter Results * (ABNORMAL) PROTIME-INR (09/15/2021 12:01 AM SCIENCE MANAGER) PROTIME 24.8(H) 11.5 - 14.7 Seconds 09/15/2021 11:24 AM SCIENCE MANAGER [facility] LABORATORY SERVICES [facility] INR 2.2(H) 0.9 - 1.1 09/15/2021 11:24 AM SCIENCE MANAGER [facility] SERVICES [facility] Blood Collection / Unknown 09/15/2021 12:01 AM SCIENCE MANAGER 09/15/2021 10:57 AM SCIENCE MANAGER us Godwin Guillen MD HEMATOLOGY ORDERABL ES Final Result [facility] CLIA# [id number] [address] [place] [address] documented in this encounter Visit Diagnoses Not on filedocumented in this encounter
--- OUTSIDE RECORDS SUMMARY | 2025-01-29 07:46 | XMS_ITS | Encounter Summary ---
Author Organization [facility] Address [address] [place] [address] Care Team Providers Care Radiation Engineer Name Role Phone Unavailable Primary Care Provider Unavailabl e Encounter Details Date Type Department Care Team (Late st Contact Info) Description 09/16/2021 Lab Requisition [facility] Laboratory Services [address] [place] [address] [place] [address] [place] [address] Social History Tobacco Use Types [...] Diagnosis Comments PROTIME-INR Routine 09/16/2021 3:00 AM BOX SHOOK PATCHER documented in this encounter Results * (ABNORMAL) PROTIME-INR (09/16/2021 3:00 AM BOX SHOOK PATCHER) PROTIME 31.9(H) 11.5 - 14.7 Seconds 09/16/2021 5:32 AM BOX SHOOK PATCHER [facility] LABORATORY [facility] INR 3.1(H) 0.9 - 1.1 09/16/2021 5:32 AM BOX SHOOK PATCHER [facility] LABORATORY SERVICES [facility] Blood 09/16/2021 3:00 AM BOX SHOOK PATCHER 09/16/2021 5:11 AM BOX SHOOK PATCHER us Teo Aguirre MD HEMATOLOGY ORDERABLES Final Resu lt [facility] LABOR[facility]ORY [facility] CLIA# [id number] [address] [place] [address] documented in this encounter Visit Diagnoses Not on filedocumented in this encounter
--- OUTSIDE RECORDS SUMMARY | 2025-01-29 07:46 | XMS_ITS | Referral Summary ---
Author Organization [facility] Address [address] [place] [address] Care Team Providers Care Test Cell Technician Name Role Phone Tamara Tran MD Unavailable [phone] Liza Paul NP Primary Care Provider Allergies Active Allergy Reactions Criticality Noted Date [...] on file Legal Sex Female 1:12 AM VALVE TESTER Gender Identity Not on file Sexual Orientation [...] on file Medical Devices Implanted Type Area Wax Molder Device Identifier Shelf Expiration Date Model / Serial / Lot Barnes Vascular 58121-18 Perclose 6fr Suture Mediate Knot Push Vascular Device Closure - [id number] Implanted:Qty: 1 on 08/07/2021 by Rg Resendiz MD at [facility] [employer] [id number] / / Medtronic Card Vasc Surgery [id number] Mosaic Cinch 29mm 38mm 26mm 20.5mm 15.5mm Biological Stent - [id number] - [id number] Implanted:Qty: 1 on 08/10/2021 by DailyRavinder MD at [facility] N/A: Heart Med[employer] Inc [id number] 04/01/2026 [id number] / [id number] / Description:MITRAL VALVE-TIS KEDAR [employer] [id number] Huang Mc3 32mm 1 Seam 2 Wrap Anatomic Tricuspid Ring - [id number] - [id number] Implanted:Qty: 1 on 08/10/2021 by Daily, Ravinder Car MD at [facility] N/A: Heart [employer] [id number] 10/31/2022 [id number] / [id number] / Description:TRICUSPID RING Medtronic Cardiac Rhythm Mgmt 4968-35 Capsure Epi 8fr 35cm Is-1 Bipolar Suture Fixation Epicardium - [id number] - [id number] Implanted:Qty: 1 on 08/10/2021 by DailyRavinder MD at [facility] N/A: Heart [employer] Inc [id number] 05/07/2022 4968-35 / [id number] / Procedures Procedure Name Priority Date/Time [...] GENERAL O RDERABLES Final Result EVIE JACOBSON [address] [facility] Department [place] [address] from Last 3 Months or Most Recently Relevant to Health Maintenance [place] [address] [place] [address] Advance Directives For more information, please contact: [phone] * Full Code (Latest Code Status on [...] specifically selected below: No intubation Care Teams Test Cell Technician Relationship Specialty Start Date End Date Liza Paul NP [address] [place] [address] [place] [address] PCP - General Nurse Practitioner 01/11/25 Tamara Tran MD [address] [address] 10/24/20
--- OUTSIDE RECORDS SUMMARY | 2025-01-29 07:46 | XMS_ITS | Encounter Summary ---
Author Organization [facility] Address [address] [place] [address] Care Team Providers Care Pipe Fitter Fire Sprinkler Systems Name Role Phone Unavailable Primary Care Provider Unavailabl e Encounter Details Date Type Department Care Team (Late st Contact Info) Description 09/06/2021 Lab Requisition [facility] Laboratory Services [address] [place] [phone] Godwin Guillen MD [address] [place] [address] [address] Social History Tobacco Use [...] Diagnosis Comments PROTIME-INR Routine 09/06/2021 2:31 AM TAX EVALUATOR documented in this encounter Results * (ABNORMAL) PROTIME-INR (09/06/2021 2:31 AM TAX EVALUATOR) PROTIME 26.3(H) 11.5 - 14.7 Seconds 09/06/2021 11:51 AM TAX EVALUATOR [facility] LABORATORY SERVICES [facility] INR 2.4(H) 0.9 - 1.1 09/06/2021 11:51 AM TAX EVALUATOR [facility] LABORATORY SERVICES [facility] Blood Collection / Unknown 09/06/2021 2:31 AM TAX EVALUATOR 09/06/2021 11:06 AM TAX EVALUATOR us Godwin Guillen MD HEMATOLOGY ORDERABL ES Final Result [facility]ORAT[facility] CLIA# [id number] [place] [address] documented in this encounter Visit Diagnoses Not on filedocumented in this encounter
--- OUTSIDE RECORDS SUMMARY | 2025-01-29 07:46 | XMS_ITS | Encounter Summary ---
Author Organization [facility] Address [address] [place] [address] Care Team Providers Care Account Group Supervisor Name Role Phone Unavailable Primary Care Provider Unavailabl e Encounter Details Date Type Department Care Team (Late st Contact Info) Description 09/11/2021 Lab Requisition [facility] Laboratory Services [address] [place] [address] Godwin Guillen MD [address] [place] [address] [address] Social History Tobacco Use Types [...] Diagnosis Comments PROTIME-INR Routine 09/11/2021 4:30 AM PLATE PAINTER APPRENTICE documented in this encounter Results * (ABNORMAL) PROTIME-INR (09/11/2021 4:30 AM PLATE PAINTER APPRENTICE) PROTIME 34.0(H) 11.5 - 14.7 Seconds 09/11/2021 7:45 AM PLATE PAINTER APPRENTICE [facility] LABORATORY SERVICES [facility] INR 3.4(H) 0.9 - 1.1 09/11/2021 7:45 AM PLATE PAINTER APPRENTICE [facility] LABORATORY SERVICES [facility] Blood 09/11/2021 4:30 AM PLATE PAINTER APPRENTICE 09/11/2021 6:35 AM PLATE PAINTER APPRENTICE us Godwin Guillen MD HEMATOLOGY ORDERABL ES Final Result [facility] CLIA# [id number] [place] [address] documented in this encounter Visit Diagnoses Not on filedocumented in this encounter
--- OUTSIDE RECORDS SUMMARY | 2025-01-29 07:46 | XMS_ITS | Encounter Summary ---
Author Organization [facility] Address [address] [place] [address] Care Team Providers Care Furniture Dipper Name Role Phone Unavailable Primary Care Provider Unavailabl e Encounter Details Date Type Department Care Team (Late st Contact Info) Description 09/13/2021 Lab Requisition [facility] Laboratory Services [address] [place] [address] [place] [address] [place] [address] Social History Tobacco Use Types [...] Diagnosis Comments PROTIME-INR Routine 09/13/2021 4:30 AM CUPOLA MELTER HELPER documented in this encounter Results * (ABNORMAL) PROTIME-INR (09/13/2021 4:30 AM CUPOLA MELTER HELPER) PROTIME 23.6(H) 11.5 - 14.7 Seconds 09/13/2021 6:39 AM CUPOLA MELTER HELPER [facility] LABORATORY [facility] INR 2.1(H) 0.9 - 1.1 09/13/2021 6:39 AM CUPOLA MELTER HELPER [facility] LABORATORY SERVICES [facility] Blood 09/13/2021 4:30 AM CUPOLA MELTER HELPER 09/13/2021 6:08 AM CUPOLA MELTER HELPER us Teo Aguirre MD HEMATOLOGY ORDERABLES Final Resu lt [facility] LABORATORY [facility] CLIA# [id number] [place] [address] documented in this encounter Visit Diagnoses Not on filedocumented in this encounter
--- OUTSIDE RECORDS SUMMARY | 2025-01-29 07:46 | XMS_ITS | Encounter Summary ---
Author Organization [facility] Address [address] [place] [address] Care Team Providers Care Senior Clinician Name Role Phone Unavailable Primary Care Provider Unavailabl e Encounter Details Date Type Department Care Team (Late st Contact Info) Description 09/12/2021 Lab Requisition [facility] Laboratory Services [address] [place] [address] Godwin Guillen MD [address] [place] [address] [address] Social History Tobacco Use Types [...] Diagnosis Comments PROTIME-INR Routine 09/12/2021 5:10 AM OPHTHALMIC MEDICAL TECHNOLOGIST documented in this encounter Results * (ABNORMAL) PROTIME-INR (09/12/2021 5:10 AM OPHTHALMIC MEDICAL TECHNOLOGIST) PROTIME 28.9(H) 11.5 - 14.7 Seconds 09/12/2021 8:43 AM OPHTHALMIC MEDICAL TECHNOLOGIST [facility] LABORATORY SERVICES [facility] INR 2.7(H) 0.9 - 1.1 09/12/2021 8:43 AM OPHTHALMIC MEDICAL TECHNOLOGIST [facility] LABORATORY SERVICES [facility] Blood Collection / Unknown 09/12/2021 5:10 AM OPHTHALMIC MEDICAL TECHNOLOGIST 09/12/2021 8:14 AM OPHTHALMIC MEDICAL TECHNOLOGIST us Godwin Guillen MD HEMATOLOGY ORDERABL ES Final Result [facility] LABORATORY [facility] CLIA# [id number] [address] [place] [address] documented in this encounter Visit Diagnoses Not on filedocumented in this encounter
--- OUTSIDE RECORDS SUMMARY | 2025-01-29 07:46 | XMS_ITS | Encounter Summary ---
Author Organization [facility] Address [address] [place] [address] Care Team Providers Care Application Support Engineer Name Role Phone Unavailable Primary Care Provider Unavailabl e Encounter Details Date Type Department Care Team (Late st Contact Info) Description 09/14/2021 Lab Requisition [facility] Laboratory Services [address] [place] [phone] Godwin Guillen MD [address] [place] [address] [address] Social History Tobacco Use Types [...] CBC WITH DIFFERENTIAL Routine 09/14/2021 12:01 AM SUMMER SESSIONS DIRECTOR PROTIME-INR Routine 09/14/2021 12:01 AM SUMMER SESSIONS DIRECTOR COMPREHENSIVE METABOLIC PANEL Routine 09/14/2021 12:01 AM SUMMER SESSIONS DIRECTOR documented in this encounter Results * (ABNORMAL) PROTIME-INR (09/14/2021 12:01 AM SUMMER SESSIONS DIRECTOR) PROTIME 21.6(H) 11.5 - 14.7 Seconds 09/14/2021 8:10 AM [facility] LABORATORY [facility] INR 1.9(H) 0.9 - 1.1 09/14/2021 8:10 AM [facility] Blood Collection / Unknown 09/14/2021 12:01 AM SUMMER SESSIONS DIRECTOR 09/14/2021 7:13 AM SUMMER SESSIONS DIRECTOR Godwin Javi Guillen MD HEMATOLOGY ORDERABL ES Final Result [facility] CLIA# [id number] [address] [place] [address] * (ABNORMAL) COMPREHENSIVE METABOLIC PANEL (09/14/2021 12:01 AM SUMMER SESSIONS DIRECTOR) SODIUM 141 136 - 145 mmol/L 09/14/2021 8:22 AM [facility] LABORATORY [facility] POTASSIUM 4.1 3.4 - 5.1 mmol/L 09/14/2021 8:22 AM [facility] LABORATORY [facility] CHLORIDE 104 98 - 107 mmol/L 09/14/2021 8:22 AM [facility] LABORATORY [facility] CO2 26 22 - 29 mmol/L 09/14/2021 8:22 AM [facility] LABORATORY [facility] CALCIUM 8.7 8.6 - 10.4 mg/dL 09/14/2021 8:22 AM [facility] LABORATORY [facility] BUN 17 6 - 20 mg/dL 09/14/2021 8:22 AM [facility] LABORATORY [facility] CREATININE 0.86 0.51 - 0.95 mg/dL 09/14/2021 8:22 AM [facility] LABORATORY [facility] GLUCOSE 104(H) 74 - 99 mg/dL 09/14/2021 8:22 AM [facility] LABORATORY [facility] TOTAL PROTEIN 5.8(L) 6.3 - 8.7 g/dL 09/14/2021 8:22 AM [facility] LABORATORY [facility] ALBUMIN 3.2(L) 3.5 - 5.2 g/dL 09/14/2021 8:22 AM [facility] BILIRUBIN TOTAL 0.2(L) 0.3 - 1.2 mg/dL 09/14/2021 8:22 AM [facility] ALKALINE PHOSPHATASE 59 40 - 150 U/L 09/14/2021 8:22 AM [facility] AST 19 0 - 33 U/L 09/14/2021 8:22 AM [facility] ALT 5 0 - 33 U/L 09/14/2021 8:22 AM [facility] GFR >60 mL/min/1.7 3 sq meter 09/14/2021 8:22 AM [facility] Comment: eGFR has not been validated for [...] mL/min/1.7 3 sq meter 09/14/2021 8:22 AM [facility] ANION GAP 11 8 - 16 mmol/L 09/14/2021 8:22 AM [facility] Blood Collection / Unknown 09/14/2021 12:01 AM SUMMER SESSIONS DIRECTOR 09/14/2021 7:13 AM SUMMER SESSIONS DIRECTOR us Godwin Guillen MD CHEMISTRY ORDERABLE S Final Result [facility] CLIA# [id number] [address] [place] [address] * (ABNORMAL) CBC WITH DIFFERENTIAL (09/14/2021 12:01 AM SUMMER SESSIONS DIRECTOR) WBC 4.1(L) 4.5 - 10.5 K/uL 09/14/2021 8:39 AM SUMMER SESSIONS DIRECTOR [facility] LABORATORY [facility] RBC 2.89(L) 3.90 - 4.90 M/uL 09/14/2021 8:39 AM [facility] HEMOGLOBIN 8.2(L) 11.8 - 14.8 g/dL 09/14/2021 8:39 AM [facility] HEMATOCRIT 25.1(L) 35.5 - 44.0 % 09/14/2021 8:39 AM [facility] MCV 86.7 82.0 - 99.0 fL 09/14/2021 8:39 AM [facility] MCH 28.3 27.8 - 34.5 pg 09/14/2021 8:39 AM [facility] MCHC 32.7 32.5 - 35.5 g/dL 09/14/2021 8:39 AM [facility] RDW 17.0(H) 11.5 - 14.5 % 09/14/2021 8:39 AM [facility] LABORATORY [facility] PLATELETS 172 160 - 420 K/uL 09/14/2021 8:39 AM [facility] MPV 6.8(L) 8.7 - 12.7 fL 09/14/2021 8:39 AM [facility] NEUTROPHILS 66 % 09/14/2021 8:39 AM [facility] Outfittery [facility] LYMPHOCYTES 24 % 09/14/2021 8:39 AM SUMMER SESSIONS DIRECTOR [facility] LABORATORY [facility] MONOCYTES 9 % 09/14/2021 8:39 AM SUMMER SESSIONS DIRECTOR [facility] LABORATORY [facility] EOSINOPHILS 1 % 09/14/2021 8:39 AM SUMMER SESSIONS DIRECTOR [facility] LABORATORY [facility] BASOPHILS 0 % 09/14/2021 8:39 AM [facility] NEUTROPHIL ABSOLUTE 2.70 1.90 - 7.00 K/uL 09/14/2021 8:39 AM SUMMER SESSIONS DIRECTOR [facility] LYMPHOCYTE ABSOLUTE 1.00 0.70 - 4.50 K/uL 09/14/2021 8:39 AM SUMMER SESSIONS DIRECTOR [facility] LABORATORY SERVICES - [facility] MONOCYTE ABSOLUTE 0.40 0.10 - 1.30 K/uL 09/14/2021 8:39 AM SUMMER SESSIONS DIRECTOR [facility] LABORATORY SERVICES - [facility] EOSINOPHIL ABSOLUTE 0.10 0.00 - 0.70 K/uL 09/14/2021 8:39 AM SUMMER SESSIONS DIRECTOR [facility] LABORATORY SERVICES - [facility] BASOPHILS ABSOLUTE 0.00 0.00 - 0.20 K/uL 09/14/2021 8:39 AM SUMMER SESSIONS DIRECTOR [facility] LABORATORY [facility] Blood Collection / Unknown 09/14/2021 12:01 AM SUMMER SESSIONS DIRECTOR 09/14/2021 7:13 AM SUMMER SESSIONS DIRECTOR Godwin Javi Guillen MD HEMATOLOGY ORDERABL ES Final Result [facility] CLIA# [id number] [address] [place] [address] documented in this encounter Visit Diagnoses Not on filedocumented in this encounter
--- OUTSIDE RECORDS SUMMARY | 2025-01-29 07:46 | XMS_ITS | Encounter Summary ---
Author Organization [facility] Healthcare Address [address] [place] [address] Care Team Providers Care Habilitation Training Specialist Name Role Phone Kenzie Solomon MD Primary Care Provider + Tamara Tran MD Unavailable [phone] Liza Paul MICROFILM PROCESSOR Primary Care Provider Encounter Details Date Type Department Care Team (Late st Contact Info) Description 07/21/2021 Documentation [facility] Surgeon [facility] [address] [place] [address] Claudine Mcghee, [address] [address] Social History Tobacco Use Types Packs/Day Years [...] on file Legal Sex Female 1:12 AM INBOUND TELEMARKETER Gender Identity Not on file Sexual Orientation Not on file documented as of this encounter Functional Status documented as of this encounter Plan of Treatment Not on file documented as of this encounter Visit Diagnoses Not on filedocumented in this encounter Care Teams Habilitation Training Specialist Relationship Specialty Start Date End Date Kenzie Solomon MD [address] [place] [address] [place] [address] PCP - General Family Medicine 10/24/20 01/10/25 Liza Paul NP [address] [facility] [place] [address] PCP - General Nurse Practitioner 01/11/25 Tamara Tran MD [address] [address] 10/24/20 documented as of this encounter
--- OUTSIDE RECORDS SUMMARY | 2025-01-29 07:46 | XMS_ITS | Encounter Summary ---
Author Organization [facility] Address [address] [place] [address] Care Team Providers Care Warp Knit Operator Name Role Phone Unavailable Primary Care Provider Unavailabl e Encounter Details Date Type Department Care Team (Late st Contact Info) Description 09/17/2021 Lab Requisition [facility] Laboratory Services [address] [place] [address] Godwin Guillen MD [address] [place] [address] [address] Social History Tobacco Use Types [...] CBC WITH DIFFERENTIAL Routine 09/17/2021 4:15 AM NET C DEVELOPER PROTIME-INR Routine 09/17/2021 4:15 AM NET C DEVELOPER COMPREHENSIVE METABOLIC PANEL Routine 09/17/2021 4:15 AM NET C DEVELOPER documented in this encounter Results * (ABNORMAL) PROTIME-INR (09/17/2021 4:15 AM NET C DEVELOPER) Pathologist [facility] PROTIME 31.2(H) 11.5 - 14.7 Seconds 09/17/2021 2:23 PM NET C DEVELOPER [facility] INR 3.0(H) 0.9 - 1.1 09/17/2021 2:23 PM NET C DEVELOPER [facility] Blood 09/17/2021 4:15 AM NET C DEVELOPER 09/17/2021 1:38 PM NET C DEVELOPER [facility] Javi Guillen MD HEMATOLOGY ORDERABL ES Final Result [facility] CLIA# [id number] [address] [place] [address] * (ABNORMAL) CBC WITH DIFFERENTIAL (09/17/2021 4:15 AM NET C DEVELOPER) [facility] WBC 3.6(L) 4.5 - 10.5 K/uL 09/17/2021 2:10 PM NET C DEVELOPER [facility] RBC 2.74(L) 3.90 - 4.90 M/uL 09/17/2021 2:10 PM [facility] HEMOGLOBIN 7.7(L) 11.8 - 14.8 g/dL 09/17/2021 2:10 PM [facility] HEMATOCRIT 23.9(L) 35.5 - 44.0 % 09/17/2021 2:10 PM [facility] MCV 87.3 82.0 - 99.0 fL 09/17/2021 2:10 PM [facility] MCH 28.2 27.8 - 34.5 pg 09/17/2021 2:10 PM [facility] MCHC 32.4(L) 32.5 - 35.5 g/dL 09/17/2021 2:10 PM NET C DEVELOPER [facility] RDW 16.7(H) 11.5 - 14.5 % 09/17/2021 2:10 PM NET C DEVELOPER [facility] PLATELETS 150(L) 160 - 420 K/uL 09/17/2021 2:10 PM NET C DEVELOPER [facility] LABORATORY [facility] MPV 6.8(L) 8.7 - 12.7 fL 09/17/2021 2:10 PM NET C DEVELOPER [facility] LABORATORY [facility] NEUTROPHILS 60 % 09/17/2021 2:10 PM NET C DEVELOPER [facility] LABORATORY [facility] LYMPHOCYTES 30 % 09/17/2021 2:10 PM NET C DEVELOPER [facility] LABORATORY SERVICES [facility] MONOCYTES 9 % 09/17/2021 2:10 PM NET C DEVELOPER [facility] LABORATORY SERVICES - [facility] EOSINOPHILS 1 % 09/17/2021 2:10 PM NET C DEVELOPER [facility] LABORATORY SERVICES - [facility] BASOPHILS 0 % 09/17/2021 2:10 PM NET C DEVELOPER [facility] LABORATORY [facility] NEUTROPHIL ABSOLUTE 2.10 1.90 - 7.00 K/uL 09/17/2021 2:10 PM NET C DEVELOPER [facility] LABORATORY [facility] LYMPHOCYTE ABSOLUTE 1.10 0.70 - 4.50 K/uL 09/17/2021 2:10 PM NET C DEVELOPER [facility] LABORATORY [facility] MONOCYTE ABSOLUTE 0.30 0.10 - 1.30 K/uL 09/17/2021 2:10 PM NET C DEVELOPER [facility] LABORATORY [facility] EOSINOPHIL ABSOLUTE 0.00 0.00 - 0.70 K/uL 09/17/2021 2:10 PM NET C DEVELOPER [facility] LABORATORY [facility] BASOPHILS ABSOLUTE 0.00 0.00 - 0.20 K/uL 09/17/2021 2:10 PM NET C DEVELOPER [facility] LABORATORY [facility] Blood 09/17/2021 4:15 AM NET C DEVELOPER 09/17/2021 1:38 PM NET C DEVELOPER us Godwin Guillen MD HEMATOLOGY ORDERABL ES Final Result [facility] CLIA# [id number] [address] [place] [address] * (ABNORMAL) COMPREHENSIVE METABOLIC PANEL (09/17/2021 4:15 AM NET C DEVELOPER) SODIUM 141 136 - 145 mmol/L 09/17/2021 2:34 PM NET C DEVELOPER [facility] LABORATORY [facility] POTASSIUM 3.7 3.4 - 5.1 mmol/L 09/17/2021 2:34 PM [facility] CHLORIDE 103 98 - 107 mmol/L 09/17/2021 2:34 PM [facility] CO2 27 22 - 29 mmol/L 09/17/2021 2:34 PM [facility] CALCIUM 8.5(L) 8.6 - 10.4 mg/dL 09/17/2021 2:34 PM [facility] LABORATORY [facility] BUN 13 6 - 20 mg/dL 09/17/2021 2:34 PM [facility] LABORATORY [facility] CREATININE 0.79 0.51 - 0.95 mg/dL 09/17/2021 2:34 PM [facility] GLUCOSE 100(H) 74 - 99 mg/dL 09/17/2021 2:34 PM [facility] TOTAL PROTEIN 5.5(L) 6.3 - 8.7 g/dL 09/17/2021 2:34 PM [facility] LABORATORY [facility] ALBUMIN 3.2(L) 3.5 - 5.2 g/dL 09/17/2021 2:34 PM [facility] LABORATORY [facility] BILIRUBIN TOTAL <0.2(L) 0.3 - 1.2 mg/dL 09/17/2021 2:34 PM [facility] LABORATORY [facility] ALKALINE PHOSPHATASE 53 40 - 150 U/L 09/17/2021 2:34 PM [facility] AST 27 0 - 33 U/L 09/17/2021 2:34 PM [facility] [employer] [facility] ALT 5 0 - 33 U/L 09/17/2021 2:34 PM [facility] [employer] [facility] GFR >60 mL/min/1.7 3 sq meter 09/17/2021 2:34 PM [facility] LABORATORY [facility] Comment: eGFR has not been validated [...] mL/min/1.7 3 sq meter 09/17/2021 2:34 PM NET C DEVELOPER [facility] LABORATORY SERVICES [facility] ANION GAP 11 8 - 16 mmol/L 09/17/2021 2:34 PM NET C DEVELOPER [facility] LABOR[facility] Blood 09/17/2021 4:15 AM NET C DEVELOPER 09/17/2021 1:38 PM NET C DEVELOPER us Godwin Guillen MD CHEMISTRY ORDERABLE S Final Result [facility] CLIA# [id number] [place] [address] documented in this encounter Visit Diagnoses Not on filedocumented in this encounter
--- OUTSIDE RECORDS SUMMARY | 2025-01-29 07:46 | XMS_ITS | Clinical Summary ---
Author Organization [facility] Address [address] [place] [address] Care Team Providers Care Chimney Builder Name Role Phone Tamara Tran MD Unavailable [phone] Liza Paul NP Primary Care Provider Allergies [...] on file Legal Sex Female 1:12 AM NET MANAGER Gender Identity Not on file Sexual Orientation [...] 5 season) 2024 08/17/2021, 04/28/2021 Influenza Vaccine (Season Ended) 2025 10/10/2015 DTaP/Tdap/Td Vaccine (2 - Td or Tdap) 10/31/2033 10/31/2023 Hepatitis C Screening Completed 07/15/2021 Pneumococcal vaccine <65 Aged Out 024, 10/30/2021 No longer eligible based on patient's age to complete this topic HPV Vaccines Aged Out No longer eligi ble based on patient's age to complete this topic Medical Devices Implanted Type Area Employment Programs Analyst Device Identifier Shelf Expiration Date Model / Serial / Lot [employer] Vascular 22535-40 Perclose 6fr Suture Mediate Knot Push Vascular Device Closure - [id number] Implanted:Qty: 1 on 08/07/2021 by Rg Resendiz MD at [facility] [employer] [id number] / / Medtronic Card Vasc Surgery [id number] Mosaic Cinch 29mm 38mm 26mm 20.5mm 15.5mm Biological Stent - [id number] - [id number] Implanted:Qty: 1 on 08/10/2021 by Daily, Ravinder Car MD at [facility] N/A: Heart [employer] Inc [id number] 04/01/2026 [id number] / [id number] / Description:MITRAL VALVE-TIS KEDAR [employer] [id number] Huang Mc3 32mm 1 Seam 2 Wrap Anatomic Tricuspid Ring - [id number] - [id number] Implanted:Qty: 1 on 08/10/2021 by Ravinder Lay MD at [facility] N/A: Heart [employer] [id number] 10/31/2022 [id number] / [id number] / Description:TRICUSPID RING Medtronic Cardiac Rhythm Mgmt 4968-35 Capsure Epi 8fr 35cm Is-1 Bipolar Suture Fixation Epicardium - [id number] - [id number] Implanted:Qty: 1 on 08/10/2021 by DailyRavinder MD at [facility] N/A: Heart [employer] Inc [id number] 05/07/2022 4968-35 / [id number] / Procedures Procedure Name Priority Date/Time [...] - GENERAL O RDERABLES Final Result EVIE [address] [facility] [place] [address] from Last 3 Months or Most Recently Relevant to Health Maintenance Insurance [facility] Member Subscriber Plan / Payer ( fective 2018-Present) Name:Charmaine Ayon R Relation to Subscriber:Self Name:Charmaine Ayon Payer ID:[id number] ([facility]) Type:MEDICAID RISK OTHER Address: [address] [address] [facility] [place] [address] Advance Directives For more information, please contact: [phone] * Full Code (Latest Code Status on [...] specifically selected below: No intubation Care Teams Chimney Builder Relationship Specialty Start Date End Date Liza Paul NP [address] [facility] [place] [address] PCP - General Nurse Practitioner 01/11/25 Tamara Tran MD [address] [address] 10/24/20
--- OUTSIDE RECORDS SUMMARY | 2025-01-29 07:46 | XMS_ITS | Encounter Summary ---
Author Organization [facility] Address [address] [place] [address] Care Team Providers Care Communications Controller Name Role Phone Unavailable Primary Care Provider Unavailabl e Encounter Details Date Type Department Care Team (Late st Contact Info) Description 09/09/2021 Lab Requisition [facility] Laboratory Services [address] [place] [phone] Godwin Guillen MD [address] [place] [address] [address] Social History Tobacco Use Types [...] Diagnosis Comments PROTIME-INR Routine 09/09/2021 4:00 AM CHEF DE PARTIE documented in this encounter Results * (ABNORMAL) PROTIME-INR (09/09/2021 4:00 AM CHEF DE PARTIE) PROTIME 25.6(H) 11.5 - 14.7 Seconds 09/09/2021 11:42 AM CHEF DE PARTIE [facility] INR 2.3(H) 0.9 - 1.1 09/09/2021 11:42 AM CHEF DE PARTIE [facility] Blood BLOOD SPECIMEN / Unknown Collection / Unknown 09/09/2021 4:00 AM CHEF DE PARTIE 09/09/2021 11:19 AM CHEF DE PARTIE us Godwin Javi Guillen MD HEMATOLOGY ORDERABL ES Final Result [facility] CLIA# [id number] [place] [address] documented in this encounter Visit Diagnoses Not on filedocumented in this encounter
--- OUTSIDE RECORDS SUMMARY | 2025-01-29 07:46 | XMS_ITS | Encounter Summary ---
Author Organization [facility] Address [address] [place] [address] Care Team Providers Care Control System Computer Scientist Name Role Phone Unavailable Primary Care Provider Unavailabl e Encounter Details Date Type Department Care Team (Late st Contact Info) Description 09/10/2021 Lab Requisition [facility] Laboratory Services [address] [place] [phone] Godwin Guillen MD [address] [place] [address] [address] Social History Tobacco Use Types [...] Diagnosis Comments PTT Routine 09/10/2021 12:01 AM QUALITY CONTROL EXPERT PROTIME-INR Routine 09/10/2021 12:01 AM QUALITY CONTROL EXPERT documented in this encounter Results * (ABNORMAL) PTT (09/10/2021 12:01 AM QUALITY CONTROL EXPERT) PTT 40.2(H) 23.1 - 37.1 seconds 09/10/2021 7:42 AM QUALITY CONTROL EXPERT [facility] Blood Collection / Unknown 09/10/2021 12:01 AM QUALITY CONTROL EXPERT 09/10/2021 6:43 AM QUALITY CONTROL EXPERT Godwin Guillen MD HEMATOLOGY ORDERABL ES Final Result Performing Organization Address City/[facility]/ZIP Co de Phone Number [facility] CLIA# [id number] [place] [address] * (ABNORMAL) PROTIME-INR (09/10/2021 12:01 AM QUALITY CONTROL EXPERT) PROTIME 28.2(H) 11.5 - 14.7 Seconds 09/10/2021 7:42 AM QUALITY CONTROL EXPERT [facility] INR 2.6(H) 0.9 - 1.1 09/10/2021 7:42 AM QUALITY CONTROL EXPERT [facility] Blood Collection / Unknown 09/10/2021 12:01 AM QUALITY CONTROL EXPERT 09/10/2021 6:43 AM QUALITY CONTROL EXPERT Godwin Guillen MD HEMATOLOGY ORDERABL ES Final Result Performing Organization Address City/[facility]/ZIP Co de Phone Number [facility] CLIA# [id number] [place] [address] documented in this encounter Visit Diagnoses Not on filedocumented in this encounter
--- OUTSIDE RECORDS SUMMARY | 2025-01-29 07:46 | XMS_ITS | Encounter Summary ---
Author Organization [facility] Address [address] [place] [address] Care Team Providers Care Final Canoe Inspector Name Role Phone Unavailable Primary Care Provider Unavailabl e Encounter Details Date Type Department Care Team (Late st Contact Info) Description 09/18/2021 Lab Requisition [facility] Laboratory Services [address] [place] [phone] Godwin Guillen MD [address] [place] [address] [address] Social History Tobacco Use Types [...] CBC WITH DIFFERENTIAL Routine 09/18/2021 4:00 AM CLIENT TECHNOLOGIES SPECIALIST PROTIME-INR Routine 09/18/2021 4:00 AM CLIENT TECHNOLOGIES SPECIALIST documented in this encounter Results * (ABNORMAL) PROTIME-INR (09/18/2021 4:00 AM CLIENT TECHNOLOGIES SPECIALIST) PROTIME 27.6(H) 11.5 - 14.7 Seconds 09/18/2021 8:04 AM [facility] INR 2.6(H) 0.9 - 1.1 09/18/2021 8:04 AM [facility] Blood Collection / Unknown 09/18/2021 4:00 AM CLIENT TECHNOLOGIES SPECIALIST 09/18/2021 6:58 AM CLIENT TECHNOLOGIES SPECIALIST Godwin Guillen MD HEMATOLOGY ORDERABL ES Final Result [facility] CLIA# [id number] [address] [place] [address] * (ABNORMAL) CBC WITH DIFFERENTIAL (09/18/2021 4:00 AM CLIENT TECHNOLOGIES SPECIALIST) WBC 3.8(L) 4.5 - 10.5 K/uL 09/18/2021 7:20 AM [facility] RBC 3.12(L) 3.90 - 4.90 M/uL 09/18/2021 7:20 AM [facility] HEMOGLOBIN 8.7(L) 11.8 - 14.8 g/dL 09/18/2021 7:20 AM [facility] HEMATOCRIT 27.2(L) 35.5 - 44.0 % 09/18/2021 7:20 AM [facility] MCV 87.2 82.0 - 99.0 fL 09/18/2021 7:20 AM [facility] MCH 27.8 27.8 - 34.5 pg 09/18/2021 7:20 AM [facility] MCHC 31.8(L) 32.5 - 35.5 g/dL 09/18/2021 7:20 AM [facility] RDW 16.3(H) 11.5 - 14.5 % 09/18/2021 7:20 AM [facility] PLATELETS 179 160 - 420 K/uL 09/18/2021 7:20 AM [facility] MPV 6.9(L) 8.7 - 12.7 fL 09/18/2021 7:20 AM CLIENT TECHNOLOGIES SPECIALIST [facility] NEUTROPHILS 56 % 09/18/2021 7:20 AM CLIENT TECHNOLOGIES SPECIALIST [facility] LYMPHOCYTES 34 % 09/18/2021 7:20 AM CLIENT TECHNOLOGIES SPECIALIST [facility] MONOCYTES 8 % 09/18/2021 7:20 AM CLIENT TECHNOLOGIES SPECIALIST [facility] EOSINOPHILS 2 % 09/18/2021 7:20 AM CLIENT TECHNOLOGIES SPECIALIST [facility] BASOPHILS 0 % 09/18/2021 7:20 AM CLIENT TECHNOLOGIES SPECIALIST [facility] NEUTROPHIL ABSOLUTE 2.10 1.90 - 7.00 K/uL 09/18/2021 7:20 AM CLIENT TECHNOLOGIES SPECIALIST [facility] LYMPHOCYTE ABSOLUTE 1.30 0.70 - 4.50 K/uL 09/18/2021 7:20 AM CLIENT TECHNOLOGIES SPECIALIST [facility] MONOCYTE ABSOLUTE 0.30 0.10 - 1.30 K/uL 09/18/2021 7:20 AM CLIENT TECHNOLOGIES SPECIALIST [facility] EOSINOPHIL ABSOLUTE 0.10 0.00 - 0.70 K/uL 09/18/2021 7:20 AM CLIENT TECHNOLOGIES SPECIALIST [facility] BASOPHILS ABSOLUTE 0.00 0.00 - 0.20 K/uL 09/18/2021 7:20 AM CLIENT TECHNOLOGIES SPECIALIST [facility] Blood Collection / Unknown 09/18/2021 4:00 AM CLIENT TECHNOLOGIES SPECIALIST 09/18/2021 6:58 AM CLIENT TECHNOLOGIES SPECIALIST Godwin Javi Guillen MD HEMATOLOGY ORDERABL ES Final Result [facility] CLIA# [id number] [place] [address] documented in this encounter Visit Diagnoses Not on filedocumented in this encounter
--- OUTSIDE RECORDS SUMMARY | 2025-01-29 07:46 | XMS_ITS | Encounter Summary ---
Author Organization [facility] Address [address] [place] [address] Care Team Providers Care Drilling Engineering Manager Name Role Phone Unavailable Primary Care Provider Unavailabl e Encounter Details Date Type Department Care Team (Late st Contact Info) Description 09/20/2021 Lab Requisition [facility] Laboratory Services [address] [place] [phone] Godwin Guillen MD [address] [place] [address] [address] Social History Tobacco Use Types [...] CBC WITH DIFFERENTIAL Routine 09/20/2021 4:00 AM REAL ESTATE TRANSACTION MANAGER PROTIME-INR Routine 09/20/2021 4:00 AM REAL ESTATE TRANSACTION MANAGER documented in this encounter Results * (ABNORMAL) PROTIME-INR (09/20/2021 4:00 AM REAL ESTATE TRANSACTION MANAGER) PROTIME 24.2(H) 11.5 - 14.7 Seconds 09/20/2021 12:23 PM [facility] INR 2.2(H) 0.9 - 1.1 09/20/2021 12:23 PM [facility] Blood 09/20/2021 4:00 AM REAL ESTATE TRANSACTION MANAGER 09/20/2021 11:38 AM REAL ESTATE TRANSACTION MANAGER Godwin Guillen MD HEMATOLOGY ORDERABL ES Final Result [facility] CLIA# [id number] [place] [address] * (ABNORMAL) CBC WITH DIFFERENTIAL (09/20/2021 4:00 AM REAL ESTATE TRANSACTION MANAGER) WBC 3.5(L) 4.5 - 10.5 K/uL 09/20/2021 12:27 PM [facility] RBC 3.03(L) 3.90 - 4.90 M/uL 09/20/2021 12:27 PM [facility] HEMOGLOBIN 8.5(L) 11.8 - 14.8 g/dL 09/20/2021 12:27 PM [facility] HEMATOCRIT 26.7(L) 35.5 - 44.0 % 09/20/2021 12:27 PM [facility] MCV 88.1 82.0 - 99.0 fL 09/20/2021 12:27 PM [facility] MCH 28.0 27.8 - 34.5 pg 09/20/2021 12:27 PM [facility] MCHC 31.8(L) 32.5 - 35.5 g/dL 09/20/2021 12:27 PM [facility] RDW 16.5(H) 11.5 - 14.5 % 09/20/2021 12:27 PM [facility] PLATELETS 160 160 - 420 K/uL 09/20/2021 12:27 PM [facility] MPV 7.2(L) 8.7 - 12.7 fL 09/20/2021 12:27 PM REAL ESTATE TRANSACTION MANAGER [facility] NEUTROPHILS 59 % 09/20/2021 12:27 PM REAL ESTATE TRANSACTION MANAGER [facility] LYMPHOCYTES 31 % 09/20/2021 12:27 PM REAL ESTATE TRANSACTION MANAGER [facility] MONOCYTES 8 % 09/20/2021 12:27 PM REAL ESTATE TRANSACTION MANAGER [facility] EOSINOPHILS 2 % 09/20/2021 12:27 PM REAL ESTATE TRANSACTION MANAGER [facility] BASOPHILS 0 % 09/20/2021 12:27 PM REAL ESTATE TRANSACTION MANAGER [facility] NEUTROPHIL ABSOLUTE 2.10 1.90 - 7.00 K/uL 09/20/2021 12:27 PM REAL ESTATE TRANSACTION MANAGER [facility] LYMPHOCYTE ABSOLUTE 1.10 0.70 - 4.50 K/uL 09/20/2021 12:27 PM REAL ESTATE TRANSACTION MANAGER [facility] MONOCYTE ABSOLUTE 0.30 0.10 - 1.30 K/uL 09/20/2021 12:27 PM REAL ESTATE TRANSACTION MANAGER [facility] EOSINOPHIL ABSOLUTE 0.10 0.00 - 0.70 K/uL 09/20/2021 12:27 PM REAL ESTATE TRANSACTION MANAGER [facility] BASOPHILS ABSOLUTE 0.00 0.00 - 0.20 K/uL 09/20/2021 12:27 PM REAL ESTATE TRANSACTION MANAGER [facility] Blood 09/20/2021 4:00 AM REAL ESTATE TRANSACTION MANAGER 09/20/2021 11:38 AM REAL ESTATE TRANSACTION MANAGER us Godwin Guillen MD HEMATOLOGY ORDERABL ES Final Result [facility] CLIA# [id number] [place] [address] documented in this encounter Visit Diagnoses Not on filedocumented in this encounter
--- OUTSIDE RECORDS SUMMARY | 2025-01-29 07:46 | XMS_ITS | Encounter Summary ---
Author Organization [facility] Address [address] [place] [address] Care Team Providers Care Migratory Worker Name Role Phone Unavailable Primary Care Provider Unavailabl e Encounter Details Date Type Department Care Team (Late st Contact Info) Description 09/08/2021 Lab Requisition [facility] Laboratory Services [address] [place] [phone] Godwin Guillen MD [address] [place] [address] [address] Social History Tobacco Use Types [...] CBC WITH DIFFERENTIAL Routine 09/08/2021 4:30 AM SOLID WASTE ENGINEER PROTIME-INR Routine 09/08/2021 4:30 AM SOLID WASTE ENGINEER BASIC METABOLIC PANEL Routine 09/08/2021 4:30 AM SOLID WASTE ENGINEER documented in this encounter Results * (ABNORMAL) PROTIME-INR (09/08/2021 4:30 AM SOLID WASTE ENGINEER) PROTIME 22.2(H) 11.5 - 14.7 Seconds 09/08/2021 1:35 PM SOLID WASTE ENGINEER [facility] INR 1.9(H) 0.9 - 1.1 09/08/2021 1:35 PM SOLID WASTE ENGINEER [facility] Blood Collection / Unknown 09/08/2021 4:30 AM SOLID WASTE ENGINEER 09/08/2021 12:46 PM SOLID WASTE ENGINEER Godwin Javi Guillen MD HEMATOLOGY ORDERABL ES Final Result [facility] CLIA# [id number] [address] [place] [address] * (ABNORMAL) CBC WITH DIFFERENTIAL (09/08/2021 4:30 AM SOLID WASTE ENGINEER) Pathologist [facility] WBC 4.9 4.5 - 10.5 K/uL 09/08/2021 1:03 PM [facility] RBC 3.52(L) 3.90 - 4.90 M/uL 09/08/2021 1:03 PM [facility] HEMOGLOBIN 10.0(L) 11.8 - 14.8 g/dL 09/08/2021 1:03 PM [facility] HEMATOCRIT 31.0(L) 35.5 - 44.0 % 09/08/2021 1:03 PM [facility] MCV 88.1 82.0 - 99.0 fL 09/08/2021 1:03 PM [facility] MCH 28.3 27.8 - 34.5 pg 09/08/2021 1:03 PM [facility] MCHC 32.1(L) 32.5 - 35.5 g/dL 09/08/2021 1:03 PM [facility] RDW 18.0(H) 11.5 - 14.5 % 09/08/2021 1:03 PM [facility] PLATELETS 262 160 - 420 K/uL 09/08/2021 1:03 PM SOLID WASTE ENGINEER [facility] MPV 6.7(L) 8.7 - 12.7 fL 09/08/2021 1:03 PM SOLID WASTE ENGINEER [facility] NEUTROPHILS 65 % 09/08/2021 1:03 PM SOLID WASTE ENGINEER [facility]ORATORY SERVICES [facility] LYMPHOCYTES 26 % 09/08/2021 1:03 PM SOLID WASTE ENGINEER [facility] SERVICES [facility] MONOCYTES 8 % 09/08/2021 1:03 PM SOLID WASTE ENGINEER [facility] SERVICES [facility] EOSINOPHILS 1 % 09/08/2021 1:03 PM SOLID WASTE ENGINEER [facility] SERVICES [facility] BASOPHILS 1 % 09/08/2021 1:03 PM SOLID WASTE ENGINEER [facility] NEUTROPHIL ABSOLUTE 3.20 1.90 - 7.00 K/uL 09/08/2021 1:03 PM SOLID WASTE ENGINEER [facility] LYMPHOCYTE ABSOLUTE 1.30 0.70 - 4.50 K/uL 09/08/2021 1:03 PM SOLID WASTE ENGINEER [facility] MONOCYTE ABSOLUTE 0.40 0.10 - 1.30 K/uL 09/08/2021 1:03 PM SOLID WASTE ENGINEER [facility] EOSINOPHIL ABSOLUTE 0.10 0.00 - 0.70 K/uL 09/08/2021 1:03 PM SOLID WASTE ENGINEER [facility] BASOPHILS ABSOLUTE 0.00 0.00 - 0.20 K/uL 09/08/2021 1:03 PM SOLID WASTE ENGINEER [facility] Blood Collection / Unknown 09/08/2021 4:30 AM SOLID WASTE ENGINEER 09/08/2021 12:46 PM SOLID WASTE ENGINEER us Godwin Guillen MD HEMATOLOGY ORDERABL ES Final Result [facility] CLIA# [id number] [address] [place] [address] * (ABNORMAL) BASIC METABOLIC PANEL (09/08/2021 4:30 AM SOLID WASTE ENGINEER) SODIUM 139 136 - 145 mmol/L 09/08/2021 1:23 PM SOLID WASTE ENGINEER [facility] POTASSIUM 4.6 3.4 - 5.1 mmol/L 09/08/2021 1:[address] [facility] CHLORIDE 103 98 - 107 mmol/L 09/08/2021 1:23 PM [facility] CO2 23 22 - 29 mmol/L 09/08/2021 1:23 PM [facility] CALCIUM 9.3 8.6 - 10.4 mg/dL 09/08/2021 1:23 PM [facility] BUN 23(H) 6 - 20 mg/dL 09/08/2021 1:23 PM [facility] CREATININE 0.73 0.51 - 0.95 mg/dL 09/08/2021 1:23 PM [facility] GLUCOSE 69(L) 74 - 99 mg/dL 09/08/2021 1:23 PM [facility] GFR >60 mL/min/1.7 3 sq meter 09/08/2021 1:23 PM [facility] [employer] [facility] Comment: eGFR has not been validated for [...] mL/min/1.7 3 sq meter 09/08/2021 1:23 PM [facility] [employer] [facility] ANION GAP 13 8 - 16 mmol/L 09/08/2021 1:23 PM [facility] [employer] [facility] Blood Collection / Unknown 09/08/2021 4:30 AM SOLID WASTE ENGINEER 09/08/2021 12:46 PM SOLID WASTE ENGINEER Godwin Guillen MD CHEMISTRY ORDERABLE S Final Result [facility]# [id number] [place] [address] documented in this encounter Visit Diagnoses Not on filedocumented in this encounter
--- OUTSIDE RECORDS SUMMARY | 2025-01-29 07:47 | XMS_ITS | Encounter Summary ---
Author Organization [facility] Address [address] [place] [address] Care Team Providers Care Lei Seller Name Role Phone Unavailable Primary Care Provider Unavailabl e Encounter Details Date Type Department Care Team (Late st Contact Info) Description 08/30/2021 Lab Requisition [facility] Laboratory Services [address] [place] [address] Non-Staff, Physician NO ADDRESS ON [...] Diagnosis Comments PROTIME-INR Routine 08/30/2021 4:50 AM RENEWAL SPECIALIST documented in this encounter Results * (ABNORMAL) PROTIME-INR (08/30/2021 4:50 AM RENEWAL SPECIALIST) PROTIME 24.3(H) 11.5 - 14.7 Seconds 08/30/2021 9:32 AM RENEWAL SPECIALIST [facility]ORATORY SERVICES [facility] INR 2.2(H) 0.9 - 1.1 08/30/2021 9:32 AM RENEWAL SPECIALIST [facility] Blood Collection / Unknown 08/30/2021 4:50 AM RENEWAL SPECIALIST 08/30/2021 9:12 AM RENEWAL SPECIALIST us Physician Non-Staff HEMATOLOGY ORDERABLES Final Result Performing Organization Address [facility] Co de Phone Number [facility]ORAT[facility] SERVICES [facility]# [id number] [place] [address] documented in this encounter Visit Diagnoses Not on filedocumented in this encounter
--- OUTSIDE RECORDS SUMMARY | 2025-01-29 07:47 | XMS_ITS | Encounter Summary ---
Author Organization [facility] Address [address] [place] [address] Care Team Providers Care Jazz Singer Name Role Phone Unavailable Primary Care Provider Unavailabl e Encounter Details Date Type Department Care Team (Late st Contact Info) Description 09/01/2021 Lab Requisition [facility] Laboratory Services [address] [place] [id number] Godwin Guillen MD [address] [place] [address] [address] Social History Tobacco Use [...] CBC WITH DIFFERENTIAL Routine 09/01/2021 10:50 AM PIECE WORK INSPECTOR PROTIME-INR Routine 09/01/2021 10:50 AM PIECE WORK INSPECTOR BASIC METABOLIC PANEL Routine 09/01/2021 10:50 AM PIECE WORK INSPECTOR documented in this encounter Results * (ABNORMAL) PROTIME-INR (09/01/2021 10:50 AM PIECE WORK INSPECTOR) Pathologist [facility] PROTIME 21.4(H) 11.5 - 14.7 Seconds 09/01/2021 12:15 PM PIECE WORK INSPECTOR [facility] INR 1.9(H) 0.9 - 1.1 09/01/2021 12:15 PM PIECE WORK INSPECTOR [facility] Blood 09/01/2021 10:5 0 AM PIECE WORK INSPECTOR 09/01/2021 11:49 AM PIECE WORK INSPECTOR Godwin Javi Guillen MD HEMATOLOGY ORDERABL ES Final Result [facility] CLIA# [id number] [address] [place] [address] * (ABNORMAL) CBC WITH DIFFERENTIAL (09/01/2021 10:50 AM PIECE WORK INSPECTOR) Pathologist [facility] WBC 6.2 4.5 - 10.5 K/uL 09/01/2021 [...] 160 - 420 K/uL 09/01/2021 11:52 AM [facility] MPV 7.3(L) 8.7 - 12.7 fL 09/01/2021 11:52 AM [facility] NEUTROPHILS 75 % 09/01/2021 11:52 AM [facility] LYMPHOCYTES 17 % 09/01/2021 11:52 AM PIECE WORK INSPECTOR [facility] MONOCYTES 7 % 09/01/2021 11:52 AM PIECE WORK INSPECTOR [facility] SERVICES [facility] EOSINOPHILS 1 % 09/01/2021 11:52 AM PIECE WORK INSPECTOR [facility] SERVICES [facility] BASOPHILS 0 % 09/01/2021 11:52 AM PIECE WORK INSPECTOR [facility] NEUTROPHIL ABSOLUTE 4.60 1.90 - 7.00 K/uL 09/01/2021 11:52 AM [facility] LYMPHOCYTE ABSOLUTE 1.10 0.70 - 4.50 K/uL 09/01/2021 11:52 AM [facility] Vastari [facility] MONOCYTE ABSOLUTE 0.40 0.10 - 1.30 K/uL 09/01/2021 11:52 AM PIECE WORK INSPECTOR [facility] EOSINOPHIL ABSOLUTE 0.00 0.00 - 0.70 K/uL 09/01/2021 11:52 AM [facility] BASOPHILS ABSOLUTE 0.00 0.00 - 0.20 K/uL 09/01/2021 11:52 AM [facility] Vastari [facility] Blood 09/01/2021 10:5 0 AM PIECE WORK INSPECTOR 09/01/2021 11:50 AM PIECE WORK INSPECTOR us Godwin Javi Guillen MD HEMATOLOGY ORDERABL ES Final Result [facility] CLIA# [id number] [address] [place] [address] * (ABNORMAL) BASIC METABOLIC PANEL (09/01/2021 10:50 AM PIECE WORK INSPECTOR) SODIUM 137 136 - 145 mmol/L 09/01/2021 3:30 PM PIECE WORK INSPECTOR [facility] POTASSIUM 4.9 3.4 - 5.1 mmol/L 09/01/2021 [...] MEDICAL CENTER Blood 09/01/2021 10:5 0 AM PIECE WORK INSPECTOR 09/01/2021 11:49 AM PIECE WORK INSPECTOR us Godwin Guillen MD CHEMISTRY ORDERABLE S Final Result [facility] CLIA# [id number] [address] [place] [address] documented in this encounter Visit Diagnoses Not on filedocumented in this encounter
--- OUTSIDE RECORDS SUMMARY | 2025-01-29 07:47 | XMS_ITS | Clinical Summary ---
Author Organization [facility] Address [address] [place] [address] Care Team Providers Care Painting Manager Name Role Phone Kenzie Solomon MD Primary Care Provider Social History Tobacco Use Types Packs/Day Years Used Date Smoking Tobacco: Never Assessed Comments Unknown Sex and Gender Information Value Date Recorded Sex Assigned at Not on file Legal Sex Female 2:29 PM CDT Gender Identity Not on file Sexual Orientation Not on file Plan of Treatment Upcoming Encounters Date Type Department Care Team (Late st Contact Info) Description 04/19/2025 8:40 AM CDT Office Visit [facility] Multispecialty Care - [facility] [address] [facility] [address] [facility], [address] [place] [id number] Yumiko Cook MD [address] [place] [address] Health Maintenance Due Date Last Done Comments [...] 2020 COVID-19 Vaccine (2023-2 5 season) 2024 PHQ-2 (Physician [place]) 10/24/2024 HPV Vaccines Aged Out No longer [...] complete this topic Insurance [employer] Care Teams Painting Manager Relationship Specialty Start Date End Date Kenzie Solomon MD [address] [place] [address] [place] [id number] PCP - General 07/13/16
--- OUTSIDE RECORDS SUMMARY | 2025-01-29 07:47 | XMS_ITS ---
Author Organization [facility] Address [address] [place] [address] Care Team Providers Care Reflector Driller And Deburrer Name Role Phone Blake Kumar Primary Care Provider [phone] Maria Ines Keller Unavailable [phone] Allergies Allergen (clinical drug ingredient) Drug/Non Drug Allergy documented on EMR Reaction Allergy Type Onset Date Status adhesive (uncoded) Unknown Allergy A ctive codeine codeine (uncoded) Unknown Allergy Ac tive Results Component Value Reference Range Notes 12 Panel Urine Drug Screen Reviewed date:01/16/2025 09:19:30 AM Interpretation: Performing Lab: Notes/Report: THC neg NILE neg MOP (OPI) neg AMP neg MET neg BAR neg BZO neg MDMA neg MTD neg OXY neg PCP neg BUP POS REASON FOR VISIT MAT F/U- Sublocade Medications Medication SIG (Take, Route, Frequency, Duration) Notes Start Date End Date Status Docusate Sodium 100 MG 1 capsule as need ed Orally Once a day for 30 day(s) Active Cymbalta 60 MG 1 capsule (for a tot al of 90mg) Orally Once a day for 30 days 03/12/2024 Active traZODone HCl 100 MG TAKE 1 TABLET BY [facility] AT BEDTIME for 30 Active Sublocade 300 MG/1.5ML 300 mg Subcutaneo us every 28 days 11/14/2024 Active Buprenorphine HCl-Naloxone HCl 4-1 MG 1 film under the tongue and allow to dissolve Sublingual once a day as needed 01/16/2025 Active Pantoprazole Sodium 40 MG 1 tablet Orall y Once a day for 30 day(s) Active Arthritis Pain Relief 650 MG 2 tablets as needed Orally every 8 hrs Active lamoTRIgine 25 MG Take 1 tablet PO onc e daily for 2 weeks, then increase to 2 tablets once daily for 2 weeks (DC if rash) Orally for 30 days 03/12/2024 Active Aspirin 81 MG 1 tablet Orally Once a day for 30 day(s) Active Eliquis 5 MG as directed Orally t wice a day Active Social History Tobacco Use: Social History Observation Description Date Details (start date - stop date) Current Smoker NA - NA Sex Assigned At : Social History Observation Description Sex Assigned At Female Tobacco Control (Standard) Question Answer Notes Tobacco use: Current every day smoker Additional Findings: Tobacco user e-cigarette Vital Signs Weight 158.2 lbs 01/16/2025 Height 72 in 01/16/2025 BMI 21.45 kg/m2 01/16/2025 Blood pressure systolic 112 mm Hg 01/17/20 25 Blood pressure diastolic 64 mm Hg 025 Heart Rate 90 /min 01/16/2025 Oximetry 98 % 01/16/2025 Temperature 98.2 degrees Fahrenheit 01/17/20 25 Respiratory Rate 16 /min 01/16/2025 Encounters Encounter Location Date Provider Diagnosis [place] [address] [facility] [place] [address] 01/16/2025 Maria Ines Keller Nicotine dependence, unspecified, uncomplicated F17.200 and Opioid use disorder F11.99 Assessments Encounter Date Diagnosis (ICD Code) Assessment Notes Treatment Notes Treatment Clinical Notes Section Notes 01/16/2025 Nicotine dependence, unspecified, uncomplicated (ICD-10 - F17.200) 01/16/2025 Opioid use disorder (ICD-10 - F11.99) 01/16/2025 Other Discussed medication side effects, adverse effects, risks, benefits, as well as interactions. Encouraged non-use of opioids. Has naloxone. Recommended participation in recovery groups and/or counseling services. May contact office with questions or concerns. Patient may self-administe r their own medications or may self-administe r their own oral medications per [place] Protocol. Plan Of Treatment Medication Medication Name Sig Start Date Stop Date Notes Docusate Sodium 100 MG 1 capsule as need ed Orally Once a day for 30 day(s) Sublocade 300 MG/1.5ML 300 mg Subcutaneo us every 28 days 11/14/2024 Buprenorphine HCl-Naloxone H Cl 4-1 MG 1 film under the tongue and allow to dissolve Sublingual once a day as needed 01/16/2025 Treatment Notes Assessment Notes Other Discussed medication side effects, adverse effects, risks, benefits, as well as interactions. Encouraged non-use of opioids. Has naloxone. Recommended participation in recovery groups and/or counseling services. May contact office with questions or concerns. Next Appt Details Follow Up: 4 Weeks, Reason: MAR f/u Medications Administered Medication Instructions Date of Administration Dosage Notes Sublocade 01/16/2025 300 mg Teresa Bee 01/16/2025 09:00 AM CDT >Given Subq LUQ, tolerated well. [facility]# [id number]. Progress Notes * Charmaine VERDUZCODOB:1979 (44 yo F)Acc No.[id number]:01/16/2025 Patient: Jorge Luis LOMBARDICharmaine WYATT Provider: Rabia Keller, MSN, BALL POINTS INSPECTOR, DIRECT MAIL CLERK-C :1980 A ge:44 Y S ex:Female Date:01/16/2025 Address:[address] [place], [place] [id number] Pcp:Blake Kumar Check In:08:09 AM MISSION ASSESSMENT SPECIALIST Subjective: * Chief Complaints: * M AT F/U- Sublocade * HPI: I nterim History: Emergency room visit Y es. Was hospitalized N o. D epression Screening: PHQ-9 L ittle interest or pleasure in doing things?Not at all F eeling down, depressed, or hopeless N ot at all T rouble falling or staying asleep, or sleeping too much N early every day F eeling tired or having little energy N early every day P oor appetite or overeating N ot [...] in some way N ot at all S creening: Boundary Suicide Severity Rating Scale (LF) D o [...] Risk M AR follow-up: Charmaine presents with significant other for MAR f/u. Received last injection of Sublocade 300mg on 12/19/2024 and reports no adverse reactions from medication. No setbacks or cravings. Medication Monitoring and Risk Mitigation U p-to-date on [facility] recommended lab testing??Yes P rescribed a buprenorphine product? Y es H as patient had a buprenorphine and metabolite lab ordered/collected? Y es (see notes for date of last metabolite testing) D ate of last buprenorphine and metabolite?06/03/2022 P rescription Drug Monitoring Program Review?Yes. No [...] safe housing. C urrently employed? U nemployed. applying for SSI R eferrals needed: N o referrals needed at this time. Recommended Wellness and Prevention Follow-up R ecommended Wellness and Prevention reviewed:?Yes. No additional orders/actions needed at this time. Other concerns: O ther Concerns? N o. N arcan need N o. Patient already has Narcan. C SSRS Interpretation and Follow Up Plan: CSSRS Interpretation and Follow Up Plan C SSRS Screen documented using SF Y es R isk Disposition from SF L ow - No Follow Up Plan Required F ollow Up Plan N o Follow Up Plan required at this time. T imeframe of Screening T shannon * ROS: B asic ROS: Denies C hills. D enies S weats. D enies C onstipation. I nsomnia D enies. D enies S uicidal Thoughts. * Medical [...] E mployment Status: U nemployed Full-time student Single Question Alcohol Screening H ow may times in the past year have you had (4 for women, or 5 for men) or more drinks in a day? 0 T obacco Use: T obacco Control (Standard) T obacco use: C urrent every day smoker A dditional Findings: Tobacco user e -cigarette M iscellaneous: M ethod of learning P referred method of learning: R eading * Medications: T akingPantoprazole Sodium 40 MG Tablet Delayed Release 1 tablet Orally Once a day Arthritis Pain Relief 650 MG Tablet Extended Release 2 tablets as needed Orally every 8 hrs Aspirin 81 MG Tablet Delayed Release 1 tablet Orally Once a day Eliquis 5 MG Tablet as directed Orally [...] capsule as needed Orally Once a day Sublocade 300 MG/1.5ML Solution Prefilled Syringe 300 mg Subcutaneous every 28 days Buprenorphine HCl-Naloxone HCl 4-1 MG Film 1 film under the tongue and allow to dissolve Sublingual once a day as needed Medication List reviewed and reconciled with the patientTaking Pantoprazole Sodium 40 MG Tablet Delayed Release 1 tablet Orally Once a day Taking Arthritis Pain Relief 650 MG Tablet Extended Release 2 tablets as needed Orally every 8 hrs Taking Aspirin 81 MG Tablet Delayed Release 1 tablet Orally Once a day Taking Eliquis 5 MG Tablet as directed [...] capsule as needed Orally Once a day Taking Sublocade 300 MG/1.5ML Solution Prefilled Syringe 300 mg Subcutaneous every 28 days Taking Buprenorphine HCl-Naloxone HCl 4-1 MG Film 1 film under the tongue and allow to dissolve Sublingual once a day as needed Medication List reviewed and reconciled with the patient * Allergies: c tram[Allergies Verified] Objective: * Vitals: I nitials: TT, Wt:158.2, Ht: 72, BMI:21.45, BP:112/64, HR:90, Oxygen sat %:98, Temp:98.2, RR:16, LMP: IUD, [...] services. May contact office with questions or concerns.?? Clinical Notes: Patient may self-administer their own medications or may self- administer their own oral medications per [place] Protocol.?? * Therapeutic Injections: Sublocade : 300 mg (Dose No:1) (Route: Subcutaneous) given by TITO Lindquist on left upper quadrant (Opioid use disorder) * Procedure Codes: 9 9406 BEHAV CHNG SMOKING 3-10 [id number] SPECIMEN [id number] THER/PROPH/DIAG INJ, SC/IM * Preventive Medicine: Counseling: S MOKING: Patient counselled on the dangers of tobacco use and urged to quit. . * Follow Up: 4 Weeks (Reason: Dec/u) * Care Plan Details* * Sign off status: Completed true * Provider: Rabia Keller, MSN, BALL POINTS INSPECTOR, DIRECT MAIL CLERK-C Date: 0 01/16/2025 Generated for Ravi harris/Jose/eTransmitting on: 0 01/29/2025 07:46 AM CDT History and Physical Notes * HPI (History of Present Illness) Category Sub-Category Detail Notes Category Not es Interim History Was hospitalized No Emergency room visit Yes Depression Screening PHQ-9 Little inte rest or pleasure in doing things: Not at all Feeling down, depressed, or hopeless: No t at all Trouble falling or staying asleep, or sl eeping too much: Nearly every day Feeling tired or having little energy: N early every day Poor appetite or overeating: Not at all [...] yourself in some way: Not at all Screening Boundary Suicide Sev erity Rating Scale (LF) Do [...] had a buprenorphine and metabolite lab ordered/collected?: Yes (see notes for date of last metabolite testing) Date of last buprenorphine and metabolite: 06/03/2022 Prescription Drug Monitoring Program Rev iew: Yes. [...] and safe hous ing. Currently employed?: Unemployed. applyin g for SSI Referrals needed:: No referrals needed a t this time. Recommended Wellness and Pre vention Follow-up Recommended Wellness and Prevention reviewed:: Yes. No additional orders/actions needed at this time. Other concerns: Other Concerns?: No. Narcan need: No. Patient already has Sergio can. CSSRS Interpretation and Follow Up Plan CSSRS Interpretation and Follow Up Plan CSSRS Screen documented using SF: Yes Risk Disposition from SF: Low - No Follo w Up Plan Required Follow Up Plan: No Follow Up Plan requir ed at this time. Timeframe of Screening: Today Examination Category Sub-Category Detail Notes Category Not es General Examination GENERAL APPEARANCE: pleasant, in n o acute distress PSYCH: speech clear, alert, oriented x4, good eye contact, full range of affect/positive mood, judgement and insight good, thought process logical, goal directed
--- OUTSIDE RECORDS SUMMARY | 2025-01-29 07:47 | XMS_ITS | Encounter Summary ---
Author Organization [facility] Address [address] [place] [address] Care Team Providers Care Amalgamator Name Role Phone Unavailable Primary Care Provider Unavailabl e Encounter Details Date Type Department Care Team (Late st Contact Info) Description 08/28/2021 Lab Requisition [facility] Laboratory Services [address] [place] [address] Godwin Guillen MD [address] [place] [address] [address] Social History Tobacco Use Types [...] - 14.7 Seconds 08/28/2021 11:13 AM CDT [facility] INR 2.8(H) 0.9 - 1.1 08/28/2021 11:13 AM CDT [facility] Blood Collection / Unknown 08/28/2021 4:00 AM CDT 08/28/2021 10:29 AM CDT us Godwin Guillen MD HEMATOLOGY ORDERABL ES Final Result [facility] CLIA# [id number] [address] [place] [address] documented in this encounter Visit Diagnoses Not on filedocumented in this encounter
--- OUTSIDE RECORDS SUMMARY | 2025-01-29 07:47 | XMS_ITS | Encounter Summary ---
Author Organization [facility] Address [address] [place] [address] Care Team Providers Care Heel Pricker Name Role Phone Unavailable Primary Care Provider Unavailabl e Encounter Details Date Type Department Care Team (Late st Contact Info) Description 09/04/2021 Lab Requisition [facility] Laboratory Services [address] [place] [address] [facility], External Provider [address] [place] [address] Social History Tobacco Use Types Packs/Day Years [...] Diagnosis Comments PROTIME-INR Routine 09/04/2021 3:20 AM TRY OUT PERSON documented in this encounter Results * (ABNORMAL) PROTIME-INR (09/04/2021 3:20 AM TRY OUT PERSON) PROTIME 28.1(H) 11.5 - 14.7 Seconds 09/04/2021 4:58 AM TRY OUT PERSON [facility] INR 2.6(H) 0.9 - 1.1 09/04/2021 4:58 AM TRY OUT PERSON [facility] Blood Collection / Unknown 09/04/2021 3:20 AM TRY OUT PERSON 09/04/2021 4:33 AM TRY OUT PERSON us External Provider [facility] HEMATOLOGY ORDERABLES Fin al Result Performing Organization Address City/State/[facility] Co de Phone Number [facility]# [id number] [address] [place] [address] documented in this encounter Visit Diagnoses Not on filedocumented in this encounter
--- OUTSIDE RECORDS SUMMARY | 2025-01-29 07:47 | XMS_ITS | Encounter Summary ---
Author Organization [facility] Address [address] [place] [address] Care Team Providers Care Director Web Name Role Phone Unavailable Primary Care Provider Unavailabl e Encounter Details Date Type Department Care Team (Late st Contact Info) Description 08/25/2021 Lab Requisition [facility] Laboratory Services [address] [place] [phone] Godwin Guillen MD [address] [place] [address] [address] Social History Tobacco Use Types [...] - 37.1 seconds 08/25/2021 1:53 PM CDT [facility] Blood Collection / Unknown 08/25/2021 4:50 AM CDT 08/25/2021 1:16 PM CDT Godwin Guillen MD HEMATOLOGY ORDERABL ES [id number] [place], [place] [id number] * (ABNORMAL) PROTIME-INR (08/25/2021 4:50 AM CDT) Pathologist [facility] PROTIME 20.7(H) 11.5 - 14.7 Seconds 08/25/2021 1:53 PM CDT [facility] INR 1.8(H) 0.9 - 1.1 08/25/2021 1:53 PM CDT [facility] Blood Collection / Unknown 08/25/2021 4:50 AM CDT 08/25/2021 1:16 PM CDT Godwin Guillen MD HEMATOLOGY ORDERABL ES Final Result [facility] CLIA# [id number] [place], [place] [id number] * (ABNORMAL) PREALBUMIN (08/25/2021 4:50 AM CDT) Pathologist [facility] PREALBUMIN 19(L) 20 - 40 mg/dL 08/25/2021 5:49 PM CDT [facility] Blood Collection / Unknown 08/25/2021 4:50 AM CDT 08/25/2021 1:16 PM CDT Godwin Guillen MD CHEMISTRY ORDERABLE S Final Result [facility]# [id number] [address] [facility] [place] [address] * (ABNORMAL) CBC WITH DIFFERENTIAL (08/25/2021 4:50 AM CDT) [facility] WBC 5.2 4.5 - 10.5 K/uL 08/25/2021 1:33 PM CDT [facility] RBC 3.24(L) 3.90 - 4.90 M/uL 08/25/2021 1:33 PM CDT [facility] HEMOGLOBIN 9.1(L) 11.8 - 14.8 g/dL 08/25/2021 1:33 PM CDT [facility] HEMATOCRIT 28.0(L) 35.5 - 44.0 % 08/25/2021 1:33 PM CDT [facility] MCV 86.3 82.0 - 99.0 fL 08/25/2021 1:33 PM CDT [facility] MCH 28.2 27.8 - 34.5 pg 08/25/2021 1:33 PM CDT [facility] MCHC 32.6 32.5 - 35.5 g/dL 08/25/2021 1:33 PM CDT [facility] RDW 17.4(H) 11.5 - 14.5 % 08/25/2021 1:33 PM CDT [facility] PLATELETS 229 160 - 420 K/uL 08/25/2021 1:33 PM CDT [facility] MPV 7.3(L) 8.7 - 12.7 fL 08/25/2021 1:33 PM CDT [facility] NEUTROPHILS 68 % 08/25/2021 1:33 PM CDT [facility] LYMPHOCYTES 23 % 08/25/2021 1:33 PM CDT [facility] MONOCYTES 8 % 08/25/2021 1:33 PM CDT [facility] EOSINOPHILS 1 % 08/25/2021 1:33 PM CDT [facility] BASOPHILS 1 % 08/25/2021 1:33 PM CDT [facility] NEUTROPHIL ABSOLUTE 3.60 1.90 - 7.00 K/uL 08/25/2021 1:33 PM CDT [facility] LYMPHOCYTE ABSOLUTE 1.20 0.70 - 4.50 K/uL 08/25/2021 1:33 PM CDT [facility] MONOCYTE ABSOLUTE 0.40 0.10 - 1.30 K/uL 08/25/2021 1:33 PM CDT [facility] EOSINOPHIL ABSOLUTE 0.00 0.00 - 0.70 K/uL 08/25/2021 1:33 PM CDT [facility] BASOPHILS ABSOLUTE 0.00 0.00 - 0.20 K/uL 08/25/2021 1:33 PM CDT [facility] Blood Collection / Unknown 08/25/2021 4:50 AM CDT 08/25/2021 1:16 PM CDT Godwin Javi Guillen MD HEMATOLOGY ORDERABL ES Final Result [facility] CLIA# [id number] [place] [address] * (ABNORMAL) COMPREHENSIVE METABOLIC PANEL (08/25/2021 4:50 AM CDT) SODIUM 136 136 - 145 mmol/L 08/25/2021 2:03 PM CDT [facility] POTASSIUM 4.4 3.4 - 5.1 mmol/L 08/25/2021 2:03 PM CDT [facility] CHLORIDE 98 98 - 107 mmol/L 08/25/2021 2:03 PM [facility] [place] [place] CO2 25 22 - 29 mmol/L 08/25/2021 2:03 PM [facility] [place] [place] CALCIUM 8.8 8.6 - 10.4 mg/dL 08/25/2021 2:03 PM [facility] [place] [place] BUN 23(H) 6 - 20 mg/dL 08/25/2021 2:03 PM [facility] [place] [place] CREATININE 0.65 0.51 - 0.95 mg/dL 08/25/2021 2:03 PM [facility] [place] [place] GLUCOSE 60(L) 74 - 99 mg/dL 08/25/2021 2:03 PM [facility] [place] [place] TOTAL PROTEIN 6.1(L) 6.3 - 8.7 g/dL 08/25/2021 2:03 PM [facility] [place] [place] ALBUMIN 3.0(L) 3.5 - 5.2 g/dL 08/25/2021 2:03 PM [facility] [place] [place] BILIRUBIN TOTAL 0.2(L) 0.3 - 1.2 mg/dL 08/25/2021 2:03 PM [facility] [place] [place] ALKALINE PHOSPHATASE 62 40 - 150 U/L 08/25/2021 2:03 PM [facility] [place] [place] AST 34(H) 0 - 33 U/L 08/25/2021 2:03 PM [facility] [place] [place] ALT 6 0 - 33 U/L 08/25/2021 2:03 PM [facility] [place] [place] GFR >60 mL/min/1.7 3 sq meter 08/25/2021 2:03 PM [facility] [place] [place] Comment: eGFR has not been validated for [...] 3 sq meter 08/25/2021 2:03 PM CDT [facility] ANION GAP 13 8 - 16 mmol/L 08/25/2021 2:03 PM CDT [facility] Blood Collection / Unknown 08/25/2021 4:50 AM CDT 08/25/2021 1:16 PM CDT us Godwin Javi Guillen MD CHEMISTRY ORDERABLE S Final Result [facility] CLIA# [id number] [place] [address] documented in this encounter Visit Diagnoses Not on filedocumented in this encounter
--- OUTSIDE RECORDS SUMMARY | 2025-01-29 07:47 | XMS_ITS | Encounter Summary ---
Author Organization Address [address] [place] [address] Care Team Providers Care Pipe Turner Name Role Phone Unavailable Primary Care Provider Unavailabl e Encounter Details Date Type Department Care Team (Late st Contact Info) Description 09/02/2021 Lab Requisition [facility] Laboratory Services [address] [place] [phone] Godwin Guillen MD [address] [place] [address] [address] Social History Tobacco Use Types [...] Diagnosis Comments PROTIME-INR Routine 09/02/2021 3:07 AM BARBER INSTRUCTOR documented in this encounter Results * (ABNORMAL) PROTIME-INR (09/02/2021 3:07 AM BARBER INSTRUCTOR) PROTIME 22.7(H) 11.5 - 14.7 Seconds 09/02/2021 10:06 AM BARBER INSTRUCTOR [facility] INR 2.0(H) 0.9 - 1.1 09/02/2021 10:06 AM BARBER INSTRUCTOR [facility] Blood Collection / Unknown 09/02/2021 3:07 AM BARBER INSTRUCTOR 09/02/2021 9:36 AM BARBER INSTRUCTOR us Godwin Guillen MD HEMATOLOGY ORDERABL ES Final Result [facility] CLIA# [id number] [place] [address] documented in this encounter Visit Diagnoses Not on filedocumented in this encounter
--- OUTSIDE RECORDS SUMMARY | 2025-01-29 07:47 | XMS_ITS | Encounter Summary ---
Author Organization [facility] Address [address] [place] [address] Care Team Providers Care Tape Weaver Name Role Phone Unavailable Primary Care Provider Unavailabl e Encounter Details Date Type Department Care Team (Late st Contact Info) Description 08/28/2021 Lab Requisition [facility] Laboratory Services [address] [place] [phone] Godwin Guillen MD [address] [place] [address] [phone] Social History Tobacco Use Types [...]
--- OUTSIDE RECORDS SUMMARY | 2025-01-29 07:47 | XMS_ITS | Data Portability ---
Author Organization [facility] [employer], Main Office Address [address] [place] [address] Assessment No assessment recorded. Plan of Treatment Reminders Order Date Submit Date Provider Last Modified By Organization Details Last Modified Time Details Appointments None recorded. Lab CBC w/ auto diff 2024 025 [facility] (Lab), [address] [place], [address], 5 15:15:28 TSH, serum or plasma 2024 025 [facility] (Lab), [address] [place], [address], 5 15:15:28 vitamin B12 + folate, serum or blood 2024 025 [facility] (Lab), [address] [place], [address], 5 15:15:28 vitamin D3, 25-hydrox y, serum 2024 025 [facility] (Lab), [address] [place], [address], 5 15:15:29 rapid strep group A, throat 2023 024 [facility], [address] [place] [address], [place], [address], 4 11:59:31 lipid panel, serum [address] (Lab), [address] [place], [address], 4 10:02:57 CMP, serum or plasma [address] (Lab), [address] [place], [address], 4 09:26:36 HbA1c (hemoglob in A1c), blood [address] (Lab), [address] [place], [address], 4 10:18:38 CBC [address] (Lab), [address] [place], [address], 4 10:01:41 iron + TIBC + ferritin, serum [address] (Lab), [address] [place], [address], 4 10:01:59 TSH, serum, reflex free T4 [address] (Lab), [address] [place], [address], 4 10:00:40 vitamin D, 25-hydrox y, total, serum [address] (Lab), [address] [place], [address], 4 10:01:18 vitamin B12 + folate, serum or blood [address] (Lab), [address] [facility], [place], [address], 4 09:26:21 Referral cardiolog ist referral 2024 025 [email or web address] [facility] Cardiovascular Department, [address] [facility] , [place], [address], 5 10:11:[address] referral 2023 024 [email or web address] [facility] - Neurology, [address] [facility], [address], [place], [address], 4 09:21:04 psychiatr ist referral 2023 024 [email or web address] [facility], [address] [facility], [address], [place], [address], 4 08:54:35 cardiolog ist referral - Previousl y establish ed, last seen approx. 08/2022. Please call patient to schedule appointme nt. 2023 024 [email or web address] [facility] Cardiovascular Department, [address] [facility] , [place], [address], 4 14:00:55 Procedures None recorded. Surgeries None recorded. Imaging XR, knee, 3 view - Please XR right knee 2023 024 [email or web address] [address] [facility], [address], [address], [place], [address], 4 08:39:38 XR, knee, 3 view - Please XR lt knee 2023 024 [email or web address] [address] [facility], [address], [address], [place], [address], 4 08:39:38 US, neck, soft tissue 2023 024 [email or web address] [address] [facility], [address], [place], [address], 4 09:02:06 US, thyroid 2023 024 [email or web address] [address] [facility], [address], [place], [address], 4 08:55:37 MAMMO, screening , digital, bilateral 2023 024 [email or web address] [address] [facility], [address], [place] [address], [place], [address], 4 10:03:01 Medication Orders Medrol (Rodney) 4 mg tablets in a dose pack 2023 [facility] #89733, [address] [place], [place], [id number], 5 09:15:37 cetirizin e 10 mg tablet 2023 [facility] #22357, [address], [place], [id number], 4 11:40:08 Flonase Allergy Relief 50 mcg/actua tion nasal spray,bobbi pension 2023 [facility] #64912, [address], [place], [id number], 4 11:40:08 duloxetin e 60 mg capsule,d elayed release 2023 [facility] #79068, [address], [place], [id number], 4 11:25:56 lamotrigi ne ER 25 mg tablet,ex tended release 24 hr 2023 [facility] #25597, [address] [facility], [place], [place], [id number], 4 11:37:18 urea 20 % topical cream [address] [facility] #07422, [address] [facility], [place], [place], [id number], 4 10:57:48 Ubrelvy 100 mg tablet 2023 024 [facility] #80868, [address] [facility], [place], [place], [id number], 4 11:21:49 rizatript an 10 mg tablet 2023 024 [facility] #14712, [address] [facility], [place], [place], [id number], 5 09:32:57 amoxicill in 875 mg tablet [address] [facility]17123, [address] [facility], [place], [place], [id number], 4 10:30:15 duloxetin e 60 mg capsule,d elayed release 2022 023 [facility] #47548, [address] [facility], [place], [id number], 3 16:17:31 Patient TargetsNo targets recorded. Patient Instructions Encounter Date Encounter Id Patient Instructions Last Modified By Organization Details Last Modified Time 07/22/2023 [id number] fu with pcp kel[place] for med refills. [email or web address] Not available 07/22/2023 16:18:55 Reason for Referral Creative Project Manager Referral for Ca rdiac pacemaker in situ Previously established, last seen approx. 08/2022. Please call patient to schedule appointment. Referring Physician: Lisa Cheema [facility], Encounter Date: 10/31/2023 Psychiatrist Referral for Bi polar disorder Referring Physician: Liza Paul [facility], Encounter Date: 06/26/2024 Neurologist Referral for His tory of cerebrovascular accident Referring Physician: Liza Paul [facility], Encounter Date: 06/26/2024 Creative Project Manager Referral for Lo ss of consciousness Referring Physician: Liza Paul [facility], Encounter Date: 01/11/2025 Results Created Date Observation Date Name Description Value Unit Range Abnormal Flag Note LastModifiedBy Organization Detail LastModifiedTime 08/28/20 24 08/28/2024 rapid strep group A, throa t STREP A negati ve Not Available [facility]_[address], [address], 08/28/2024 11:42:39 Result Notes None recorded. Problems Name Problem SNOMED Code Status Onset Date Resolution Date Notes Provider Name and Address Organization Details Recorded Time Anxiety state 385543790 Active Not Available [facility] 3 07:31:03 Malaise and fatigue 574405416 Active Not Available [facility] 3 07:31:03 Eruption 519152576 Completed 06/26/2024 ROOSEVELT Garcia [address], [employer], [place], [address] , [employer] 4 10:55:30 Jaw pain 039101800 Completed 06/26/2024 ROOSEVELT Garcia [address], [address], [place], [address] , [employer] 4 10:55:42 Knee pain Active Not Available [facility] 3 07:31:04 Sinusitis 46908009 Active Not Available [facility] 3 07:31:04 Migraine 58521417 Completed 06/26/2024 ROOSEVELT Garcia [address], [address], [place], [address] , [employer] [facility] [facility] 4 11:02:18 Dizziness 056610985 Active Not Available [facility] 3 07:31:04 Shoulder pain 10701812 Active Not Available [facility] 3 07:31:04 Anxiety 25026688 Active Not Available [facility] 3 07:31:04 Upper respirato ry infection 92101833 Active Not Available [facility] 3 07:31:04 Joint pain 03739991 Completed 06/26/2024 ROOSEVELT Garcia [address], [address], [place], [address] , [employer] [facility] 4 10:55:49 Otitis media 77943692 Active Not Available [facility] 3 07:31:04 Mixed anxiety and depressiv e disorder 270733324 Active 2022 Jaclyn Magana NP [address], [address], [place], [address] , [employer] [facility] 3 16:17:01 Infection of tooth 540103666 Completed 202306/26/2024 ROOSEVELT Garcia [address], [address], [place], [address] , [employer] [facility] 4 10:55:34 Vitamin D deficienc y 61100197 Active 2023 JARED Major [address], [address], [place], [address] , [employer] [facility] 4 08:39:33 Anemia 135777336 Active 2023 JARED Major [address], [address], [place], [address] , [employer] [facility] 4 08:40:27 Cobalamin deficienc y 276516603 Active 2023 JARED Major [address], [address], [place], [address] , [employer] [facility] [employer] [facility] 4 09:07:21 Keratosis pilaris 4378539 Active 2023 ROOSEVELT Garcia [address], [address], [place], [address] , [employer] [facility] [employer] [facility] 4 10:49:11 Bipolar disorder 18539974 Active 2023 ROOSEVELT Garcia [address], [address], [place], [address] , [facility] [employer] [facility] [employer] [facility] 4 10:52:34 Migraine with aura 0768033 Active 2023 ROOSEVELT Garcia [address], [address], [place], [address] , [employer] [facility] [employer] [facility] 4 11:01:12 Cervical lymphaden opathy 111488315 Active 2023 ROOSEVELT Garcia [address], [address], [place], [address] , [employer] [facility] [employer] [facility] 4 11:16:52 Lipoma of skin 438886398 Active 2023 ROOSEVELT Garcia [address], [address], [place], [address] , [employer] [facility] [employer] [facility] 4 11:20:22 Pain of left knee joint 73951226604 4107 Active 2023 ROOSEVELT Garcia [address], [address], [place], [address] , [employer] [facility] [employer] [facility] 4 11:21:37 Pain of bilateral knee joints 33805056227 4104 Active 2023 ROOSEVELT Garcia [address], [address], [place], [address] , [employer] [facility] [employer] [facility] 4 11:24:40 Sore throat 651487613 Active 2023 ROOSEVELT Garcia [address], [address], [place], [address] , [facility] [employer] 4 11:42:35 Loss of conscious ness 565941244 Active 2024 Liza Paul, ROOSEVELT [address] [facility], [facility] [address], [place], [address] , [facility] [employer] 5 09:30:10 Problem Notes None recorded. Procedures Surgical History Date Name Laterality Status Provider Name and Address Organization Details Recorded Time 1 open heart surgery completed Not Available [facility] 12/22/2022 07:26:14 Imaging Results None recorded. Procedure Notes None recorded. Medical Equipment None Reported. Allergies Allergen ID Allergen Name Allergen Category Reaction Reaction Severity Criticality Documentation Date Start Date Code Code System Note Provider Name and Address Organization Details Recorded Time 22864 codeine medicatio n rash Not available Not available 12/22/2022 2670 RxNorm Not Available [facility] 3 07:36:32 Medications Name Sig Start Date [...] Not Available cetirizin e 10 mg tablet TAKE 1 TABLET BY [...] 1 TABLET BY MOUTH EVERY DAY NEEDED 01/11 completed Not Available Not Available Not Available ciproflox acin 500 mg tablet Take [...] t Available lamotrigi ne 25 mg tablet TAKE 1 TABLET BY MOUTH DAILY active Not Available Not Available No [...] TAKE 1 CAPSULE BY MOUTH EVERY WEEK active Not Available Not Available No t Available polyethyl mainor glycol 3350 17 gram/dose [...] in a dose pack Take as directed 01/11 completed Not Available Not Available Not Available ketoconaz ole 2 % topical cream APPLY TO THE AFFECTED AREA(S) BY TOPICAL ROUTE BID x 4-6 weeks as needed 10/10 completed Not Available Not Available Not Available fluticaso ne propionat e 50 mcg/actua tion nasal spray,bobbi pension [place] 1 spray every day by intranas al [...] TAKE 1 CAPSULE BY MOUTH EVERY DAY active Not Available Not Available No t Available Mirena 06/26 completed Not Available Not Available [...] No t Available Vitals Date Recorded Body height Body mass index (BMI) Body weight Body temperature Heart rate Oxygen saturation Oxygen saturation in Arterial blood by Pulse oximetry Pain severity - 0-10 verbal numeric rating [Score] - Reported Systolic blood pressure Diastolic blood pressure Provider Name and Address Organization Details Last Updated DateTime 3 182.88 cm 21.2 kg/m2 80188.8 1 g 96.3 [degF] 81 /min 97 % 97 % 5 128 mm[Hg] 82 mm[Hg] Jaclyn Donovan RN [facility] [employer] 3 15:54:01 Date Recorded Body height Body mass index (BMI) Body weight Body temperature Heart rate Oxygen saturation Oxygen saturation in Arterial blood by Pulse oximetry Systolic blood pressure Diastolic blood pressure Provider Name and Address Organization Details Last Updated DateTime 4 182.88 cm 20.6 kg/m2 21775.0 4 g 98.3 [degF] 82 /min 99 % 99 % 102 mm[Hg] 78 mm[Hg] Marcia olson CMA [place] [employer] 4 08:24:35 Date Recorded Body height Body mass index (BMI) Body weight Body temperature Heart rate Respiratory rate Oxygen saturation Oxygen saturation in Arterial blood by Pulse oximetry Pain severity - 0-10 verbal numeric rating [Score] - Reported Systolic blood pressure Diastolic blood pressure Provider Name and Address Organization Details Last Updated DateTime 4 182.88 cm 21.4 kg/m2 78687.2 9 g 97.3 [degF] 93 /min 24 /min 97 % 97 % 0 122 mm[Hg] 84 mm[Hg] Jaclyn Donovan RN [facility] [employer] 4 10:36:39 Date Recorded Body height Body mass index (BMI) Body weight Body temperature Heart rate Respiratory rate Oxygen saturation Oxygen saturation in Arterial blood by Pulse oximetry Pain severity - 0-10 verbal numeric rating [Score] - Reported Systolic blood pressure Diastolic blood pressure Provider Name and Address Organization Details Last Updated DateTime 4 182.88 cm 21.5 kg/m2 41647.9 9 g 97.3 [degF] 63 /min 20 /min 95 % 95 % 0 118 mm[Hg] 72 mm[Hg] Jaclyn Donovan RN [facility] [employer] 4 11:00:07 Date Recorded Body height Body mass index (BMI) Body weight Body temperature Respiratory rate Heart rate Oxygen saturation Oxygen saturation in Arterial blood by Pulse oximetry Pain severity - 0-10 verbal numeric rating [Score] - Reported Systolic blood pressure Diastolic blood pressure Provider Name and Address Organization Details Last Updated DateTime 5 182.88 cm 21.1 kg/m2 28185.9 7 g 97.3 [degF] 20 /min 96 /min 96 % 96 % 3 110 mm[Hg] 70 mm[Hg] Jaclyn Donovan RN [facility] [employer] 5 09:18:40 Social History Question Answer Notes LastModified by Organization Details LastModified Time Tobacco Smoking Status Current Every Day Smoker Mireille gutierrez [place] [employer] [facility] [employer] 10/31/2023 08:14:48 Do You Have An Advance Directive? No [id number] Information not available 12/22/2022 Do You Wear A Helmet When Biking? No Information not available 10/31/2023 What Is Your Level Of Caffeine Consumption? None Information not available 06/26/2024 In The 14 Days Before Symptom Onset, Have You Had Close Contact With A Laboratory-confi rmed COVID-19 While That Case Was Ill? No [email or web address] Information not available 10/31/2023 In The 14 Days Before Symptom Onset, Have You Had Close Contact With A Person Who Is Under Investigation For COVID-19 While That Person Was Ill? No [email or web address] Information not available 10/31/2023 What Type Of Diet Are You Following? REGULAR Information not available 06/26/2024 What Is The Highest Grade Or Level Of School You Have Completed Or The Highest Degree You Have Received? [id number] [email or web address] Information not available 10/31/2023 What Is Your Occupation? Sales [email or web address] Information not available 10/31/2023 Have There Been Any Changes To Your Family Or Social Situation? No Information not available 08/28/2024 What Is The Fluoride Status Of Your Home? Unknown Information not available 10/31/2023 Are There Any Guns Present In Your Home? No [email or web address] Information not available 10/31/2023 Do You Use Insect Repellent Routinely? Yes [email or web address] Information not available 10/31/2023 Where Do You Live? SingleLevelHouse [email or web address] Information not available 10/31/2023 Do You Have A Medical Power Of Elect Equip Maint Eng? No [email or web address] Information not available 10/31/2023 How Many Children Do You Have? 2 Information not available 08/28/2024 Do You Have Any Pets? Yes [email or web address] Information not available 10/31/2023 What Is Your Relationship Status? [id number] Information not available 12/22/2022 Do You Use Your Seat Belt Or Car Seat Routinely? Yes [email or web address] Information not available 10/31/2023 Do You Have Smoke And Carbon Monoxide Detectors In Your Home? Yes Information not available 10/31/2023 Are You Passively Exposed To Smoke? No [email or web address] Information not available 10/31/2023 Are There Any Smokers In Your House? No [email or web address] Information not available 10/31/2023 Do You Participate In Social Media? Yes [email or web address] Information not available 10/31/2023 Do You Feel Stressed (tense, Restless, Nervous, Or Anxious, Or Unable To Sleep At Night)? [id number] [email or web address] Information not available 10/31/2023 Do You Use Any Illicit Or Recreational Drugs? Yes [email or web address] Information not available 10/31/2023 Do You Use Sunscreen Routinely? Yes [email or web address] Information not available 10/31/2023 Has Tobacco Cessation Counseling Been Provided? No [email or web address] Information not available 10/31/2023 How Many Years Have You Smoked Tobacco? 10 [email or web address] Information not available 10/31/2023 Have You Recently Traveled Abroad? No [email or web address] Information not available 10/31/2023 Have You Used IV Drugs? Yes Former Heroin User 4 Mos [email or web address] Information not available 10/31/2023 Are You Currently In School? No [email or web address] Information not available 10/31/2023 Do You Or Have You Ever Used Any Other Forms Of Tobacco Or Nicotine? No [email or web address] Information not available 10/31/2023 Sex: Unknown Functional Status Question Answer Note LastModified by Nival ion Details LastModified Time What is your exercise level? Occasional [id number] Information not available 12/22/2022 Mental Status None recorded. Family History Relationship Description Onset Age of this Age Resolved Age Notes LastModified by Organization Details LastModified Time Father Myocardial infarction 3X [id number] Not available 12/22/2022 07:26:16 Mother Bipolar disorder Not available 2023 10:28:09 Sister Bipolar disorder Not available 2023 10:28:09 Maternal Grandfather Diabetes mellitus [id number] Not available 12/22/2022 07:26:17 Maternal Grandfather Cerebrovascu [...] conjugate PCV 13 2 completed Not Available [facility] 12/22/2022 07:36:26 Influenza, split virus, quadrivalent, PF 5 completed Not Available [facility] 12/22/2022 07:36:27 Tdap 4 completed Marcia Reza CMA null, [place] - [place] [employer] 10/31/2023 09:23:52 pneumococcal polysaccharide PPV23 4 completed Marcia Reza CMA null, [place] [employer] 10/31/2023 09:59:57 Past Encounters Encounter ID Performer Location Encounter Start Date Encounter Closed Date Diagnosis/Indication Diagnosis SNOMED-CT Code Diagnosis ICD10 Code Diagnosis Note [id number] [facility] [address] [facility] [address] [place] [address] 10/30/2021 00:00:00 10/30/2021 20:02:14 [id number] [facility] [address] [place] [address] 11/03/2021 00:00:00 11/03/2021 18:55:33 [id number] [facility] [place] [address] [place] [address] [address] [place] [address] 12/08/2021 00:00:00 12/24/2021 18:19:26 [id number] [facility] [address] [place] [address] 03/04/2022 00:00:00 03/04/2022 10:30:44 [id number] [facility] [address] [facility] [address] [place] [address] 05/26/2022 00:00:00 05/26/2022 13:48:52 [id number] [facility] [address] [place] [address] 05/27/2022 00:00:00 05/27/2022 14:18:54 [id number] [facility] [address] [place] [address] 07/07/2022 00:00:00 07/07/2022 12:33:17 [id number] [facility] Primary Care [facility] [address] [facility] [address] [place] [address] 08/24/2022 00:00:00 09/22/2022 14:15:05 [id number] Jaclyn Magana NP [address] [address] 07/22/2023 15:40:42 07/22/2023 16:24:29 Upper respiratory infection 24375848 J06.9 Warm saltwater gargle qid for 3 days. Increase vit c, zinc, magnesium. Mixed anxi ety and depressive disorder 600474548 F41.8 refilled today for 30 days only. FU with PCP in [facility] for further refills. [id number] JARED Major [facility] Primary Care [address] [place] [address] 10/31/2023 08:13:56 10/31/2023 09:06:07 Adult health examination 813070204 Z00.00 Will get routine labs today. Covid vaccines- 10/02/23Fl u vaccine- 09/2023Tet anus vaccine- updated today Pap- 2013 wnl, will schedule f/u for well woman examColono scopy- recommende d age 45Mammogra m- recommende d, ordered today. Recommende d routine eye exams and dental cleanings. Administra tion of tetanus vaccine 104259881 Z23 Infection of tooth 54753 8007 K04.7 Receives prophylact ic abx for dental work. Administra tion of pneumococcal vaccine 63744522 Z23 Screening mammography 24 433296 Z12.31 Vitamin D deficiency 347 30974 E55.9 Anemia 778149547 D64.9 Cardiac pa elpidio in situ 391105573 Z95.0 Will get her re-establi shed with cardiology . Diabetes m ellitus screening 056472804 Z13.1 Hyperlipid emia screening 309873631 Z13.220 Cobalamin deficiency 190 502717 E53.8 [id number] ROOSEVELT Garcia [facility] [address] 06/26/2024 10:24:22 06/26/2024 11:49:43 Keratosis pilaris 2299075 Q82.8 Bipolar disorder 5850824 4 F31.9 Continuati on of treatment with lamotrigin e Migraine with aura 83946 06 G43.109 Has failed Sumatripta n History of cerebrovascular accident 603123969 Z86.73 Cervical lymphadenopathy 050346283 R59.0 Lipoma of skin 515031093 D17.30 Lipoma of the left forearm, causing minimal pain. Not interested in surgery [id number] ROOSEVELT Garcia [address] [address] 08/28/2024 10:41:34 08/28/2024 12:00:06 Mixed anxiety and depressive disorder 923304136 F41.8 Pain of bi lateral knee joints 7102637857 11308 M25.561 Continue Biofreeze, ice, heatAdd Tylenol arthritis, no more than 3,000 mg daily Upper resp iratory infection 69056249 J06.9 Sore throat 730707917 J0 2.9 [id number] [facility] [address] 01/11/2025 09:00:15 01/11/2025 10:11:39 Loss of consciousness 793945693 R55 Continue FU with neurologyF U with cardiology Discussed laying down when beginning to feel light headed Health Concerns Section Related Observation LastModified by Organization Detai ls LastModified Time None Recorded Concern Status LastModified by Organization Details LastModified Time None Recorded Advance Directives Directive N: Payers Encounter Date Sequence Insurance Name Policy Number Policy Hernandez Covered Member ID Hernandez Member ID Guarantor Name 07/22/2023 1 [facility] (MEDICAID HMO) [id number] Charmaine Ayon [id number] Charmaine Ayon 10/31/2023 1 [facility] (MEDICAID HMO) [id number] Charmaine Oneillloot [id number] Charmaine Mylessloot 06/26/2024 1 [facility] (MEDICAID HMO) [id number] Charmaine Oneillloot [id number] Charmaine [place] 08/28/2024 1 [facility] (MEDICAID HMO) [id number] Charmaine Mylessloot [id number] Charmaine Mylessloot 01/11/2025 1 [facility] (MEDICAID HMO) [id number] Charmaine Mylessloot [id number] Charmaine Mylessloot Notes Date Note Type Note Provider Name and Address Organization Details Recorded Time 07/22/2023 text/html Here for [facility] [place] patient, couldn't get in to center office so here for follow up. Had URI at and still having symptoms.No cough.Sore throat, headache, fatigue, dizzy when standing too quickly. Jaclyn Magana NP [address], [place], [address], [employer] 07/22/2023 16:19:11 10/31/2023 text/html Pt. here for [facility] physical.She continues to have complaints of swelling in her feet, loss of hair and some dizziness.These have been chronic problems since she was hospitalized. JARED Major [address], [place], [address], [employer] 10/31/2023 09:10:15 06/26/2024 text/html Charmaine diaz is [...] neumonia: PCV13 and PPV23 completedMammogram: [facility] year ROOSEVELT Garcia [address] [facility], [facility] [address], [place], [address], [employer] [facility] [employer] 06/26/2024 11:48:26 08/28/2024 text/html Charmaine diaz is [...] while doing a lunge. ROOSEVELT Garcia [address], [facility] [address], [place], [address], [employer] 08/28/2024 11:43:08 01/11/2025 text/html Lost consciousne ss in [facility] in 01/07/25, she went to the ER but left before being seen. Since this episode she has been very light headed. States she just feels off. She has been hydrating and sleeping as much as possible. Notes that her back has been hurting more lately. No changes in medicine no changes to stool. ROSOEVELT Garcia [address], [facility] [address], [place], [address], [employer] [facility] [employer] 01/11/2025 10:11:03 OBGyn Episode No OBEpisode recorded.
--- OUTSIDE RECORDS SUMMARY | 2025-01-29 07:47 | XMS_ITS | Encounter Summary ---
Author Organization [facility] Address [address] [place] [address] Care Team Providers Care Bakery Supervisor Name Role Phone Unavailable Primary Care Provider Unavailabl e Encounter Details Date Type Department Care Team (Late st Contact Info) Description 08/27/2021 Lab Requisition [facility] [address] [place] [address] Godwin Guillen MD [address] [place] [address] [address] Social History Tobacco Use Types [...] - 14.7 Seconds 08/27/2021 9:52 AM CDT [facility] INR 2.2(H) 0.9 - 1.1 08/27/2021 9:52 AM CDT [facility] Blood Collection / Unknown 08/27/2021 5:30 AM CDT 08/27/2021 9:03 AM CDT us Godwin Guillen MD HEMATOLOGY ORDERABL ES Final Result [facility] CLIA# [id number] [place] [address] documented in this encounter Visit Diagnoses Not on filedocumented in this encounter
--- OUTSIDE RECORDS SUMMARY | 2025-01-29 07:47 | XMS_ITS | Encounter Summary ---
Author Organization [facility] Address [address] [place] [address] Care Team Providers Care Improvement Director Name Role Phone Unavailable Primary Care Provider Unavailabl e Encounter Details Date Type Department Care Team (Late st Contact Info) Description 09/03/2021 Lab Requisition [facility] Laboratory Services [address] [place] [phone] Godwin Guillen MD [address] [place] [address] [address] Social History Tobacco Use Types [...] Diagnosis Comments PROTIME-INR Routine 09/03/2021 2:47 AM BUSINESS MAIL ENTRY CLERK documented in this encounter Results * (ABNORMAL) PROTIME-INR (09/03/2021 2:47 AM BUSINESS MAIL ENTRY CLERK) PROTIME 23.5(H) 11.5 - 14.7 Seconds 09/03/2021 10:07 AM BUSINESS MAIL ENTRY CLERK [facility] SERVICES [facility] INR 2.1(H) 0.9 - 1.1 09/03/2021 10:07 AM BUSINESS MAIL ENTRY CLERK [facility] SERVICES [facility] Blood 09/03/2021 2:47 AM BUSINESS MAIL ENTRY CLERK 09/03/2021 9:47 AM BUSINESS MAIL ENTRY CLERK us Godwin Guillen MD HEMATOLOGY ORDERABL ES Final Result [facility] CLIA# [id number] [place] [address] documented in this encounter Visit Diagnoses Not on filedocumented in this encounter
--- OUTSIDE RECORDS SUMMARY | 2025-01-29 07:47 | XMS_ITS | Encounter Summary ---
Author Organization [facility] Address [address] [place] [address] Care Team Providers Care Reimbursement Auditor Name Role Phone Unavailable Primary Care Provider Unavailabl e Encounter Details Date Type Department Care Team (Late st Contact Info) Description 08/29/2021 Lab Requisition [facility] Laboratory Services [address] [place] [phone] Godwin Guillen MD [address] [place] [address] [address] Social History Tobacco Use Types [...] - 14.7 Seconds 08/29/2021 12:16 PM CDT [facility]ORAT[facility] SERVICES [facility] INR 2.3(H) 0.9 - 1.1 08/29/2021 12:16 PM CDT [facility] Blood Collection / Unknown 08/29/2021 6:00 AM CDT 08/29/2021 11:00 AM CDT us Godwin Guillen MD HEMATOLOGY ORDERABL ES Final Result [facility] CLIA# [id number] [place] [address] documented in this encounter Visit Diagnoses Not on filedocumented in this encounter
--- OUTSIDE RECORDS SUMMARY | 2025-01-29 07:47 | XMS_ITS | Encounter Summary ---
Author Organization [facility] Address [address] [place] [address] Care Team Providers Care Founder And Chief Executive Officer Name Role Phone Unavailable Primary Care Provider Unavailabl e Encounter Details Date Type Department Care Team (Late st Contact Info) Description 08/31/2021 Lab Requisition [facility] Laboratory Services [address] [place] [phone] Godwin Guillen MD [address] [place] [address] [address] Social History Tobacco Use Types [...] Diagnosis Comments PROTIME-INR Routine 08/31/2021 3:45 AM PROGRAMMING EQUIPMENT OPERATOR documented in this encounter Results * (ABNORMAL) PROTIME-INR (08/31/2021 3:45 AM PROGRAMMING EQUIPMENT OPERATOR) PROTIME 22.4(H) 11.5 - 14.7 Seconds 08/31/2021 6:16 AM PROGRAMMING EQUIPMENT OPERATOR [facility] LABORATORY SERVICES [facility] INR 2.0(H) 0.9 - 1.1 08/31/2021 6:16 AM PROGRAMMING EQUIPMENT OPERATOR [facility]ORY SERVICES [facility] Blood 08/31/2021 3:45 AM PROGRAMMING EQUIPMENT OPERATOR 08/31/2021 5:17 AM PROGRAMMING EQUIPMENT OPERATOR us Godwin Guillen MD HEMATOLOGY ORDERABL ES Final Result [facility] SERVICES [facility] CLIA# [id number] [address] [place] [address] documented in this encounter Visit Diagnoses Not on filedocumented in this encounter
== END 2025-01-29 07:42 | disposition home or self-care (01) ==
LOC: ANHIMG 07:43
DX: M17.12 Unilateral primary osteoarthritis, left knee (principal); M25.561 Pain in right knee; E04.1 Nontoxic single thyroid nodule
CPT/HCPCS: 73562; 76536